=== PATIENT | female | born 1950 | race Caucasian/White ===

== ENCOUNTER → 2016-08-16 | Outpatient (CLI) | payer BC ==
[~2016-08-16] MED LIST: ACET-1222 PO; ASMIN/60 INH; ASPI-461 PO; ATOR-22 PO; ATV1 PO; AZAT50TA5 PO; BUSP-8 PO; CALC-20; CHOL20009; CYAN100T6 PO; DESV50TA PO; DOCU100C PO; DOXE50CA3 PO; GEMF600T PO; GLC/500 PO; GLIP-197 PO; HYDR-4332 PO; LEVO75TA PO; LISI5TAB PO; LUBI8CAP4 PO; METF500T PO; MULTTAB58 PO; OMEP20TA PO; QUET300T2 PO; RANI300T2 PO; RMCI IV; TOPI200T6 PO
[2016-08-16 12:05] LABS: BASO % 1.1 %; BASO ABS # 0.06 K/uL (0-0.2); COMPLETE YES; EOS % 3.9 %; HEMATOCRIT 35.8 % (37-47); IG% 0.6 %; LYMPH % 24.4 %; MEAN CELL VOLUME 83.4 fL (80-100); MEAN CORPUSCULAR HEMOGLOBIN 26.1 pg (25-34); MEAN CORPUSCULAR HGB CONC 31.3 g/dl (32-36); MEAN PLATELET VOLUME 11.4 fL (7.4-10.4); MONO % 15.2 %; NEUT % 54.8 %; PLATELET COUNT 300 K/uL (130-400); RED BLOOD COUNT 4.29 M/uL (4.2-5.4); WHITE BLOOD COUNT 5.32 K/uL (4.8-10.8)
[2016-08-16 12:23] LABS: ALB/GLOB RATIO 0.8 (0.9-2); ALKALINE PHOSPHATASE 148 U/L (45-117); ALT/SGPT 14 U/L (12-78); AST/SGOT 8 U/L (15-37); BLOOD UREA NITROGEN 22 mg/dl (7-18); BUN/CREATININE RATIO 15.4 (10-20); CALCIUM 10.3 mg/dl (8.5-10.1); CARBON DIOXIDE 17 mmol/L (21-32); CHLORIDE 113 mmol/L (98-107); CHOLESTEROL 177 mg/dl (0-200); FERRITIN 5.9 ng/ml (8.0-388.0); GLUCOSE 156 mg/dl (70-99); POTASSIUM 4.1 mmol/L (3.5-5.1); SODIUM 140 mmol/L (136-145); TRIGLYCERIDES 260 mg/dl (0-150); VERY LOW DENSITY LIPOPROT CALC 52 mg/dl
[2016-08-16 12:28] LABS: CHOLESTEROL/HDL RATIO 4.5; HDL CHOLESTEROL 39 mg/dl; LDL CHOLESTEROL CALCULATED 86 mg/dl
[2016-08-16 12:49] LABS: ESTIMATED AVERAGE GLUCOSE 148 mg/dl; HA1C FLAG Normal (Normal)
== END | disposition home or self-care (01) ==
LOC: C.LAB1850 09:59
PROVIDERS: ATTEND Internal Medicine
DX: E03.9 Hypothyroidism, unspecified (principal); E11.9 Type 2 diabetes mellitus without complications; D64.9 Anemia, unspecified

== ENCOUNTER → 2016-10-29 | Outpatient (CLI) | payer BC ==
[2016-10-29 13:17] LABS: HEMATOCRIT 36.6 % (37-47); MEAN CELL VOLUME 86.9 fL (80-100); MEAN CORPUSCULAR HEMOGLOBIN 27.6 pg (25-34); MEAN CORPUSCULAR HGB CONC 31.7 g/dl (32-36); MEAN PLATELET VOLUME 11.7 fL (7.4-10.4); PLATELET COUNT 329 K/uL (130-400); RED BLOOD COUNT 4.21 M/uL (4.2-5.4)
[2016-10-29 14:18] LABS: BLOOD UREA NITROGEN 17 mg/dl (7-18); BUN/CREATININE RATIO 14.5 (10-20); CALCIUM 10.1 mg/dl (8.5-10.1); CARBON DIOXIDE 19 mmol/L (21-32); CHLORIDE 112 mmol/L (98-107); GLUCOSE 145 mg/dl (70-99); POTASSIUM 4.2 mmol/L (3.5-5.1); SODIUM 140 mmol/L (136-145)
[2016-10-29 14:25] LABS: FERRITIN 6.5 ng/ml (8.0-388.0); TOTAL IRON BINDING CAPACITY 473 mcg/dl (250-450)
== END | disposition home or self-care (01) ==
LOC: C.LAB1850 11:43
PROVIDERS: ATTEND Internal Medicine
DX: K50.90 Crohn's disease, unspecified, without complications (principal); E11.9 Type 2 diabetes mellitus without complications

== ENCOUNTER → 2016-10-29 | Outpatient (CLI) | payer BC | END | disposition home or self-care (01) | LOC: C.MAMM 11:14 | PROVIDERS: ATTEND Registered Nurse | DX: M85.852 Other specified disorders of bone density and structure, left thigh (principal); M85.851 Other specified disorders of bone density and structure, right thigh; M85.832 Other specified disorders of bone density and structure, left forearm; K50.90 Crohn's disease, unspecified, without complications; E11.9 Type 2 diabetes mellitus without complications ==

== ENCOUNTER → 2017-01-31 | Outpatient (CLI) | payer BC ==
--- NOTE | 2017-01-31 12:57 | MAMMOGRAPHY REPORT ---
BILATERAL DIGITAL SCREENING MAMMOGRAM WITH CAD: 01/31/2017 TECHNIQUE: Current study was also evaluated with a Computer Aided Detection (CAD) system. Bilateral CC and MLO views were obtained. COMPARISON: Comparison is made to exams dated: 12/14/2015 mammogram, 10/10/2014 mammogram, 10/07/2013 mammogram, 10/02/2012 mammogram, 03/21/2011 mammogram, and 03/17/2009 mammogram - [facility] enter. BREAST COMPOSITION: There are scattered areas of fibroglandular density in both breasts. FINDINGS: No suspicious masses, calcifications, or areas of architectural distortion are noted in ei ther breast. There has been no significant interval change compared to prior exams. IMPRESSION: ACR BI-RADS CATEGORY 1: NEGATIVE There is no mammographic evidence of malignancy. A 1 year screening mammogram is recommended. The pa tient will receive written notification of the results. Approximately 10% of breast cancers are not detected with mammography. A negative mammographic report should not delay biopsy if a clinically suggestive mass is present. Mercedes Mesa M.D. ah/:01/31/2017 12:21:30 [place] Setter: Vidya PATRICK(Quiana)(M), [facility] letter sent: Normal 1/2 BI-RADS Code: ACR BI-RADS Category 1: Negative
== END | disposition home or self-care (01) ==
LOC: C.MAMM 11:21
PROVIDERS: ATTEND Internal Medicine
DX: Z12.31 Encounter for screening mammogram for malignant neoplasm of breast (principal)

== ENCOUNTER → 2017-04-24 | Outpatient (CLI) | payer BC ==
[~2017-04-24] MED LIST changes: +AZAT50TA33 PO; -AZAT50TA5 PO
[2017-04-24 12:39] LABS: BASO % 0.6 %; BASO ABS # 0.03 K/uL (0-0.2); EOS % 5.9 %; HEMOGLOBIN 11.7 g/dL (12.0-16.0); IG# 0.04 K/uL (0.00-0.02); LYMPH % 27.6 %; LYMPH ABS # 1.41 K/uL (1.2-3.4); MEAN CELL VOLUME 89.8 fL (80-100); MEAN CORPUSCULAR HEMOGLOBIN 28.4 pg (25-34); MEAN CORPUSCULAR HGB CONC 31.6 g/dl (32-36); MEAN PLATELET VOLUME 11.1 fL (7.4-10.4); MONO % 12.5 %; MONO ABS # 0.64 K/uL (0.11-0.59); NEUT % 52.6 %; NEUT ABS # 2.69 K/uL (1.4-6.5); PLATELET COUNT 276 K/uL (130-400); RED CELL DISTRIBUTION WIDTH CV 16.4 % (11.5-14.5); RED CELL DISTRIBUTION WIDTH SD 53.8 fL (36.4-46.3); WHITE BLOOD COUNT 5.11 K/uL (4.8-10.8)
[2017-04-24 14:32] LABS: ALT/SGPT 16 U/L (12-78); AST/SGOT 12 U/L (15-37); BLOOD UREA NITROGEN 24 mg/dl (7-18); CALCIUM 9.5 mg/dl (8.5-10.1); CARBON DIOXIDE 20 mmol/L (21-32); CHOLESTEROL 174 mg/dl (0-200); CREATININE 1.34 mg/dl (0.60-1.20); GLUCOSE 152 mg/dl (70-99); POTASSIUM 4.1 mmol/L (3.5-5.1); SODIUM 139 mmol/L (136-145)
[2017-04-24 14:50] LABS: LDL CHOLESTEROL CALCULATED 92 mg/dl
[2017-04-28 10:50] LABS: QUANTIF MITOGEN-NIL 7.49 IU/ML; QUANTIFERON NEGATIVE (NEGATIVE); QUANTIFERON NIL 0.03 IU/ML
== END | disposition home or self-care (01) ==
LOC: C.LABPBG 10:45
PROVIDERS: ATTEND Internal Medicine
DX: E11.9 Type 2 diabetes mellitus without complications (principal); K50.90 Crohn's disease, unspecified, without complications; D64.9 Anemia, unspecified; E78.5 Hyperlipidemia, unspecified; E53.8 Deficiency of other specified B group vitamins; E55.9 Vitamin D deficiency, unspecified; E03.9 Hypothyroidism, unspecified; R42 Dizziness and giddiness; Z11.59 Encounter for screening for other viral diseases

== ENCOUNTER → 2017-06-30 | Outpatient (CLI) | payer BC ==
[~2017-06-30] MED LIST changes: -ASMIN/60 INH; -DOCU100C PO; +FERR1TAB13 PO; +FIBER PO; -HYDR-4332 PO; +MECL1TAB42 PO; +MELO-84 PO; +METH-1305 PO; -RMCI IV; +SUMA100T16 PO; +VEDO1INJ IV
[2017-06-30 14:44] LABS: BASO % 0.8 %; BASO ABS # 0.05 K/uL (0-0.2); EOS % 2.7 %; EOS ABS # 0.16 K/uL (0-0.5); HEMATOCRIT 39.3 % (37-47); HEMOGLOBIN 13.1 g/dL (12.0-16.0); IG# 0.06 K/uL (0.00-0.02); LYMPH % 23.4 %; LYMPH ABS # 1.39 K/uL (1.2-3.4); MEAN CELL VOLUME 91.8 fL (80-100); MEAN CORPUSCULAR HEMOGLOBIN 30.6 pg (25-34); MEAN CORPUSCULAR HGB CONC 33.3 g/dl (32-36); MEAN PLATELET VOLUME 10.9 fL (7.4-10.4); MONO ABS # 0.89 K/uL (0.11-0.59); NEUT % 57.1 %; NEUT ABS # 3.39 K/uL (1.4-6.5); PLATELET COUNT 310 K/uL (130-400); RED CELL DISTRIBUTION WIDTH CV 15.1 % (11.5-14.5); RED CELL DISTRIBUTION WIDTH SD 50.7 fL (36.4-46.3); WHITE BLOOD COUNT 5.94 K/uL (4.8-10.8)
[2017-06-30 14:52] LABS: BLOOD UREA NITROGEN 19 mg/dl (7-18); CALCIUM 9.8 mg/dl (8.5-10.1); CARBON DIOXIDE 20 mmol/L (21-32); CREATININE 1.28 mg/dl (0.60-1.20); GLUCOSE 136 mg/dl (70-99); LIPASE 218 U/L (73-393); POTASSIUM 4.4 mmol/L (3.5-5.1); SODIUM 139 mmol/L (136-145)
[2017-07-02 14:35] LABS: QUANTIF MITOGEN-NIL 8.33 IU/ML; QUANTIFERON NEGATIVE (NEGATIVE); QUANTIFERON NIL 0.03 IU/ML
== END | disposition home or self-care (01) ==
LOC: C.LAB1850 12:37
PROVIDERS: ATTEND Physician Assistant
DX: K50.90 Crohn's disease, unspecified, without complications (principal); E03.9 Hypothyroidism, unspecified; D64.9 Anemia, unspecified

== ENCOUNTER → 2017-07-07 | Day surgery (SDC) | payer BC, OTHER ==
[2017-06-25 16:00] VITALS: BMI 33.0
[~2017-07-07] VITALS: Ht 162.6 cm; Wt 88.2 kg
[~2017-07-07] MED LIST changes: +LIDOCAINE HCL 2% 2 ML VIAL (20MG/ML) ONE; +PROPOFOL IV EMULSION 10 MG/ML 20 ML VIAL ONE; +SODIUM CHLORIDE 0.9% 500ML 500 ML IV ONE
--- NOTE | 2017-07-07 12:55 | Endo History and Physical ---
History & Physical Date of Service: July 07, 2017. Chief Complaint: Dysphagia Referring Physician: Dr. Martinez History of Present Illness 67 yo CF who presents for EGD secondary to dysphagia. Past Medical History Diabetes, Asthma, Gastrointestinal Disorder, Anxiety, Reflux, High Cholesterol, Sleep Apnea, Hypertension, Thyroid Disease, Depression Past Surgical History Hx Cardiac Surgery: No Hx Internal Defibrillator: No Hx Pacemaker: No Hx Abdominal Surgery: Yes (HYSTER) Hx of Implantable Prosthesis: No Hx Post-Op Nausea and Vomiting: No Hx Cancer Surgery: No Hx Thoracic Surgery: No Hx Orthopedic: Yes (BLT KNEE ARTHROSCOPY, RT SHOULDER REPAIR, LT CTR, MID BACK SCREWS AND RODS ) Hx Urinary Tract Surgery: Yes (FISTULA SURGERY) Social History Smoking Status: Never Smoker Hx Substance Use: No Hx Alcohol Use: No Allergies Coded Allergies: Cephalosporins (Verified Allergy, Intermediate, HIVES, 06/25/17) Penicillins (Verified Allergy, Intermediate, HIVES, 06/25/17) Cephalexin (Verified Allergy, Unknown, HIVES, 06/25/17) Doxycycline (Verified Allergy, Unknown, GI UPSET, 06/25/17) Ciprofloxacin (Verified Adverse Reaction, Intermediate, NAUSEA AND VOMITING, 06/25/17) Infliximab (Verified Adverse Reaction, Intermediate, ITCHING, RASH, 06/25/17 ) PT BEGAN C/O ITCHING AROUND IV SITE AND RASH FORMING ON UPPER ABDOMEN,NO SOB DR'S OFFICE NOTIFIED, INSTRUCTED TO HOLD IV INFUSION, REASSESS IN 15 MINS AND IN 30 MINS, THEN CALL BACK, ORDERS OBTAIN IF REACTION INCREASED Supported Current Medications Reported Home Medications Medications Dose Route/Sig Max Daily Dose Days Date Category Dose Instructions Fiber Laxative (Fiber) Ea 2 Tabs PO DAILY 06/25/17 Reported Imitrex (Sumatriptan Succinate) 100 Mg Tab 100 Mg PO PRN PRN 06/25/17 Reported Mobic (Meloxicam) 15 Mg Tab 1 Tab PO DAILY 30 06/25/17 Reported Meclizine Hcl 25 Mg Tab 1 Tab PO TID PRN 10 06/25/17 Reported Kp Ferrous Sulfate (Ferrous Sulfate) 325 Mg Tab 1 Tab PO DAILY 30 06/25/17 Reported Methenamine Hippurate 1 Gm Tab 1 Tab PO QPM 06/25/17 Reported Entyvio (Vedolizumab) 300 Mg Inj 300 Mg IV Q8WK 06/25/17 Reported Lorazepam 1 Mg Tab 1 Mg PO Q6H PRN 10/15/15 Rx Pristiq (Desvenlafaxine Succinate) 50 Mg Tab 100 Mg PO QAM 09/20/15 Reported Amitiza (Lubiprostone) 8 Mcg Cap 16 Mcg PO BID 09/20/15 Reported Vitamin B12 100 Mcg (Cyanocobalamin) 100 Mcg Tab 100 Mcg PO QAM 09/20/15 Reported Seroquel Xr (Quetiapine Fumarate) 300 Mg Tabcr 400 Mg PO HS 03/07/15 Reported Sinequan (Doxepin HCl) 50 Mg Cap 100 Mg PO HS 03/07/15 Reported Synthroid (Levothyroxine Sodium) 75 Mcg Tab 75 Mcg PO QAM 11/15/14 Reported Aspirin 81 Mg Tab 1 Tab PO QAM 11/15/14 Reported Buspirone Hcl 10 Mg Tab 2 Tab PO TID 11/15/14 Reported Glipizide Er (Glipizide) 5 Mg Tab 2 Tab PO QPM 30 10/10/14 Reported Acetaminophen Extra Stren (Acetaminophen) 500 Mg Tab 500 Mg PO Q4 PRN 12/02/12 Reported Zantac (Ranitidine HCl) 300 Mg Tab 300 Mg PO HS 12/02/12 Reported Glucophage (Metformin Hcl) 500 Mg Tab 500 Mg PO QPM 12/02/12 Reported Vitamin D (Cholecalciferol) 2,000 Unit Tab QAM 10/07/12 Reported Multivitamin (Multiple Vitamin) 1 Tab Tab 1 Tab PO QAM 10/07/12 Reported Calcium 600 + D (Calcium Carbonate-Vitamin D) 1 Tab Tab 2 Tablets QPM 10/07/12 Reported Imuran (Azathioprine) 50 Mg Tab 75 Mg PO QAM 10/07/12 Reported Prinivil (Lisinopril) 5 Mg Tab 5 Mg PO QAM 10/07/12 Reported Omeprazole 20 Mg Tab 40 Mg PO QAM 10/07/12 Reported Topamax (Topiramate) 200 Mg Tab 200 Mg PO BID 10/07/12 Reported Lipitor (Atorvastatin Calcium) 20 Mg Tab 20 Mg PO HS 10/07/12 Reported Lopid (Gemfibrozil) 600 Mg Tab 600 Mg PO BID 10/07/12 Reported Glipizide Er (Glipizide) 5 Mg Tab 5 Mg PO QAM 10/07/12 Reported Glucophage (Metformin Hcl) 500 Mg Tab 1,000 Mg PO QAM 10/07/12 Reported takes 2 tablets am Vital Signs Weight (Kilograms): 88.18 Height (Feet): 5 Height (Inches): 4 Physical Exam General Appearance: WD/WN, no apparent distress Respiratory/Chest: Auscultation: breath sounds normal Cardiovascular: Heart Auscultation: RRR Abdomen: Bowel Sounds: normal Inspection & Palpation: soft, non-distended, no tenderness, guarding & rebound Assessment and Plan Assessment: 67 yo CF who presents for EGD secondary to dysphagia. Plan: Proceed with EGD.
[2017-07-07 13:03] VITALS: Ht 162.6 cm; Wt 88.2 kg
--- NOTE | 2017-07-07 13:59 | Discharge Instructions ---
Endoscopy Patient Instructions Date / Procedure(s) Performed July 07, 2017. EGD Allergy Information Coded Allergies: Cephalosporins (Verified Allergy, Intermediate, HIVES, 07/07/17) Penicillins (Verified Allergy, Intermediate, HIVES, 07/07/17) Cephalexin (Verified Allergy, Unknown, HIVES, 07/07/17) Doxycycline (Verified Allergy, Unknown, GI UPSET, 07/07/17) Ciprofloxacin (Verified Adverse Reaction, Intermediate, NAUSEA AND VOMITING, 07/07/17) Infliximab (Verified Adverse Reaction, Intermediate, ITCHING, RASH, ) PT BEGAN C/O ITCHING AROUND IV SITE AND RASH FORMING ON UPPER ABDOMEN,NO SOB DR'S OFFICE NOTIFIED, INSTRUCTED TO HOLD IV INFUSION, REASSESS IN 15 MINS AND IN 30 MINS, THEN CALL BACK, ORDERS OBTAIN IF REACTION INCREASED Supported Discharge Date / Findings July 07, 2017. Schatzki's ring s/p dilation Hiatal hernia Gay esophagitis Medication Instructions 1) Start Diflucan 400mg by mouth today, then 200mg by mouth daily for 20 days. 2) OK to resume all medications today as prescribed Reported Home Medications Medications Dose Route/Sig Max Daily Dose Days Date Category Dose Instructions Fiber Laxative (Fiber) Ea 2 Tabs PO DAILY 06/25/17 Reported Imitrex (Sumatriptan Succinate) 100 Mg Tab 100 Mg PO PRN PRN 06/25/17 Reported Mobic (Meloxicam) 15 Mg Tab 1 Tab PO DAILY 30 06/25/17 Reported Meclizine Hcl 25 Mg Tab 1 Tab PO TID PRN 10 06/25/17 Reported Kp Ferrous Sulfate (Ferrous Sulfate) 325 Mg Tab 1 Tab PO DAILY 30 06/25/17 Reported Methenamine Hippurate 1 Gm Tab 1 Tab PO QPM 06/25/17 Reported Entyvio (Vedolizumab) 300 Mg Inj 300 Mg IV Q8WK 06/25/17 Reported Lorazepam 1 Mg Tab 1 Mg PO Q6H PRN 10/15/15 Rx Pristiq (Desvenlafaxine Succinate) 50 Mg Tab 100 Mg PO QAM 09/20/15 Reported Amitiza (Lubiprostone) 8 Mcg Cap 16 Mcg PO BID 09/20/15 Reported Vitamin B12 100 Mcg (Cyanocobalamin) 100 Mcg Tab 100 Mcg PO QAM 09/20/15 Reported Seroquel Xr (Quetiapine Fumarate) 300 Mg Tabcr 400 Mg PO HS 03/07/15 Reported Sinequan (Doxepin HCl) 50 Mg Cap 100 Mg PO HS 03/07/15 Reported Synthroid (Levothyroxine Sodium) 75 Mcg Tab 75 Mcg PO QAM 11/15/14 Reported Aspirin 81 Mg Tab 1 Tab PO QAM 11/15/14 Reported Buspirone Hcl 10 Mg Tab 2 Tab PO TID 11/15/14 Reported Glipizide Er (Glipizide) 5 Mg Tab 2 Tab PO QPM 30 10/10/14 Reported Acetaminophen Extra Stren (Acetaminophen) 500 Mg Tab 500 Mg PO Q4 PRN 12/02/12 Reported Zantac (Ranitidine HCl) 300 Mg Tab 300 Mg PO HS 12/02/12 Reported Glucophage (Metformin Hcl) 500 Mg Tab 500 Mg PO QPM 12/02/12 Reported Vitamin D (Cholecalciferol) 2,000 Unit Tab QAM 10/07/12 Reported Multivitamin (Multiple Vitamin) 1 Tab Tab 1 Tab PO QAM 10/07/12 Reported Calcium 600 + D (Calcium Carbonate-Vitamin D) 1 Tab Tab 2 Tablets QPM 10/07/12 Reported Imuran (Azathioprine) 50 Mg Tab 75 Mg PO QAM 10/07/12 Reported Prinivil (Lisinopril) 5 Mg Tab 5 Mg PO QAM 10/07/12 Reported Omeprazole 20 Mg Tab 40 Mg PO QAM 10/07/12 Reported Topamax (Topiramate) 200 Mg Tab 200 Mg PO BID 10/07/12 Reported Lipitor (Atorvastatin Calcium) 20 Mg Tab 20 Mg PO HS 10/07/12 Reported Lopid (Gemfibrozil) 600 Mg Tab 600 Mg PO BID 10/07/12 Reported Glipizide Er (Glipizide) 5 Mg Tab 5 Mg PO QAM 10/07/12 Reported Glucophage (Metformin Hcl) 500 Mg Tab 1,000 Mg PO QAM 10/07/12 Reported takes 2 tablets am Provider Instructions Activity Restrictions - No exercising or heavy lifting for 24 hours. - Do not drink alcohol the day of the procedure. - Do not drive a car or operate machinery until the day after the procedure. - Do not make any important decisions or sign important papers in 24 hours after the procedure. Following Day: - Return to full activity which may include returning to work/school. Diet Start your diet with liquids and light foods (jello, soup, juice, toast). Then eat your usual diet if not nauseated. Treatment For Common After Affects For mild abdominal pain, bloating, or excessive gas: - Rest - Eat lightly - Lie on right side Follow-Up Information Follow-up with Dr. Martinez as scheduled Anesthesia Information What You Should Know You have had a procedure that required some medicine to reduce anxiety and discomfort. This treatment is called moderate sedation. After receiving the treatment, you may be sleepy, but you will be able to breathe on your own. The effects of the treatment may last for several hours. Follow these instructions along with Activity/Diet recommendations noted above: * Do NOT do anything where dizziness or clumsiness would be dangerous. * Rest quietly at home today, then you can be up and about tomorrow. * Have a responsible person stay with you the rest of today. * You may have had an I.V. today. If so, you may take the dressing off later today. Recommendations Call your doctor if: * Trouble breathing * Continuous vomiting for more than 24 hours * Temperature above 101 degrees * Severe abdominal pain or bloating * Pain not relieved by pain medicine ordered * There is increased drainage or redness from any incision * A large amount of rectal bleeding greater than 2-3 tablespoons. (If you had a polyp/s removed or have hemorrhoids, a small amount of blood - from the rectum is to be expected.) * You have any unanswered questions or concerns. IN THE EVENT OF A SERIOUS EMERGENCY, GO TO THE NEAREST EMERGENCY ROOM Your discharge instructions were prepared by provider Nathen Og. Patient Instructions Signature Page Shana Cabrera Patient (or Guardian) Signature/Date: I have read and understand the instructions given to me by my caregivers. Caregiver/RN/Doctor Signature/Date: The above-named patient and/or guardian has received patient instructions on this date. + Original Patient Signature Page (only) stays with chart. Please make copy for patient.
--- NOTE | 2017-07-07 14:12 | GI REPORT ---
Patient Name: Shana Cabrera Procedure Date: 07/07/2017 1:35 PM Date of : 1950 Admit Type: Outpatient Age: 67 Gender: Female Attending MD: Nathen Og DO Procedure: Upper GI endoscopy Providers: Nathen Og DO Referring MD: Ashley Mensah Indications: Dysphagia Medicines: Monitored Anesthesia Care Complications: No immediate complications. Estimated Blood Loss: Estimated blood loss: none. Procedure: Pre-Anesthesia Assessment: - Prior to the procedure, a History and Physical was performed, and patient medications and allergies were reviewed. The patient's tolerance of previous anesthesia was also reviewed. The risks and benefits of the procedure and the sedation options and risks were discussed with the patient. All questions were answered, and informed consent was obtained. Prior Anticoagulants: The patient has taken aspirin, last dose was 2 days prior to procedure. ASA Grade Assessment: III - A patient with severe systemic disease. After reviewing the risks and benefits, the patient was deemed in satisfactory condition to undergo the procedure. After obtaining informed consent, the endoscope was passed under direct vision. Throughout the procedure, the patient's blood pressure, pulse, and oxygen saturations were monitored continuously. The scope was introduced through the mouth, and advanced to the second part of duodenum. The upper GI endoscopy was accomplished without difficulty. The patient tolerated the procedure well. Findings: A moderate Schatzki ring (acquired) was found at the gastroesophageal junction. A TTS dilator was passed through the scope. Dilation with an 18-19-20 mm balloon dilator was performed to 20 mm. Patchy candidiasis was found in the entire esophagus. Cells for cytology were obtained by brushing. A medium-sized hiatal hernia was present. Impression: - Moderate Schatzki ring. Dilated. - Monilial esophagitis. Cells for cytology obtained. - Medium-sized hiatal hernia. Recommendation: - Resume previous diet. - Continue present medications. - Start Diflucan 400 mg by mouth today, then 200 mg by mouth daily for 20 days. - Await pathology results from esophageal brushings. - Return to primary care physician as previously scheduled. Nathen Og DO 07/07/2017 2:12:03 PM This report has been signed electronically. Note Initiated On: 07/07/2017 1:35 PM Number of Addenda: 0 I attest to the content of the Intraoperative Record and orders documented therein, exceptions below {[id number]}
--- NOTE | 2017-07-07 14:26 | Anesthesiology Progress Note ---
Anesthesia Post Op Note Date & Time July 07, 2017 at 14:26 Vital Signs Pain Intensity: 0 Vital Signs Past 12 Hours Date Time Temp Pulse Resp B/P (MAP) Pulse Ox O2 Delivery O2 Flow Rate FiO2 07/07/17 14:15 76 18 139/70 (93) 94 Room Air 07/07/17 13:50 74 20 117/66 (83) 92 Room Air 07/07/17 13:10 36.4 82 20 140/65 (90) 93 Room Air Notes Mental Status: alert / awake / arousable, participated in evaluation Pt Amnestic to Procedure: Yes Nausea / Vomiting: adequately controlled Pain: adequately controlled Airway Patency, RR, SpO2: stable & adequate BP & HR: stable & adequate Hydration State: stable & adequate Anesthetic Complications: no major complications apparent
[2017-07-07 14:32] VITALS: BP 130/76; PULSE 75; O2SAT 93
== END | disposition home or self-care (01) ==
LOC: C.GI 12:27
PROVIDERS: ATTEND Internal Medicine
DX: R13.10 Dysphagia, unspecified (principal); K22.2 Esophageal obstruction; K44.9 Diaphragmatic hernia without obstruction or gangrene; B37.81 Candidal esophagitis; E11.9 Type 2 diabetes mellitus without complications; J45.909 Unspecified asthma, uncomplicated; F41.9 Anxiety disorder, unspecified; E78.5 Hyperlipidemia, unspecified; K21.9 Gastro-esophageal reflux disease without esophagitis; E78.00 Pure hypercholesterolemia, unspecified; G47.33 Obstructive sleep apnea (adult) (pediatric); I10 Essential (primary) hypertension; F32.9 Major depressive disorder, single episode, unspecified; E07.9 Disorder of thyroid, unspecified; Z88.0 Allergy status to penicillin; Z88.2 Allergy status to sulfonamides; Z88.1 Allergy status to other antibiotic agents; Z79.84 Long term (current) use of oral hypoglycemic drugs; Z79.899 Other long term (current) drug therapy

== ENCOUNTER → 2017-09-11 | Outpatient (CLI) | payer BC ==
[~2017-09-11] MED LIST changes: +ATV/1 PO; -ATV1 PO; -LIDOCAINE HCL 2% 2 ML VIAL (20MG/ML) ONE; -PROPOFOL IV EMULSION 10 MG/ML 20 ML VIAL ONE; -SODIUM CHLORIDE 0.9% 500ML 500 ML IV ONE
[2017-09-11 12:29] LABS: HEMATOCRIT 39.5 % (37-47); MEAN CELL VOLUME 92.7 fL (80-100); MEAN CORPUSCULAR HEMOGLOBIN 30.5 pg (25-34); MEAN CORPUSCULAR HGB CONC 32.9 g/dl (32-36); MEAN PLATELET VOLUME 11.2 fL (7.4-10.4); PLATELET COUNT 305 K/uL (130-400); RED CELL DISTRIBUTION WIDTH CV 14.5 % (11.5-14.5); RED CELL DISTRIBUTION WIDTH SD 49.1 fL (36.4-46.3); WHITE BLOOD COUNT 5.29 K/uL (4.8-10.8)
[2017-09-11 12:37] LABS: PTT PATIENT 23.6 SECONDS (21.0-31.0)
[2017-09-11 12:39] LABS: BLOOD UREA NITROGEN 19 mg/dl (7-18); CALCIUM 9.9 mg/dl (8.5-10.1); CARBON DIOXIDE 20 mmol/L (21-32); GLUCOSE 144 mg/dl (70-99); POTASSIUM 4.5 mmol/L (3.5-5.1); SODIUM 140 mmol/L (136-145)
[2017-09-11 13:00] LABS: BASO % 0.6 %; BASO ABS # 0.03 K/uL (0-0.2); EOS % 2.5 %; EOS ABS # 0.13 K/uL (0-0.5); IG# 0.03 K/uL (0.00-0.02); LYMPH % 22.9 %; LYMPH ABS # 1.21 K/uL (1.2-3.4); MONO % 14.2 %; MONO ABS # 0.75 K/uL (0.11-0.59); NEUT % 59.2 %; NEUT ABS # 3.14 K/uL (1.4-6.5)
== END | disposition home or self-care (01) ==
LOC: C.CPL 10:34
PROVIDERS: ATTEND Orthopaedic Surgery Orthopaedic Surgery of the Spine
DX: Z01.812 Encounter for preprocedural laboratory examination (principal)

== ENCOUNTER 2017-09-24 05:50 | Inpatient (IN) | payer BC, OTHER ==
[2017-09-08 08:20] VITALS: BMI 34.0
[2017-09-11 10:52] VITALS: BMI 33.0
--- NOTE | 2017-09-11 11:19 | PAT Medication Instructions ---
Service Date Sep 11, 2017. Current Home Medication List Acetaminophen (Acetaminophen Extra Stren), 500 MG PO Q4 PRN Aspirin (Aspirin), 1 TAB PO QAM Atorvastatin (Lipitor), 20 MG PO HS Azathioprine (Imuran), 75 MG PO QAM Buspirone Hcl (Buspirone Hcl), 2 TAB PO TID Calcium Carbonate-Vitamin D (Calcium 600 + D), 2 TABLETS QPM Cholecalciferol (Vitamin D), QAM Cyanocobalamin (Vitamin B12 100 Mcg), 100 MCG PO QAM Desvenlafaxine Succinate Er (Pristiq), 100 MG PO QAM Doxepin (Sinequan), 100 MG PO HS Ferrous Sulfate (Kp Ferrous Sulfate), 1 TAB PO DAILY Fiber Laxative (Fiber Laxative), 2 TABS PO DAILY Gemfibrozil (Lopid), 600 MG PO BID Glipizide (Glipizide Er), 5 MG PO QAM Glipizide (Glipizide Er), 2 TAB PO QPM Levothyroxine Sodium (Synthroid), 75 MCG PO QAM Lisinopril (Prinivil), 5 MG PO QAM Lorazepam (Ativan), 1 MG PO Q6H PRN for Anxiety Lubiprostone (Amitiza), 16 MCG PO BID Meclizine Hcl (Meclizine Hcl), 1 TAB PO TID PRN for Dizziness or Vertigo Meloxicam (Mobic), 1 TAB PO DAILY Metformin Hcl (Glucophage), 1,000 MG PO QAM Metformin Hcl (Glucophage), 500 MG PO QPM Methenamine Hippurate (Methenamine Hippurate), 1 TAB PO QPM Multiple Vitamin (Multivitamin), 1 TAB PO QAM Omeprazole (Omeprazole), 40 MG PO QAM Quetiapine Fumarate (Seroquel Xr), 400 MG PO HS Ranitidine (Zantac), 300 MG PO HS Sumatriptan Succinate (Imitrex), 100 MG PO PRN PRN for Migraine Topiramate (Topamax), 200 MG PO BID Vedolizumab (Entyvio), 300 MG IV Q8WK Medication Instructions For Your Scheduled Surgery -Check with your surgeon for instructions--if told to stop taking, check with prescriber: Azathioprine (Imuran), 75 MG PO QAM Vedolizumab (Entyvio), 300 MG IV Q8WK -Check with your surgeon Meloxicam (Mobic), 1 TAB PO DAILY - Hold the following medications 48 hours prior to surgery: Gemfibrozil (Lopid), 600 MG PO BID - Hold the following medications the morning of surgery: Cholecalciferol (Vitamin D), QAM Cyanocobalamin (Vitamin B12 100 Mcg), 100 MCG PO QAM Fiber Laxative (Fiber Laxative), 2 TABS PO DAILY Glipizide (Glipizide Er), 5 MG PO QAM Lisinopril (Prinivil), 5 MG PO QAM Lubiprostone (Amitiza), 16 MCG PO BID Metformin Hcl (Glucophage), 1,000 MG PO QAM Multiple Vitamin (Multivitamin), 1 TAB PO QAM - Take the following medications the morning of surgery with a sip of water: Acetaminophen (Acetaminophen Extra Stren), 500 MG PO Q4 PRN (if needed, may be taken up to four hours before surgery) Aspirin (Aspirin), 1 TAB PO QAM Buspirone Hcl (Buspirone Hcl), 2 TAB PO TID Desvenlafaxine Succinate Er (Pristiq), 100 MG PO QAM Levothyroxine Sodium (Synthroid), 75 MCG PO QAM Lorazepam (Ativan), 1 MG PO Q6H PRN for Anxiety (if needed) Meclizine Hcl (Meclizine Hcl), 1 TAB PO TID PRN for Dizziness or Vertigo (if needed) Omeprazole (Omeprazole), 40 MG PO QAM Sumatriptan Succinate (Imitrex), 100 MG PO PRN PRN for Migraine (if needed) Topiramate (Topamax), 200 MG PO BID - Take the following medications as scheduled the night before surgery: Acetaminophen (Acetaminophen Extra Stren), 500 MG PO Q4 PRN (if needed) Atorvastatin (Lipitor), 20 MG PO HS Buspirone Hcl (Buspirone Hcl), 2 TAB PO TID Calcium Carbonate-Vitamin D (Calcium 600 + D), 2 TABLETS QPM Doxepin (Sinequan), 100 MG PO HS Ferrous Sulfate (Kp Ferrous Sulfate), 1 TAB PO DAILY Glipizide (Glipizide Er), 2 TAB PO QPM Lorazepam (Ativan), 1 MG PO Q6H PRN for Anxiety (if needed) Lubiprostone (Amitiza), 16 MCG PO BID Meclizine Hcl (Meclizine Hcl), 1 TAB PO TID PRN for Dizziness or Vertigo (if needed) Metformin Hcl (Glucophage), 500 MG PO QPM Methenamine Hippurate (Methenamine Hippurate), 1 TAB PO QPM Quetiapine Fumarate (Seroquel Xr), 400 MG PO HS Ranitidine (Zantac), 300 MG PO HS Sumatriptan Succinate (Imitrex), 100 MG PO PRN PRN for Migraine (if needed) Topiramate (Topamax), 200 MG PO BID If you have any questions please call us at [phone] or [phone] or [phone]
[2017-09-24] VITALS (10 sets, daily range): BP systolic 109–153; BP diastolic 66–94; PULSE 67–91; TEMP 36.1–36.9; O2SAT 92–99; Ht 162.6 cm; Wt 86.8 kg
[~2017-09-24] VITALS: Ht 162.6 cm; Wt 86.8 kg
[2017-09-24] MEDS ORDERED: ACETAMINOPHEN 500 MG TAB PO SCH (06:00)
[2017-09-24] MEDS ORDERED: CLINDAMYCIN 600 MG/54 ML D5W 54 ML IV SCH (06:00)
[2017-09-24] MEDS ORDERED: CeleBREX 200 MG CAP PO SCH (06:00)
[2017-09-24] MEDS ORDERED: LACTATED RINGER'S 1000ML 1,000 ML IV SCH (06:00)
[2017-09-24] MEDS ORDERED: GABAPENTIN 300 MG CAP PO SCH (06:00)
[2017-09-24] MEDS ORDERED: ATROPINE SULFATE 0.1 MG/ML 5ML SYR IV PRN (06:45)
[2017-09-24] MEDS ORDERED: EpHEDrine SULFATE INJ 50 MG/ML AMP IV PRN (06:45)
[2017-09-24] MEDS ORDERED: ONDANSETRON INJ 2 MG/ML 2 ML VIAL IV PRN (06:45)
[2017-09-24] MEDS ORDERED: FENTANYL CITRATE INJ 50 MCG/1 ML 2 ML VIAL ONE ×3 (06:55→09:22)
[2017-09-24] MEDS ORDERED: MIDAZOLAM HCL 1 MG/ML 2ML VIAL ONE (06:55)
[2017-09-24] MEDS ORDERED: BACITRACIN 50000 UNIT VIAL ONE ×2 (07:01→09:47)
[2017-09-24] MEDS ORDERED: BUPIVACAINE/EPINEPHRINE 0.5% MPF 1:200,000 30 ML VIAL ONE (07:01)
--- NOTE | 2017-09-24 07:31 | History & Physical Bridge Note ---
H&P Re-Evaluation Bridge Note: I have examined the patient, reviewed the History & Physical and in the interval since the performance of the History & Physical I have noted the following changes of clinical significance: No changes noted
--- NOTE | 2017-09-24 07:32 | History and Physical ---
History & Physical Date Sep 24, 2017. Chief Complaint Back and leg pain History of Present Illness The patient is a 67 year old female with complaints of back and leg pain Past Medical/Surgical History Medical Problems: (1) Lumbar stenosis with neurogenic claudication Additional History Hepatic Disease: No Endocrine Disorder: No Kidney Disease: No Hypertension: Yes Heart Disease: No Bleeding Tendencies: No Infectious Diseases: No Other: Diabetes Allergies Coded Allergies: Cephalosporins (Verified Allergy, Intermediate, HIVES, 09/24/17) Penicillins (Verified Allergy, Intermediate, HIVES, 09/24/17) Cephalexin (Verified Allergy, Unknown, HIVES, 09/24/17) Doxycycline (Verified Allergy, Unknown, GI UPSET, 09/24/17) Ciprofloxacin (Verified Adverse Reaction, Intermediate, NAUSEA AND VOMITING, 09/24/17) Infliximab (Verified Adverse Reaction, Intermediate, ITCHING, RASH, 09/24/17 ) PT BEGAN C/O ITCHING AROUND IV SITE AND RASH FORMING ON UPPER ABDOMEN,NO SOB DR'S OFFICE NOTIFIED, INSTRUCTED TO HOLD IV INFUSION, REASSESS IN 15 MINS AND IN 30 MINS, THEN CALL BACK, ORDERS OBTAIN IF REACTION INCREASED Supported Home Medications Scheduled Aspirin (Aspirin), 1 TAB PO QAM Atorvastatin (Lipitor), 20 MG PO HS Azathioprine (Imuran), 75 MG PO QAM Buspirone Hcl (Buspirone Hcl), 2 TAB PO TID Calcium Carbonate-Vitamin D (Calcium 600 + D), 2 TABLETS QPM Cholecalciferol (Vitamin D), QAM Cyanocobalamin (Vitamin B12 100 Mcg), 100 MCG PO QAM Desvenlafaxine Succinate Er (Pristiq), 100 MG PO QAM Doxepin (Sinequan), 100 MG PO HS Ferrous Sulfate (Kp Ferrous Sulfate), 1 TAB PO DAILY Fiber Laxative (Fiber Laxative), 2 TABS PO DAILY Gemfibrozil (Lopid), 600 MG PO BID Glipizide (Glipizide Er), 5 MG PO QAM Glipizide (Glipizide Er), 2 TAB PO QPM Levothyroxine Sodium (Synthroid), 75 MCG PO QAM Lisinopril (Prinivil), 5 MG PO QAM Lubiprostone (Amitiza), 16 MCG PO BID Meloxicam (Mobic), 1 TAB PO DAILY Metformin Hcl (Glucophage), 1,000 MG PO QAM Metformin Hcl (Glucophage), 500 MG PO QPM Methenamine Hippurate (Methenamine Hippurate), 1 TAB PO QPM Multiple Vitamin (Multivitamin), 1 TAB PO QAM Omeprazole (Omeprazole), 40 MG PO QAM Quetiapine Fumarate (Seroquel Xr), 400 MG PO HS Ranitidine (Zantac), 300 MG PO HS Topiramate (Topamax), 200 MG PO BID Vedolizumab (Entyvio), 300 MG IV Q8WK Scheduled PRN Acetaminophen (Acetaminophen Extra Stren), 500 MG PO Q4 PRN Lorazepam (Ativan), 1 MG PO Q6H PRN for Anxiety Meclizine Hcl (Meclizine Hcl), 1 TAB PO TID PRN for Dizziness or Vertigo Sumatriptan Succinate (Imitrex), 100 MG PO PRN PRN for Migraine Physical Examination Skin: warm/dry, no rash Eyes: normal inspection, EOMI, sclerae normal ENT: normal ENT inspection, pharynx normal Head: normocephalic, atraumatic Neck: supple, no adenopathy, trachea midline Respiratory/Chest: lungs clear, normal breath sounds, no respiratory distress Cardiovascular: regular rate, rhythm, no edema, no murmur Abdomen / GI: normal bowel sounds, non tender Back: normal inspection Extremities: normal inspection, normal range of motion Neurologic/Psych: no motor/sensory deficits, alert, normal reflexes, oriented x 3 Diagnosis Lumbar spinal stenosis Plan of Treatment Removal of hardware L2 screws decompression L1-2 fusion T11-L3
[2017-09-24] MEDS ORDERED: HYDROmorphone INJ 2 MG/ML SYR/VIAL ONE ×2 (08:10→09:22)
[2017-09-24] MEDS ORDERED: BUPIVACAINE 0.5 % 5 MG/1 ML PF 10ML VIAL ONE (08:14)
[2017-09-24] MEDS ORDERED: SODIUM CHLORIDE 0.9% PF 50 ML VIAL ONE (08:14)
[2017-09-24] MEDS ORDERED: BUPIVACAINE LIPOSOME 1/3% 266 MG/20 ML VIAL ONE (08:14)
[2017-09-24] MEDS ORDERED: DEXAMETHASONE SOD INJ 4 MG/ML VIAL ONE (09:37)
[2017-09-24] MEDS ORDERED: LIDOCAINE HCL 2% 2 ML VIAL (20MG/ML) ONE (09:37)
[2017-09-24] MEDS ORDERED: ONDANSETRON INJ 2 MG/ML 2 ML VIAL ONE (09:37)
[2017-09-24] MEDS ORDERED: EpHEDrine SULFATE 50MG/5ML SYR ONE (09:37)
[2017-09-24] MEDS ORDERED: PROPOFOL IV EMULSION 10 MG/ML 20 ML VIAL ONE (09:37)
[2017-09-24] MEDS ORDERED: ROCURONIUM BROMIDE 10 MG/ML 5 ML VIAL ONE (09:37)
--- NOTE | 2017-09-24 09:56 | [facility] Operative Report ---
Operative Report Operative Date Sep 24, 2017. Pre-Operative Diagnosis Lumbar spinal stenosis Post-Operative Diagnosis Lumbar spinal stenosis Procedure(s) Performed 1. Removal of posterior instrumentation connector and screw L2. #2 exploration of fusion L2-3. #3 lumbar decompression medial facetectomies foraminotomies T12-L1 L1 to. #4 posterior spinal fusion T11-L3. #5 placement posterior segmental instrumentation T11-L2. #6 interbody fusion L1 to. #7 placement peek cage 9 x 22 mm L1 to. #8 placement of local autograft in the posterior lateral gutters. #9 placement of infuse collagen sponge combined master graft the posterior gutters and ostial amp in the interbody space. Surgeon Dr. Arnold Racking Machine Operator Surgeon(s) Mitzi Pulido PA-C Estimated Blood Loss 300 ml Findings Severe spinal stenosis Specimens a. explanted hardware- spine Anesthesia Type General Description of Procedure Patient was met with preoperatively case discussed all questions addressed. After informed consent obtained patient was taken to the operative suite underwent intubation placed in the prone position the Gideon table on top of the Mikie frame. All bony prominences well-padded eyes inspected to ensure no external pressure placed upon. This point the thoracolumbar spine was prepped and draped in normal sterile fashion. Dissection with the assistance of Bovie cautery was performed down to and exposing the lamina and transverse processes of T11-T12 L1 and instrumentation at L2-3. Then proceeded remove the connector and pedicle screw from L2 bilaterally. Explored the fusion mass between 2 and 3 noting it to be intact. Then performed complete laminectomy of L1 partial laminectomy with T12 addressing left severe lateral recess stenosis and facet hypertrophy. Pedicle screws in place and T11-T12 and L1 bilaterally with the assistance of fluoroscopy and through a transforaminal approach and left complete discectomy of L1-2 was performed endplates created to subcortical bleeding bone in the 9 x 22 mm peek cage filled with ostium bone graft tapped in position. Probe size rods were then contoured and locked in position bilaterally. This included barrel connectors to the previous rods at L2-3. Lamina and transverse processes of T11 T12-L1 and 2 were then burred to subcortical bleeding bone. Infuse collagen sponge master graft local autograft placed in the posterior gutters. Approximately 150 cc of Exparel injected into the musculature 15 round RUSLAN drain inserted. Incision was then closed with 1 Vicryl fascia 2-0 Vicryl subcutaneously and 4 Monocryl for fashion closure Steri -Strips sterile dressings placed. Patient weakened taken PACU in a stable condition. Please note Mitzi Hoyos was present at the entire procedure involved in patient positioning complex portions of the surgery and final skin closure. I attest to the content of the Intraoperative Record and any orders documented therein. Any exceptions are noted below.
[2017-09-24] MEDS ORDERED: SOD PHOSPHATE/SOD BIPHOSPHATE ENEMA 132 ML BTL PR PRN (10:00)
[2017-09-24] MEDS ORDERED: hydrOXYzine HCL 25 MG TAB PO PRN (10:00)
[2017-09-24] MEDS ORDERED: LORAZEPAM INJ 0.5 MG in SYRINGE 0 ML IV PRN (10:00)
[2017-09-24] MEDS ORDERED: VEDOLIZUMAB 300 MG/VIAL INJ IV SCH (10:00)
[2017-09-24] MEDS ORDERED: BISACODYL 10 MG SUPP PR PRN (10:00)
[2017-09-24] MEDS ORDERED: LORAZEPAM 0.5 MG TAB PO PRN (10:00)
[2017-09-24] MEDS ORDERED: FLOSEAL HEMOSTATIC MATRIX 10ML TOP ONE (10:00)
[2017-09-24] MEDS ORDERED: MAGNESIUM HYDROXIDE SUSP 30 ML UDC PO PRN (10:00)
[2017-09-24] MEDS ORDERED: SUMATRIPTAN SUCC TAB 100 MG TAB PO PRN (10:00)
[2017-09-24] MEDS ORDERED: MECLIZINE HCL 12.5 MG TAB PO PRN (10:00)
[2017-09-24] MEDS ORDERED: PROMETHAZINE HCL INJ 12.5 MG in SODIUM CHLORIDE 0.9% 50ML 50 ML IV PRN (10:00)
[2017-09-24] MEDS ORDERED: FAMOTIDINE 20 MG TAB PO PRN (10:00)
[2017-09-24] MEDS ORDERED: NALOXONE HCL 0.4 MG/1 ML VIAL/CARP IV PRN (10:00)
[2017-09-24] MEDS ORDERED: ACETAMINOPHEN IV 100 ML IV PRN (10:00)
[2017-09-24] MEDS ORDERED: DO NOT ADMINISTER PNEUMOCOCCAL VACCINE PRN (10:00)
[2017-09-24] MEDS ORDERED: DO NOT ADMINISTER FLU VACCINE PRN (10:00)
[2017-09-24] MEDS ORDERED: ALUMINUM/MAGNESIUM SUSP 30 ML UDC PO PRN (10:00)
[2017-09-24] MEDS ORDERED: LORAZEPAM 1 MG TAB PO PRN (10:00)
[2017-09-24] MEDS ORDERED: METOCLOPRAMIDE HCL INJ 5 MG/ML 2 ML VIAL IV PRN (10:00)
[2017-09-24] MEDS ORDERED: ESMOLOL HCL 10 MG/ML 10 ML VIAL ONE (10:21)
[2017-09-24] MEDS: FENTANYL CITRATE INJ 50 MCG/1 ML 2 ML VIAL IV PRN ×2 (10:45→10:52)
--- NOTE | 2017-09-24 11:00 | DIAGNOSTIC IMAGING REPORT ---
LUMBAR SPINE 2 OR 3 VIEW CLINICAL HISTORY: 67 years-old Female presenting with L2 REMOVE HARDWARE/T11-L2 DECOMPRESSION/FUSION. TECHNIQUE: 3 fluoroscopic image(s) recorded as part of an intraoperative procedure. COMPARISON: 10/13/2015. FINDINGS/IMPRESSION: Posterior transpedicular screw and fixation extending from T11 to at least L3. A barrel connector is evident at the level of T12. Wedging deformity of T12 noted. Interbody spacers at T11-12 and L1-2. Please see surgical report for further details. Fluoroscopy dosage (mGy): 27.32. Fluoroscopy time: 30.7 seconds. Number or time of fluoroscopic spot images: 0. Electronically signed by: Heber Maravilla M.D. 09/24/2017 10:59 AM Dictated Date/Time: 09/24/2017 10:56 AM
--- NOTE | 2017-09-24 11:42 | Anesthesiology Progress Note ---
Anesthesia Post Op Note Date & Time Sep 24, 2017 at 11:42 Vital Signs Pain Intensity: 2 Vital Signs Past 12 Hours Date Time Temp Pulse Resp B/P (MAP) Pulse Ox O2 Delivery O2 Flow Rate FiO2 09/24/17 11:25 36.6 69 16 143/74 (97) 96 Nasal Cannula 4.0 09/24/17 11:11 159/50 09/24/17 11:09 57 10 09/24/17 11:09 57 10 96 09/24/17 11:06 174/57 09/24/17 11:04 66 25 96 09/24/17 11:04 68 25 09/24/17 11:01 158/57 09/24/17 10:59 84 27 09/24/17 10:59 80 27 96 09/24/17 10:58 154/67 09/24/17 10:57 89 21 94 09/24/17 10:57 90 21 09/24/17 10:56 187/69 09/24/17 10:56 36.6 83 6 154/67 (84) 95 Nasal Cannula 4 09/24/17 10:52 66 14 09/24/17 10:52 67 14 95 09/24/17 10:51 172/82 09/24/17 10:50 60 15 09/24/17 10:50 61 15 92 09/24/17 10:49 180/70 09/24/17 10:46 182/69 09/24/17 10:45 60 12 09/24/17 10:45 59 12 97 09/24/17 10:41 185/66 09/24/17 10:40 63 16 09/24/17 10:40 63 16 98 09/24/17 10:36 166/72 09/24/17 10:35 68 21 97 09/24/17 10:35 69 21 09/24/17 10:34 185/164 09/24/17 10:32 163/67 09/24/17 10:31 74 18 98 09/24/17 10:31 75 18 09/24/17 10:26 73 14 09/24/17 10:26 73 14 107/94 97 09/24/17 10:21 75 19 145/67 99 09/24/17 10:21 75 19 09/24/17 10:17 191/80 09/24/17 10:16 74 17 09/24/17 10:16 36.2 73 14 191/80 (94) 98 Oxymask 10 09/24/17 10:16 74 17 98 09/24/17 06:24 36.1 79 18 153/94 95 Room Air Notes Mental Status: alert / awake / arousable, participated in evaluation Pt Amnestic to Procedure: Yes Nausea / Vomiting: adequately controlled Pain: adequately controlled Airway Patency, RR, SpO2: stable & adequate BP & HR: stable & adequate Hydration State: stable & adequate Anesthetic Complications: no major complications apparent
[2017-09-24] MEDS ORDERED: DC ALL PREVIOUSLY ORDERED DIABETES MEDS ONE (12:15)
[2017-09-24] MEDS ORDERED: GLUCOSE 10 TABS/TUBE PO PRN (12:15)
[2017-09-24] MEDS ORDERED: GLUCOSE 40% GEL 15 GM TUBE PO PRN (12:15)
[2017-09-24] MEDS ORDERED: DEXTROSE 50% 50 ML SYR IV PRN (12:15)
[2017-09-24] MEDS ORDERED: CARBOHYDRATES FOR HYPOGLYCEMIA PO PRN (12:15)
[2017-09-24] MEDS ORDERED: GLUCAGON FOR INJ 1 MG VIAL SQ PRN (12:15)
[2017-09-24] MEDS: OXYCODONE HCL IR 5 MG TAB (IMMEDIATE RELEASE) PO PRN ×2 (12:20→18:24)
--- NOTE | 2017-09-24 12:26 | Medical Consult ---
Consultation Date of Consultation: Sep 24, 2017. Attending Physician: Agustín Arnold D.O. Reason for Consultation: medical management History of Present Illness We have been asked by Dr. Arnold to see Shana Cabrera for assistance with medical management. Patient is a 67yo C female with history of DM, HTN, HLP, Hypothyroidism, Anxiety/Depression and GERD, chronic low back pain, lumbar spinal stenosis with radicular symptoms who underwent an L1-L2 decompression with fusion T11-L3 performed today. Procedure was well tolerated, no complications identified. Patient is now back in her room, feeling ok. Complains that her pain is 7/10 at present, no numbness/tingling or weakness. No nausea. She has not eaten yet. No BM or flatus. No additional complaints at this time. Past Medical/Surgical History Diabetes Type I - on oral agents at home, AIC = 7 (04/24/17) Asthma Anxiety Depression GERD Hyperlipidemia ALOK Hypothyroidism Depression Crohns Past Surgical History: Lumbar decompression and fusion Pituitary surgery Hysterectomy Knee Shoulder CTS Vaginal fistula repair Family History FHx: heart disease Social History Smoking Status: Never Smoker Smokeless Tobacco Use: No Alcohol Use: none Drug Use: none Marital Status: single Housing Status: lives alone Allergies Coded Allergies: Cephalosporins (Verified Allergy, Intermediate, HIVES, 09/24/17) Penicillins (Verified Allergy, Intermediate, HIVES, 09/24/17) Cephalexin (Verified Allergy, Unknown, HIVES, 09/24/17) Doxycycline (Verified Allergy, Unknown, GI UPSET, 09/24/17) Ciprofloxacin (Verified Adverse Reaction, Intermediate, NAUSEA AND VOMITING, 09/24/17) Infliximab (Verified Adverse Reaction, Intermediate, ITCHING, RASH, 09/24/17 ) PT BEGAN C/O ITCHING AROUND IV SITE AND RASH FORMING ON UPPER ABDOMEN,NO SOB DR'S OFFICE NOTIFIED, INSTRUCTED TO HOLD IV INFUSION, REASSESS IN 15 MINS AND IN 30 MINS, THEN CALL BACK, ORDERS OBTAIN IF REACTION INCREASED Supported Home Medications Tylenol PRN Imuran 75mg AM Vitamin B12 Mobic PRN Metformin 1000mg po qAM, 500mg po qPM Calcium carbonate Vitamin D Pristiq Ferrous sulfate Glipizide Amitiza Current Inpatient Medications Current Inpatient Medications Medications (Trade) Dose Ordered Sig/Dagoberto Route Start Time Stop Time Status Last Admin Dose Admin Clindamycin Phosphate 600 mg/ Dextrose 54 ml @ 100 mls/hr Q8H IV 09/24/17 16:00 09/25/17 00:33 Promethazine HCl 12.5 mg/Sodium Chloride 50.5 ml @ 202 mls/hr Q6H PRN IV 09/24/17 10:00 10/24/17 09:59 Ondansetron HCl (Zofran Inj) 4 mg Q6H PRN IV 09/24/17 10:00 10/24/17 09:59 Metoclopramide HCl (Reglan Inj) 10 mg Q6H PRN IV 09/24/17 10:00 10/24/17 09:59 Lorazepam 0.5 mg/ Syringe 0.25 ml @ 1 mls/min Q8H PRN IV 09/24/17 10:00 10/24/17 09:59 Pneumococcal Polysaccharide Vaccine 1 ea PRN PRN N/A 09/24/17 10:00 10/24/17 09:59 Influenza Virus Vacc Triv Types A&B 1 ea PRN PRN N/A 09/24/17 10:00 10/24/17 09:59 Polyethylene (Miralax Powder Packet) 17 gm Q6 PO 09/26/17 06:00 10/26/17 05:59 Bisacodyl (Dulcolax Supp) 10 mg DAILY PRN ME 09/24/17 10:00 10/24/17 09:59 Magnesium Hydroxide (Milk Of Magnesia Susp) 30 ml DAILY PRN PO 09/24/17 10:00 10/24/17 09:59 Hydromorphone HCl (Dilaudid Inj) 0.5-1mg prn moder... Q3H PRN IV 09/24/17 10:30 10/08/17 10:29 Oxycodone HCl (Roxicodone Immediate Rel Tab) 5-10mg prn moderate to sev... Q4H PRN PO 09/24/17 10:30 10/08/17 10:29 Sodium Chloride 1,000 ml @ 150 mls/hr Q6H40M IV 09/24/17 09:56 10/24/17 09:55 Acetaminophen (Tylenol Tab) 1,000 mg Q8H PRN PO 09/24/17 10:00 10/24/17 09:59 Acetaminophen 100 ml @ 400 mls/hr Q8H PRN IV 09/24/17 10:00 10/24/17 09:59 Naloxone HCl (Narcan Inj) 0.1 mg Q5M PRN IV 09/24/17 10:00 10/24/17 09:59 Senna/Docusate Sodium (Senokot S Tab) 2 tab HS PO 09/24/17 21:00 10/24/17 20:59 Sodium Biphosphate/ Sodium Phosphate (Fleet Enema) 132 ml ONE PRN ME 09/24/17 10:00 10/24/17 09:59 Hydroxyzine HCl (Vistaril Tab) 25 mg Q8H PRN PO 09/24/17 10:00 10/24/17 09:59 Al Hydroxide/Mg Hydroxide (Maalox Susp) 30 ml Q6H PRN PO 09/24/17 10:00 10/24/17 09:59 Famotidine (Pepcid Tab) 20 mg Q12 PRN PO 09/24/17 10:00 10/24/17 09:59 Diphenhydramine HCl (Benadryl Cap) 25 mg Q6H PRN PO 09/24/17 10:00 10/24/17 09:59 Aspirin (Ecotrin Tab) 81 mg QAM PO 09/25/17 09:00 10/25/17 08:59 Atorvastatin Calcium (Lipitor Tab) 20 mg HS PO 09/24/17 21:00 10/24/17 20:59 Doxepin HCl (Sinequan Cap) 100 mg HS PO 09/24/17 21:00 10/24/17 20:59 Gemfibrozil (Lopid Tab) 600 mg BID PO 09/24/17 21:00 10/24/17 20:59 Levothyroxine Sodium (Synthroid Tab) 75 mcg DAILYBB PO 09/25/17 06:00 10/25/17 05:59 Lisinopril (Zestril Tab) 5 mg QAM PO 09/25/17 09:00 10/25/17 08:59 Lorazepam (Ativan Tab) 1 mg Q6H PRN PO 09/24/17 10:00 10/24/17 09:59 Meclizine HCl (Antivert Tab) 25 mg TID PRN PO 09/24/17 10:00 10/24/17 09:59 Methenamine Hippurate (Urex Tab) 1 gm QPM PO 09/24/17 21:00 09/25/17 20:59 Multivitamins (Multivitamin Tab) 1 tab QAM PO 09/25/17 09:00 10/25/17 08:59 Quetiapine Fumarate (seroQUEL TAB) 400 mg HS PO 09/24/17 21:00 10/24/17 20:59 Sumatriptan Succinate (Imitrex Tab) 100 mg PRN PRN PO 09/24/17 10:00 10/24/17 09:59 Topiramate (Topamax Tab) 200 mg BID PO 09/24/17 21:00 10/24/17 20:59 Buspirone HCl (Buspar Tab) 20 mg TID PO 09/24/17 14:00 10/24/17 13:59 Pantoprazole Sodium (Protonix Tab) 40 mg QAM PO 09/25/17 09:00 10/25/17 08:59 Ranitidine HCl (zANTac TAB) 300 mg HS PO 09/24/17 21:00 10/24/17 20:59 Review of Systems Constitutional: No fever, No chills, No sweats Eyes: No worsening of vision Respiratory: No cough, No shortness of breath, No dyspnea on exertion Cardiovascular: No chest pain, No palpitations Abdomen: + constipation, No pain, No nausea, No vomiting, No diarrhea Musculoskeletal: No joint pain Genitourinary - Female: No dysuria, No urinary frequency Neurologic: No weakness Endocrine: No fatigue Hematologic / Lymphatic: No abnormal bleeding/bruising Integumentary: No rash Physical Exam Date Time Temp Pulse Resp B/P (MAP) Pulse Ox O2 Delivery O2 Flow Rate FiO2 09/24/17 11:25 Nasal Cannula 4.0 09/24/17 11:25 Nasal Cannula 4.0 09/24/17 11:25 36.6 69 16 143/74 (97) 96 Nasal Cannula 4.0 09/24/17 11:11 159/50 09/24/17 11:09 57 10 09/24/17 11:09 57 10 96 09/24/17 11:06 174/57 09/24/17 11:04 66 25 96 09/24/17 11:04 68 25 09/24/17 11:01 158/57 09/24/17 10:59 84 27 09/24/17 10:59 80 27 96 09/24/17 10:58 154/67 09/24/17 10:57 89 21 94 09/24/17 10:57 90 21 09/24/17 10:56 187/69 09/24/17 10:56 36.6 83 6 154/67 (84) 95 Nasal Cannula 4 09/24/17 10:52 66 14 09/24/17 10:52 67 14 95 09/24/17 10:51 172/82 09/24/17 10:50 60 15 09/24/17 10:50 61 15 92 09/24/17 10:49 180/70 09/24/17 10:46 182/69 09/24/17 10:45 60 12 09/24/17 10:45 59 12 97 09/24/17 10:41 185/66 09/24/17 10:40 63 16 09/24/17 10:40 63 16 98 09/24/17 10:36 166/72 09/24/17 10:35 68 21 97 09/24/17 10:35 69 21 09/24/17 10:34 185/164 09/24/17 10:32 163/67 09/24/17 10:31 74 18 98 09/24/17 10:31 75 18 09/24/17 10:26 73 14 09/24/17 10:26 73 14 107/94 97 09/24/17 10:21 75 19 145/67 99 09/24/17 10:21 75 19 09/24/17 10:17 191/80 09/24/17 10:16 74 17 09/24/17 10:16 36.2 73 14 191/80 (94) 98 Oxymask 10 09/24/17 10:16 74 17 98 09/24/17 06:24 36.1 79 18 153/94 95 Room Air General Appearance: WD/WN, no apparent distress Head: normocephalic, atraumatic Eyes: normal inspection, PERRL, EOMI, sclerae normal ENT: normal ENT inspection, hearing grossly normal, pharynx normal Neck: supple, no adenopathy, thyroid normal, no JVD, trachea midline Respiratory/Chest: chest non-tender, lungs clear, normal breath sounds, no respiratory distress, no accessory muscle use Cardiovascular: regular rate, rhythm, no edema, no gallop, no JVD, normal peripheral pulses, + pertinent finding (+2/6 MEGAN at left sternal border) Abdomen/GI: normal bowel sounds, non tender, soft, no organomegaly Back: + pertinent finding (RUSLAN drain with small amount of bloody output) Extremities/Musculoskelatal: normal inspection, no calf tenderness, no pedal edema, non-tender Neurologic/Psych: no motor/sensory deficits, normal mood/affect, oriented x 3 Skin: normal color, warm/dry, no rash Laboratory Results Last 24 Hours Test 09/24/17 06:12 09/24/17 10:20 Bedside Glucose 218 mg/dl 213 mg/dl Assessment & Plan 67yo female s/p L1-L2 decompression with T11-L3 fusion. Procedure well tolerated, no complications. 1. S/p decompression and fusion -Pain, nausea and bowel management per primary team -Activity instruction per primary team 2. Diabetes - blood sugar presently elevated at 296. Patient is on oral agents at home, Metformin and Glipizide withe adequate control. HgAIC=7 on -Hold oral agent -Lantus 12 units BID -Novolog sliding scale with correction factor of 25, carb ratio of 9 based on weight and stress level of 2 -Continue to monitor blood sugars qAM, qAC, goal range of 80-140, will adjust insulin as needed -Continue ASA 81mg daily 3. Hypertension - patient mildly hypertensive at 143/74 -Pain control as above -Continue Lisinopril 5mg po daily -Continue to monitor 4. Hyperlipidemia - chronic -Continue Lipitor 20mg po daily and Gemfibrozil 60mg po BID 5. GERD - stable, chronic -Continue Protonix and Ranitidine daily 6. Hypothyroidism - stable, chronic -Continue Synthroid 75mcg po daily 7. Anxiety/depression - chronic -Continue Buspirone and Seroquel -Continue Topamax for headache prophylaxis 8. UTI suppressive therapy with Methenamine 9. Crohns - continue Imuran Thank you for this consult. We will continue to follow.
[2017-09-24] MEDS: INSULIN ASPART 100 UNITS/ML 3 ML PEN SC SCH ×3 (13:19→21:09)
[2017-09-24] MEDS: SODIUM CHLORIDE 0.9% 1000ML 1,000 ML IV SCH ×2 (13:25→20:15)
[2017-09-24] MEDS: HYDROmorphone INJ 0.5 MG/0.5 ML SYR IV PRN ×2 (15:51→20:16)
[2017-09-24] MEDS: CLINDAMYCIN IV 600 MG in DEXTROSE 5% 50ML 50 ML IV SCH (15:51)
[2017-09-24] MEDS ORDERED: NURSING DECISION MEDICATION ORDER SCH (18:15)
[2017-09-24] MEDS ORDERED: COUGH DROP (SUGAR FREE) LOZ 24 LOZ/1 BOX LOZ PRN (18:15)
[2017-09-24] MEDS ORDERED: METHENAMINE HIPPURATE 1 GM TAB PO SCH (21:00)
[2017-09-24] MEDS: INSULIN GLARGINE SOLOSTAR 100 UNITS/ML 3 ML PEN SC SCH (21:08)
[2017-09-24] MEDS: ATORVASTATIN 20 MG TAB PO SCH (21:11)
[2017-09-24] MEDS: GEMFIBROZIL 600 MG TAB PO SCH (21:11)
[2017-09-24] MEDS: DOCUSATE SODIUM/SENNA 50/8.6MG TAB PO SCH (21:12)
[2017-09-24] MEDS: RANITIDINE HCL 150 MG TAB PO SCH (21:12)
[2017-09-24] MEDS: QUETIAPINE FUMARATE 200 MG TAB PO SCH (21:13)
[2017-09-24] MEDS: TOPIRAMATE 100 MG TAB PO SCH (21:13)
[2017-09-24] MEDS: DOXEPIN HCL 50 MG CAP PO SCH (21:13)
[2017-09-24] MEDS ORDERED: NURSING VERBAL MED ORDER ONE (21:30)
[2017-09-25] MEDS: CLINDAMYCIN IV 600 MG in DEXTROSE 5% 50ML 50 ML IV SCH (00:17)
[2017-09-25] MEDS: HYDROmorphone INJ 0.5 MG/0.5 ML SYR IV PRN ×2 (00:17→03:46)
[2017-09-25] MEDS: SODIUM CHLORIDE 0.9% 1000ML 1,000 ML IV SCH (03:19)
[2017-09-25 03:40] VITALS: BP 116/50; PULSE 86; TEMP 36.7; O2SAT 95
[2017-09-25] MEDS: LEVOTHYROXINE 75 MCG TAB PO SCH (06:11)
[2017-09-25 06:12] LABS: BASO % 0.3 %; BASO ABS # 0.02 K/uL (0-0.2); EOS % 0.7 %; EOS ABS # 0.05 K/uL (0-0.5); HEMATOCRIT 30.8 % (37-47); HEMOGLOBIN 9.9 g/dL (12.0-16.0); IG# 0.02 K/uL (0.00-0.02); LYMPH % 18.3 %; LYMPH ABS # 1.25 K/uL (1.2-3.4); MEAN CELL VOLUME 93.1 fL (80-100); MEAN CORPUSCULAR HEMOGLOBIN 29.9 pg (25-34); MEAN CORPUSCULAR HGB CONC 32.1 g/dl (32-36); MEAN PLATELET VOLUME 10.7 fL (7.4-10.4); MONO % 16.3 %; MONO ABS # 1.11 K/uL (0.11-0.59); NEUT % 64.1 %; NEUT ABS # 4.37 K/uL (1.4-6.5); PLATELET COUNT 201 K/uL (130-400); RED CELL DISTRIBUTION WIDTH CV 14.5 % (11.5-14.5); RED CELL DISTRIBUTION WIDTH SD 49.1 fL (36.4-46.3); WHITE BLOOD COUNT 6.82 K/uL (4.8-10.8)
[2017-09-25 06:37] LABS: CALCIUM 8.1 mg/dl (8.5-10.1); CREATININE 1.2 mg/dl (0.60-1.20); POTASSIUM 4.2 mmol/L (3.5-5.1)
[2017-09-25] MEDS: INSULIN ASPART 100 UNITS/ML 3 ML PEN SC SCH ×5 (06:49→20:58)
[2017-09-25 07:21] VITALS: BP 110/67; PULSE 88; TEMP 36.8; O2SAT 93
[2017-09-25] MEDS: OXYCODONE HCL IR 5 MG TAB (IMMEDIATE RELEASE) PO PRN ×4 (07:40→22:30)
--- NOTE | 2017-09-25 08:11 | Clinical Documentation Query ---
[facility] : CLINICAL DOCUMENTATION QUERY Patient is a 67 year old female who on 09/24 underwent lumbar decompression, thoracolumbar fusion. Preoperative H&H was 13.0 g/dl and 39.5%. POD #1, repeat values are 9.9 g/dl and 30.8%. EBL for the procedure was 300 ml's with an additional loss of 465 ml's via RUSLAN drain thus far postoperatively. Additionally, net I/O is positive for 2,345 ml's at this time. As appropriate, consider documentation as suggested below as this impacts accurate DRG assignment. Thank you. In your clinical opinion is this patient being managed for: ( x ) Acute blood loss and hemodilutional anemia ( ) Not Agree ( ) Other explanation of clinical findings (No explanation is considered a No Response) ( ) Unable to determine ( ) Need to Discuss (Phone CDS or qliq) (No discussion is considered a No Response) The medical record reflects the following clinical findings, treatment, and risk factors. Clinical Indicators: As above Treatment: Serial chemistries, hematology, I/O Risk Factors: Acute perioperative blood loss, IVF administration Please clarify and document your clinical opinion in the progress notes and discharge summary. Terms such as "probable", "suspected", "likely", "questionable", "possible", or "still to be ruled out" are acceptable. IF IN AGREEMENT, YOU MUST DOCUMENT ABOVE DIAGNOSTIC STATEMENT IN DAILY PROGRESS NOTES AND DISCHARGE SUMMARY. This document is not part of the patient's record. Thank You, Paolo Fishman RN [phone]
[2017-09-25] MEDS: FERROUS SULFATE 325 MG TAB PO SCH (08:42)
[2017-09-25] MEDS: AZATHIOPRINE 50 MG TAB PO SCH (08:42)
[2017-09-25] MEDS: MULTIVITAMIN TAB PO SCH (08:42)
[2017-09-25] MEDS: PANTOprazole SOD 40 MG TAB PO SCH (08:42)
[2017-09-25] MEDS: GEMFIBROZIL 600 MG TAB PO SCH ×2 (08:42→20:48)
[2017-09-25] MEDS: LISINOPRIL 5 MG TAB PO SCH (08:42)
[2017-09-25] MEDS: TOPIRAMATE 100 MG TAB PO SCH ×2 (08:42→20:48)
[2017-09-25] MEDS: ASPIRIN 81 MG ECTAB PO SCH (08:43)
[2017-09-25] MEDS: INSULIN GLARGINE SOLOSTAR 100 UNITS/ML 3 ML PEN SC SCH ×2 (08:51→20:58)
--- NOTE | 2017-09-25 09:34 | Progress Note ---
Progress Note Date of Service Sep 25, 2017. Progress Note Patient complaining mostly back pain. Her leg symptoms are improved. Vital signs are stable. On exam she is in the chair at the bedside is good strength testing. She does have some tenderness to the right rib cage most likely related to positioning. Assessment status post thoracal lumbar fusion per plan at this time will continue physical therapy anticipate needing a rehab upon discharge.
[2017-09-25] MEDS ORDERED: RXC5 PO (09:41)
--- NOTE | 2017-09-25 09:42 | Discharge Instructions ---
Discharge Instructions Date of Service Sep 25, 2017. Admission Reason for Admission: Lumbar Spinal Stenosis Discharge Discharge Diagnosis / Problem: lumbar stenosis Discharge Goals Goal(s): Improve function Activity Recommendations Activity Limitations: per Instructions/Follow-up section . Instructions / Follow-Up Instructions / Follow-Up ACTIVITY RECOMMENDATIONS: SELF CARE INSTRUCTIONS AFTER THORACIC/LUMBAR FUSIONS 1. You may walk to your tolerance. It is good exercise for your legs and back. Expect some back and intermittent leg aches and pains. 2. You may perform "counter-top" level activities (make a sandwich, vivienne with a project, etc.). 3. No bending or lifting of more than 10 pounds or back twisting of any nature (roll like a log when turning in bed). 4. You may ride in a car for 20-30 minutes at a time. No driving until after your first visit with your doctor. 5. Frequent changes of position and restricting sitting to 30 minutes at a time will help limit the amount of back spasms and stiffness you may experience. 6. You may discontinue the use of ambulatory aids (cane, crutches, etc.) once your strength and confidence allow. 7. You may steel fabricating supervisor the shower and let water strike your incision when you arrive home at least once daily. Do not take a tub bath, sit in a hot tub or go into a swimming pool until after your first recheck in the office. SPECIAL CARE INSTRUCTIONS: VERY IMPORTANT TO READ AND REVIEW A. Your surgical incision has been closed with a cosmetic suture under the skin that will dissolve in about 6 weeks. In 14 days, you can use a pair of clean scissors and cut the suture that is left outside of the skin at the ends of your incision. 1. The small skin tapes can be removed 7 days after surgery if they have not fallen off by that point. 2. You may keep the wound open to air as much as possible to promote healing after post-op day number 5 unless told otherwise by your doctor. 3. If you think the wound looks like it is becoming infected (redness or worsening drainage) and/or you are experiencing fever, chill or worsening back pain and muscle spasms, contact the office so that we may evaluate you as soon as possible. B. Complications are uncommon, but please contact us if you have any signs or symptoms of: 1. wound infection (fever higher than 102.5 degrees F, redness, separation of wound, drainage, or increasing pain from the incision) 2. blood clots in legs (pain, swelling, redness and warmth in legs) 3. urinary tract infection (fever higher than 102.5 degrees F, burning upon urination or increased frequency of urination) 4. nerve problems (inability to walk on your toes or heels, numbness, loss of bowel or bladder control) 5. any other symptoms that concern you C. Please call the office at if you have any concerns or questions about your operation or recovery. D. No smoking! Smoking drastically decreases the chance of a solid fusion. E. Do not take any anti-inflammatory medications (Indocin, Advil, Motrin, Aspirin, Naprosyn, etc.) as these may inhibit the chance of a solid fusion. Tylenol is okay to take for pain. MANAGING PAIN AFTER SPINAL SURGERY 1. Narcotic medication is intended for short-term use and will be provided for surgical pain. Surgical pain usually lasts for a period of 4-6 weeks. Narcotic medication includes Percocet, Vicodin, Darvocet, Tylenol #3 or Lortab. 2. Longer-term pain is more appropriately treated with non-narcotic medication such as Tylenol ES. 3. Muscle spasm is not appropriately treated with narcotics. Muscle relaxers such as Soma, Flexeril or Skelaxin can be used along with Tylenol ES. 4. Remember that we all live with some "aches and pains". This is not unusual or uncommon after an injury or as we get older. a. Back pain is expected and may include muscle spasms for 4 to 6 weeks after surgery. The pain should gradually improve. If the pain worsens for no apparent reason, please contact the office. b. Intermittent leg pain may also be experienced and should not be concerned about unless it worsens for no apparent reason. If so, please contact the office. 5. We will provide appropriate medication within the normal guidelines of their prescribed use. We will also be very cautious and aware of potential abuse and extended duration of patients' medication needs. a. Pain medications are for your comfort and to assist with sleep and rest so that the tissue can heal. They are not provided in order to return to normal activity and should not be used through the day. To do so or worsening pain at night can result from ongoing tissue damage and development of tolerance to the prescribed medicine. 6. Please allow 2-3 days to process refills. Prescriptions will not be mailed but must be picked up at the office. FOLLOW UP VISIT: Keep your scheduled follow-up appointment. Any questions, please call the office at . Current Hospital Diet Patient's current hospital diet: Diabetes Type 2 Diet Discharge Diet Recommended Diet: Regular Diet Procedures Procedures Performed: 1. Removal of posterior instrumentation connector and screw L2. #2 exploration of fusion L2-3. #3 lumbar decompression medial facetectomies foraminotomies T12-L1 L1 to. #4 posterior spinal fusion T11-L3. #5 placement posterior segmental instrumentation T11-L2. #6 interbody fusion L1 to. #7 placement peek cage 9 x 22 mm L1 to. #8 placement of local autograft in the posterior lateral gutters. #9 placement of infuse collagen sponge combined master graft the posterior gutters and ostial amp in the interbody space. Pending Studies Studies pending at discharge: no Medical Emergencies . Who to Call and When: Medical Emergencies: If at any time you feel your situation is an emergency, please call 911 immediately. . Non-Emergent Contact Non-Emergency issues call your: Primary Care Provider . "Provider Documentation" section prepared by Agustín Arnold. .
[2017-09-25] MEDS ORDERED: NURSING VERBAL MED ORDER ONE (09:45)
[2017-09-25] MEDS ORDERED: KETOROLAC TROMETHAMINE 15 MG/ML VIAL IV. STA (09:49)
[2017-09-25 11:09] VITALS: BP 105/66; PULSE 82; TEMP 37.3; O2SAT 90
[2017-09-25 15:01] VITALS: BP 114/65; PULSE 82; TEMP 37.8; O2SAT 93
--- NOTE | 2017-09-25 16:20 | Hospitalist Progress Note ---
Hospitalist Progress Note Date of Service Sep 25, 2017. Subjective Pt evaluation today including: conversation w/ patient, physical exam, chart review, lab review, review of studies, review of inpatient medication list Patient seen and evaluated. No acute events overnight. Reports a lot of pain today. Near the surgical site and in the R side. Pain is completely reproducible in the R side/chest and not associated with SOB or worsened by breathing. BSGs have been running a little high and is being covered by insulin. Constitutional: No fever, No chills Respiratory: No cough, No shortness of breath Cardiovascular: + chest pain (alone R side/axillary line) Abdomen: No pain, No nausea, No vomiting, No diarrhea, No constipation Musculoskeletal: + problem reported (pain at low back/surgical site), No swelling, No calf pain Female : No dysuria Heme: No abnormal bleeding/bruising Skin: No rash Medications Current Inpatient Medications Medications (Trade) Dose Ordered Sig/Dagoberto Route Start Time Stop Time Status Last Admin Dose Admin Promethazine HCl 12.5 mg/Sodium Chloride 50.5 ml @ 202 mls/hr Q6H PRN IV 09/24/17 10:00 10/24/17 09:59 Ondansetron HCl (Zofran Inj) 4 mg Q6H PRN IV 09/24/17 10:00 10/24/17 09:59 Metoclopramide HCl (Reglan Inj) 10 mg Q6H PRN IV 09/24/17 10:00 10/24/17 09:59 Lorazepam 0.5 mg/ Syringe 0.25 ml @ 1 mls/min Q8H PRN IV 09/24/17 10:00 10/24/17 09:59 09/24/17 21:22 1 MLS/MIN Pneumococcal Polysaccharide Vaccine 1 ea PRN PRN N/A 09/24/17 10:00 10/24/17 09:59 Influenza Virus Vacc Triv Types A&B 1 ea PRN PRN N/A 09/24/17 10:00 10/24/17 09:59 Polyethylene (Miralax Powder Packet) 17 gm Q6 PO 09/26/17 06:00 10/26/17 05:59 Bisacodyl (Dulcolax Supp) 10 mg DAILY PRN [place] 09/24/17 10:00 10/24/17 09:59 Magnesium Hydroxide (Milk Of Magnesia Susp) 30 ml DAILY PRN PO 09/24/17 10:00 10/24/17 09:59 Hydromorphone HCl (Dilaudid Inj) 0.5-1mg prn moder... Q3H PRN IV 09/24/17 10:30 10/08/17 10:29 09/25/17 03:46 1 MG Oxycodone HCl (Roxicodone Immediate Rel Tab) 5-10mg prn moderate to sev... Q4H PRN PO 09/24/17 10:30 10/08/17 10:29 09/25/17 13:23 10 MG Acetaminophen (Tylenol Tab) 1,000 mg Q8H PRN PO 09/24/17 10:00 10/24/17 09:59 Acetaminophen 100 ml @ 400 mls/hr Q8H PRN IV 09/24/17 10:00 10/24/17 09:59 Naloxone HCl (Narcan Inj) 0.1 mg Q5M PRN IV 09/24/17 10:00 10/24/17 09:59 Senna/Docusate Sodium (Senokot S Tab) 2 tab HS PO 09/24/17 21:00 10/24/17 20:59 09/24/17 21:12 2 TAB Sodium Biphosphate/ Sodium Phosphate (Fleet Enema) 132 ml ONE PRN [place] 09/24/17 10:00 10/24/17 09:59 Hydroxyzine HCl (Vistaril Tab) 25 mg Q8H PRN PO 09/24/17 10:00 10/24/17 09:59 Al Hydroxide/Mg Hydroxide (Maalox Susp) 30 ml Q6H PRN PO 09/24/17 10:00 10/24/17 09:59 Famotidine (Pepcid Tab) 20 mg Q12 PRN PO 09/24/17 10:00 10/24/17 09:59 Diphenhydramine HCl (Benadryl Cap) 25 mg Q6H PRN PO 09/24/17 10:00 10/24/17 09:59 Aspirin (Ecotrin Tab) 81 mg QAM PO 09/25/17 09:00 10/25/17 08:59 09/25/17 08:43 81 MG Atorvastatin Calcium (Lipitor Tab) 20 mg HS PO 09/24/17 21:00 10/24/17 20:59 09/24/17 21:11 20 MG Doxepin HCl (Sinequan Cap) 100 mg HS PO 09/24/17 21:00 10/24/17 20:59 09/24/17 21:13 100 MG Gemfibrozil (Lopid Tab) 600 mg BID PO 09/24/17 21:00 10/24/17 20:59 09/25/17 08:42 600 MG Levothyroxine Sodium (Synthroid Tab) 75 mcg DAILYBB PO 09/25/17 06:00 10/25/17 05:59 09/25/17 06:11 75 MCG Lisinopril (Zestril Tab) 5 mg QAM PO 09/25/17 09:00 10/25/17 08:59 09/25/17 08:42 5 MG Lorazepam (Ativan Tab) 1 mg Q6H PRN PO 09/24/17 10:00 10/24/17 09:59 Meclizine HCl (Antivert Tab) 25 mg TID PRN PO 09/24/17 10:00 10/24/17 09:59 Methenamine Hippurate (Urex Tab) 1 gm QPM PO 09/24/17 21:00 09/25/17 20:59 09/24/17 21:13 1 GM Multivitamins (Multivitamin Tab) 1 tab QAM PO 09/25/17 09:00 10/25/17 08:59 09/25/17 08:42 1 TAB Quetiapine Fumarate (seroQUEL TAB) 400 mg HS PO 09/24/17 21:00 10/24/17 20:59 09/24/17 21:13 400 MG Sumatriptan Succinate (Imitrex Tab) 100 mg PRN PRN PO 09/24/17 10:00 10/24/17 09:59 Topiramate (Topamax Tab) 200 mg BID PO 09/24/17 21:00 10/24/17 20:59 09/25/17 08:42 200 MG Buspirone HCl (Buspar Tab) 20 mg TID PO 09/24/17 14:00 10/24/17 13:59 09/25/17 13:22 20 MG Pantoprazole Sodium (Protonix Tab) 40 mg QAM PO 09/25/17 09:00 10/25/17 08:59 09/25/17 08:42 40 MG Ranitidine HCl (zANTac TAB) 300 mg HS PO 09/24/17 21:00 10/24/17 20:59 09/24/17 21:12 300 MG Insulin Glargine (Lantus Solostar Pen) 12 units Q12 SC 09/24/17 21:00 10/24/17 20:59 09/25/17 08:51 12 UNITS Insulin Aspart (novoLOG ASPART) SLIDING SCALE If C... ACHS SC 09/24/17 17:15 10/24/17 17:14 09/25/17 13:28 11 UNITS Glucose (Glucose 40% Gel) 15-30 GRAMS 15 GRAMS... UD PRN PO 09/24/17 12:15 10/24/17 12:14 Glucose (Glucose Chew Tab) 4-8 Tablets 4 Tabl... UD PRN PO 09/24/17 12:15 10/24/17 12:14 Dextrose (Dextrose 50% 50ML Syringe) 25-50ML 25ML FOR ... UD PRN IV 09/24/17 12:15 10/24/17 12:14 Glucagon (Glucagon Inj) 1 mg UD PRN SQ 09/24/17 12:15 10/24/17 12:14 Carbohydrates (Carbohydrates For Hypoglycemia) 15-30 GRAMS 15 grams if BSG 54-69... UD PRN PO 09/24/17 12:15 10/24/17 12:14 Azathioprine (Imuran Tab) 75 mg QAM PO 09/25/17 09:00 10/25/17 08:59 09/25/17 08:42 75 MG Miscellaneous Information (Order Awaiting Action) 1 ea QS N/A 09/25/17 00:00 10/25/17 00:00 Ferrous Sulfate (Feosol Tab) 325 mg DAILY PO 09/25/17 09:00 10/25/17 08:59 09/25/17 08:42 325 MG Miscellaneous Information (Order Awaiting Action) 1 ea QS N/A 09/25/17 00:00 10/25/17 00:00 Menthol (Nice Abbie) 1 abbie PRN PRN ABBIE 09/24/17 18:15 10/24/17 18:14 Ketorolac Tromethamine (Toradol Inj) 15 mg Q6H PRN IV. 09/25/17 09:45 09/30/17 09:44 Objective Vital Signs Date Time Temp Pulse Resp B/P (MAP) Pulse Ox O2 Delivery O2 Flow Rate FiO2 09/25/17 15:01 37.8 82 18 114/65 (81) 93 Room Air 09/25/17 11:09 37.3 82 18 105/66 (79) 90 Room Air 09/25/17 07:40 Room Air 09/25/17 07:21 36.8 88 18 110/67 (81) 93 Room Air 09/25/17 03:40 36.7 86 18 116/50 (72) 95 Room Air 09/24/17 23:50 92 Room Air 4.0 09/24/17 22:50 36.8 86 16 109/66 (80) 92 Room Air 09/24/17 19:17 36.8 91 18 109/67 (81) 94 Room Air Physical Exam General Appearance: WD/WN, no apparent distress Eyes: sclerae normal ENT: hearing grossly normal Neck: supple, no JVD, trachea midline Respiratory/Chest: lungs clear, normal breath sounds, no respiratory distress, no accessory muscle use Cardiovascular: regular rate, rhythm Abdomen: normal bowel sounds, non tender, soft Extremities: no pedal edema, no calf tenderness Neurologic/Psychiatric: alert, oriented x 3 Skin: normal color, warm/dry Laboratory Results Last 24 Hours Test 09/24/17 16:58 09/24/17 20:36 09/25/17 05:59 09/25/17 07:58 Bedside Glucose 248 mg/dl 159 mg/dl 211 mg/dl White Blood Count 6.82 K/uL Red Blood Count 3.31 M/uL Hemoglobin 9.9 g/dL Hematocrit 30.8 % Mean Corpuscular Volume 93.1 fL Mean Corpuscular Hemoglobin 29.9 pg Mean Corpuscular Hemoglobin Concent 32.1 g/dl Platelet Count 201 K/uL Mean Platelet Volume 10.7 fL Neutrophils (%) (Auto) 64.1 % Lymphocytes (%) (Auto) 18.3 % Monocytes (%) (Auto) 16.3 % Eosinophils (%) (Auto) 0.7 % Basophils (%) (Auto) 0.3 % Neutrophils # (Auto) 4.37 K/uL Lymphocytes # (Auto) 1.25 K/uL Monocytes # (Auto) 1.11 K/uL Eosinophils # (Auto) 0.05 K/uL Basophils # (Auto) 0.02 K/uL RDW Standard Deviation 49.1 fL RDW Coefficient of Variation 14.5 % Immature Granulocyte % (Auto) 0.3 % Immature Granulocyte # (Auto) 0.02 K/uL Sodium Level 139 mmol/L Potassium Level 4.2 mmol/L Chloride Level 109 mmol/L Carbon Dioxide Level 22 mmol/L Anion Gap 7.0 mmol/L Blood Urea Nitrogen 19 mg/dl Creatinine 1.20 mg/dl Est Creatinine Clear Calc Drug Dose 47.9 ml/min Estimated GFR () 53.8 Estimated GFR (Non- 46.4 BUN/Creatinine Ratio 16.0 Random Glucose 195 mg/dl Calcium Level 8.1 mg/dl Test 09/25/17 12:04 Bedside Glucose 285 mg/dl Assessment and Plan 67yo female s/p L1-L2 decompression with T11-L3 fusion. Procedure well tolerated, no complications. S/P Lumbar Decompression/Fusion on 09/24: - Pain management, IVF, DVT Prophylaxis, PT/OT, Surgical Management per Primary Acute Blood Loss and Hemodilutional Anemia: - Hgb at 9.9 and will monitor - no indication for transfusion at this time T2DM: A1c 7.0 - Hold oral medications and cover wtih SSI - can resume home regimen on D/C HTN/HLD: - Lisinopril 5 mg daily - Atorvastatin 20 mg daily and Lopid 600 mg BID Hypothyroidism: - Levothyroxine 75 mcg daily Anxiety/Depression: - Buspar 20 mg TID; Doxepin 100 mg HS; Seroquel Chrohns: - Imuran 75 mg daily Thank you for the consult. We will continue to follow.
[2017-09-25] MEDS: KETOROLAC TROMETHAMINE 15 MG/ML VIAL IV. PRN (16:36)
[2017-09-25] MEDS: ONDANSETRON INJ 2 MG/ML 2 ML VIAL IV PRN (19:20)
[2017-09-25] MEDS: RANITIDINE HCL 150 MG TAB PO SCH (20:47)
[2017-09-25] MEDS: DOCUSATE SODIUM/SENNA 50/8.6MG TAB PO SCH (20:47)
[2017-09-25] MEDS: DOXEPIN HCL 50 MG CAP PO SCH (20:48)
[2017-09-25] MEDS: QUETIAPINE FUMARATE 200 MG TAB PO SCH (20:48)
[2017-09-25] MEDS: ATORVASTATIN 20 MG TAB PO SCH (20:48)
[2017-09-25 23:25] VITALS: BP 93/66; PULSE 99; TEMP 36.7; O2SAT 92
[2017-09-26 00:05] VITALS: BP 103/57; O2SAT 92; O2SAT 94
[2017-09-26 00:11] VITALS: PULSE 80
[2017-09-26] MEDS: HYDROmorphone INJ 0.5 MG/0.5 ML SYR IV PRN (01:26)
[2017-09-26] MEDS: LEVOTHYROXINE 75 MCG TAB PO SCH (05:40)
[2017-09-26] MEDS: POLYETHYLENE (MIRALAX) 17 GM PACK PO SCH ×3 (05:40→17:44)
[2017-09-26] MEDS: OXYCODONE HCL IR 5 MG TAB (IMMEDIATE RELEASE) PO PRN ×4 (05:40→19:03)
[2017-09-26 06:48] LABS: HEMATOCRIT 28.7 % (37-47); HEMOGLOBIN 9.4 g/dL (12.0-16.0); MEAN CELL VOLUME 92.3 fL (80-100); MEAN CORPUSCULAR HEMOGLOBIN 30.2 pg (25-34); MEAN CORPUSCULAR HGB CONC 32.8 g/dl (32-36); PLATELET COUNT 186 K/uL (130-400); RED CELL DISTRIBUTION WIDTH CV 14.6 % (11.5-14.5); RED CELL DISTRIBUTION WIDTH SD 49.5 fL (36.4-46.3); WHITE BLOOD COUNT 6.11 K/uL (4.8-10.8)
[2017-09-26 07:00] VITALS: BP 93/60; PULSE 72; TEMP 36.9; O2SAT 94
[2017-09-26] MEDS: KETOROLAC TROMETHAMINE 15 MG/ML VIAL IV. PRN ×2 (07:14→17:49)
[2017-09-26 07:45] LABS: CALCIUM 8.9 mg/dl (8.5-10.1); CREATININE 1.25 mg/dl (0.60-1.20)
[2017-09-26] MEDS: TOPIRAMATE 100 MG TAB PO SCH ×2 (08:31→21:03)
[2017-09-26] MEDS: FERROUS SULFATE 325 MG TAB PO SCH (08:31)
[2017-09-26] MEDS: ASPIRIN 81 MG ECTAB PO SCH (08:31)
[2017-09-26] MEDS: LISINOPRIL 5 MG TAB PO SCH (08:31)
[2017-09-26] MEDS: PANTOprazole SOD 40 MG TAB PO SCH (08:31)
[2017-09-26] MEDS: AZATHIOPRINE 50 MG TAB PO SCH (08:31)
[2017-09-26] MEDS: GEMFIBROZIL 600 MG TAB PO SCH ×2 (08:32→21:03)
[2017-09-26] MEDS: MULTIVITAMIN TAB PO SCH (08:32)
[2017-09-26] MEDS: INSULIN ASPART 100 UNITS/ML 3 ML PEN SC SCH ×4 (08:41→21:02)
[2017-09-26] MEDS: INSULIN GLARGINE SOLOSTAR 100 UNITS/ML 3 ML PEN SC SCH ×2 (08:42→21:03)
[2017-09-26] MEDS: ACETAMINOPHEN 500 MG TAB PO PRN (08:46)
[2017-09-26 10:51] LABS: HEMATOCRIT 28.8 % (37-47); HEMOGLOBIN 9.5 g/dL (12.0-16.0)
--- NOTE | 2017-09-26 13:27 | Progress Note ---
Progress Note Date of Service Sep 26, 2017. Progress Note Patient's back pain is controlled. Leg pain improved. Vital signs stable. RUSLAN drain decreasing probably. On exam she is in the chair at the bedside has good strength testing appears comfortable. Assessment status post thoracal lumbar fusion per plan at this time will continue physical therapy.. Continue to monitor RUSLAN output. She would like to return home. Hopefully will be allowed to return home Friday with home health.
[2017-09-26 14:59] VITALS: BP 116/75; PULSE 62; TEMP 36.7; O2SAT 95
--- NOTE | 2017-09-26 16:42 | Hospitalist Progress Note ---
Hospitalist Progress Note Date of Service Sep 26, 2017. Subjective Pt evaluation today including: conversation w/ patient, physical exam, chart review, lab review, review of inpatient medication list Patient seen and evaluated. No acute events overnight. Pain is better controlled today. No further R sided discomfort. Tolerating diet. Sugars are better controlled. Is hoping to return home with therapy. BP was lower this AM but patient states when they switched out the cuff it improved which is did looking at the charting. Constitutional: No fever, No chills Respiratory: No cough, No shortness of breath Cardiovascular: No chest pain, No palpitations Abdomen: No pain, No nausea, No vomiting, No diarrhea, No constipation Musculoskeletal: No swelling, No calf pain Female : No dysuria Neurologic: No numbness/tingling Heme: No abnormal bleeding/bruising Medications Current Inpatient Medications Medications (Trade) Dose Ordered Sig/Dagoberto Route Start Time Stop Time Status Last Admin Dose Admin Promethazine HCl 12.5 mg/Sodium Chloride 50.5 ml @ 202 mls/hr Q6H PRN IV 09/24/17 10:00 10/24/17 09:59 Ondansetron HCl (Zofran Inj) 4 mg Q6H PRN IV 09/24/17 10:00 10/24/17 09:59 09/25/17 19:20 4 MG Metoclopramide HCl (Reglan Inj) 10 mg Q6H PRN IV 09/24/17 10:00 10/24/17 09:59 Lorazepam 0.5 mg/ Syringe 0.25 ml @ 1 mls/min Q8H PRN IV 09/24/17 10:00 10/24/17 09:59 09/24/17 21:22 1 MLS/MIN Pneumococcal Polysaccharide Vaccine 1 ea PRN PRN N/A 09/24/17 10:00 10/24/17 09:59 Influenza Virus Vacc Triv Types A&B 1 ea PRN PRN N/A 09/24/17 10:00 10/24/17 09:59 Polyethylene (Miralax Powder Packet) 17 gm Q6 PO 09/26/17 06:00 10/26/17 05:59 09/26/17 12:26 17 GM Bisacodyl (Dulcolax Supp) 10 mg DAILY PRN [place] 09/24/17 10:00 10/24/17 09:59 Magnesium Hydroxide (Milk Of Magnesia Susp) 30 ml DAILY PRN PO 09/24/17 10:00 10/24/17 09:59 Hydromorphone HCl (Dilaudid Inj) 0.5-1mg prn moder... Q3H PRN IV 09/24/17 10:30 10/08/17 10:29 09/26/17 01:26 1 MG Oxycodone HCl (Roxicodone Immediate Rel Tab) 5-10mg prn moderate to sev... Q4H PRN PO 09/24/17 10:30 10/08/17 10:29 09/26/17 15:04 10 MG Acetaminophen (Tylenol Tab) 1,000 mg Q8H PRN PO 09/24/17 10:00 10/24/17 09:59 09/26/17 08:46 1,000 MG Acetaminophen 100 ml @ 400 mls/hr Q8H PRN IV 09/24/17 10:00 10/24/17 09:59 Naloxone HCl (Narcan Inj) 0.1 mg Q5M PRN IV 09/24/17 10:00 10/24/17 09:59 Senna/Docusate Sodium (Senokot S Tab) 2 tab HS PO 09/24/17 21:00 10/24/17 20:59 09/25/17 20:47 2 TAB Sodium Biphosphate/ Sodium Phosphate (Fleet Enema) 132 ml ONE PRN [place] 09/24/17 10:00 10/24/17 09:59 Hydroxyzine HCl (Vistaril Tab) 25 mg Q8H PRN PO 09/24/17 10:00 10/24/17 09:59 Al Hydroxide/Mg Hydroxide (Maalox Susp) 30 ml Q6H PRN PO 09/24/17 10:00 10/24/17 09:59 Famotidine (Pepcid Tab) 20 mg Q12 PRN PO 09/24/17 10:00 10/24/17 09:59 Diphenhydramine HCl (Benadryl Cap) 25 mg Q6H PRN PO 09/24/17 10:00 10/24/17 09:59 Aspirin (Ecotrin Tab) 81 mg QAM PO 09/25/17 09:00 10/25/17 08:59 09/26/17 08:31 81 MG Atorvastatin Calcium (Lipitor Tab) 20 mg HS PO 09/24/17 21:00 10/24/17 20:59 09/25/17 20:48 20 MG Doxepin HCl (Sinequan Cap) 100 mg HS PO 09/24/17 21:00 10/24/17 20:59 09/25/17 20:48 100 MG Gemfibrozil (Lopid Tab) 600 mg BID PO 09/24/17 21:00 10/24/17 20:59 09/26/17 08:32 600 MG Levothyroxine Sodium (Synthroid Tab) 75 mcg DAILYBB PO 09/25/17 06:00 10/25/17 05:59 09/26/17 05:40 75 MCG Lisinopril (Zestril Tab) 5 mg QAM PO 09/25/17 09:00 10/25/17 08:59 09/25/17 08:42 5 MG Lorazepam (Ativan Tab) 1 mg Q6H PRN PO 09/24/17 10:00 10/24/17 09:59 Meclizine HCl (Antivert Tab) 25 mg TID PRN PO 09/24/17 10:00 10/24/17 09:59 Multivitamins (Multivitamin Tab) 1 tab QAM PO 09/25/17 09:00 10/25/17 08:59 09/26/17 08:32 1 TAB Quetiapine Fumarate (seroQUEL TAB) 400 mg HS PO 09/24/17 21:00 10/24/17 20:59 09/25/17 20:48 400 MG Sumatriptan Succinate (Imitrex Tab) 100 mg PRN PRN PO 09/24/17 10:00 10/24/17 09:59 Topiramate (Topamax Tab) 200 mg BID PO 09/24/17 21:00 10/24/17 20:59 09/26/17 08:31 200 MG Buspirone HCl (Buspar Tab) 20 mg TID PO 09/24/17 14:00 10/24/17 13:59 09/26/17 13:49 20 MG Pantoprazole Sodium (Protonix Tab) 40 mg QAM PO 09/25/17 09:00 10/25/17 08:59 09/26/17 08:31 40 MG Ranitidine HCl (zANTac TAB) 300 mg HS PO 09/24/17 21:00 10/24/17 20:59 09/25/17 20:47 300 MG Insulin Glargine (Lantus Solostar Pen) 12 units Q12 SC 09/24/17 21:00 10/24/17 20:59 09/26/17 08:42 12 UNITS Insulin Aspart (novoLOG ASPART) SLIDING SCALE If C... ACHS SC 09/24/17 17:15 10/24/17 17:14 09/26/17 12:30 5 UNITS Glucose (Glucose 40% Gel) 15-30 GRAMS 15 GRAMS... UD PRN PO 09/24/17 12:15 10/24/17 12:14 Glucose (Glucose Chew Tab) 4-8 Tablets 4 Tabl... UD PRN PO 09/24/17 12:15 10/24/17 12:14 Dextrose (Dextrose 50% 50ML Syringe) 25-50ML 25ML FOR ... UD PRN IV 09/24/17 12:15 10/24/17 12:14 Glucagon (Glucagon Inj) 1 mg UD PRN SQ 09/24/17 12:15 10/24/17 12:14 Carbohydrates (Carbohydrates For Hypoglycemia) 15-30 GRAMS 15 grams if BSG 54-69... UD PRN PO 09/24/17 12:15 10/24/17 12:14 Azathioprine (Imuran Tab) 75 mg QAM PO 09/25/17 09:00 10/25/17 08:59 09/26/17 08:31 75 MG Miscellaneous Information (Order Awaiting Action) 1 ea QS N/A 09/25/17 00:00 10/25/17 00:00 Ferrous Sulfate (Feosol Tab) 325 mg DAILY PO 09/25/17 09:00 10/25/17 08:59 09/26/17 08:31 325 MG Miscellaneous Information (Order Awaiting Action) 1 ea QS N/A 09/25/17 00:00 10/25/17 00:00 Menthol (Nice Abbie) 1 abbie PRN PRN ABBIE 09/24/17 18:15 10/24/17 18:14 Ketorolac Tromethamine (Toradol Inj) 15 mg Q6H PRN IV. 09/25/17 09:45 09/30/17 09:44 09/26/17 07:14 15 MG Objective Vital Signs Date Time Temp Pulse Resp B/P (MAP) Pulse Ox O2 Delivery O2 Flow Rate FiO2 09/26/17 14:59 36.7 62 18 116/75 (89) 95 Room Air 09/26/17 07:27 Room Air 09/26/17 07:00 36.9 72 17 93/60 (71) 94 Room Air 09/26/17 00:11 80 09/26/17 00:05 94 Room Air 09/26/17 00:05 14 103/57 (72) 94 Room Air 09/25/17 23:25 36.7 99 18 93/66 (75) 92 Room Air Physical Exam General Appearance: WD/WN, no apparent distress Eyes: sclerae normal ENT: hearing grossly normal Neck: supple, no JVD, trachea midline Respiratory/Chest: lungs clear, normal breath sounds, no respiratory distress, no accessory muscle use Cardiovascular: regular rate, rhythm Abdomen: normal bowel sounds, non tender, soft Extremities: no pedal edema Neurologic/Psychiatric: alert, oriented x 3 Skin: normal color, warm/dry Laboratory Results Last 24 Hours Test 09/25/17 16:59 09/25/17 20:44 09/26/17 06:34 09/26/17 07:56 Bedside Glucose 216 mg/dl 202 mg/dl 253 mg/dl White Blood Count 6.11 K/uL Red Blood Count 3.11 M/uL Hemoglobin 9.4 g/dL Hematocrit 28.7 % Mean Corpuscular Volume 92.3 fL Mean Corpuscular Hemoglobin 30.2 pg Mean Corpuscular Hemoglobin Concent 32.8 g/dl RDW Standard Deviation 49.5 fL RDW Coefficient of Variation 14.6 % Platelet Count 186 K/uL Mean Platelet Volume 11.0 fL Sodium Level 137 mmol/L Potassium Level mmol/L Chloride Level 108 mmol/L Carbon Dioxide Level 21 mmol/L Anion Gap 8.0 mmol/L Blood Urea Nitrogen 20 mg/dl Creatinine 1.25 mg/dl Est Creatinine Clear Calc Drug Dose 45.9 ml/min Estimated GFR () 51.2 Estimated GFR (Non- 44.2 BUN/Creatinine Ratio 16.3 Random Glucose 238 mg/dl Calcium Level 8.9 mg/dl Test 09/26/17 10:40 09/26/17 12:23 Hemoglobin 9.5 g/dL Hematocrit 28.8 % Bedside Glucose 165 mg/dl Assessment and Plan 67yo female s/p L1-L2 decompression with T11-L3 fusion. Procedure well tolerated, no complications. S/P Lumbar Decompression/Fusion on 09/24: - Pain management, IVF, DVT Prophylaxis, PT/OT, Surgical Management per Primary Acute Blood Loss and Hemodilutional Anemia: STABLE - Hgb at 9.4 and will monitor - no indication for transfusion at this time - Had lower BP but patient reports they switched out the cuff and it improved - her BP meds were held this AM but not signs to suggest volume depletion is present T2DM: A1c 7.0 - Hold oral medications and cover wtih SSI - can resume home regimen on D/C HTN/HLD: - Lisinopril 5 mg daily - was held today which is fine and will trend BMP given mild elevation of Cr but she has had good urine output - Atorvastatin 20 mg daily and Lopid 600 mg BID Hypothyroidism: - Levothyroxine 75 mcg daily Anxiety/Depression: - Buspar 20 mg TID; Doxepin 100 mg HS; Seroquel Chrohns: - Imuran 75 mg daily Thank you for the consult. We will continue to follow. Continued [facility] stay due to: ambulation difficulties Discharge planning: home with home health
[2017-09-26] MEDS: ONDANSETRON INJ 2 MG/ML 2 ML VIAL IV PRN (19:08)
[2017-09-26] MEDS: DOCUSATE SODIUM/SENNA 50/8.6MG TAB PO SCH (21:03)
[2017-09-26] MEDS: ATORVASTATIN 20 MG TAB PO SCH (21:03)
[2017-09-26] MEDS: RANITIDINE HCL 150 MG TAB PO SCH (21:03)
[2017-09-26] MEDS: DOXEPIN HCL 50 MG CAP PO SCH (21:03)
[2017-09-26] MEDS: QUETIAPINE FUMARATE 200 MG TAB PO SCH (21:04)
[2017-09-26 23:05] VITALS: BP 105/69; PULSE 74; TEMP 36.6; O2SAT 97
[2017-09-27] MEDS: OXYCODONE HCL IR 5 MG TAB (IMMEDIATE RELEASE) PO PRN ×5 (00:27→19:57)
[2017-09-27] MEDS: LEVOTHYROXINE 75 MCG TAB PO SCH (05:53)
[2017-09-27] MEDS: POLYETHYLENE (MIRALAX) 17 GM PACK PO SCH ×5 (05:53→22:39)
[2017-09-27 06:38] LABS: CALCIUM 9.2 mg/dl (8.5-10.1); CREATININE 1.23 mg/dl (0.60-1.20)
[2017-09-27 06:48] VITALS: BP 95/60; PULSE 75; TEMP 36.9; O2SAT 96
[2017-09-27 06:51] LABS: HEMOGLOBIN 10.4 g/dL (12.0-16.0); MEAN CELL VOLUME 92.2 fL (80-100); MEAN CORPUSCULAR HGB CONC 32.5 g/dl (32-36); MEAN PLATELET VOLUME 11.5 fL (7.4-10.4); PLATELET COUNT 254 K/uL (130-400); RED CELL DISTRIBUTION WIDTH CV 14.4 % (11.5-14.5); WHITE BLOOD COUNT 6.83 K/uL (4.8-10.8)
[2017-09-27] MEDS: ASPIRIN 81 MG ECTAB PO SCH (07:20)
[2017-09-27] MEDS: TOPIRAMATE 100 MG TAB PO SCH ×2 (07:20→21:07)
[2017-09-27] MEDS: MULTIVITAMIN TAB PO SCH (07:20)
[2017-09-27] MEDS: PANTOprazole SOD 40 MG TAB PO SCH (07:20)
[2017-09-27] MEDS: GEMFIBROZIL 600 MG TAB PO SCH ×2 (07:20→21:09)
[2017-09-27] MEDS: FERROUS SULFATE 325 MG TAB PO SCH (07:20)
[2017-09-27] MEDS: LISINOPRIL 5 MG TAB PO SCH (07:21)
[2017-09-27] MEDS: AZATHIOPRINE 50 MG TAB PO SCH (07:21)
[2017-09-27] MEDS: INSULIN ASPART 100 UNITS/ML 3 ML PEN SC SCH ×4 (07:26→21:15)
[2017-09-27] MEDS: INSULIN GLARGINE SOLOSTAR 100 UNITS/ML 3 ML PEN SC SCH ×2 (07:27→21:15)
--- NOTE | 2017-09-27 07:33 | Progress Note ---
Progress Note Date of Service Sep 27, 2017. Progress Note Patient's back pain is controlled leg symptoms steadily improving. RUSLAN drain decreasing appropriately. Vital signs stable. On exam she is in the chair at the bedside is good strength testing. Assessment status post lumbar decompression fusion. Plan at this time will continue therapy today anticipate discharge home tomorrow.
[2017-09-27 07:55] VITALS: BP 134/77; PULSE 86; TEMP 36.7; O2SAT 96
[2017-09-27] MEDS: KETOROLAC TROMETHAMINE 15 MG/ML VIAL IV. PRN ×2 (10:30→22:41)
[2017-09-27 11:37] VITALS: BP 109/71; PULSE 70; TEMP 36.5; O2SAT 96
[2017-09-27 15:00] VITALS: BP 123/74; PULSE 69; TEMP 36.8; O2SAT 97
[2017-09-27] MEDS: ACETAMINOPHEN 500 MG TAB PO PRN (15:27)
[2017-09-27] MEDS: ONDANSETRON INJ 2 MG/ML 2 ML VIAL IV PRN (15:27)
--- NOTE | 2017-09-27 17:30 | Hospitalist Progress Note ---
Hospitalist Progress Note Date of Service Sep 27, 2017. Subjective Pt evaluation today including: conversation w/ patient, physical exam, chart review, lab review, review of inpatient medication list Patient seen and evaluated. No acute events overnight. Reporting improving pain control. Hgb is improving. BSGs are stable. She is hoping to return home tomorrow. She verbalizes no other issues. Constitutional: No fever, No chills Respiratory: No cough, No shortness of breath Abdomen: No pain, No nausea, No vomiting, No diarrhea, No constipation Musculoskeletal: No swelling, No calf pain Neurologic: No numbness/tingling Heme: No abnormal bleeding/bruising Medications Current Inpatient Medications Medications (Trade) Dose Ordered Sig/Dagoberto Route Start Time Stop Time Status Last Admin Dose Admin Promethazine HCl 12.5 mg/Sodium Chloride 50.5 ml @ 202 mls/hr Q6H PRN IV 09/24/17 10:00 10/24/17 09:59 Ondansetron HCl (Zofran Inj) 4 mg Q6H PRN IV 09/24/17 10:00 10/24/17 09:59 09/27/17 15:27 4 MG Metoclopramide HCl (Reglan Inj) 10 mg Q6H PRN IV 09/24/17 10:00 10/24/17 09:59 Lorazepam 0.5 mg/ Syringe 0.25 ml @ 1 mls/min Q8H PRN IV 09/24/17 10:00 10/24/17 09:59 09/24/17 21:22 1 MLS/MIN Pneumococcal Polysaccharide Vaccine 1 ea PRN PRN N/A 09/24/17 10:00 10/24/17 09:59 Influenza Virus Vacc Triv Types A&B 1 ea PRN PRN N/A 09/24/17 10:00 10/24/17 09:59 Polyethylene (Miralax Powder Packet) 17 gm Q6 PO 09/26/17 06:00 10/26/17 05:59 09/26/17 12:26 17 GM Bisacodyl (Dulcolax Supp) 10 mg DAILY PRN NH 09/24/17 10:00 10/24/17 09:59 Magnesium Hydroxide (Milk Of Magnesia Susp) 30 ml DAILY PRN PO 09/24/17 10:00 9/7/18 09:59 Hydromorphone HCl (Dilaudid Inj) 0.5-1mg prn moder... Q3H PRN IV 09/24/17 10:30 10/08/17 10:29 09/26/17 01:26 1 MG Oxycodone HCl (Roxicodone Immediate Rel Tab) 5-10mg prn moderate to sev... Q4H PRN PO 09/24/17 10:30 10/08/17 10:29 09/27/17 14:30 10 MG Acetaminophen (Tylenol Tab) 1,000 mg Q8H PRN PO 09/24/17 10:00 10/24/17 09:59 09/27/17 15:27 1,000 MG Acetaminophen 100 ml @ 400 mls/hr Q8H PRN IV 09/24/17 10:00 10/24/17 09:59 Naloxone HCl (Narcan Inj) 0.1 mg Q5M PRN IV 09/24/17 10:00 10/24/17 09:59 Senna/Docusate Sodium (Senokot S Tab) 2 tab HS PO 09/24/17 21:00 10/24/17 20:59 09/26/17 21:03 2 TAB Sodium Biphosphate/ Sodium Phosphate (Fleet Enema) 132 ml ONE PRN NH 09/24/17 10:00 10/24/17 09:59 Hydroxyzine HCl (Vistaril Tab) 25 mg Q8H PRN PO 09/24/17 10:00 10/24/17 09:59 Al Hydroxide/Mg Hydroxide (Maalox Susp) 30 ml Q6H PRN PO 09/24/17 10:00 10/24/17 09:59 Famotidine (Pepcid Tab) 20 mg Q12 PRN PO 09/24/17 10:00 10/24/17 09:59 Diphenhydramine HCl (Benadryl Cap) 25 mg Q6H PRN PO 09/24/17 10:00 10/24/17 09:59 Aspirin (Ecotrin Tab) 81 mg QAM PO 09/25/17 09:00 10/25/17 08:59 09/27/17 07:20 81 MG Atorvastatin Calcium (Lipitor Tab) 20 mg HS PO 09/24/17 21:00 10/24/17 20:59 09/26/17 21:03 20 MG Doxepin HCl (Sinequan Cap) 100 mg HS PO 09/24/17 21:00 10/24/17 20:59 09/26/17 21:03 100 MG Gemfibrozil (Lopid Tab) 600 mg BID PO 09/24/17 21:00 10/24/17 20:59 09/27/17 07:20 600 MG Levothyroxine Sodium (Synthroid Tab) 75 mcg DAILYBB PO 09/25/17 06:00 10/25/17 05:59 09/27/17 05:53 75 MCG Lisinopril (Zestril Tab) 5 mg QAM PO 09/25/17 09:00 10/25/17 08:59 09/25/17 08:42 5 MG Lorazepam (Ativan Tab) 1 mg Q6H PRN PO 09/24/17 10:00 10/24/17 09:59 Meclizine HCl (Antivert Tab) 25 mg TID PRN PO 09/24/17 10:00 10/24/17 09:59 Multivitamins (Multivitamin Tab) 1 tab QAM PO 09/25/17 09:00 10/25/17 08:59 09/27/17 07:20 1 TAB Quetiapine Fumarate (seroQUEL TAB) 400 mg HS PO 09/24/17 21:00 10/24/17 20:59 09/26/17 21:04 400 MG Sumatriptan Succinate (Imitrex Tab) 100 mg PRN PRN PO 09/24/17 10:00 10/24/17 09:59 Topiramate (Topamax Tab) 200 mg BID PO 09/24/17 21:00 10/24/17 20:59 09/27/17 07:20 200 MG Buspirone HCl (Buspar Tab) 20 mg TID PO 09/24/17 14:00 10/24/17 13:59 09/27/17 13:57 20 MG Pantoprazole Sodium (Protonix Tab) 40 mg QAM PO 09/25/17 09:00 10/25/17 08:59 09/27/17 07:20 40 MG Ranitidine HCl (zANTac TAB) 300 mg HS PO 09/24/17 21:00 10/24/17 20:59 09/26/17 21:03 300 MG Insulin Glargine (Lantus Solostar Pen) 12 units Q12 SC 09/24/17 21:00 10/24/17 20:59 09/27/17 07:27 12 UNITS Insulin Aspart (novoLOG ASPART) SLIDING SCALE If C... ACHS SC 09/24/17 17:15 10/24/17 17:14 09/27/17 12:48 6 UNITS Glucose (Glucose 40% Gel) 15-30 GRAMS 15 GRAMS... UD PRN PO 09/24/17 12:15 10/24/17 12:14 Glucose (Glucose Chew Tab) 4-8 Tablets 4 Tabl... UD PRN PO 09/24/17 12:15 10/24/17 12:14 Dextrose (Dextrose 50% 50ML Syringe) 25-50ML 25ML FOR ... UD PRN IV 09/24/17 12:15 10/24/17 12:14 Glucagon (Glucagon Inj) 1 mg UD PRN SQ 09/24/17 12:15 10/24/17 12:14 Carbohydrates (Carbohydrates For Hypoglycemia) 15-30 GRAMS 15 grams if BSG 54-69... UD PRN PO 09/24/17 12:15 10/24/17 12:14 Azathioprine (Imuran Tab) 75 mg QAM PO 09/25/17 09:00 10/25/17 08:59 09/27/17 07:21 75 MG Miscellaneous Information (Order Awaiting Action) 1 ea QS N/A 09/25/17 00:00 10/25/17 00:00 Ferrous Sulfate (Feosol Tab) 325 mg DAILY PO 09/25/17 09:00 10/25/17 08:59 09/27/17 07:20 325 MG Miscellaneous Information (Order Awaiting Action) 1 ea QS N/A 09/25/17 00:00 10/25/17 00:00 Menthol (Nice Abbie) 1 abbie PRN PRN ABBIE 09/24/17 18:15 10/24/17 18:14 Ketorolac Tromethamine (Toradol Inj) 15 mg Q6H PRN IV. 09/25/17 09:45 09/30/17 09:44 09/27/17 10:30 15 MG Objective Vital Signs Date Time Temp Pulse Resp B/P (MAP) Pulse Ox O2 Delivery O2 Flow Rate FiO2 09/27/17 15:00 36.8 69 14 123/74 (90) 97 Room Air 09/27/17 11:37 36.5 70 16 109/71 (84) 96 Room Air 09/27/17 08:36 Room Air 09/27/17 07:55 36.7 86 20 134/77 (96) 96 Room Air 09/27/17 06:48 36.9 75 16 95/60 (72) 96 Room Air 09/27/17 00:25 Room Air 09/26/17 23:05 36.6 74 18 105/69 (81) 97 Room Air 09/26/17 19:00 Room Air Physical Exam General Appearance: WD/WN, no apparent distress Eyes: sclerae normal ENT: hearing grossly normal Neck: supple Respiratory/Chest: lungs clear, no respiratory distress, no accessory muscle use Cardiovascular: regular rate, rhythm Abdomen: normal bowel sounds, non tender, soft Extremities: no pedal edema Neurologic/Psychiatric: alert Skin: normal color, warm/dry Laboratory Results Last 24 Hours Test 09/26/17 20:06 09/27/17 05:53 09/27/17 06:38 09/27/17 07:04 Bedside Glucose 254 mg/dl 165 mg/dl White Blood Count 6.83 K/uL Red Blood Count 3.47 M/uL Hemoglobin 10.4 g/dL Hematocrit 32.0 % Mean Corpuscular Volume 92.2 fL Mean Corpuscular Hemoglobin 30.0 pg Mean Corpuscular Hemoglobin Concent 32.5 g/dl RDW Standard Deviation 48.0 fL RDW Coefficient of Variation 14.4 % Platelet Count 254 K/uL Mean Platelet Volume 11.5 fL Sodium Level 137 mmol/L Potassium Level mmol/L 3.8 mmol/L Chloride Level 107 mmol/L Carbon Dioxide Level 22 mmol/L Anion Gap 8.0 mmol/L Blood Urea Nitrogen 22 mg/dl Creatinine 1.23 mg/dl Est Creatinine Clear Calc Drug Dose 46.7 ml/min Estimated GFR () 52.2 Estimated GFR (Non- 45.0 BUN/Creatinine Ratio 17.7 Random Glucose 164 mg/dl Calcium Level 9.2 mg/dl Test 09/27/17 12:03 Bedside Glucose 164 mg/dl Assessment and Plan 67yo female s/p L1-L2 decompression with T11-L3 fusion. Procedure well tolerated, no complications. S/P Lumbar Decompression/Fusion on 09/24: - Pain management, IVF, DVT Prophylaxis, PT/OT, Surgical Management per Primary Acute Blood Loss and Hemodilutional Anemia: IMPROVING - Hgb improving on labs - no indication for transfusion T2DM: A1c 7.0 - Hold oral medications and cover wtih SSI - can resume home regimen on D/C HTN/HLD: - Lisinopril 5 mg daily - Atorvastatin 20 mg daily and Lopid 600 mg BID Hypothyroidism: - Levothyroxine 75 mcg daily Anxiety/Depression: - Buspar 20 mg TID; Doxepin 100 mg HS; Seroquel Crohns: - Imuran 75 mg daily Patient is stable in regards to her chronic medical conditions. She is likely to go home tomorrow. Hospitalist service will sign off at this time. If there is any change with clinical status do not hesitate to contact us. Discharge planning: home with home health
[2017-09-27] MEDS: ATORVASTATIN 20 MG TAB PO SCH (21:07)
[2017-09-27] MEDS: RANITIDINE HCL 150 MG TAB PO SCH (21:08)
[2017-09-27] MEDS: DOXEPIN HCL 50 MG CAP PO SCH (21:09)
[2017-09-27] MEDS: QUETIAPINE FUMARATE 200 MG TAB PO SCH (21:09)
[2017-09-27] MEDS: DOCUSATE SODIUM/SENNA 50/8.6MG TAB PO SCH (21:10)
[2017-09-27 23:52] VITALS: BP 128/71; PULSE 79; TEMP 36.7; O2SAT 97
[2017-09-28] MEDS: LEVOTHYROXINE 75 MCG TAB PO SCH (05:32)
[2017-09-28] MEDS: POLYETHYLENE (MIRALAX) 17 GM PACK PO SCH (05:34)
[2017-09-28] MEDS: OXYCODONE HCL IR 5 MG TAB (IMMEDIATE RELEASE) PO PRN ×2 (05:34→09:38)
[2017-09-28 06:06] LABS: HEMATOCRIT 30.7 % (37-47); HEMOGLOBIN 9.9 g/dL (12.0-16.0); MEAN CELL VOLUME 92.7 fL (80-100); MEAN CORPUSCULAR HEMOGLOBIN 29.9 pg (25-34); MEAN CORPUSCULAR HGB CONC 32.2 g/dl (32-36); MEAN PLATELET VOLUME 11.4 fL (7.4-10.4); PLATELET COUNT 285 K/uL (130-400); RED CELL DISTRIBUTION WIDTH CV 14.4 % (11.5-14.5); RED CELL DISTRIBUTION WIDTH SD 48.9 fL (36.4-46.3); WHITE BLOOD COUNT 5.39 K/uL (4.8-10.8)
[2017-09-28 06:30] VITALS: BP 111/69; PULSE 72; TEMP 36.5; O2SAT 96
[2017-09-28 06:41] LABS: CALCIUM 9.2 mg/dl (8.5-10.1); CREATININE 1.43 mg/dl (0.60-1.20)
[2017-09-28] MEDS: FERROUS SULFATE 325 MG TAB PO SCH (08:23)
[2017-09-28] MEDS: TOPIRAMATE 100 MG TAB PO SCH (08:23)
[2017-09-28] MEDS: LISINOPRIL 5 MG TAB PO SCH (08:23)
[2017-09-28] MEDS: AZATHIOPRINE 50 MG TAB PO SCH (08:23)
[2017-09-28] MEDS: ASPIRIN 81 MG ECTAB PO SCH (08:23)
[2017-09-28] MEDS: MULTIVITAMIN TAB PO SCH (08:23)
[2017-09-28] MEDS: PANTOprazole SOD 40 MG TAB PO SCH (08:23)
[2017-09-28] MEDS: GEMFIBROZIL 600 MG TAB PO SCH (08:23)
[2017-09-28] MEDS: INSULIN ASPART 100 UNITS/ML 3 ML PEN SC SCH (08:28)
[2017-09-28] MEDS: INSULIN GLARGINE SOLOSTAR 100 UNITS/ML 3 ML PEN SC SCH (08:28)
--- NOTE | 2017-09-28 09:56 | Discharge Summary ---
Orthopedic Discharge Summary Admission Date/Reason Sep 24, 2017 at 07:30 Lumbar Spinal Stenosis. Discharge Date/Disposition Sep 28, 2017 Home with services Diagnosis Principal Diagnosis: Lumbar spinal stenosis with neurogenic claudication Admission Physical Exam As per Admitting History & Physical. Hospital Course Patient underwent lumbar decompression fusion tolerated as well as taken to the orthopedic floor possibly. Postop day #1 she was up and amatory progressed throughout the week. RUSLAN drain decreased appropriately. Pain markedly improved. Subsequently she was discharged home. Discharge orders and instructions found on the chart for further review. Discharge Instructions Please refer to the electronic Patient Visit Report (Discharge Instructions) for additional information.
[2017-09-28 10:45] VITALS: BP 111/69; PULSE 72; TEMP 36.5; O2SAT 96
== END 2017-09-28 11:43 | disposition home health service (06) | DRG 454 ==
LOC: C.ACU 05:50 → C.3E 07:30 → ENRESERV 10:29
PROVIDERS: ADMIT Orthopaedic Surgery Orthopaedic Surgery of the Spine; ATTEND Orthopaedic Surgery Orthopaedic Surgery of the Spine
PROC: 0RG6071 Fusion of Thoracic Vertebral Joint with Autologous Tissue Substitute, Posterior Approach, Posterior Column, Open Approach (ICD-10-PCS; principal; 2017-09-24 07:45)
PROC: 0SG1071 Fusion of 2 or more Lumbar Vertebral Joints with Autologous Tissue Substitute, Posterior Approach, Posterior Column, Open Approach (ICD-10-PCS; principal; 2017-09-24 07:45)
PROC: 0ST20ZZ Resection of Lumbar Vertebral Disc, Open Approach (ICD-10-PCS; principal; 2017-09-24 07:45)
PROC: 0SG00AJ Fusion of Lumbar Vertebral Joint with Interbody Fusion Device, Posterior Approach, Anterior Column, Open Approach (ICD-10-PCS; principal; 2017-09-24 07:45)
PROC: 0RGA071 Fusion of Thoracolumbar Vertebral Joint with Autologous Tissue Substitute, Posterior Approach, Posterior Column, Open Approach (ICD-10-PCS; principal; 2017-09-24 07:45)
DX: M48.062 Spinal stenosis, lumbar region with neurogenic claudication (principal); K50.90 Crohn's disease, unspecified, without complications; N39.0 Urinary tract infection, site not specified; D62 Acute posthemorrhagic anemia; E03.9 Hypothyroidism, unspecified; E78.5 Hyperlipidemia, unspecified; E11.9 Type 2 diabetes mellitus without complications; F41.9 Anxiety disorder, unspecified; F32.9 Major depressive disorder, single episode, unspecified; Z79.82 Long term (current) use of aspirin; Z79.84 Long term (current) use of oral hypoglycemic drugs; Z79.899 Other long term (current) drug therapy

== ENCOUNTER 2018-06-10 11:06 | Observation (INO) ==
[2018-06-10] MEDS ORDERED: ASPIRIN CHEW 324 MG PO STA (11:46)
[2018-06-10] MEDS ORDERED: ASPIRIN 81 MG CHEW ONE (11:56)
[2018-06-10 11:58] LABS: Basophils # (auto) 0.04 K/uL (0-0.2); Basophils % (auto) 0.6 %; Eosinophils # (auto) 0.19 K/uL (0-0.5); Hematocrit (blood only) 35.6 % (37-47); Hemoglobin 11.9 g/dL (12.0-16.0); Immature Granulocytes # (auto) 0.21 K/uL (0.00-0.02); Immature Granulocytes % (auto) 3.3 %; Lymphocytes % (auto) 20.3 %; Mean Corpuscular Hgb Conc 33.4 g/dL (32-36); Mean Corpuscular Volume 87.7 fL (80-100); Mean Platelet Volume 10.6 fL (7.4-10.4); Monocytes # (auto) 0.85 K/uL (0.11-0.59); Monocytes % (auto) 13.3 %; Neutrophils # (auto) 3.82 K/uL (1.4-6.5); Neutrophils % (auto) 59.5 %; Platelet Count 256 K/uL (130-400); RDW Coefficient of Variation 14.2 % (11.5-14.5); RDW Standard Deviation 45.1 fL (36.4-46.3); Red Blood Count 4.06 M/uL (4.2-5.4); White Blood Count 6.41 K/uL (4.8-10.8)
--- NOTE | 2018-06-10 12:08 | XRay Report ---
XR chest 1V portable CLINICAL HISTORY: Chest Pain pain COMPARISON STUDY: 12/16/2017 FINDINGS: Mild cardia megaly. Diaphragms are smooth. No focal infiltrate. IMPRESSION: Mild cardiomegaly. Otherwise negative study. The above report was generated using voice recognition software. It may contain grammatical, syntax or spelling errors. Electronically signed by: Nathaniel Martinez M.D. 06/10/2018 12:07 PM
[2018-06-10 12:21] LABS: Alanine Aminotransferase 19 U/L (12-78); Albumin Globulin Ratio 0.8 (0.9-2); Albumin Level 3.2 gm/dl (3.4-5.0); Alkaline Phosphatase 167 U/L (45-117); Aspartate Aminotransferase 15 U/L (15-37); BUN Creatinine Ratio 14.8 (10-20); Bilirubin,Total 0.2 mg/dl (0.2-1); Blood Urea Nitrogen 18 mg/dl (7-18); Calcium 9.8 mg/dl (8.5-10.1); Carbon Dioxide 21 mmol/L (21-32); Chloride 104 mmol/L (98-107); Est GFR (African American) 51.3; Est GFR (Non-African American) 44.3; Glucose 312 mg/dl (70-99); Potassium 4.8 mmol/L (3.5-5.1); Sodium 135 mmol/L (136-145); Total Protein 7.4 gm/dl (6.4-8.2); Troponin I < 0.015 ng/ml (0-0.045)
[2018-06-10 13:06] LABS: Globulin 4.2 gm/dl (2.5-4.0)
[2018-06-10 13:24] LABS: Partial Thromboplastin Ratio 0.8; Partial Thromboplastin Time 22.7 Seconds (21.0-31.0); Prothrombin Time 9.8 Seconds (9.0-12.0)
--- NOTE | 2018-06-10 14:59 | History & Physical Report ---
Date of Service June 10, 2018 Assessment & Plan (1) Chest pain: Patient with complaint of chest heaviness and SOB, occasional palpitations. Symptoms at rest and with exertion. Ongoing over the past two weeks with acute worsening over the past 2-3 days. Multiple cardiac risk factors to include HTN, HLP and DM. CP is atypical in nature. ?anxiety component contributing -Observation to telemetry -Trend cardiac markers -Continue ASA, Atorvastatin -Nitroglycerine PRN -Zofran PRN -Dobutamine stress echo in AM if overnight workup is negative. Patient NPO after midnight for stress test in AM (2) DM type 2 (diabetes mellitus, type 2): Blood sugar elevated at 312. PuR9H=9.5 on 04/23/18 -Lantus 7u BID -ISS -Continue to monitor -CC diet as tolerated -Continue Neurontin 200mg po TID Present on Admission?: Yes (3) Hyperlipidemia: Chronic. Stable. -Continue Atorvastatin 20mg Present on Admission?: Yes (4) Hypothyroid: Chronic. Stable. TSH=3.19 -Continue Synthroid 112 mcg daily Present on Admission?: Yes (5) GERD (gastroesophageal reflux disease): Chronic. Stable. -Continue Protonix 40mg po daily -Continue Ranitidine 300mg po qHS (6) Depression with anxiety: Chronic. Stable. Patient is tearful and anxious during encounter -Continue Buspirone 20mg po TID -Continue Seroquel 400mg po qHS -Continue Restoril 15mg po daily Present on Admission?: Yes (7) Crohns disease: Stable. Chronic -Continue Azathioprine 75mg po daily Present on Admission?: Yes (8) CKD (chronic kidney disease): BUN=18, Cr=1.24 which is near baseline. Patient with adequate UOP. No c omplaints. -Continue to monitor BUN, Cr, electrolytes and UOP -Renal dosing where appropriate -Avoid nephrotoxic agents Present on Admission?: Yes (9) History of back surgery: Noted. Patient still with pain and limited mobility -To followup with Dr. Arnold outpatient (10) Hypertension: Blood pressure presently controlled -Continue Lisinopril 5mg po daily -Continue to monitor Present on Admission?: Yes (11) Anemia: Normochromic/normocytic anemia, Hg=11.9, Hct=35.6. Near baseline. No active bleeding -Continue to monitor CBC -Continue PO iron F/E/N- Heplock. Monitor electroltyes and replete as needed. Heart healthy/CC diet as tolerated Ppx - low risk Code - Full Dispo -2N History of Present Illness Chief Complaint: Chest heaviness Primary Care Provider: Paramjit Martinez MD Shana Cabrera is a 68yo female with history of HTN, HLP, DM, CKD presenting with chest heaviness. Patient reports experiencing intermittent substernal chest heaviness, tightness and "fullness" over the last two weeks. Also with SOB and palpitations. Discomfort is 10/10, resolves after a few minutes. Symptoms may occur with exertion but mostly occur at rest. Increase in severity and frequency over the last 2-3 days. Patient denies edema, orthopnea or weight gain. She is not particularly active secondary to chronic orthopedic pain - back and knees. No known CAD. Had a Persantine stress test in 2000 which was unremarkable. ER Course: ASA 324mg Allergies Allergy/AdvReac Type Severity Reaction Status Date / Time Cephalosporins Allergy Intermediate HIVES Verified 06/10/18 12:39 Penicillins Allergy Intermediate HIVES Verified 06/10/18 12:39 cephalexin Allergy Unknown HIVES Verified 06/10/18 12:39 doxycycline Allergy Unknown GI UPSET Verified 06/10/18 12:39 Cipro AdvReac Intermediate NAUSEA AND Verified 09/24/17 06:23 VOMITING ciprofloxacin AdvReac Intermediate NAUSEA AND Verified 06/10/18 12:39 VOMITING infliximab AdvReac Intermediate ITCHING, Verified 06/10/18 12:39 RASH Home Medications Home Medications Medication Instructions Recorded Confirmed Type aspirin 81 mg PO QAM 06/10/18 06/10/18 History atorvastatin 20 mg PO UD 06/10/18 06/10/18 History azathioprine 75 mg PO DAILY 06/10/18 06/10/18 History buspirone 20 mg PO TID 06/10/18 06/10/18 History calcium carbonate-vitamin D3 1 tab PO BID 06/10/18 06/10/18 History [Calcium 500 + D (D3)] cholecalciferol (vitamin D3) 2,000 unit PO DAILY 06/10/18 06/10/18 History [Vitamin D3] cyanocobalamin (vitamin B-12) 1,000 mcg PO DAILY 06/10/18 06/10/18 History [Vitamin B-12] desvenlafaxine succinate 100 mg PO DAILY 06/10/18 06/10/18 History ferrous sulfate 324 mg PO DAILY 06/10/18 06/10/18 History gabapentin 200 mg PO TID 06/10/18 06/10/18 History gemfibrozil 600 mg PO BID 06/10/18 06/10/18 History glipizide 10 mg PO BID 06/10/18 06/10/18 History levothyroxine 112 mcg PO QAM 06/10/18 06/10/18 History lisinopril 5 mg PO DAILY 06/10/18 06/10/18 History meloxicam 15 mg PO DAILY 06/10/18 06/10/18 History meloxicam 15 mg PO DAILY PRN 06/10/18 06/10/18 History metformin 1,000 mg PO QAM 06/10/18 06/10/18 History metformin 500 mg PO QPM 06/10/18 06/10/18 History methenamine hippurate 1 g PO QPM 06/10/18 06/10/18 History multivitamin,tx-minerals 1 cap PO DAILY 06/10/18 06/10/18 History [Multi-Vitamin HP/Minerals] omeprazole 20 mg PO QAM 06/10/18 06/10/18 History quetiapine 400 mg PO HS 06/10/18 06/10/18 History ranitidine HCl 300 mg PO HS 06/10/18 06/10/18 History temazepam 15 mg PO DAILY 06/10/18 06/10/18 History topiramate 200 mg PO BID 06/10/18 06/10/18 History vedolizumab [Entyvio] 300 mg IV Q8WK 06/10/18 06/10/18 History Past Med/Surg History Medical History Anxiety Asthma Chronic kidney disease Crohns disease Depression Diabetes mellitus, type 2 Fusion of spine GERD (gastroesophageal reflux disease) History of hysterectomy Hyperlipidemia Hypertension Hypothyroidism Migraine Sleep apnea Surgical History History of back surgery History of arthroscopy S/P arthroscopic knee surgery S/P carpal tunnel release S/P left oophorectomy Family History Other Coronary heart disease Social History Preferred Language: Italian Communication Ability: Effective Visual Impairment: Limited Leather Parts Matcher Required: No Beliefs That Will Affect Care: Yazidism Yazidism Beliefs: Adventist Current Living Situation: Alone Feels Safe at Home: Yes Safety Concerns: Feels Safe At This Time Smoking Status: Never smoker Do You Dip or Chew Tobacco: No Hx Alcohol Use: No Hx Substance Use: No Review of Systems Review of Systems: All systems reviewed & are unremarkable except as noted in HPI & below +Knee pain +Back pain +hot flashes +Abdominal pain Physical Exam Physical Exam: General: patient resting comfortably, NAD, non-toxic in appearance, AA&O x 4 Skin: warm, dry, intact, no rashes or lesions HEENT: NC/AT, PERRL, EOMI, anicteric sclera, conjunctiva without injection, external ear normal to inspection and nontender, nares patent, moist mucus membranes, dentition intact, no oropharyngeal lesions, neck supple, trachea midline, no LAD, no thyromegaly, no JVD Heart: +S1/S2, regular, no m/r/g Lungs: equal air entry bilaterally, no rales/rhonchi/wheezes Abd: +BS, soft, NT/ND, no masses/organomegaly/ascites Ext: warm, 2+ pulses in UE/LE bilaterally, no clubbing/cyanosis or edema Neuro: nonfocal, patient AA&O x 4, speech intact, no facial droop, moving all extremities on command with equal strength 5/5 Results & Data Vital Signs (Past 12 Hours) Vital Signs Temp Pulse Resp BP Pulse Ox 06/10/18 12:33 89 20 167/124 H 96 06/10/18 12:01 82 22 165/84 H 98 06/10/18 11:31 91 H 13 160/88 H 95 06/10/18 11:22 92 H 17 181/82 H 97 06/10/18 11:09 36.4 C L 101 H 18 160/86 H 98 Laboratory Results Lab Results 06/10/18 06/10/18 06/10/18 Range/Units 11:41 11:41 11:41 WBC 6.41 (4.8-10.8) K/uL RBC 4.06 L (4.2-5.4) M/uL Hgb 11.9 L (12.0-16.0) g/dL Hct 35.6 L (37-47) % MCV 87.7 (80-100) fL MCH 29.3 (25-34) pg MCHC 33.4 (32-36) g/dL RDW Std Deviation 45.1 (36.4-46.3) fL RDW Coeff of Brianna 14.2 (11.5-14.5) % Plt Count 256 (130-400) K/uL MPV 10.6 H (7.4-10.4) fL Immature Gran % (Auto) 3.3 % Neut % (Auto) 59.5 % Lymph % (Auto) 20.3 % [place] % (Auto) 13.3 % Eos % (Auto) 3.0 % Baso % (Auto) 0.6 % Immature Gran # (Auto) 0.21 H (0.00-0.02) K/uL Neut # (Auto) 3.82 (1.4-6.5) K/uL Lymph # (Auto) 1.30 (1.2-3.4) K/uL [place] # (Auto) 0.85 H (0.11-0.59) K/uL Eos # (Auto) 0.19 (0-0.5) K/uL Baso # (Auto) 0.04 (0-0.2) K/uL PT Cancelled INR Cancelled APTT Cancelled PTT Ratio Cancelled Sodium 135 L (136-145) mmol/L Potassium 4.8 (3.5-5.1) mmol/L Chloride 104 (98-107) mmol/L Carbon Dioxide 21 (21-32) mmol/L Anion Gap 10.0 (3-11) BUN 18 (7-18) mg/dl Creatinine 1.24 H (0.6-1.2) mg/dl Est Cr Clr Drug Dosing Not Reportable Est GFR ( Amer) 51.3 Est GFR (Non-Af Amer) 44.3 BUN/Creatinine Ratio 14.8 (10-20) Glucose 312 H* (70-99) mg/dl POC Glucose (70-99) Calcium 9.8 (8.5-10.1) mg/dl Total Bilirubin 0.2 (0.2-1) mg/dl AST 15 (15-37) U/L ALT 19 (12-78) U/L Alkaline Phosphatase 167 H (45-117) U/L Troponin I < 0.015 (0-0.045) ng/ml Total Protein 7.4 (6.4-8.2) gm/dl Albumin 3.2 L (3.4-5.0) gm/dl Globulin 4.2 H (2.5-4.0) gm/dl Albumin/Globulin Ratio 0.8 L (0.9-2) Lipase 338 (73-393) U/L Beta-Hydroxybutyric Acd (0.2-2.81) mg/dl TSH (0.300-4.500) uIu/ml 06/10/18 06/10/18 06/10/18 Range/Units 11:41 13:01 16:24 WBC (4.8-10.8) K/uL RBC (4.2-5.4) M/uL Hgb (12.0-16.0) g/dL Hct (37-47) % MCV (80-100) fL MCH (25-34) pg MCHC (32-36) g/dL RDW Std Deviation (36.4-46.3) fL RDW Coeff of Brianna (11.5-14.5) % Plt Count (130-400) K/uL MPV (7.4-10.4) fL Immature Gran % (Auto) % Neut % (Auto) % Lymph % (Auto) % [place] % (Auto) % Eos % (Auto) % Baso % (Auto) % Immature Gran # (Auto) (0.00-0.02) K/uL Neut # (Auto) (1.4-6.5) K/uL Lymph # (Auto) (1.2-3.4) K/uL [place] # (Auto) (0.11-0.59) K/uL Eos # (Auto) (0-0.5) K/uL Baso # (Auto) (0-0.2) K/uL PT 9.8 INR 1.0 APTT 22.7 PTT Ratio 0.8 Sodium (136-145) mmol/L Potassium (3.5-5.1) mmol/L Chloride (98-107) mmol/L Carbon Dioxide (21-32) mmol/L Anion Gap (3-11) BUN (7-18) mg/dl Creatinine (0.6-1.2) mg/dl Est Cr Clr Drug Dosing Est GFR ( Amer) Est GFR (Non-Af Amer) BUN/Creatinine Ratio (10-20) Glucose (70-99) mg/dl POC Glucose 196 H (70-99) Calcium (8.5-10.1) mg/dl Total Bilirubin (0.2-1) mg/dl AST (15-37) U/L ALT (12-78) U/L Alkaline Phosphatase (45-117) U/L Troponin I (0-0.045) ng/ml Total Protein (6.4-8.2) gm/dl Albumin (3.4-5.0) gm/dl Globulin (2.5-4.0) gm/dl Albumin/Globulin Ratio (0.9-2) Lipase (73-393) U/L Beta-Hydroxybutyric Acd (0.2-2.81) mg/dl TSH 3.190 (0.300-4.500) uIu/ml 06/10/18 06/10/18 Range/Units 16:54 19:08 WBC (4.8-10.8) K/uL RBC (4.2-5.4) M/uL Hgb (12.0-16.0) g/dL Hct (37-47) % MCV (80-100) fL MCH (25-34) pg MCHC (32-36) g/dL RDW Std Deviation (36.4-46.3) fL RDW Coeff of Brianna (11.5-14.5) % Plt Count (130-400) K/uL MPV (7.4-10.4) fL Immature Gran % (Auto) % Neut % (Auto) % Lymph % (Auto) % [place] % (Auto) % Eos % (Auto) % Baso % (Auto) % Immature Gran # (Auto) (0.00-0.02) K/uL Neut # (Auto) (1.4-6.5) K/uL Lymph # (Auto) (1.2-3.4) K/uL [place] # (Auto) (0.11-0.59) K/uL Eos # (Auto) (0-0.5) K/uL Baso # (Auto) (0-0.2) K/uL PT INR APTT PTT Ratio Sodium (136-145) mmol/L Potassium (3.5-5.1) mmol/L Chloride (98-107) mmol/L Carbon Dioxide (21-32) mmol/L Anion Gap (3-11) BUN (7-18) mg/dl Creatinine (0.6-1.2) mg/dl Est Cr Clr Drug Dosing Est GFR ( Amer) Est GFR (Non-Af Amer) BUN/Creatinine Ratio (10-20) Glucose (70-99) mg/dl POC Glucose 196 H (70-99) Calcium (8.5-10.1) mg/dl Total Bilirubin (0.2-1) mg/dl AST (15-37) U/L ALT (12-78) U/L Alkaline Phosphatase (45-117) U/L Troponin I < 0.015 (0-0.045) ng/ml Total Protein (6.4-8.2) gm/dl Albumin (3.4-5.0) gm/dl Globulin (2.5-4.0) gm/dl Albumin/Globulin Ratio (0.9-2) Lipase (73-393) U/L Beta-Hydroxybutyric Acd (0.2-2.81) mg/dl TSH (0.300-4.500) uIu/ml Diagnostic Findings XR chest 1V portable CLINICAL HISTORY: Chest Pain pain COMPARISON STUDY: 12/16/2017 FINDINGS: Mild cardia megaly. Diaphragms are smooth. No focal infiltrate. IMPRESSION: Mild cardiomegaly. Otherwise negative study. The above report was generated using voice recognition software. It may contain grammatical, syntax or spelling errors. Electronically signed by: Nathaniel Martinez M.D. 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 mellitus extermination inspector insulin use: without longterm use Qualified Code(s): E11.9 - Type 2 diabetes mellitus without complications (2) Crohns disease Gastrointestinal tract location: unspecified location Digestive disease complication type: without complication Qualified Code(s): K50.90 - Crohn's disease, unspecified, without complications (3) Hyperlipidemia Hyperlipidemia type: unspecified Qualified Code(s): E78.5 - Hyperlipidemia, unspecified (4) Hypothyroid Hypothyroidism type: acquired Qualified Code(s): E03.9 - Hypothyroidism, unspecified (5) GERD (gastroesophageal reflux disease) Esophagitis presence: esophagitis presence not specified Qualified Code(s): K21.9 - Gastro-esophageal reflux disease without esophagitis (6) Chest pain Chest pain type: unspecified Qualified Code(s): R07.9 - Chest pain, unspecified
[2018-06-10] MEDS ORDERED: POLYETHYLENE (MIRALAX) 17 GM PACK PO PRN (16:56)
[2018-06-10] MEDS ORDERED: GLUCOSE 10 TABS/TUBE PO PRN (16:56)
[2018-06-10] MEDS ORDERED: GLUCAGON FOR INJ 1 MG VIAL SQ PRN (16:56)
[2018-06-10] MEDS ORDERED: ONDANSETRON INJ 2 MG/ML 2 ML VIAL IV PRN (16:56)
[2018-06-10] MEDS ORDERED: CARBOHYDRATES FOR HYPOGLYCEMIA PO PRN (16:56)
[2018-06-10] MEDS ORDERED: DEXTROSE 50% 50 ML SYRINGE IV PRN (16:56)
[2018-06-10] MEDS ORDERED: NITROGLYCERIN SL 0.4 MG/TAB TAB SL PRN (16:56)
[2018-06-10] MEDS ORDERED: GLUCOSE 40% GEL 15 GM TUBE PO PRN (16:56)
[2018-06-10] MEDS: ACETAMINOPHEN 325 MG TAB PO PRN (17:12)
--- NOTE | 2018-06-10 18:11 | Emergency Department Note ---
Entered by Abigail Tai acting as a scribe for Paramjit Gandhi DO History of Present Illness General Chief complaint: Shortness of Breath/Dyspnea Stated complaint: SOB/ REFERRED BY [facility] Time Seen by Provider: 06/10/18 11:35 Source: patient History of Present Illness Provider complaint: shortness of breath Onset (ago): week(s) (over the last 2 weeks ) Location: chest Pain Consistency: + other (waxes and wanes) Maximum Pain Intensity: 7 Quality: + other (shortness of breath ) Exacerbated By: + movement (exertion) Associated symptoms: + other (chest heaviness) The patient is a 68 year old female who presents to the Emergency Department with complaints of waning and waning shortness of breath over the last 2 weeks. The patient states that her shortness of breath is not exacerbated when she lays down but states that exertion exacerbates it. The patient states that she has been weak. She also reports having chest heaviness but denies having chest pain. She states that she called her doctor's office and spoke to the nurse who referred her here. She states that she has hypertension, diabetes, and Crohn's Disease. She denies a history of a heart attack and states that she may have had a stress test done years ago. The patient reports that her mother had a heart attack and at the age of 71. Home Medications Home Medications Medication Instructions Recorded Confirmed Type aspirin 81 mg PO QAM 06/10/18 06/10/18 History atorvastatin 20 mg PO UD 06/10/18 06/10/18 History azathioprine 75 mg PO DAILY 06/10/18 06/10/18 History buspirone 20 mg PO TID 06/10/18 06/10/18 History calcium carbonate-vitamin D3 1 tab PO BID 06/10/18 06/10/18 History [Calcium 500 + D (D3)] cholecalciferol (vitamin D3) 2,000 unit PO DAILY 06/10/18 06/10/18 History [Vitamin D3] cyanocobalamin (vitamin B-12) 1,000 mcg PO DAILY 06/10/18 06/10/18 History [Vitamin B-12] desvenlafaxine succinate 100 mg PO DAILY 06/10/18 06/10/18 History ferrous sulfate 324 mg PO DAILY 06/10/18 06/10/18 History gabapentin 200 mg PO TID 06/10/18 06/10/18 History gemfibrozil 600 mg PO BID 06/10/18 06/10/18 History glipizide 10 mg PO BID 06/10/18 06/10/18 History levothyroxine 112 mcg PO QAM 06/10/18 06/10/18 History lisinopril 5 mg PO DAILY 06/10/18 06/10/18 History meloxicam 15 mg PO DAILY 06/10/18 06/10/18 History meloxicam 15 mg PO DAILY PRN 06/10/18 06/10/18 History metformin 1,000 mg PO QAM 06/10/18 06/10/18 History metformin 500 mg PO QPM 06/10/18 06/10/18 History methenamine hippurate 1 g PO QPM 06/10/18 06/10/18 History multivitamin,tx-minerals 1 cap PO DAILY 06/10/18 06/10/18 History [Multi-Vitamin HP/Minerals] omeprazole 20 mg PO QAM 06/10/18 06/10/18 History quetiapine 400 mg PO HS 06/10/18 06/10/18 History ranitidine HCl 300 mg PO HS 06/10/18 06/10/18 History temazepam 15 mg PO DAILY 06/10/18 06/10/18 History topiramate 200 mg PO BID 06/10/18 06/10/18 History vedolizumab [Entyvio] 300 mg IV Q8WK 06/10/18 06/10/18 History Allergies Allergy/AdvReac Type Severity Reaction Status Date / Time Cephalosporins Allergy Intermediate HIVES Verified 06/10/18 12:39 Penicillins Allergy Intermediate HIVES Verified 06/10/18 12:39 cephalexin Allergy Unknown HIVES Verified 06/10/18 12:39 doxycycline Allergy Unknown GI UPSET Verified 06/10/18 12:39 Cipro AdvReac Intermediate NAUSEA AND Verified 09/24/17 06:23 VOMITING ciprofloxacin AdvReac Intermediate NAUSEA AND Verified 06/10/18 12:39 VOMITING infliximab AdvReac Intermediate ITCHING, Verified 06/10/18 12:39 RASH Past Med/Surg History Medical History Anxiety Asthma Chronic kidney disease Crohns disease Depression Diabetes mellitus, type 2 Fusion of spine GERD (gastroesophageal reflux disease) History of hysterectomy Hyperlipidemia Hypertension Hypothyroidism Migraine Sleep apnea Surgical History History of back surgery History of arthroscopy S/P arthroscopic knee surgery S/P carpal tunnel release S/P left oophorectomy Family History Other Coronary heart disease Social History Preferred Language: Kiswahili Communication Ability: Effective Visual Impairment: Limited Door Operator Required: No Beliefs That Will Affect Care: Holiness Holiness Beliefs: Judaism Current Living Situation: Alone Feels Safe at Home: Yes Safety Concerns: Feels Safe At This Time Smoking Status: Never smoker Do You Dip or Chew Tobacco: No Hx Alcohol Use: No Hx Substance Use: No Review of Systems See HPI for pertinent positives & negatives. and A total of 10 systems reviewed and were otherwise negative Physical Exam Vital Signs Vital Signs - 24 hr 06/10/18 11:09 06/10/18 11:22 06/10/18 11:31 Temperature 36.4 C L Temperature Source Oral Sepsis Recent Fever Within 48 Hours No Sepsis New/Unexplained Change in Mental Status No Sepsis Action Taken by Nursing No Action Required Pulse Rate 101 H 92 H 91 H Pulse Rate [Left Finger] Pulse Rate from SpO2 Sensor 93 H Respiratory Rate 18 17 13 Respiratory Effort / Characteristics Non-Labored Respiratory Depth Normal Respiratory Pattern Regular Blood Pressure 160/86 H 181/82 H 160/88 H Blood Pressure [Left Arm] Blood Pressure [Right Arm] Blood Pressure Mean 110 115 112 Blood Pressure Mean [Left Arm] Blood Pressure Mean [Right Arm] Blood Pressure Position Sitting Blood Pressure Position [Left Arm] Blood Pressure Position [Right Arm] Pulse Oximetry 98 97 95 Oxygen Delivery Method Room Air Room Air Room Air 06/10/18 11:46 06/10/18 12:01 06/10/18 12:33 Temperature Temperature Source Sepsis Recent Fever Within 48 Hours Sepsis New/Unexplained Change in Mental Status Sepsis Action Taken by Nursing Pulse Rate 82 89 Pulse Rate [Left Finger] Pulse Rate from SpO2 Sensor 81 Respiratory Rate 22 20 Respiratory Effort / Characteristics Respiratory Depth Respiratory Pattern Blood Pressure 165/84 H 167/124 H Blood Pressure [Left Arm] Blood Pressure [Right Arm] Blood Pressure Mean 111 138 Blood Pressure Mean [Left Arm] Blood Pressure Mean [Right Arm] Blood Pressure Position Blood Pressure Position [Left Arm] Blood Pressure Position [Right Arm] Pulse Oximetry 98 96 Oxygen Delivery Method Room Air Room Air Room Air 06/10/18 13:31 06/10/18 14:30 06/10/18 14:58 Temperature Temperature Source Sepsis Recent Fever Within 48 Hours Sepsis New/Unexplained Change in Mental Status Sepsis Action Taken by Nursing Pulse Rate 91 H 88 Pulse Rate [Left Finger] Pulse Rate from SpO2 Sensor 91 H 89 Respiratory Rate 28 H 17 Respiratory Effort / Characteristics Respiratory Depth Respiratory Pattern Blood Pressure 178/103 H Blood Pressure [Left Arm] Blood Pressure [Right Arm] Blood Pressure Mean 128 Blood Pressure Mean [Left Arm] Blood Pressure Mean [Right Arm] Blood Pressure Position Blood Pressure Position [Left Arm] Blood Pressure Position [Right Arm] Pulse Oximetry 97 97 Oxygen Delivery Method Room Air 06/10/18 15:00 06/10/18 16:25 06/10/18 17:45 Temperature Temperature Source Sepsis Recent Fever Within 48 Hours Sepsis New/Unexplained Change in Mental Status Sepsis Action Taken by Nursing Pulse Rate 91 H 86 96 H Pulse Rate [Left Finger] Pulse Rate from SpO2 Sensor 91 H Respiratory Rate 23 18 Respiratory Effort / Characteristics Respiratory Depth Respiratory Pattern Blood Pressure 154/102 H Blood Pressure [Left Arm] Blood Pressure [Right Arm] Blood Pressure Mean 119 Blood Pressure Mean [Left Arm] Blood Pressure Mean [Right Arm] Blood Pressure Position Blood Pressure Position [Left Arm] Blood Pressure Position [Right Arm] Pulse Oximetry 96 96 Oxygen Delivery Method Room Air 06/10/18 20:00 06/10/18 23:14 06/11/18 03:29 Temperature 36.8 C 36.6 C 36.6 C Temperature Source Oral Oral Oral Sepsis Recent Fever Within 48 Hours Sepsis New/Unexplained Change in Mental Status Sepsis Action Taken by Nursing Pulse Rate Pulse Rate [Left Finger] 81 109 H 90 Pulse Rate from SpO2 Sensor Respiratory Rate 18 19 18 Respiratory Effort / Characteristics Respiratory Depth Respiratory Pattern Blood Pressure Blood Pressure [Left Arm] 137/72 153/77 H 133/77 Blood Pressure [Right Arm] Blood Pressure Mean Blood Pressure Mean [Left Arm] 93 102 95 Blood Pressure Mean [Right Arm] Blood Pressure Position Blood Pressure Position [Left Arm] Lying Lying Lying Blood Pressure Position [Right Arm] Pulse Oximetry 93 94 94 Oxygen Delivery Method Room Air Room Air Room Air 06/11/18 07:19 06/11/18 07:27 Temperature 36.6 C Temperature Source Oral Sepsis Recent Fever Within 48 Hours Sepsis New/Unexplained Change in Mental Status Sepsis Action Taken by Nursing Pulse Rate 89 Pulse Rate [Left Finger] 80 Pulse Rate from SpO2 Sensor Respiratory Rate 17 Respiratory Effort / Characteristics Respiratory Depth Respiratory Pattern Blood Pressure Blood Pressure [Left Arm] Blood Pressure [Right Arm] 117/75 Blood Pressure Mean Blood Pressure Mean [Left Arm] Blood Pressure Mean [Right Arm] 89 Blood Pressure Position Blood Pressure Position [Left Arm] Blood Pressure Position [Right Arm] Lying Pulse Oximetry 95 Oxygen Delivery Method Room Air GENERAL: Patient is awake, alert, and in no acute distress.Patient is resting comfortably and showing no signs of anxiety EYES: The conjunctivae are clear. The pupils are round and reactive. EARS, NOSE, MOUTH AND THROAT: The nose is without any evidence of any deformity. Mucous membranes are moist.Tongue is midline NECK: The neck is nontender and supple. RESPIRATORY: Normal respiratory effort is noted. There is no evidence of wheezing rhonchi or rales to auscultation. CARDIOVASCULAR: Regular rate and rhythm noted. There no murmurs rubs or gallops normal S1 normal S2 GASTROINTESTINAL: The abdomen is soft. Bowel sounds are present in all quadrants. Abdomen is nontender. MUSCULOSKELETAL/EXTREMITIES: There is no evidence of gross deformity. Full range of motion is noted in the hips and shoulders. SKIN: There is no obvious evidence of any rash. There are no petechiae, pallor or cyanosis noted. NEUROLOGIC: Patient is awake alert and oriented x3. Course 1144: The patient was evaluated in room A12B. A history and physical were performed. 1400: I updated the patient who verbalized agreement and understanding of the treatment plan. 1408: I discussed the patient's case with Dr. Mirna Mukherjee who will evaluate the patient for further management. Consultations Consultation #1: Dr. Mirna Mukherjee Time: 14:08 Administered Medications Acetaminophen (Tylenol) 650 mg PO Q4H PRN PRN Reason: pain/fever Stop: 07/10/18 16:55 Last Admin: 06/11/18 03:55 Dose: 650 mg Documented by: [id number] Admin: 06/10/18 17:12 Dose: 650 mg Documented by: [id number] Hydrox/Mg Hydrox/Simethicone (Maalox) 15 ml PO Q6H PRN PRN Reason: Heartburn Stop: 07/10/18 20:37 Last Admin: 06/10/18 20:51 Dose: 15 ml Documented by: [id number] Buspirone HCl (Buspar) 20 mg PO TID [facility] Stop: 07/10/18 20:59 Last Admin: 06/10/18 20:54 Dose: 20 mg Documented by: [id number] Gabapentin (Neurontin) 200 mg PO TID [facility] Stop: 07/10/18 20:59 Last Admin: 06/10/18 20:53 Dose: 200 mg Documented by: [id number] Insulin Aspart (Novolog Flexpen) 0 units SC ACHS [facility] Stop: 07/10/18 16:55 Last Admin: 06/10/18 20:57 Dose: 1 units Documented by: [id number] Cosigned by: [id number] Admin: 06/10/18 18:23 Dose: 4 units Documented by: [id number] Cosigned by: [id number] Insulin Glargine (Lantus Solostar Pen) 7 units SC BID [facility] Stop: 07/10/18 20:59 Last Admin: 06/10/18 20:55 Dose: 7 units Documented by: [id number] Cosigned by: [id number] Levothyroxine Sodium (Synthroid) 112 mcg PO DAILYBB [facility] Stop: 07/11/18 06:29 Last Admin: 06/11/18 05:13 Dose: 112 mcg Documented by: [id number] Methenamine Hippurate (Urex) 1 gm PO QPM [facility] Stop: 07/10/18 20:59 Last Admin: 06/10/18 20:54 Dose: 1 gm Documented by: [id number] Miscellaneous (Order Awaiting Action) 1 ea N/A QS [facility] Stop: 07/11/18 00:00 Last Admin: 06/11/18 00:00 Dose: Not Given Documented by: [id number] Miscellaneous (Order Awaiting Action) 1 ea N/A QS [facility] Stop: 07/11/18 00:00 Last Admin: 06/11/18 00:00 Dose: Not Given Documented by: [id number] Quetiapine Fumarate (Seroquel) 400 mg PO HS [facility] Stop: 07/10/18 20:59 Last Admin: 06/10/18 20:52 Dose: 400 mg Documented by: [id number] Ranitidine HCl (Zantac) 300 mg PO HS [facility] Stop: 07/10/18 20:59 Last Admin: 06/10/18 20:53 Dose: 300 mg Documented by: [id number] Topiramate (Topamax) 200 mg PO BID [facility] Stop: 07/10/18 20:59 Last Admin: 06/10/18 20:52 Dose: 200 mg Documented by: [id number] Tramadol HCl (Ultram) 50 mg PO Q4H PRN PRN Reason: Pain Stop: 07/10/18 20:37 Last Admin: 06/11/18 05:13 Dose: 50 mg Documented by: [id number] Admin: 06/10/18 20:50 Dose: 50 mg Documented by: [id number] Discontinued Medications Aspirin (Aspirin) 324 mg PO NOW STA Stop: 06/10/18 11:47 Last Admin: 06/10/18 11:58 Dose: Not Given Documented by: [id number] Aspirin (Aspirin Chew) Confirm Administered Dose 243 mg .ROUTE .STK-MED ONE Stop: 06/10/18 11:57 Last Admin: 06/10/18 11:58 Dose: 243 mg Documented by: [id number] Diphenhydramine HCl (Benadryl) 25 mg IV NOW STA Stop: 06/11/18 02:46 Last Admin: 06/11/18 04:03 Dose: 25 mg Documented by: [id number] Oxycodone/Acetaminophen (Percocet 5mg/325mg) 1 tab PO NOW STA Stop: 06/10/18 22:08 Last Admin: 06/10/18 22:15 Dose: 1 tab Documented by: [id number] Medical Decision Making Differential Diagnosis Differential diagnosis: Etiologies such as infections, reactive airway disease, COPD, pneumonia, pleural effusion, pulmonary edema, ARDS, pneumothorax, CHF, cardiac ischemia, cardiac tamponade, dysrhythmia, anemia, pulmonary embolism, musculoskeletal, gastrointestinal process, as well as others were entertained. Medical Records Attestation: I reviewed the patient's medical records. Home Medications Current Medication List: was personally reviewed by me Laboratory Data Attestation: I reviewed the patient's lab results. Result diagrams: 06/11/18 07:34 06/11/18 07:34 Lab Results 06/10/18 06/10/18 06/10/18 Range/Units 11:41 11:41 11:41 WBC 6.41 (4.8-10.8) K/uL RBC 4.06 L (4.2-5.4) M/uL Hgb 11.9 L (12.0-16.0) g/dL Hct 35.6 L (37-47) % MCV 87.7 (80-100) fL MCH 29.3 (25-34) pg MCHC 33.4 (32-36) g/dL RDW Std Deviation 45.1 (36.4-46.3) fL RDW Coeff of Brianna 14.2 (11.5-14.5) % Plt Count 256 (130-400) K/uL MPV 10.6 H (7.4-10.4) fL Immature Gran % (Auto) 3.3 % Neut % (Auto) 59.5 % Lymph % (Auto) 20.3 % [place] % (Auto) 13.3 % Eos % (Auto) 3.0 % Baso % (Auto) 0.6 % Immature Gran # (Auto) 0.21 H (0.00-0.02) K/uL Neut # (Auto) 3.82 (1.4-6.5) K/uL Lymph # (Auto) 1.30 (1.2-3.4) K/uL [place] # (Auto) 0.85 H (0.11-0.59) K/uL Eos # (Auto) 0.19 (0-0.5) K/uL Baso # (Auto) 0.04 (0-0.2) K/uL Neutrophils % (Manual) % Lymphocytes % (Manual) % Monocytes % (Manual) % Eosinophils % (Manual) % Basophils % (Manual) % Neutrophils # (Manual) (1.4-6.5) K/uL Total Absolute Neuts (1.4-6.5) K/uL Lymphocytes # (Manual) (1.2-3.4) K/uL Total Abs Lymphocytes (1.2-3.4) K/uL Monocytes # (Manual) (0.11-0.59) K/uL Eosinophils # (Manual) (0-0.5) K/uL Basophils # (Manual) (0-0.2) K/uL RBC Morphology PT Cancelled INR Cancelled APTT Cancelled PTT Ratio Cancelled Sodium 135 L (136-145) mmol/L Potassium 4.8 (3.5-5.1) mmol/L Chloride 104 (98-107) mmol/L Carbon Dioxide 21 (21-32) mmol/L Anion Gap 10.0 (3-11) BUN 18 (7-18) mg/dl Creatinine 1.24 H (0.6-1.2) mg/dl Est Cr Clr Drug Dosing Not Reportable Est GFR ( Amer) 51.3 Est GFR (Non-Af Amer) 44.3 BUN/Creatinine Ratio 14.8 (10-20) Glucose 312 H* (70-99) mg/dl POC Glucose (70-99) Calcium 9.8 (8.5-10.1) mg/dl Total Bilirubin 0.2 (0.2-1) mg/dl AST 15 (15-37) U/L ALT 19 (12-78) U/L Alkaline Phosphatase 167 H (45-117) U/L Troponin I < 0.015 (0-0.045) ng/ml Total Protein 7.4 (6.4-8.2) gm/dl Albumin 3.2 L (3.4-5.0) gm/dl Globulin 4.2 H (2.5-4.0) gm/dl Albumin/Globulin Ratio 0.8 L (0.9-2) Lipase 338 (73-393) U/L Beta-Hydroxybutyric Acd (0.2-2.81) mg/dl TSH (0.300-4.500) uIu/ml 06/10/18 06/10/18 06/10/18 Range/Units 11:41 13:01 16:24 WBC (4.8-10.8) K/uL RBC (4.2-5.4) M/uL Hgb (12.0-16.0) g/dL Hct (37-47) % MCV (80-100) fL MCH (25-34) pg MCHC (32-36) g/dL RDW Std Deviation (36.4-46.3) fL RDW Coeff of Brianna (11.5-14.5) % Plt Count (130-400) K/uL MPV (7.4-10.4) fL Immature Gran % (Auto) % Neut % (Auto) % Lymph % (Auto) % [place] % (Auto) % Eos % (Auto) % Baso % (Auto) % Immature Gran # (Auto) (0.00-0.02) K/uL Neut # (Auto) (1.4-6.5) K/uL Lymph # (Auto) (1.2-3.4) K/uL [place] # (Auto) (0.11-0.59) K/uL Eos # (Auto) (0-0.5) K/uL Baso # (Auto) (0-0.2) K/uL Neutrophils % (Manual) % Lymphocytes % (Manual) % Monocytes % (Manual) % Eosinophils % (Manual) % Basophils % (Manual) % Neutrophils # (Manual) (1.4-6.5) K/uL Total Absolute Neuts (1.4-6.5) K/uL Lymphocytes # (Manual) (1.2-3.4) K/uL Total Abs Lymphocytes (1.2-3.4) K/uL Monocytes # (Manual) (0.11-0.59) K/uL Eosinophils # (Manual) (0-0.5) K/uL Basophils # (Manual) (0-0.2) K/uL RBC Morphology PT 9.8 INR 1.0 APTT 22.7 PTT Ratio 0.8 Sodium (136-145) mmol/L Potassium (3.5-5.1) mmol/L Chloride (98-107) mmol/L Carbon Dioxide (21-32) mmol/L Anion Gap (3-11) BUN (7-18) mg/dl Creatinine (0.6-1.2) mg/dl Est Cr Clr Drug Dosing Est GFR ( Amer) Est GFR (Non-Af Amer) BUN/Creatinine Ratio (10-20) Glucose (70-99) mg/dl POC Glucose 196 H (70-99) Calcium (8.5-10.1) mg/dl Total Bilirubin (0.2-1) mg/dl AST (15-37) U/L ALT (12-78) U/L Alkaline Phosphatase (45-117) U/L Troponin I (0-0.045) ng/ml Total Protein (6.4-8.2) gm/dl Albumin (3.4-5.0) gm/dl Globulin (2.5-4.0) gm/dl Albumin/Globulin Ratio (0.9-2) Lipase (73-393) U/L Beta-Hydroxybutyric Acd (0.2-2.81) mg/dl TSH 3.190 (0.300-4.500) uIu/ml 06/10/18 06/10/18 06/10/18 Range/Units 16:54 19:08 20:48 WBC (4.8-10.8) K/uL RBC (4.2-5.4) M/uL Hgb (12.0-16.0) g/dL Hct (37-47) % MCV (80-100) fL MCH (25-34) pg MCHC (32-36) g/dL RDW Std Deviation (36.4-46.3) fL RDW Coeff of Brianna (11.5-14.5) % Plt Count (130-400) K/uL MPV (7.4-10.4) fL Immature Gran % (Auto) % Neut % (Auto) % Lymph % (Auto) % [place] % (Auto) % Eos % (Auto) % Baso % (Auto) % Immature Gran # (Auto) (0.00-0.02) K/uL Neut # (Auto) (1.4-6.5) K/uL Lymph # (Auto) (1.2-3.4) K/uL [place] # (Auto) (0.11-0.59) K/uL Eos # (Auto) (0-0.5) K/uL Baso # (Auto) (0-0.2) K/uL Neutrophils % (Manual) % Lymphocytes % (Manual) % Monocytes % (Manual) % Eosinophils % (Manual) % Basophils % (Manual) % Neutrophils # (Manual) (1.4-6.5) K/uL Total Absolute Neuts (1.4-6.5) K/uL Lymphocytes # (Manual) (1.2-3.4) K/uL Total Abs Lymphocytes (1.2-3.4) K/uL Monocytes # (Manual) (0.11-0.59) K/uL Eosinophils # (Manual) (0-0.5) K/uL Basophils # (Manual) (0-0.2) K/uL RBC Morphology PT INR APTT PTT Ratio Sodium (136-145) mmol/L Potassium (3.5-5.1) mmol/L Chloride (98-107) mmol/L Carbon Dioxide (21-32) mmol/L Anion Gap (3-11) BUN (7-18) mg/dl Creatinine (0.6-1.2) mg/dl Est Cr Clr Drug Dosing Est GFR ( Amer) Est GFR (Non-Af Amer) BUN/Creatinine Ratio (10-20) Glucose (70-99) mg/dl POC Glucose 196 H 181 H (70-99) Calcium (8.5-10.1) mg/dl Total Bilirubin (0.2-1) mg/dl AST (15-37) U/L ALT (12-78) U/L Alkaline Phosphatase (45-117) U/L Troponin I < 0.015 (0-0.045) ng/ml Total Protein (6.4-8.2) gm/dl Albumin (3.4-5.0) gm/dl Globulin (2.5-4.0) gm/dl Albumin/Globulin Ratio (0.9-2) Lipase (73-393) U/L Beta-Hydroxybutyric Acd (0.2-2.81) mg/dl TSH (0.300-4.500) uIu/ml 06/11/18 06/11/18 06/11/18 Range/Units 07:33 07:34 07:34 WBC 6.65 (4.8-10.8) K/uL RBC 4.13 L (4.2-5.4) M/uL Hgb 12.3 (12.0-16.0) g/dL Hct 36.7 L (37-47) % MCV 88.9 (80-100) fL MCH 29.8 (25-34) pg MCHC 33.5 (32-36) g/dL RDW Std Deviation 46.6 H (36.4-46.3) fL RDW Coeff of Brianna 14.5 (11.5-14.5) % Plt Count 289 (130-400) K/uL MPV 10.6 H (7.4-10.4) fL Immature Gran % (Auto) % Neut % (Auto) % Lymph % (Auto) % [place] % (Auto) % Eos % (Auto) % Baso % (Auto) % Immature Gran # (Auto) (0.00-0.02) K/uL Neut # (Auto) (1.4-6.5) K/uL Lymph # (Auto) (1.2-3.4) K/uL [place] # (Auto) (0.11-0.59) K/uL Eos # (Auto) (0-0.5) K/uL Baso # (Auto) (0-0.2) K/uL Neutrophils % (Manual) 55.6 % Lymphocytes % (Manual) 32.2 % Monocytes % (Manual) 8.7 % Eosinophils % (Manual) 2.6 % Basophils % (Manual) 0.9 % Neutrophils # (Manual) 3.70 (1.4-6.5) K/uL Total Absolute Neuts 3.70 (1.4-6.5) K/uL Lymphocytes # (Manual) 2.14 (1.2-3.4) K/uL Total Abs Lymphocytes 2.14 (1.2-3.4) K/uL Monocytes # (Manual) 0.58 (0.11-0.59) K/uL Eosinophils # (Manual) 0.17 (0-0.5) K/uL Basophils # (Manual) 0.06 (0-0.2) K/uL RBC Morphology Unremarkable PT INR APTT PTT Ratio Sodium Cancelled (136-145) mmol/L Potassium Cancelled (3.5-5.1) mmol/L Chloride Cancelled (98-107) mmol/L Carbon Dioxide Cancelled (21-32) mmol/L Anion Gap Cancelled (3-11) BUN Cancelled (7-18) mg/dl Creatinine Cancelled (0.6-1.2) mg/dl Est Cr Clr Drug Dosing Cancelled Est GFR ( Amer) Cancelled Est GFR (Non-Af Amer) Cancelled BUN/Creatinine Ratio Cancelled (10-20) Glucose Cancelled (70-99) mg/dl POC Glucose 204 H (70-99) Calcium Cancelled (8.5-10.1) mg/dl Total Bilirubin (0.2-1) mg/dl AST (15-37) U/L ALT (12-78) U/L Alkaline Phosphatase (45-117) U/L Troponin I (0-0.045) ng/ml Total Protein (6.4-8.2) gm/dl Albumin (3.4-5.0) gm/dl Globulin (2.5-4.0) gm/dl Albumin/Globulin Ratio (0.9-2) Lipase (73-393) U/L Beta-Hydroxybutyric Acd (0.2-2.81) mg/dl TSH (0.300-4.500) uIu/ml 06/11/18 Range/Units 07:34 WBC (4.8-10.8) K/uL RBC (4.2-5.4) M/uL Hgb (12.0-16.0) g/dL Hct (37-47) % MCV (80-100) fL MCH (25-34) pg MCHC (32-36) g/dL RDW Std Deviation (36.4-46.3) fL RDW Coeff of Brianna (11.5-14.5) % Plt Count (130-400) K/uL MPV (7.4-10.4) fL Immature Gran % (Auto) % Neut % (Auto) % Lymph % (Auto) % [place] % (Auto) % Eos % (Auto) % Baso % (Auto) % Immature Gran # (Auto) (0.00-0.02) K/uL Neut # (Auto) (1.4-6.5) K/uL Lymph # (Auto) (1.2-3.4) K/uL [place] # (Auto) (0.11-0.59) K/uL Eos # (Auto) (0-0.5) K/uL Baso # (Auto) (0-0.2) K/uL Neutrophils % (Manual) % Lymphocytes % (Manual) % Monocytes % (Manual) % Eosinophils % (Manual) % Basophils % (Manual) % Neutrophils # (Manual) (1.4-6.5) K/uL Total Absolute Neuts (1.4-6.5) K/uL Lymphocytes # (Manual) (1.2-3.4) K/uL Total Abs Lymphocytes (1.2-3.4) K/uL Monocytes # (Manual) (0.11-0.59) K/uL Eosinophils # (Manual) (0-0.5) K/uL Basophils # (Manual) (0-0.2) K/uL RBC Morphology PT INR APTT PTT Ratio Sodium 135 L (136-145) mmol/L Potassium 4.9 (3.5-5.1) mmol/L Chloride 104 (98-107) mmol/L Carbon Dioxide 24 (21-32) mmol/L Anion Gap 8.0 (3-11) BUN 24 H (7-18) mg/dl Creatinine 1.22 H (0.6-1.2) mg/dl Est Cr Clr Drug Dosing 48.4 Est GFR ( Amer) 52.3 Est GFR (Non-Af Amer) 45.2 BUN/Creatinine Ratio 19.3 (10-20) Glucose 210 H (70-99) mg/dl POC Glucose (70-99) Calcium 10.2 H (8.5-10.1) mg/dl Total Bilirubin (0.2-1) mg/dl AST (15-37) U/L ALT (12-78) U/L Alkaline Phosphatase (45-117) U/L Troponin I < 0.015 (0-0.045) ng/ml Total Protein (6.4-8.2) gm/dl Albumin (3.4-5.0) gm/dl Globulin (2.5-4.0) gm/dl Albumin/Globulin Ratio (0.9-2) Lipase (73-393) U/L Beta-Hydroxybutyric Acd (0.2-2.81) mg/dl TSH (0.300-4.500) uIu/ml Imaging Data Radiologist's Impression: Radiology results as stated below per my review and the radiologist's interpretation: XR chest 1V portable CLINICAL HISTORY: Chest Pain pain COMPARISON STUDY: 12/16/2017 FINDINGS: Mild cardia megaly. Diaphragms are smooth. No focal infiltrate. IMPRESSION: Mild cardiomegaly. Otherwise negative study. The above report was generated using voice recognition software. It may contain grammatical, syntax or spelling errors. Electronically signed by: Nathaniel Martinez M.D. 06/10/2018 12:07 PM ECG Data Attestation: I personally reviewed and interpreted this ECG as follows: Indication: SOB/dyspnea Rate (beats per minute): 82 Rhythm: atrial fibrillation Findings: + nonspecific-ST abn (diffuse); no PAC, no PVC and no ectopy Comparison ECG Date: from (4/8/19) Change: no significant change Blood Pressure Blood Pressure Findings: Elevated blood pressure Blood Pressure Disposition: further management by hospitalist MDM Narrative The patient is a 68-year-old female who presented to the emergency department for an evaluation of chest discomfort as well as dyspnea on exertion. I feel the patient's condition may be related to angina. I discussed the patient's laboratory and radiographic studies with her. I also discussed my concerns about this being an anginal equivalent. Ultimately I discussed her case with the on-call [facility] hospitalist group. They have agreed to evaluate the patient in the emergency department for further management and disposition. Impression & Plan Chest pain, SOB (shortness of breath) Discharge Plan Visit Data *Final* Discharge Date/Time: 06/10/18 16:28 Chief Complaint: Shortness of Breath/Dyspnea Stated Complaint: SOB/ REFERRED BY DRS OFFICE ED Provider: Paramjit Gandhi Discharge Problem: Chest pain, SOB (shortness of breath) Patient Disposition: Admitted As Inpatient Discharge Instructions Interventions: ED Discharge Assessment Last Done: 06/10/18 16:28 Discharge Problem: Chest pain Qualifiers: Chest pain type: unspecified Qualified Code(s): R07.9 - Chest pain, unspecified The scribe's documentation has been prepared under my direction and personally reviewed by me in its entirety. I confirm that the note above accurately reflect s all work, treatment, procedures, and medical decision making performed by me.
[2018-06-10] MEDS: INSULIN ASPART 100 UNITS/ML 3 ML PEN SC SCH ×2 (18:23→20:57)
[2018-06-10] MEDS ORDERED: ALUMINUM/MAGNESIUM SUSP 30 ML UDC PO PRN (20:38)
[2018-06-10] MEDS: TRAMADOL HCL 50 MG TABLET PO PRN (20:50)
[2018-06-10] MEDS: TOPIRAMATE 100 MG TAB PO SCH (20:52)
[2018-06-10] MEDS: GABAPENTIN 100 MG CAP PO SCH (20:53)
[2018-06-10] MEDS: INSULIN GLARGINE SOLOSTAR 100 UNITS/ML 3 ML PEN SC SCH (20:55)
[2018-06-10] MEDS ORDERED: METHENAMINE HIPPURATE 1 GM TAB PO SCH (21:00)
[2018-06-10] MEDS ORDERED: QUETIAPINE FUMARATE 200 MG TAB PO SCH (21:00)
[2018-06-10] MEDS ORDERED: BUSPIRONE HCL 10 MG TAB PO SCH (21:00)
[2018-06-10] MEDS ORDERED: OXYCODONE/ACETAMINOPHEN 5mg/325mg TAB PO STA (22:07)
[2018-06-11] MEDS ORDERED: DiphenhydrAMINE HCL 50 MG/ML VIAL IV STA (02:45)
[2018-06-11] MEDS: ACETAMINOPHEN 325 MG TAB PO PRN ×2 (03:55→15:42)
[2018-06-11] MEDS: TRAMADOL HCL 50 MG TABLET PO PRN (05:13)
[2018-06-11] MEDS ORDERED: LEVOTHYROXINE SODIUM 112 MCG TABLET PO SCH (06:30)
[2018-06-11 08:02] LABS: Hematocrit (blood only) 36.7 % (37-47); Hemoglobin 12.3 g/dL (12.0-16.0); Mean Corpuscular Hgb Conc 33.5 g/dL (32-36); Mean Corpuscular Volume 88.9 fL (80-100); Mean Platelet Volume 10.6 fL (7.4-10.4); Platelet Count 289 K/uL (130-400); RDW Coefficient of Variation 14.5 % (11.5-14.5); RDW Standard Deviation 46.6 fL (36.4-46.3); Red Blood Count 4.13 M/uL (4.2-5.4); White Blood Count 6.65 K/uL (4.8-10.8)
[2018-06-11 08:26] LABS: ALC (manual) 2.14 K/uL (1.2-3.4); Basophils # (manual) 0.06 K/uL (0-0.2); Basophils % (manual) 0.9 %; Eosinophils # (manual) 0.17 K/uL (0-0.5); Eosinophils % (manual) 2.6 %; Lymphocytes # (manual) 2.14 K/uL (1.2-3.4); Lymphocytes % (manual) 32.2 %; Monocytes # (manual) 0.58 K/uL (0.11-0.59); Monocytes % (manual) 8.7 %; Neutrophils % (manual) 55.6 %; RBC Morphology Unremarkable
[2018-06-11 08:33] LABS: BUN Creatinine Ratio 19.3 (10-20); Blood Urea Nitrogen 24 mg/dl (7-18); Calcium 10.2 mg/dl (8.5-10.1); Carbon Dioxide 24 mmol/L (21-32); Chloride 104 mmol/L (98-107); Creatinine Clr Calc Pharmacy 48.4 ml/min; Est GFR (African American) 52.3; Est GFR (Non-African American) 45.2; Glucose 210 mg/dl (70-99); Potassium 4.9 mmol/L (3.5-5.1); Sodium 135 mmol/L (136-145)
[2018-06-11 08:38] LABS: Troponin I < 0.015 ng/ml (0-0.045)
[2018-06-11] MEDS: TOPIRAMATE 100 MG TAB PO SCH (08:45)
[2018-06-11] MEDS: GABAPENTIN 100 MG CAP PO SCH ×2 (08:47→13:53)
[2018-06-11] MEDS: INSULIN ASPART 100 UNITS/ML 3 ML PEN SC SCH ×2 (08:48→13:07)
[2018-06-11] MEDS: INSULIN GLARGINE SOLOSTAR 100 UNITS/ML 3 ML PEN SC SCH (08:48)
[2018-06-11] MEDS ORDERED: LISINOPRIL 5 MG TAB PO SCH (09:00)
[2018-06-11] MEDS ORDERED: azaTHIOprine 50 MG TAB PO SCH (09:00)
[2018-06-11] MEDS ORDERED: ASPIRIN 81 MG ECTAB PO SCH (09:00)
[2018-06-11] MEDS ORDERED: PANTOprazole 40 MG TAB PO SCH (09:00)
[2018-06-11] MEDS ORDERED: FERROUS SULFATE 325 MG TAB PO SCH (09:00)
[2018-06-11] MEDS ORDERED: ATORVASTATIN 20 MG TAB PO SCH (09:00)
[2018-06-11] MEDS ORDERED: TEMAZEPAM 15 MG CAPSULE PO SCH (09:00)
[2018-06-11] MEDS ORDERED: DOBUTamine HCL 12.5 MG/ML 20 ML VIAL IV ONE (10:14)
[2018-06-11] MEDS ORDERED: METOPROLOL TARTRATE 1 MG/ML VIAL IV ONE ×2 (10:14)
[2018-06-11] MEDS ORDERED: ATROPINE SULFATE 0.1 MG/ML 10ML SYR IV ONE (10:14)
[2018-06-11] MEDS ORDERED: PERFLUTREN LIPID MICROSPHERE (DEFINITY) IV ONE (10:40)
[2018-06-11 12:15] VITALS: BP 124/77; PULSE 68; TEMP 98.6; O2SAT 92
--- OUTSIDE RECORDS SUMMARY | 2018-06-15 20:26 | External Medical Summary | Continuity of Care Document ---
:1950 Author Name Maren Williamson, Provider Address Unavailable Unavailable , Care Team Providers Name Role Phone Renetta José Unavailable [email or web address] Paramjit Martinez M.D. Unavailable [email or web address] Tarun Landaverde Unavailable [email or web address] Toni Arguello III, M.D. Unavailable [email or web address] [email or web address] LOWERY Unavailable [email or web address] Rodrick LOWERY Unavailable [email or web address] Maria Alejandra GRAJEDA Unavailable [email or web address] Fatoumata MARTINEZ M.D. Unavailable Unavailable Unavailable Unavailable Unavailable Problems Emotional stress (308.9) (R45.7) Bacterial UTI (599.0) (N39.0) Esophageal dysmotility (530.5) (K22.4) Back pain, chronic (724.5) (M54.9) BMI 33.0-33.9,adult (V85.33) (Z68.33) Pre-op exam (V72.84) (Z01.818) Post-op pain (338.18) (G89.18) Hip pain (719.45) (M25.559) Asthma (493.90) (J45.909) Common migraine without aura (346.10) (G43.009) Crohn's disease (555.9) (K50.90) Depression with anxiety (300.4) (F41.8) Diabetes mellitus (250.00) (E11.9) Lumbar canal stenosis (724.02) (M48.061) Laryngopharyngeal reflux (LPR) (478.79) (K21.9) Dysphagia (787.20) (R13.10) Recurrent UTI (urinary tract infection) (599.0) (N39.0) Vertigo (780.4) (R42) UTI (urinary tract infection) (599.0) (N39.0) Osteopenia (733.90) (M85.80) Constipation (564.00) (K59.00) Urinary urgency (788.63) (R39.15) Dysesthesia (782.0) (R20.8) Abdominal pain (789.00) (R10.9) History of Diverticulosis (562.10) (K57.90) Status: Resolved History of Post-nasal drainage (473.9) (R09.82) Status: Resolved Headache (784.0) (R51) Abnormal finding on imaging (793.99) (R93.89) Internal hemorrhoids (455.0) (K64.8) History of Hemoptysis (786.30) (R04.2) S tatus: Resolved Hiatal hernia (553.3) (K44.9) Right shoulder pain (719.41) (M25.511) 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) Tinnitus (388.30) (H93.19) Benign paroxysmal positional vertigo (386.11) (H81.10) Pain, lower leg (729.5) (M79.669) Diarrhea (787.91) (R19.7) Hyperlipidemia (272.4) (E78.5) Hypertension (401.9) (I10) Hypothyroidism (244.9) (E03.9) Gastro-esophageal reflux (530.81) (K21.9) Anemia (285.9) (D64.9) Diabetic peripheral neuropathy associate d with type 2 diabetes mellitus (250.60) (E11.42) Vitamin B12 deficiency (266.2) (E53.8) Vitamin D deficiency (268.9) (E55.9) Schatzki's ring (750.3) (K22.2) Esophageal candidiasis (112.84) (B37.81) Hip pain, chronic, left (719.45) (M25.552) Hearing loss (389.9) (H91.90) Encounter for routine gynecological examination (V72.31) (Z0 1.419) Functional Status Hearing loss Allergies and Adverse Reactions Ciprofloxacin HCl TABS (Allergy) Reactio n: Other Doxycycline Monohydrate CAPS (Allergy) R eaction: Other Keflex TABS (Allergy) Reaction: Hives Penicillins (Allergy) Reaction: Hives Medications metFORMIN HCl ER 500 MG Oral Tablet Exte nded Release 24 Hour; TAKE TWO TABLETS BY MOUTH IN THE MORNING AND ONE IN THE EVENING Clay Martinez Start: 19-Jul-2013 Quantity: 270 Refills: 3 Vitamin B-12 1000 MCG CHEW; CHEW AND SWALLOW 1 TABLET DAILY. Refills: 0 Multi Vitamin/Minerals Oral Tablet; TAKE 1 TABLET DAILY. Refills: 0 Gabapentin 100 MG Oral Capsule; TAKE 2 CAPSULE 3 times daily Start: 24-Dec-2017 Refills: 0 Meloxicam 15 MG Oral Tablet; TAKE 1 TABLET DAILY WITH FOOD. Start: 24-Dec-2017 Quantity: 90 Refills: 1 Entyvio 300 MG Intravenous Solution Reconstituted; Every 8 w eeks. Start: 26-Sep-2016 Refills: 0 Vitamin D3 2000 UNIT Oral Capsule; 2000 units daily Refills: 0 Lisinopril 5 MG Oral Tablet; take 1 tablet by mouth on ce daily Clay Martinez Start: 02-Feb-2018 Quantity: 90 Refills: 1 Omeprazole 20 MG Oral Capsule Delayed Re lease; TAKE 1 CAPSULE DAILY EVERY MORNING BEFORE BREAKFAST. BEVERLEY Nieto Start: 06-Feb-2016 Quantity: 90 Refills: 3 SEROquel 400 MG Oral Tablet; TAKE 1 TABLET AT BEDTIME. Refills: 0 Desvenlafaxine ER 100 MG Oral Tablet Ext ended Release 24 Hour; Take 1 tablet daily Start: 14-Nov-2017 Refills: 0 Levothyroxine Sodium 112 MCG Oral Tablet ; TAKE 1 TABLET BY MOUTH EVERY MORNING ON EMPTY STOMACH WITH WATER, AND WAIT TO EAT FOR 30 MINUTES Clay Martinez Start: 05-Jan-2016 Quantity: 90 Refills: 3 Atorvastatin Calcium 20 MG Oral Tablet; TAKE 1 TABLET DAILY DIRECTED. Clay Martinez Start: 02-Oct-2010 Quantity: 90 Refills: 1 Topiramate 200 MG Oral Tablet; TAKE 1 TABLET BY MOUTH TWICE DAILY Clay Martinez Start: 02-Feb-2018 Quantity: 180 Refills: 0 Gemfibrozil 600 MG Oral Tablet; TAKE 1 TABLET BY MOUTH TWICE DAILY Clay Martinez Start: 02-Feb-2018 Quantity: 60 Refills: 5 OneTouch Ultra Blue In Vitro Strip; TEST 1-2 TIMES TALIB LY TARAS Leblanc Start: 24-Apr-2011 Quantity: 1 100 EA Box Refills: 5 Aspirin 81 MG TABS; take 1 tablet daily with food Arthur Arguello III Start: 07-Jul-2014 Refills: 0 raNITIdine HCl - 300 MG Oral Tablet; TAKE 1 TABLET TALIB LY AT BEDTIME. BEVERLEY Nieto Start: 25-May-2012 Quantity: 90 Refills: 3 diphenhydrAMINE HCl - 50 MG/ML Injection Solution; Pretreat before Remicade infusion with Benadryl 50mg IV x one dose. TARAS Tolbert Start: 21-May-2012 Quantity: 1 Refills: 0 Calcium 500 + D 500-125 MG-UNIT Oral Tablet; Take 1 tablet t wice daily Refills: 0 azaTHIOprine 50 MG Oral Tablet; TAKE 1 & 1/2 (ONE & ONE-HALF) TABLETS BY MOUTH ONCE DAILY BEVERLEY Mensah Start: 04-May-2018 Quantity: 45 Refills: 5 busPIRone HCl - 10 MG Oral Tablet; TAKE 2 TABLET 3 times talib ly Start: 01-Jun-2014 Refills: 0 glipiZIDE 5 MG Oral Tablet; TAKE 2 TABLE T BY MOUTH WITH BREAKFAST AND TWO TABLETS WITH DINNER Clay Martinez Start: 04-Nov-2012 Quantity: 360 Refills: 3 Methenamine Hippurate 1 GM Oral Tablet; TAKE 1 TABLET DAILY IN THE EVENING. TARAS Bess Nisha Campbell Start: 19-Jun-2017 Quantity: 30 Refills: 2 Ferrous Sulfate 324 (65 Fe) MG Oral Tablet Delayed Rel ease; Take one daily BEVERLEY Mensah Start: 28-May-2017 Refills: 0 Procedures Hemoglobin A1C Date: 27-Apr-2018 Basic Metabolic Panel Date: 27-Apr-2018 History of Shoulder Surgery Status: Comp leted History of Total Abdominal Status: Compl eted Hysterectomy With Removal Of Ovary(S) History of Tonsillectomy Status: Complet ed History of Neuroplasty Decompression Sta tus: Completed Median Nerve At Carpal Tunnel History of Oral Surgery Tooth Status: Co mpleted Extraction History of Back Surgery Status: Complete d History of Colonoscopy (Fiberoptic) Stat us: Completed 06-May-2009 0:00 Screening Immunizations Pneumococcal polysaccharide vaccine, 23 valent On: 0 0:00 Influenza On: 13-Nov-2009 Influenza On: 08-Nov-2010 12:46 Lot #: [id number], SANOFI PASTEUR Influenza On: 22-Jan-2012 12:12 Lot #: [id number], SANOFI PASTEUR Influenza On: 14-Dec-2012 9:40 Lot #: [id number], SANOFI PASTEUR Influenza On: 30-Dec-2013 10:25 Lot #: [id number], SANOFI PASTEUR Prevnar 13 Intramuscular Suspension On: 01-Jun-2014 13:36 Lot #: [id number], WYETH Influenza On: 07-Dec-2015 11:53 Lot #: [id number], SANOFI PASTEUR Fluzone High-Dose Intramuscular Suspension On: 26-Nov-2016 1 3:08 Lot #: [id number], SANOFI PASTEUR Hepatitis A and Hepatitis B vaccine 1 On: 11-Jul-2017 10:57 Lot #: [id number], GLAXO SERNA SPARKS Hepatitis A and Hepatitis B vaccine 1 On: 11-Aug-2017 11:09 Lot #: [id number], GLAXO SERNA SPARKS Fluzone High-Dose Intramuscular Suspension On: 19-Jan-2018 17 :05 Lot #: [id number], SANOFI PASTEUR Family History Mother Family history of Breast Cancer (V16.3) Status: Active Family history of diabetes mellitus (V18.0) (Z83.3) Status: Active Family history of cardiac disorder (V17.49) (Z82.49) Status: Active Family history of hypertension (V17.49) (Z82.49) Status: Act aviva Social History - Smoking Status Never smoker Plan of Treatment Planned Encounters Appointment; Paramjit Martinez M.D. 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 Diaphragms are smooth. No focal infiltrate. IMPRESSION: Mild cardiomegaly. Otherwise negative study. The above report was generated using voice recognition software. It may contain grammatical, syntax or spelling errors. Electronically signed by: Nathaniel Martinez M.D. 06/10/2018 12:07 PM Dictated: 06/10/18 1206 Transcribed: 06/10/18 1206 Ultra TSH (Pending) Laboratory: [facility] Laboratory Comments: C omment With next [address] [facility] blood draw [facility] [address] tel: 10-Jun-2018 11:41 TSH 3.190 {uIu/ml} Range: 0.300-4.500 uIu/ml Comments: The refere nce range for TSH is 0.3-4.5 uIU/ml.Some have suggested that TSH levels >2.5 uIU/ml should beconsidered abnormal, particularly in potentially symptomaticyounger individuals.TSH levels in he althy elderly (>75 y ears of age) are oftenat or even above the reference range.Normal first trimester TSH <2.0 uIU/ml.Normal second and third trimester TSH <3.0 uIU/ml.TSH 0.5-2.0 uIU/ml is oft en considered the op timaltherapeutic target for replacement treatment ofhypothyroidism. Troponin I (Pending) Laboratory: [facility] Laboratory [address] [facility] [address] tel: 10-Jun-2018 19:08 TROPONIN (cTnI) < 0.015 ng/ml Range: 0- 0.045 ng/ml CBC With DIFF (Pending) Laboratory: [facility] Laboratory [address] [facility] [place] [facility] [place] [address] tel: 11-Jun-2018 7:34 WBC 6.65 K/uL Range: 4.8-10.8 K/u L RBC 4.13 {M/uL} (below low Range: 4.2-5 .4 M/uL threshold) HEMOGLOBIN 12.3 g/dL Range: 12.0-16.0 g /dL HEMATOCRIT 36.7 % (below low Range: 37- 47 % threshold) MCV 88.9 fL Range: 80-100 fL MCH 29.8 pg Range: 25-34 pg MEAN CORPUSCULAR HGB CONC Range: 32-36 g/dL 33.5 g/dL RED CELL DISTRIBUTION WIDTH Range: 36.4 -46.3 fL SD 46.6 fL (above high threshold) RED CELL DISTRIBUTION WIDTH Range: 11.5 -14.5 % CV 14.5 % PLATELET COUNT 289 K/uL Range: 130-400 K/uL MEAN PLATELET VOLUME 10.6 fL Range: 7.4 -10.4 fL (above high threshold) ABSOLUTE NEUTROPH COUNT Range: 1.4-6.5 K/uL MANUAL 3.70 K/uL ABSOLUTE LYMPHOCYTE COUNT Range: 1.2-3. 4 K/uL 2.14 K/uL NEUTROPHILS % 55.6 % Range: % LYMPHOCYTE % 32.2 % Range: % MONOCYTE % 8.7 % Range: % EOSINOPHIL % 2.6 % Range: % BASOPHIL % 0.9 % Range: % NEUT ABS # MAN 3.70 K/uL Range: 1.4-6.5 K/uL LYMPH ABS # 2.14 K/uL Range: 1.2-3.4 K/ uL MONO ABS # MAN 0.58 K/uL Range: 0.11-0. 59 K/uL EOS ABS # MAN 0.17 K/uL Range: 0-0.5 K/ uL BASO ABS # MAN 0.06 K/uL Range: 0-0.2 K /uL RBC MORPHOLOGY Unremarkable Basic Metabolic Panel Laboratory: [facility] Laboratory (Pending) [address] [facility] [place] [address] tel: 11-Jun-2018 7:34 SODIUM 135 mmol/L (below low Range: 136 -145 mmol/L threshold) POTASSIUM 4.9 mmol/L Range: 3.5-5.1 mmo l/L CHLORIDE 104 mmol/L Range: 98-107 mmol/ L CARBON DIOXIDE 24 mmol/L Range: 21-32 m mol/L ANION GAP 8.0 Range: 3-11 BLOOD UREA NITROGEN 24 mg/dl Range: 7-1 8 mg/dl (above high threshold) CREATININE 1.22 mg/dl (above Range: 0.6 -1.2 mg/dl high threshold) Estimated Creatinine Range: ml/min Clearance 48.4 ml/min Comments: Est. Cre atinine Clearance (Mod Cockcroft-Gault) for pharmacydosing purposes. Estimated GFR ( Comments: Units: ml/min per 1.73 Malagasy) 52.3 meters squaredThe es timated GFR (CKD-EPI equation) h as not been validatedfor inpatie nt settings and may not be an ac curate reflectionof renal f unction in critically ill patie nts or those withrapidly changing renal function (e.g. SYLVESTER). Estimated GFR (Non- Comments: Uni ts: ml/min per 1.73 Malagasy) 45.2 meters squaredThe es timated GFR (CKD-EPI equation) h as not been validatedfor inpatie nt settings and may not be an ac curate reflectionof renal f unction in critically ill patie nts or those withrapidly changing renal function (e.g. SYLVESTER). BUN/CREATININE RATIO 19.3 Range: 10-20 GLUCOSE 210 mg/dl (above high Range: 70 -99 mg/dl threshold) CALCIUM 10.2 mg/dl (above Range: 8.5-10 .1 mg/dl high threshold) Troponin I (Pending) Laboratory: [facility] Laboratory [address] [facility] [address] tel: 11-Jun-2018 7:34 TROPONIN (cTnI) < 0.015 ng/ml Range: 0- 0.045 ng/ml Encounters Appointment; Paramjit Martinez M.D. 27-Apr-2018 11:00 Encounter Diagnosis: Problem not documented Appointment; Paramjit Martinez M.D. 19-Jan-2018 16:00 Encounter Diagnosis: Problem not documented Appointment; Della Larsen PA-C 12-Sep-2017 10:15 Encounter Diagnosis: Problem not documented Appointment; Tyron Whittaker 11-Aug-2017 11:00 Encounter Diagnosis: Problem not documented Appointment; Nia Nieto PA-C 21-Jul-2017 10:20 Encounter Diagnosis: Problem not documented Appointment; Ashley Mensah PA-C 11-Jul-2017 10:30 Encounter Diagnosis: Problem not documented Appointment; Paramjit Martinez M.D. 30-Jun-2017 11:40 Encounter Diagnosis: Problem not documented Appointment; Fabiano Melgoza M.D. 19-Jun-2017 10:40 Encounter Diagnosis: Problem not documented Appointment; Ashley Mensah PA-C 28-May-2017 10:50 Encounter Diagnosis: Problem not documented Appointment; Paramjit Martinez M.D. 31-Mar-2017 11:00 Encounter Diagnosis: Problem not documented Appointment; Paramjit Martinez M.D. 26-Nov-2016 10:20 Encounter Diagnosis: Problem not documented Appointment; Ashley Mensah PA-C 18-Nov-2016 10:00 Encounter Diagnosis: Problem not documented Appointment; Michelle Holden CRNP 26-Sep-2016 13:15 Encounter Diagnosis: Problem not documented Appointment; Paramjit Martinez M.D. 21-Aug-2016 10:40 Encounter Diagnosis: Problem not documented Appointment; Paramjit Martinez M.D. 25-Aug-2018 8:00 Encounter Diagnosis: Problem not documented
--- NOTE | 2018-06-25 16:11 | Discharge Summary ---
Date of Service June 25, 2018 Admission HPI Per Admitting Provider Shana Cabrera is a 68yo female with history of HTN, HLP, DM, CKD presenting with chest heaviness. Patient reports experiencing intermittent substernal chest heaviness, tightness and "fullness" over the last two weeks. Also with SOB and palpitations. Discomfort is 10/10, resolves after a few minutes. Symptoms may occur with exertion but mostly occur at rest. Increase in severity and frequency over the last 2-3 days. Patient denies edema, orthopnea or weight gain. She is not particularly active secondary to chronic orthopedic pain - back and knees. No known CAD. Had a Persantine stress test in 2000 which was unremarkable. ER Course: ASA 324mg Principal Diagnosis no Discharge Exam General Appearance: WD/WN, no apparent distress, Eyes: normal inspection, PERRL, EOMI, sclerae normal ENT: normal ENT inspection, hearing grossly normal, pharynx normal Neck: supple, no adenopathy, thyroid normal, no JVD, no carotid bruits, trachea midline Respiratory/Chest: chest non-tender, normal breath sounds, no respiratory distress, no accessory muscle use, breath sounds, rales, wheezing Cardiovascular: regular rate, rhythm, no JVD, no murmur Abdomen: normal bowel sounds, non tender, soft, no organomegaly, Extremities: normal range of motion, non-tender, normal inspection, no pedal edema, no calf tenderness, normal capillary refill, pelvis stable, joint has no limited range of motion, capillary refill is normal, no cyanosis clubbing Neurologic/Psychiatric: 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 as tested, no motor/sensory deficits, alert, normal mood/affect, oriented x 3 Skin: normal color, warm/dry, no rash Lymphatic: no adenopathy Discharge Data Allergies Allergy/AdvReac Type Severity Reaction Status Date / Time Cephalosporins Allergy Intermediate HIVES Verified 06/10/18 12:39 Penicillins Allergy Intermediate HIVES Verified 06/10/18 12:39 cephalexin Allergy Unknown HIVES Verified 06/10/18 12:39 doxycycline Allergy Unknown GI UPSET Verified 06/10/18 12:39 Cipro AdvReac Intermediate NAUSEA AND Verified 09/24/17 06:23 VOMITING ciprofloxacin AdvReac Intermediate NAUSEA AND Verified 06/10/18 12:39 VOMITING infliximab AdvReac Intermediate ITCHING, Verified 06/10/18 12:39 RASH Consultations 06/10/18 14:10 ED Decision to Admit Stat Hospital Course (1) Chest pain: Patient with complaint of chest heaviness and SOB, occasional palpitations. Symptoms at rest and with exertion. Ongoing over the past two weeks with acute worsening over the past 2-3 days. Multiple cardiac risk factors to include HTN, HLP and DM. CP is atypical in nature. ?anxiety component contributing has been admited to Observation to telemetry -Trended cardiac markers -Continue ASA, Atorvastatin -Nitroglycerine PRN -Zofran PRN -Dobutamine stress echo in AM was done , which was negative, pt has atypical chest pain, has adviced to follow-up with his PCP for these conditions and other medical conditions such as HTN, HLP, DM, CKD, call PCP if any questions, no new medicine if overnight workup is negative. Patient NPO after midnight for stress test in AM (2) DM type 2 (diabetes mellitus, type 2): Blood sugar elevated at 312. GfD1X=5.5 on 04/23/18 -Lantus 7u BID -ISS -Continue to monitor -CC diet as tolerated -Continue Neurontin 200mg po TID (3) Hyperlipidemia: Chronic. Stable. -Continue Atorvastatin 20mg (4) Hypothyroid: Chronic. Stable. TSH=3.19 -Continue Synthroid 112 mcg daily (5) GERD (gastroesophageal reflux disease): Chronic. Stable. -Continue Protonix 40mg po daily -Continue Ranitidine 300mg po qHS (6) Depression with anxiety: Chronic. Stable. Patient is tearful and anxious during encounter -Continue Buspirone 20mg po TID -Continue Seroquel 400mg po qHS -Continue Restoril 15mg po daily (7) Crohns disease: Stable. Chronic -Continue Azathioprine 75mg po daily (8) CKD (chronic kidney disease): BUN=18, Cr=1.24 which is near baseline. Patient with adequate UOP. No complaints. -Continue to monitor BUN, Cr, electrolytes and UOP -Renal dosing where appropriate -Avoid nephrotoxic agents (9) History of back surgery: Noted. Patient still with pain and limited mobility -To followup with Dr. Arnold outpatient (10) Hypertension: Blood pressure presently controlled -Continue Lisinopril 5mg po daily -Continue to monitor (11) Anemia: Normochromic/normocytic anemia, Hg=11.9, Hct=35.6. Near baseline. No active bleeding -Continue to monitor CBC -Continue PO iron F/E/N- Heplock. Monitor electroltyes and replete as needed. Heart healthy/CC diet as tolerated Ppx - low risk Code - Full Dispo -2N Total Time Total Time Spent Total Time Spent (In Minutes): 25 min Discharge Plan Discharge Items Patient Disposition: Home - Self-Care Reason For Visit: CHEST PAIN Discharge Diagnosis: Atypical chest pain, stress negative , has rule out ACS, Condition: Fair Discharge Goals: Decrease discomfort, Diagnostic testing, Improve disease control, Improve function and Increase independence Activity: Resume your previous activity Non-emergency contact: Primary Care Provider Call non-emergency contact if: you have any medication questions Follow-up/Referrals: Paramjit Martinez MD [Primary Care Provider] - Diet: Carb Consistent or DM2 Addtl Provider Instructions: You have atypical chest pain, dobutamine stress test were negative, You need to follow-up with his PCP for these conditions and under medical conditions such as HTN, HLP, DM, CKD, call PCP if any questions, Call PCP if any fever chills and chest pain, no new medicine Prescriptions: Continued atorvastatin 20 mg tablet 20 mg PO UD RF: 0 ranitidine HCl 300 mg tablet 300 mg PO HS RF: 0 meloxicam 15 mg tablet 15 mg PO DAILY RF: 0 meloxicam 15 mg tablet 15 mg PO DAILY PRN (Reason: as needed) RF: 0 cyanocobalamin (vitamin B-12) [Vitamin B-12] 1,000 mcg Tablet 1,000 mcg PO DAILY RF: 0 azathioprine 50 mg tablet 75 mg PO DAILY RF: 0 aspirin 81 mg Tablet,Delayed Release (Dr/Ec) 81 mg PO QAM RF: 0 methenamine hippurate 1 gram tablet 1 g PO QPM RF: 0 temazepam 15 mg capsule 15 mg PO DAILY RF: 0 gemfibrozil 600 mg tablet 600 mg PO BID RF: 0 buspirone 10 mg tablet 20 mg PO TID RF: 0 omeprazole 20 mg capsule,delayed release(DR/EC) 20 mg PO QAM RF: 0 topiramate 200 mg tablet 200 mg PO BID RF: 0 lisinopril 5 mg tablet 5 mg PO DAILY RF: 0 gabapentin 100 mg capsule 200 mg PO TID RF: 0 metformin 500 mg tablet extended release 24 hr 1,000 mg PO QAM RF: 0 metformin 500 mg tablet extended release 24 hr 500 mg PO QPM RF: 0 glipizide 5 mg tablet 10 mg PO BID RF: 0 levothyroxine 112 mcg tablet 112 mcg PO QAM RF: 0 Multi-Vitamin HP/Minerals Capsule 1 cap PO DAILY RF: 0 quetiapine 400 mg tablet 400 mg PO HS RF: 0 calcium carbonate-vitamin D3 [Calcium 500 + D (D3)] 500 mg(1,250mg) -125 unit Tablet 1 tab PO BID RF: 0 ferrous sulfate 324 mg (65 mg iron) Tablet,Delayed Release (Dr/Ec) 324 mg PO DAILY RF: 0 desvenlafaxine succinate 100 mg tablet extended release 24 hr 100 mg PO DAILY RF: 0 cholecalciferol (vitamin D3) [Vitamin D3] 2,000 unit Capsule 2,000 unit PO DAILY RF: 0 Entyvio 300 mg Recon Soln 300 mg IV Q8WK RF: 0 Stand-Alone Forms: [facility] Discharge Orders: Discharge Order (Routine); Ordered 06/11/18 Ordered By: Valentin Rodriguez Admission Data Admit Date/Time: 06/10/18 15:21 Attending Provider: Valentin Rodriguez Admit Provider: Kenisha Resendez Primary Care Provider: Paramjit Martinez Other Providers: Kenisha Resendez Service: Telemetry Medical Other Interventions: Discharge Summary Assessment (RN) Last Done: 06/11/18 15:11 Pending Studies at Discharge: No DC Date/Time DO NOT enter until pt leaves facility: 06/11/18 16:00
== END 2018-06-11 16:00 | disposition home or self-care (01) ==
LOC: 2N 11:06 → ED 11:06 → SUATTDRO 15:21 → 2N 16:28
DX: K50.90 Crohn's disease, unspecified, without complications; G47.30 Sleep apnea, unspecified; F32.9 Major depressive disorder, single episode, unspecified; E03.9 Hypothyroidism, unspecified; Z79.4 Long term (current) use of insulin; K21.9 Gastro-esophageal reflux disease without esophagitis; F41.8 Other specified anxiety disorders; R06.02 Shortness of breath; E11.22 Type 2 diabetes mellitus with diabetic chronic kidney disease; E78.5 Hyperlipidemia, unspecified; R07.9 Chest pain, unspecified; Z79.899 Other long term (current) drug therapy; I12.9 Hypertensive chronic kidney disease with stage 1 through stage 4 chronic kidney disease, or unspecified chronic kidney disease; N18.9 Chronic kidney disease, unspecified

== ENCOUNTER 2019-03-19 11:10 | Inpatient (IN) ==
--- NOTE | 2019-03-04 13:00 | PAT Medication Instructions ---
Medication Instructions Date of Service March 04, 2019 Home Medications Medication Instructions Recorded atorvastatin 20 mg tablet 20 mg PO QPM #90 tab 10/01/18 pen needle, diabetic 32 gauge x #100 ea 10/06/1802/20" omeprazole 20 mg capsule,delayed 20 mg PO QAM #30 cap 11/03/18 release ranitidine HCl 300 mg tablet 300 mg PO HS #30 tab 11/03/18 levothyroxine 112 mcg tablet 112 mcg PO QAM #30 tab 11/12/18 meloxicam 7.5 mg tablet 7.5 mg PO BID 30 Days #60 tab 01/20/19 topiramate 25 mg tablet 25 mg PO BID 30 Days #60 tab 01/20/19 azathioprine 50 mg tablet 75 mg PO QAM #45 tab 01/29/19 Entyvio 300 mg IV Q8WK aspirin 81 mg PO QAM cholecalciferol (vitamin D3) [Vitamin D3] 2,000 unit PO QAM cyanocobalamin (vitamin B-12) [Vitamin B-12] 1,000 mcg PO QAM quetiapine 400 mg PO HS diphenhydramine HCl 50 mg/mL injection syringe 50 mg IV UD atorvastatin 20 mg tablet 20 mg PO QPM omeprazole 20 mg capsule,delayed release 20 mg PO QAM ranitidine HCl 300 mg tablet 300 mg PO HS ferrous sulfate 324 mg (65 mg iron) tablet,delayed release 324 mg PO QAM gabapentin 400 mg capsule 400 mg PO TID glipizide 5 mg tablet 10 mg PO BIDM multivitamin 1 tab PO HS temazepam 15 mg capsule 15 mg PO HS PRN levothyroxine 112 mcg tablet 112 mcg PO QAM vortioxetine [Trintellix] 10 mg PO QAM metformin 500 mg tablet,extended release 24 hr 500 mg PO UD calcium carbonate-vitamin D3 600 mg (1,500 mg)-800 unit tablet 2 tab PO QAM meloxicam 7.5 mg tablet 7.5 mg PO BID topiramate 25 mg tablet 25 mg PO BID azathioprine 50 mg tablet 75 mg PO QAM lisinopril 20 mg PO QAM rizatriptan 10 mg PO UD Continue as directed diphenhydramine HCl 50 mg/mL injection syringe 50 mg IV UD (pre-treatment for remicade) ASK your surgeon for instructions aspirin 81 mg PO QAM meloxicam ASK your prescriber and surgeon Entyvio 300 mg IV Q8WK azathioprine 50 mg tablet 75 mg PO QAM DO NOT take the morning of surgery cholecalciferol (vitamin D3) [Vitamin D3] 2,000 unit PO QAM cyanocobalamin (vitamin B-12) [Vitamin B-12] 1,000 mcg PO QAM ferrous sulfate 324 mg (65 mg iron) tablet,delayed release 324 mg PO QAM glipizide 5 mg tablet 10 mg PO BIDM metformin 500 mg tablet,extended release 24 hr 500 mg PO UD calcium carbonate-vitamin D3 600 mg (1,500 mg)-800 unit tablet 2 tab PO QAM lisinopril 20 mg PO QAM Take morning of surgery With a small sip of water, OTHERWISE NOTHING TO EAT OR DRINK AFTER MIDNIGHT: omeprazole 20 mg capsule,delayed release 20 mg PO QAM gabapentin 400 mg capsule 400 mg PO TID levothyroxine 112 mcg tablet 112 mcg PO QAM vortioxetine [Trintellix] 10 mg PO QAM topiramate 25 mg tablet 25 mg PO BID rizatriptan 10 mg PO UD (if needed) Take evening before surgery quetiapine 400 mg PO HS atorvastatin 20 mg tablet 20 mg PO QPM ranitidine HCl 300 mg tablet 300 mg PO HS gabapentin 400 mg capsule 400 mg PO TID glipizide 5 mg tablet 10 mg PO BIDM multivitamin 1 tab PO HS temazepam 15 mg capsule 15 mg PO HS PRN (if needed) metformin 500 mg tablet,extended release 24 hr 500 mg PO UD topiramate 25 mg tablet 25 mg PO BID rizatriptan 10 mg PO UD (if needed) Other Notes If you have any questions please call us at [phone] or [phone] or [phone] or [phone]
--- NOTE | 2019-03-05 09:19 | Anesthesiology Consultation ---
Date of Service March 05, 2019 Assessment & Plan (1) Encounter for pre-operative examination: - Check BSG AM DOS Chart Review Chart Review: Acceptable Risk for Surgery and Patient seen in Pre Admission Testing Teaching & Discussion Pre-Anesthesia Teaching/Discussion Notes: Instructed NPO after midnight before surgery,except medications with 15 cc of water. Medication instructions provided according to the PAT guidelines. History Surgery Operation Date: 03/19/19 10:55 Proposed Procedures p T11-L1 Hardware Removal, Spinal Cord Monitoring - Agustín Arnold DO Height/Weight Height: 5 ft 2 in Weight: 92 kg Allergies Allergy/AdvReac Type Severity Reaction Status Date / Time cephalexin Allergy Intermediate HIVES Verified 03/01/19 09:51 Cephalosporins Allergy Intermediate HIVES Verified 03/01/19 09:51 Penicillins Allergy Intermediate HIVES Verified 03/01/19 09:51 Cipro AdvReac Intermediate NAUSEA AND Verified 09/24/17 06:23 VOMITING ciprofloxacin AdvReac Intermediate NAUSEA AND Verified 03/01/19 09:51 VOMITING doxycycline AdvReac Intermediate GI UPSET Verified 03/05/19 11:09 infliximab AdvReac Intermediate ITCHING, Verified 03/01/19 09:51 RASH Medications Home Medications Medication Instructions Recorded Confirmed Last Taken Entyvio 300 mg IV Q8WK 06/10/18 03/01/19 Unknown aspirin 81 mg PO QAM 06/10/18 03/01/19 12/12/18 cholecalciferol (vitamin D3) 2,000 unit PO QAM 06/10/18 03/01/19 12/12/18 [Vitamin D3] cyanocobalamin (vitamin B-12) 1,000 mcg PO QAM 06/10/18 03/01/19 12/12/18 [Vitamin B-12] quetiapine 400 mg PO HS 06/10/18 03/01/19 12/12/18 diphenhydramine HCl 50 mg/mL 50 mg IV UD ml 09/18/18 03/01/19 Unknown injection syringe atorvastatin 20 mg tablet 20 mg PO QPM #90 tab 10/01/18 03/01/19 12/11/18 pen needle, diabetic 32 gauge x #100 ea 10/06/18 03/01/19 Unknown 1/4" blood sugar diagnostic #10 ea 10/22/18 12/16/18 Unknown omeprazole 20 mg capsule,delayed 20 mg PO QAM #30 cap 11/03/18 03/01/19 12/12/18 release ranitidine HCl 300 mg tablet 300 mg PO HS #30 tab 11/03/18 03/01/19 12/12/18 ferrous sulfate 324 mg (65 mg 324 mg PO QAM tab 11/11/18 03/01/19 12/12/18 iron) tablet,delayed release gabapentin 400 mg capsule 400 mg PO TID 11/11/18 03/01/19 12/12/18 glipizide 5 mg tablet 10 mg PO BIDM tab 11/11/18 03/01/19 12/12/18 multivitamin 1 tab PO HS tab 11/11/18 03/01/19 12/12/18 temazepam 15 mg capsule 15 mg PO HS PRN 11/11/18 03/01/19 Unknown levothyroxine 112 mcg tablet 112 mcg PO QAM #30 tab 11/12/18 03/01/19 12/12/18 vortioxetine [Trintellix] 10 mg PO QAM 12/12/18 03/01/19 12/12/18 metformin 500 mg tablet,extended 500 mg PO UD tab 12/17/18 03/01/19 Unknown release 24 hr calcium carbonate-vitamin D3 600 2 tab PO QAM tab 12/25/18 03/01/19 Unknown mg (1,500 mg)-800 unit tablet meloxicam 7.5 mg tablet 7.5 mg PO BID 30 Days #60 tab 01/20/19 03/01/19 Unknown topiramate 25 mg tablet 25 mg PO BID 30 Days #60 tab 01/20/19 03/01/19 Unknown azathioprine 50 mg tablet 75 mg PO QAM #45 tab 01/29/19 03/01/19 Unknown lisinopril 20 mg PO QAM 03/01/19 03/01/19 Unknown rizatriptan 10 mg PO UD 03/01/19 03/01/19 Unknown Past Medical History Medical History Anemia possible remote hx post-op per patient Asthma Back pain, chronic Benign paroxysmal positional vertigo hx/no recent issues Chronic kidney disease baseline creatinine 1.2-1.3 range per chart review Common migraine without aura Crohns disease stable Depression with anxiety Diabetes mellitus, type 2 NIDDM Diabetic peripheral neuropathy associated with type 2 diabetes mellitus Esophageal dysmotility dysphagia s/p dilation GERD (gastroesophageal reflux disease) controlled Hiatal hernia Hyperlipidemia Hypertension Hypothyroidism Lumbar stenosis with neurogenic claudication Osteoarthritis Osteopenia Schatzki's ring Sleep apnea no device Exercise / Class Metabolic Activity III < 4 Walking/Shop/Light housework (cane PRN/decreasing activity in setting of worsening back pain) Past Family History Family History Mother Family history of diabetes mellitus Breast cancer Myocardial infarction Other Coronary heart disease Past Surgical History Surgical History Fusion of spine MULTIPLE (FUSION AND REVISION)/Removal spinal hardware T11-L1: 08/16/17: Grade 1 view, MAC #3, ETT [address] [facility] History of arthroscopy RT SHOULDER History of colonoscopy History of esophagogastroduodenoscopy (EGD) WITH DILATION History of hysterectomy History of tooth extraction Hx of eye surgery LEFT EYE CATARACT SURGERY S/P arthroscopic knee surgery LEFT KNEE S/P carpal tunnel release LEFT S/P left oophorectomy ALSO REMOVED RIGHT OVARY Past Anesthesia History No Hx of Anesthesia Complications and No Family Hx of Anesthesia Complications History of PONV No Hx of PONV and Hx of Motion Sickness (occasional) Social History Smoking Status: Never smoker Do You Dip or Chew Tobacco: No Hx Alcohol Use: Yes Alcohol type: hard liquor alcohol intake frequency: holidays/special occasions only Hx Substance Use: No Review of Systems Patient denies chest pain, shortness of breath, cough, wheezing, palpitations. Physical Exam Vital Signs VITALS BP 141/83 P 92 TEMP 98.4 SP02 93%RA RESP 16 PHYSICAL Full neck and c-spine range of motion. Full TMJ range of motion. TMD 2.5 finger breaths Mallampati Score 3 Dentition: left upper side broken/chipped tooth, possible crowns Lungs: clear throughout to auscultation Cardiac: regular rate and rhythm, no murmurs noted Spine: normal Carotid arteries: negative bruit Extremities: no edema Thick neck Testing Laboratory Results 03/05/19 09:40 03/05/19 09:40 PT 10.1 Seconds (9.0-12.0) 03/05/19 09:40 INR 1.0 (0.9-1.1) 03/05/19 09:40 APTT 21.2 Seconds (21.0-31.0) 03/05/19 09:40 Hemoglobin A1c 8.5 % (4.5-5.6) H 03/05/19 09:40 Urine Color Dark Yellow 03/05/19 09:40 Urine Appearance Cloudy (Clear) A 03/05/19 09:40 Urine pH 5.0 (4.5-7.5) 03/05/19 09:40 Ur Specific [place] 1.023 (1.000-1.030) 03/05/19 09:40 Urine Protein 1+ (Negative) H 03/05/19 09:40 Urine Glucose (UA) Negative (Negative) 03/05/19 09:40 Urine Ketones Negative (Negative) 03/05/19 09:40 Urine Nitrite Negative (Negative) 03/05/19 09:40 Ur Leukocyte Esterase 2+ (Negative) H 03/05/19 09:40 Urine WBC (Auto) >30 /hpf (0-5) H 03/05/19 09:40 Urine RBC (Auto) 0-4 /hpf (0-4) 03/05/19 09:40 U Hyaline Cast (Auto) 1-5 /lpf (0-5) 03/05/19 09:40 U Epithel Cells (Auto) >30 /lpf (0-5) H 03/05/19 09:40 Urine Bacteria (Auto) Negative (Negative) 03/05/19 09:40 Blood Type B Negative 03/05/19 09:40 Antibody Screen NEGATIVE 03/05/19 09:40 *Surgeon office made aware of elevated hgba1c* Electrocardiogram Date: 12/12/18 SR with occasional PVC's at 79bpm. Prolonged QT. Chest X-Ray Date: 12/12/18 A small hiatal hernia is noted. Patient is mildly rotated. IMPRESSION: No acute cardiopulmonary findings. Linear left lung opacity suggestive of atelectasis. Stress Test Date: 06/11/18 Type: DSE Normal DSE without evidence of inducible ischemia. Grade I DD. Mild cLVH. No significant valvular disease. 88% MPHR. EF 65-70%. No significant valvular disease.
[2019-03-05 10:07] LABS: Basophils # (auto) 0.04 K/uL (0-0.2); Basophils % (auto) 0.7 %; Eosinophils # (auto) 0.11 K/uL (0-0.5); Eosinophils % (auto) 1.8 %; Hematocrit (blood only) 42.9 % (37-47); Hemoglobin 13.9 g/dL (12.0-16.0); Immature Granulocytes # (auto) 0.02 K/uL (0.00-0.02); Immature Granulocytes % (auto) 0.3 %; Lymphocytes # (auto) 1.75 K/uL (1.2-3.4); Lymphocytes % (auto) 28.9 %; Mean Corpuscular Hemoglobin 28.4 pg (25-34); Mean Corpuscular Hgb Conc 32.4 g/dL (32-36); Mean Corpuscular Volume 87.6 fL (80-100); Mean Platelet Volume 10.7 fL (7.4-10.4); Monocytes # (auto) 0.57 K/uL (0.11-0.59); Monocytes % (auto) 9.4 %; Neutrophils # (auto) 3.56 K/uL (1.4-6.5); Neutrophils % (auto) 58.9 %; Platelet Count 228 K/uL (130-400); RDW Standard Deviation 50.9 fL (36.4-46.3); White Blood Count 6.05 K/uL (4.8-10.8)
[2019-03-05 10:13] LABS: BUN Creatinine Ratio 10.1 (10-20); Calcium 10.3 mg/dl (8.5-10.1); Creatinine Clr Calc Pharmacy 42.1 ml/min; Est GFR (African American) 47.2; Est GFR (Non-African American) 40.7; Potassium 5.1 mmol/L (3.5-5.1)
[2019-03-05 10:18] LABS: Appearance Urine Cloudy (Clear); Bacteria Urine Automated Negative (Negative); Bilirubin Urine Negative (Negative); Blood Urine Negative (Negative); Color Urine Dark Yellow; Epithelial Cell Urine Auto >30 /lpf (0-5); Glucose Urine UA Negative (Negative); Ketones Urine Negative (Negative); Leukocyte Esterase Urine 2+ (Negative); Nitrite Urine Negative (Negative); Protein Urine 1+ (Negative); RBC Urine Automated 0-4 /hpf (0-4); Specific Gravity Urine 1.023 (1.000-1.030); Urobilinogen Urine Negative (Negative); WBC Urine Automated >30 /hpf (0-5)
[2019-03-05 10:22] LABS: Partial Thromboplastin Ratio 0.8; Partial Thromboplastin Time 21.2 Seconds (21.0-31.0); Prothrombin Time 10.1 Seconds (9.0-12.0)
[2019-03-05 10:34] LABS: Estimated Average Glucose 197 mg/dl; Hemoglobin A1C 8.5 % (4.5-5.6)
[~2019-03-19 11:10] MED LIST changes: -ACET-1222 PO; +ACETAMINOPHEN 500 MG TAB PO SCH; -ASPI-461 PO; -ATOR-22 PO; -ATV/1 PO; -AZAT50TA33 PO; -BUSP-8 PO; -CALC-20; -CHOL20009; +CLINDAMYCIN 600 MG/54 ML BAG IV SCH; -CYAN100T6 PO; +CeleBREX 200 MG CAP PO SCH; -DESV50TA PO; +DEXAMETHASONE SOD INJ 4 MG/ML VIAL ONE; -DOXE50CA3 PO; -FERR1TAB13 PO; -FIBER PO; +GABAPENTIN 300 MG CAP PO SCH; -GEMF600T PO; -GLC/500 PO; -GLIP-197 PO; +HYDROmorphone INJ 2 MG/ML SYR/VIAL ONE; -LEVO75TA PO; +LIDOCAINE HCL 2% 2 ML VIAL/AMP(20MG/ML) INFIL ONE; -LISI5TAB PO; +LR 15ML/HR IV SCH; -LUBI8CAP4 PO; -MECL1TAB42 PO; -MELO-84 PO; -METF500T PO; -METH-1305 PO; -MULTTAB58 PO; -OMEP20TA PO; +ONDANSETRON INJ 2 MG/ML 2 ML VIAL ONE; +PROPOFOL IV EMULSION 10 MG/ML 20 ML VIAL IV ONE; -QUET300T2 PO; -RANI300T2 PO; +ROCURONIUM BROMIDE 10 MG/ML 5 ML VIAL ONE; -SUMA100T16 PO; -TOPI200T6 PO; -VEDO1INJ IV; +fentaNYL citrate 100 MCG/2 ML VIAL ONE
[2019-03-19] MEDS ORDERED: ATROPINE SULFATE 0.1 MG/ML 10ML SYR IV PRN (12:19)
[2019-03-19] MEDS ORDERED: ONDANSETRON INJ 2 MG/ML 2 ML VIAL IV PRN ×2 (12:19→17:19)
[2019-03-19] MEDS ORDERED: ePHEDrine sulfate 50 MG/ML AMP IV PRN (12:19)
--- NOTE | 2019-03-19 12:54 | History & Physical Bridge Note ---
Date of Service March 19, 2019 History & Physical Bridge Note I have examined the patient, reviewed the History & Physical and in the interval since the performance of the History & Physical I have noted the following changes of clinical significance: no changes noted
--- NOTE | 2019-03-19 12:55 | History & Physical Report ---
Date of Service March 19, 2019 Assessment & Plan (1) Chronic back pain greater than 3 months duration: T11-L1 hardware removal Present on Admission?: Yes History of Present Illness Chief Complaint: Back pain Primary Care Provider: Paramjit Martinez MD This is a 69-year-old female well-known to me that presents with worsening back pain and failed hardware. Subsequently she is here for surgical invention. Allergies Allergy/AdvReac Type Severity Reaction Status Date / Time cephalexin Allergy Intermediate HIVES Verified 03/19/19 11:46 Cephalosporins Allergy Intermediate HIVES Verified 03/19/19 11:46 Penicillins Allergy Intermediate HIVES Verified 03/19/19 11:46 Cipro AdvReac Intermediate NAUSEA AND Verified 09/24/17 06:23 VOMITING ciprofloxacin AdvReac Intermediate NAUSEA AND Verified 03/19/19 11:46 VOMITING doxycycline AdvReac Intermediate GI UPSET Verified 03/19/19 11:46 infliximab AdvReac Intermediate ITCHING, Verified 03/19/19 11:46 RASH Home Medications Home Medications Medication Instructions Recorded Confirmed Type Entyvio 300 mg IV Q8WK 06/10/18 03/19/19 History aspirin 81 mg PO QAM 06/10/18 03/19/19 History cholecalciferol (vitamin D3) 2,000 unit PO QAM 06/10/18 03/19/19 History [Vitamin D3] cyanocobalamin (vitamin B-12) 1,000 mcg PO QAM 06/10/18 03/19/19 History [Vitamin B-12] quetiapine 400 mg PO HS 06/10/18 03/19/19 History diphenhydramine HCl 50 mg/mL 50 mg IV UD ml 09/18/18 03/19/19 History injection syringe atorvastatin 20 mg tablet 20 mg PO QPM #90 tab 10/01/18 03/19/19 Rx pen needle, diabetic 32 gauge x #100 ea 10/06/18 03/08/19 Rx 1/4" blood sugar diagnostic #10 ea 10/22/18 03/08/19 History omeprazole 20 mg capsule,delayed 20 mg PO QAM #30 cap 11/03/18 03/08/19 Rx release ferrous sulfate 324 mg (65 mg 324 mg PO QAM tab 11/11/18 03/19/19 History iron) tablet,delayed release gabapentin 400 mg capsule 400 mg PO TID 11/11/18 03/08/19 History multivitamin 1 tab PO DAILY tab 11/11/18 03/19/19 History temazepam 15 mg capsule 15 mg PO HS PRN 11/11/18 03/19/19 History vortioxetine [Trintellix] 10 mg PO QAM 12/12/18 03/08/19 History metformin 500 mg tablet,extended 500 mg PO UD tab 12/17/18 03/19/19 History release 24 hr calcium carbonate-vitamin D3 600 2 tab PO QAM tab 12/25/18 03/19/19 History mg (1,500 mg)-800 unit tablet meloxicam 7.5 mg tablet 7.5 mg PO BID 30 Days #60 tab 01/20/19 03/19/19 Rx topiramate 25 mg tablet 25 mg PO BID 30 Days #60 tab 01/20/19 03/08/19 Rx azathioprine 50 mg tablet 75 mg PO QAM #45 tab 01/29/19 03/19/19 Rx lisinopril 20 mg PO QAM 03/01/19 03/19/19 History rizatriptan 10 mg PO UD 03/01/19 03/08/19 History glipizide 5 mg tablet 10 mg PO BIDM #360 tab 03/08/19 03/19/19 Rx levothyroxine 112 mcg tablet 112 mcg PO QAM #30 tab 03/08/19 03/19/19 Rx Past Med/Surg History Medical History Anemia possible remote hx post-op per patient Asthma Back pain, chronic Benign paroxysmal positional vertigo hx/no recent issues Chronic kidney disease baseline creatinine 1.2-1.3 range per chart review Common migraine without aura Crohns disease stable Depression with anxiety Diabetes mellitus, type 2 NIDDM Diabetic peripheral neuropathy associated with type 2 diabetes mellitus Esophageal dysmotility dysphagia s/p dilation GERD (gastroesophageal reflux disease) controlled Hiatal hernia Hyperlipidemia Hypertension Hypothyroidism Lumbar stenosis with neurogenic claudication Osteoarthritis Osteopenia Schatzki's ring Sleep apnea no device Surgical History Fusion of spine MULTIPLE (FUSION AND REVISION)/Removal spinal hardware T11-L1: 08/16/17: Grade 1 view, MAC #3, ETT 7.0 at [facility] History of arthroscopy RT SHOULDER History of colonoscopy History of esophagogastroduodenoscopy (EGD) WITH DILATION History of hysterectomy History of tooth extraction Hx of eye surgery LEFT EYE CATARACT SURGERY S/P arthroscopic knee surgery LEFT KNEE S/P carpal tunnel release LEFT S/P left oophorectomy ALSO REMOVED RIGHT OVARY Family History Mother Family history of diabetes mellitus Breast cancer Myocardial infarction Other Coronary heart disease Social History Preferred Language: Serbian Communication Ability: Effective Visual Impairment: Limited Hearing Ability: Normal 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 Beliefs That Will Affect Care: Jew Jew Beliefs: Orthodox Current Living Situation: Alone current occupational status: retired Other Information That Helps Us Care for You: No Feels Safe at Home: Yes Safety Concerns: Feels Safe At This Time Smoking Status: Never smoker Do You Dip or Chew Tobacco: No ; Second Hand Exposure: Yes (IN THE PAST) ; Tobacco Cessation Education Requested by Patient: No Hx Alcohol Use: No Hx Substance Use: No Childhood Exposure to Second-Hand Smoke: Yes Diet Comment: regular caffeine: Yes (pepsi) during the past year weight has: remained stable Dental Care, Regularly: No Physical Activity Frequency: Does not Exercise Physical Activity Frequency Comment: due to physical condition Seatbelt Use: always Sunscreen Use: Yes Physical Exam Physical Exam: Patient is alert and oriented neurologically intact. Results & Data Vital Signs (Past 12 Hours) Vital Signs Temp Pulse Resp BP Pulse Ox 03/19/19 12:04 37 C 101 H 18 169/90 H 93
[2019-03-19] MEDS ORDERED: BACITRACIN INJ 50,000 UNIT VIAL ONE (13:27)
[2019-03-19] MEDS ORDERED: BUPIVACAINE/EPINEPHRINE 0.5% MPF 1:200,000 10 ML VIAL ONE (13:28)
[2019-03-19] MEDS ORDERED: VANCOMYCIN HCL 1000MG/20ML VIAL ONE (13:55)
[2019-03-19] MEDS ORDERED: GENTAMICIN SULFATE 40 MG/ML 2 ML VIAL ONE ×2 (13:55)
[2019-03-19] MEDS ORDERED: METOCLOPRAMIDE HCL INJ 5 MG/ML 2 ML VIAL ONE (14:06)
[2019-03-19] MEDS ORDERED: raNITIdine HCl 25 MG/ML VIAL IV ONE (14:06)
[2019-03-19] MEDS ORDERED: DEXAMETHASONE SOD INJ 4 MG/ML VIAL ONE (14:20)
--- NOTE | 2019-03-19 14:39 | Operative Report ---
Post Operative Report Pre & Post Diagnosis Operation Date: 03/19/19 13:25 Chronic back pain with evidence of hardware failure I identified the patient and participated in the time-out.: Yes Procedure Operation Date: 03/19/19 13:25 #1 removal of posterior instrumentation T11-L1. #2 posterior spinal fusion T11- L2. #3 placement infuse collagen sponge combined master graft in the lamina and transverse processes from T11-L2. Surgeon Agustín Arnold, Patient Scheduler Marco Troy Estimated Blood Loss 20 Findings Consistent with Post-Op Diagnosis Specimens None Indications This is a 69-year-old female known to the presents with loosening of her instrumentation and subsequent back pain. Subsequently we elected to undergo the above-mentioned procedure. Description of Procedure Patient was met with identified informed consent obtained. Patient was then taken to the operative suite underwent intubation placed in a prone position on the Gideon table on top of the Mikie frame. All bony prominences well-padded eyes inspected to ensure no external pressure placed upon the. This point the thoracolumbar spine was prepped and draped in normal sterile fashion. Sharp dissection with the assistance of Bovie cautery was performed down to and exposing the instrumentation from T11-L2. Is obvious loosening of the implants. They were removed without difficulty. I then exposed the lamina and transverse processes from T11-L2 bilaterally and then burred to subcortical bleeding bone. Infuse collagen sponge, master graft was then placed from T11-L2 bilaterally. I did place approximately 4 cc of stimulant beads impregnated with vancomycin gentamicin in the incision sites. a 15 round RUSLAN drain was inserted and incision closed with 1 Vicryl fascia 2-0 Vicryl subcutaneously and 4 Monocryl for final skin closure. Steri-Strip sterile dressings placed. Patient will continue to PACU stable condition. Please note Marco Troy was present at the entire procedure involved the patient positioning complex portions of the surgery and final skin closure. I attest to the content of the Intraoperative Record and any orders documented therein. Any exceptions are noted below.
[2019-03-19] MEDS ORDERED: ESMOLOL HCL INJ 10 MG/ML 10ML VIAL IV ONE (14:40)
[2019-03-19] MEDS: fentaNYL citrate 100 MCG/2 ML VIAL IV PRN ×6 (15:30→15:55)
--- NOTE | 2019-03-19 15:30 | Fluoroscopy Report ---
INTRAOPERATIVE RADIOGRAPH CLINICAL HISTORY: T11-L1 hardware removal. Fluoroscopy time: 9 seconds. FINDINGS: A single spot fluoroscopic image of the lower thoracic spine is presented. A retained screw fragment is present within a vertebral body. The level cannot be defined on this single fluoroscopic view. IMPRESSION: A screw fragment is retained within a vertebral body. Electronically signed by: Elpidio Suh M.D. 03/19/2019 3:28 PM
[2019-03-19] MEDS ORDERED: LABETALOL HCL IV 5 MG/ML 20ML IV ONE (15:54)
--- NOTE | 2019-03-19 16:17 | Anesthesiology Progress Note ---
Date of Service March 19, 2019 Anesthesia Post Procedure Vital Signs Vital Signs: Temp Pulse Pulse Resp BP BP Pulse Ox 03/19/19 16:10 36.8 C 84 15 169/82 H 96 03/19/19 16:00 36.8 C 72 17 175/76 H 94 03/19/19 15:50 36.8 C 107 H 12 183/69 H 94 03/19/19 15:40 107 H 13 178/76 H 95 03/19/19 15:30 106 H 14 180/82 H 96 03/19/19 15:20 103 H 13 180/74 H 97 03/19/19 15:10 105 H 12 178/81 H 98 03/19/19 15:01 36.7 C 110 H 14 179/95 H 201 H 03/19/19 12:04 37 C 101 H 18 169/90 H 93 Pain Intensity Back: Pain Intensity: 3 Transfer of Care Handoff Completed per policy Notes Mental Status: alert / awake / arousable and participated in evaluation Patient Amnestic to Procedure: Yes Nausea / Vomiting: adequately controlled Pain: adequately controlled Airway Patency, RR, SpO2: stable & adequate BP & HR: stable & adequate Hydration State: stable & adequate Anesthetic Complications: no major complications apparent and Pt Satisfied with anesthetic care
[2019-03-19] MEDS ORDERED: DO NOT ADMINISTER PNEUMOCOCCAL VACCINE PRN (17:19)
[2019-03-19] MEDS ORDERED: ACETAMINOPHEN 1,000 MG/100 ML VIAL IV PRN (17:19)
[2019-03-19] MEDS ORDERED: MAGNESIUM HYDROXIDE SUSP 30 ML UDC PO PRN (17:19)
[2019-03-19] MEDS ORDERED: TEMAZEPAM 15 MG CAPSULE PO PRN (17:19)
[2019-03-19] MEDS ORDERED: NALOXONE HCL 0.4 MG/1 ML VIAL/CARP IV PRN (17:19)
[2019-03-19] MEDS ORDERED: DO NOT ADMINISTER FLU VACCINE PRN (17:19)
[2019-03-19] MEDS ORDERED: METOCLOPRAMIDE HCL INJ 5 MG/ML 2 ML VIAL IV PRN (17:19)
[2019-03-19] MEDS ORDERED: LORazepam 0.5 MG/1 ML VIAL IV PRN (17:19)
[2019-03-19] MEDS ORDERED: HYDROmorphone INJ 0.5 MG/0.5 ML SYR IV PRN (17:19)
[2019-03-19] MEDS ORDERED: ALUMINUM/MAGNESIUM SUSP 30 ML UDC PO PRN (17:19)
[2019-03-19] MEDS ORDERED: FAMOTIDINE 20 MG TAB PO PRN (17:19)
[2019-03-19] MEDS ORDERED: bisacodyL 10 MG SUPP PR PRN (17:19)
[2019-03-19] MEDS ORDERED: SOD PHOSPHATE/SOD BIPHOSPHATE ENEMA 132 ML BTL PR PRN (17:19)
[2019-03-19] MEDS ORDERED: PROMETHAZINE HCL 12.5 MG in SODIUM CHLORIDE 0.9% 50 ML IV PRN (17:19)
[2019-03-19] MEDS ORDERED: DIPHENHYDRAMINE HCL 50 MG IV SCH (17:19)
[2019-03-19] MEDS ORDERED: LORazepam 0.5 MG TAB PO PRN (17:19)
[2019-03-19] MEDS ORDERED: HYDROmorphone INJ 1 MG/ML SYRINGE IV PRN (17:19)
[2019-03-19] MEDS ORDERED: TRAMADOL HCL 50 MG TABLET PO PRN (17:19)
[2019-03-19] MEDS ORDERED: RIZATRIPTAN BENZOATE MLT 10 MG TAB PO PRN (17:56)
[2019-03-19] MEDS: glipiZIDE 5 MG TAB PO SCH (18:15)
[2019-03-19] MEDS: OXYCODONE HCL IR 5 MG TAB (IMMEDIATE RELEASE) PO PRN (19:01)
[2019-03-19] MEDS: SODIUM CHLORIDE 0.9% 1000ML 1,000 ML IV SCH (20:16)
[2019-03-19] MEDS: TOPIRAMATE 25 MG TAB PO SCH (20:43)
[2019-03-19] MEDS: QUETIAPINE FUMARATE 200 MG TAB PO SCH (20:43)
[2019-03-19] MEDS: ATORVASTATIN 20 MG TAB PO SCH (20:43)
[2019-03-19] MEDS: DOCUSATE SODIUM/SENNA 50/8.6MG TAB PO SCH (20:43)
[2019-03-19] MEDS: GABAPENTIN 400 MG CAP PO SCH (20:43)
[2019-03-19] MEDS: CLINDAMYCIN 600 MG in DEXTROSE 5% 50 ML IV SCH (20:43)
[2019-03-19] MEDS ORDERED: GLUCOSE 10 TABS/TUBE PO PRN (21:18)
[2019-03-19] MEDS ORDERED: CARBOHYDRATES FOR HYPOGLYCEMIA PO PRN (21:18)
[2019-03-19] MEDS ORDERED: GLUCAGON FOR INJ 1 MG VIAL SQ PRN (21:18)
[2019-03-19] MEDS ORDERED: GLUCOSE 40% GEL 15 GM TUBE PO PRN (21:18)
[2019-03-19] MEDS ORDERED: DEXTROSE 50% 50 ML SYRINGE IV PRN (21:18)
[2019-03-19] MEDS: INSULIN ASPART 100 UNITS/ML 3 ML PEN SC SCH (21:47)
[2019-03-19] MEDS: ACETAMINOPHEN 500 MG TAB PO PRN (22:26)
[2019-03-20] MEDS: ACETAMINOPHEN 500 MG TAB PO PRN (04:02)
[2019-03-20] MEDS: CLINDAMYCIN 600 MG in DEXTROSE 5% 50 ML IV SCH (04:03)
[2019-03-20] MEDS: POLYETHYLENE (MIRALAX) 17 GM PACK PO SCH ×3 (05:56→17:36)
[2019-03-20] MEDS: SODIUM CHLORIDE 0.9% 1000ML 1,000 ML IV SCH (05:58)
[2019-03-20] MEDS: OXYCODONE HCL IR 5 MG TAB (IMMEDIATE RELEASE) PO PRN ×4 (06:00→20:40)
[2019-03-20] MEDS: LEVOTHYROXINE SODIUM 112 MCG TABLET PO SCH (06:00)
[2019-03-20] MEDS: ONDANSETRON 4 MG OD TAB PO PRN (06:03)
[2019-03-20 06:36] LABS: Basophils # (auto) 0.01 K/uL (0-0.2); Basophils % (auto) 0.2 %; Eosinophils # (auto) 0.01 K/uL (0-0.5); Eosinophils % (auto) 0.2 %; Hematocrit (blood only) 34.7 % (37-47); Hemoglobin 11.3 g/dL (12.0-16.0); Immature Granulocytes # (auto) 0.02 K/uL (0.00-0.02); Immature Granulocytes % (auto) 0.3 %; Lymphocytes # (auto) 0.99 K/uL (1.2-3.4); Lymphocytes % (auto) 17.1 %; Mean Corpuscular Hemoglobin 28.1 pg (25-34); Mean Corpuscular Hgb Conc 32.6 g/dL (32-36); Mean Corpuscular Volume 86.3 fL (80-100); Mean Platelet Volume 10.6 fL (7.4-10.4); Monocytes # (auto) 0.74 K/uL (0.11-0.59); Monocytes % (auto) 12.8 %; Neutrophils # (auto) 4.03 K/uL (1.4-6.5); Neutrophils % (auto) 69.4 %; Platelet Count 215 K/uL (130-400); RDW Coefficient of Variation 15.1 % (11.5-14.5); RDW Standard Deviation 47.9 fL (36.4-46.3); Red Blood Count 4.02 M/uL (4.2-5.4)
[2019-03-20 07:09] LABS: BUN Creatinine Ratio 13.3 (10-20); Calcium 9.3 mg/dl (8.5-10.1); Creatinine Clr Calc Pharmacy 43.9 ml/min; Est GFR (Non-African American) 43.1; Potassium 4.5 mmol/L (3.5-5.1)
[2019-03-20] MEDS: FERROUS SULFATE 325 MG TAB PO SCH (08:48)
[2019-03-20] MEDS: PANTOprazole 40 MG TAB PO SCH (08:48)
[2019-03-20] MEDS: GABAPENTIN 400 MG CAP PO SCH ×3 (08:48→20:42)
[2019-03-20] MEDS: TOPIRAMATE 25 MG TAB PO SCH (08:48)
[2019-03-20] MEDS: MULTIVITAMIN TAB PO SCH (08:48)
[2019-03-20] MEDS: glipiZIDE 5 MG TAB PO SCH (08:49)
[2019-03-20] MEDS: azaTHIOprine 50 MG TAB PO SCH (08:49)
[2019-03-20] MEDS: CHOLECALCIFEROL 1,000 UNITS 25 MCG TAB PO SCH (08:49)
[2019-03-20] MEDS: CYANOCOBALAMIN 500 MCG TABLET (VITAMIN B-12) PO SCH (08:50)
[2019-03-20] MEDS: ASPIRIN 81 MG ECTAB PO SCH (08:50)
[2019-03-20] MEDS: CALCIUM 600MG + VIT D 400 IU TAB PO SCH (08:50)
[2019-03-20] MEDS: INSULIN ASPART 100 UNITS/ML 3 ML PEN SC SCH ×4 (08:51→21:19)
[2019-03-20] MEDS ORDERED: lisinopriL 20 MG TAB PO SCH (09:00)
--- NOTE | 2019-03-20 09:35 | Orthopedic Progress Note ---
Date of Service March 20, 2019 Assessment & Plan (1) Chronic back pain greater than 3 months duration: This time initiate physical therapy monitor her RUSLAN output anticipate discharge home Friday. Present on Admission?: Yes Subjective Back pain controlled no complaints of leg pain or numbness. Physical Exam Physical Exam: Patient is in the chair at the bedside is good strength testing. Appears comfortable. Results & Data ([facility]) Vital Signs (Past 12 Hours) Vital Signs Temp Pulse Resp BP Pulse Ox 03/20/19 07:02 36.6 C 66 16 105/62 93 03/20/19 03:10 36.4 C L 75 14 117/70 92 03/19/19 23:16 36.3 C L 93 H 16 97/63 L 97
--- NOTE | 2019-03-20 10:52 | Hospitalist Consultation ---
Date of Consultation March 20, 2019 Assessment & Plan (1) Lumbar stenosis with neurogenic claudication: * POD #1 s/p T11-L1 hardware removal by Dr. Arnold. Pre-op h/h 13.9/42.9. EBL 20ml * PT/OT/pain management/DVT prophylaxis per primary team * H/h 11.3/34.7 -- acute blood loss secondary to surgery * RUSLAN output ~100mL * Monitor CBC (2) Hypertension: * Chronic. * Home lisinopril 20mg on hold, although did get this morning with pressure of 105/62 -- currently 96/58 -- continue to hold * Continue to monitor (3) Diabetes mellitus, type 2: * Chronic. Hold metformin 1000mg, glipizide 10mg BID while inpatient * BSG ACHS. SSI -- adjustments made to CF, CR * See HPI -- was previoulsy to be started on insulin by [facility] -- patient never started * A1c improved to 8.5 from 9.6 in October 2016 * May benefit from GLP1 for DM which could result in weight loss as well, as BMI 37.1 * Consult elementary educator * Monitor (4) CKD (chronic kidney disease) stage 3, GFR 30-59 ml/min: * Creatinine 1.2-1.3 baseline over the past year -- patient unaware of this diagnosis. GFR 43 * Cr stable at 1.26 * Continue to monitor (5) GERD (gastroesophageal reflux disease): * Chronic. Stable. Continue home omeprazole -- currently substituted for protonix 40mg QAM * Also with history of laryngopharyngeal reflux and schatzki's ring -- follows locally with Dr. Og -- had dilation x 2 in the past * Will need set up as outpatient on discharge given increased dysphagia over the past month (6) Hypothyroidism: * Chronic. Stable. Last TSH 1.October * Continue levothyroxine 112mcg daily (7) Hyperlipidemia: * Chronic. Stable * Continue home atorvastatin 20mg (8) Crohns disease: * Chronic. Stable. Follows with Dr. Og. Had previously been on remicade prior to switching to entyvio d/t reaction * Continue azathioprine 75mg. Patient to resume entyvio at discretion of PCP -- not to be resumed until instructed (9) Esophageal dysmotility: * As above (10) Laryngopharyngeal reflux (LPR): * As above * continue PPI (11) Schatzki's ring: * As above. Dilatation x 2 (12) Diabetic peripheral neuropathy associated with type 2 diabetes mellitus: * As above, with neuropathy * Continue gabapentin 400mg TID (13) Depression with anxiety: * Had previously been on buspar 20mg TID, but has not taken in quite some time. Reports anxiety/depression as stating in HPI -- prn ativan ordered * Will need follow up with Dr. Lim in [place] to resume treatment. No current SI/HI * Continue quetiapine 400mg HS (14) Common migraine without aura: * Stable. No current comlaints. * Recently restarted on topamax 25 mg BID * Continue to monitor (15) Benign paroxysmal positional vertigo: * H/o. No current concerns (16) Anemia: * Chronic. H/h 11.3/34.7 * Continue home ferrous sulfate 325mg PO QAM (17) Sleep apnea: * h/o. denies being able to tolerate CPAP. CPAP ordered for tonight, but cancelled at patient request (18) Vitamin B12 deficiency: * Chronic. Stable. * Continue supplementation (19) Vitamin D deficiency: * Chronic. Stable. * Continue supplementation (20) DVT prophylaxis: * SCDs * ASA 81mg Supervising Physician Co-Signing Physician Notes PA Supervision Note: I personally saw and examined the patient. I verified all salazar points and agree with AUSTEN Berger with the following exceptions and/or additions: Patient feeling tired but reports chronic insomnia. Some pain in the back. Ambulated the hallways. Denies chest pain or shortness of breath. History and ROS reviewed as above Vitals reviewed Morbidly obese, NAD, AAO x3 RRR, no MGR Breathing unlabored, no wheezes crackles or rhonchi Abdomen positive bowel sound soft nontender nondistended Extremities no edema Back with dressing in place, RUSLAN drain with serosanguineous fluid 69-year-old female with multiple medical problems as above here for hardware removal from lumbar spine Doing fairly well postoperatively -Continue management as above Okay to restart Topamax for migraine prevention History of Present Illness Reason for Consultation: Medical Management Requesting Physician: Dr Arnold Attending Physician: Agustín Arnold, History of Present Illness 69 year old female with PMH significant for HTN, HLD, Crohns, Schatzki's rings (diltion x [address] Og), DM with neuropathy (not on insulin), CKD III, hypothyroidism, migraines, anxiety, depression, anemia presented for T11-L1 hardware removal with Dr. Arnold on 03/19 secondary to decreased mobility and increased pain. Patient states she has been up walking, even without walker, which she had not been able to do much prior to surgery. States she is passing gas. No BM since 03/18. Pain controlled with pain medications. She states she had been up in the chair this morning. Had tolerated breakfast with the exception of some toast that felt like it got stuck in her throat for a while. History of Schatzki rings that she had to have her esophagus dilated x2 by Dr. Og in the past. She states she was planning on calling him for a follow up appointment but wanted to wait until after her back surgery. Of note, she states she does not routinely check her blood sugars at home. She states she was in [facility] in the last year and was supposed to start on insulin, however she was never prescribed any needles or supplies to check her sugars and had never started insulin therapy. Discussed newer injectable agents, GLP-1 agents such as Ozempic, to be discussed with her PCP as an outpatient to help better gain control of her sugars. Patient agreeable to this plan and for consult to elementary educator. She also states she had seen a diagnosis of CKD on office paperwork but had never been told anything about it and had them remove this from her medical history. Discussed lab values of creatinine and GFR and that we will add this diagnosis back on her record so that medications can be renally dosed when appropriate. She also states she has not taken her BuSpar in several months secondary to not getting refills. She states she does have some increased depression and anxiety, but attributes some of this to her increased pain and inability to walk, stand up straight, or leave the house much. Agreeable to discuss resuming once back pain under better control and she is healing. Previously diagnosed with sleep apnea but states she has not used a CPAP in quite a number of years secondary to not being able to fall asleep with it. Denies one while in the hospital. Plans for discharge home on Friday with home health and physical therapy. Allergies Allergy/AdvReac Type Severity Reaction Status Date / Time cephalexin Allergy Intermediate HIVES Verified 03/19/19 11:46 Cephalosporins Allergy Intermediate HIVES Verified 03/19/19 11:46 Penicillins Allergy Intermediate HIVES Verified 03/19/19 11:46 Cipro AdvReac Intermediate NAUSEA AND Verified 09/24/17 06:23 VOMITING ciprofloxacin AdvReac Intermediate NAUSEA AND Verified 03/19/19 11:46 VOMITING doxycycline AdvReac Intermediate GI UPSET Verified 03/19/19 11:46 infliximab AdvReac Intermediate ITCHING, Verified 03/19/19 11:46 RASH Home Medications Home Medications Medication Instructions Recorded Confirmed Type Entyvio 300 mg IV Q8WK 06/10/18 03/19/19 History aspirin 81 mg PO QAM 06/10/18 03/19/19 History cholecalciferol (vitamin D3) 2,000 unit PO QAM 06/10/18 03/19/19 History [Vitamin D3] cyanocobalamin (vitamin B-12) 1,000 mcg PO QAM 06/10/18 03/19/19 History [Vitamin B-12] quetiapine 400 mg PO HS 06/10/18 03/19/19 History diphenhydramine HCl 50 mg/mL 50 mg IV UD ml 09/18/18 03/19/19 History injection syringe atorvastatin 20 mg tablet 20 mg PO QPM #90 tab 10/01/18 03/19/19 Rx pen needle, diabetic 32 gauge x #100 ea 10/06/18 03/08/19 Rx 1/4" blood sugar diagnostic #10 ea 10/22/18 03/08/19 History omeprazole 20 mg capsule,delayed 20 mg PO QAM #30 cap 11/03/18 03/08/19 Rx release ferrous sulfate 324 mg (65 mg 324 mg PO QAM tab 11/11/18 03/19/19 History iron) tablet,delayed release gabapentin 400 mg capsule 400 mg PO TID 11/11/18 03/08/19 History multivitamin 1 tab PO DAILY tab 11/11/18 03/19/19 History temazepam 15 mg capsule 15 mg PO HS PRN 11/11/18 03/19/19 History vortioxetine [Trintellix] 10 mg PO QAM 12/12/18 03/08/19 History metformin 500 mg tablet,extended 500 mg PO UD tab 12/17/18 03/19/19 History release 24 hr calcium carbonate-vitamin D3 600 2 tab PO QAM tab 12/25/18 03/19/19 History mg (1,500 mg)-800 unit tablet meloxicam 7.5 mg tablet 7.5 mg PO BID 30 Days #60 tab 01/20/19 03/19/19 Rx topiramate 25 mg tablet 25 mg PO BID 30 Days #60 tab 01/20/19 03/08/19 Rx azathioprine 50 mg tablet 75 mg PO QAM #45 tab 01/29/19 03/19/19 Rx lisinopril 20 mg PO QAM 03/01/19 03/19/19 History rizatriptan 10 mg PO UD 03/01/19 03/08/19 History glipizide 5 mg tablet 10 mg PO BIDM #360 tab 03/08/19 03/19/19 Rx levothyroxine 112 mcg tablet 112 mcg PO QAM #30 tab 03/08/19 03/19/19 Rx oxycodone 5 mg PO Q6H PRN #30 tab 03/20/19 Rx Patient History Medical History Anemia possible remote hx post-op per patient Asthma Back pain, chronic Benign paroxysmal positional vertigo hx/no recent issues Chronic kidney disease baseline creatinine 1.2-1.3 range per chart review Common migraine without aura Crohns disease stable Depression with anxiety Diabetes mellitus, type 2 NIDDM Diabetic peripheral neuropathy associated with type 2 diabetes mellitus Esophageal dysmotility dysphagia s/p dilation GERD (gastroesophageal reflux disease) controlled Hiatal hernia Hyperlipidemia Hypertension Hypothyroidism Lumbar stenosis with neurogenic claudication Osteoarthritis Osteopenia Schatzki's ring Sleep apnea no device Surgical History Fusion of spine MULTIPLE (FUSION AND REVISION)/Removal spinal hardware T11-L1: 08/16/17: Grade 1 view, MAC #3, ETT 7.0 at [facility] History of arthroscopy RT SHOULDER History of colonoscopy History of esophagogastroduodenoscopy (EGD) WITH DILATION History of hysterectomy History of tooth extraction Hx of eye surgery LEFT EYE CATARACT SURGERY S/P arthroscopic knee surgery LEFT KNEE S/P carpal tunnel release LEFT S/P left oophorectomy ALSO REMOVED RIGHT OVARY Family History Mother Family history of diabetes mellitus Breast cancer Myocardial infarction Other Coronary heart disease Social History Preferred Language: Luxembourgish Communication Ability: Effective Visual Impairment: Limited Hearing Ability: Normal Patternmaker Wood Required: No Beliefs That Will Affect Care: Anglican Anglican Beliefs: Mormonism Current Living Situation: Alone current occupational status: retired Other Information That Helps Us Care for You: No Feels Safe at Home: Yes Safety Concerns: Feels Safe At This Time Smoking Status: Never smoker Do You Dip or Chew Tobacco: No ; Second Hand Exposure: Yes (IN THE PAST) ; Tobacco Cessation Education Requested by Patient: No Hx Alcohol Use: No Hx Substance Use: No Childhood Exposure to Second-Hand Smoke: Yes Diet Comment: regular caffeine: Yes (pepsi) during the past year weight has: remained stable Dental Care, Regularly: No Physical Activity Frequency: Does not Exercise Physical Activity Frequency Comment: due to physical condition Seatbelt Use: always Sunscreen Use: Yes Review of Systems Review of Systems: All systems reviewed & are unremarkable except as noted in HPI & below Constitutional: + fatigue; no fever and no chills Eyes: no diplopia and no worsening vision Ear, Nose, Mouth, Throat: + dysphagia; no sore throat Respiratory: no cough and no dyspnea Cardiovascular: no chest pain, no palpitations and no edema Gastrointestinal: no abdominal pain, no nausea and no vomiting Genitourinary: no dysuria and no urinary frequency Musculoskeletal: + back pain Integumentary: no rash and no lesions Neurologic: no numbness and no paresthesia Psychiatric: + depression and + anxiety Endocrine: no cold intolerance and no heat intolerance Hematologic / Lymphatic: no coagulopathy and no unexplained weight loss Allergy / Immunological: no cough and no rash Physical Exam Constitutional: WD/WN, vitals as above + obese and cooperative; no acute distress Eyes: + anicteric sclerae and PERRL ENMT: several dental filling, right molars Neck: trachea midline, no thyromegaly Respiratory: normal respiratory effort, lungs clear to auscultation Cardiovascular: RRR, no murmur, no edema 2+ dp, pt bilaterally Gastrointestinal (Abdomen): normal bowel sounds, soft, nontender, no hepatosplenomegaly Musculoskeletal: no cyanosis or clubbing, extremities motor strength 5/5 Skin: drain with bloody drainage dressing c/d/i Neurologic: patellar DTR's 2+ bilat, sensation intact Psychiatric: A+Ox3, euthymic affect Lymphatic: no cervical or axillary lymphadenopathy Results & Data ([facility]) Vital Signs (Past 12 Hours) Vital Signs Temp Pulse Resp BP Pulse Ox 03/20/19 07:02 36.6 C 66 16 105/62 93 03/20/19 03:10 36.4 C L 75 14 117/70 92 03/19/19 23:16 36.3 C L 93 H 16 97/63 L 97 Laboratory Results 03/20/19 03/20/19 03/20/19 Range/Units 08:17 06:13 06:13 WBC 5.80 (4.8-10.8) K/uL RBC 4.02 L (4.2-5.4) M/uL Hgb 11.3 L (12.0-16.0) g/dL Hct 34.7 L (37-47) % MCV 86.3 (80-100) fL MCH 28.1 (25-34) pg MCHC 32.6 (32-36) g/dL RDW Std Deviation 47.9 H (36.4-46.3) fL RDW Coeff of Brianna 15.1 H (11.5-14.5) % Plt Count 215 (130-400) K/uL MPV 10.6 H (7.4-10.4) fL Immature Gran % (Auto) 0.3 % Neut % (Auto) 69.4 % Lymph % (Auto) 17.1 % [place] % (Auto) 12.8 % Eos % (Auto) 0.2 % Baso % (Auto) 0.2 % Immature Gran # (Auto) 0.02 (0.00-0.02) K/uL Neut # (Auto) 4.03 (1.4-6.5) K/uL Lymph # (Auto) 0.99 L (1.2-3.4) K/uL [place] # (Auto) 0.74 H (0.11-0.59) K/uL Eos # (Auto) 0.01 (0-0.5) K/uL Baso # (Auto) 0.01 (0-0.2) K/uL Sodium 138 (136-145) mmol/L Potassium 4.5 (3.5-5.1) mmol/L Chloride 106 (98-107) mmol/L Carbon Dioxide 22 (21-32) mmol/L Anion Gap 10.0 (3-11) BUN 17 (7-18) mg/dl Creatinine 1.26 H (0.6-1.2) mg/dl Est Cr Clr Drug Dosing 43.9 ml/min Est GFR ( Amer) 50.0 Est GFR (Non-Af Amer) 43.1 BUN/Creatinine Ratio 13.3 (10-20) Glucose 152 H (70-99) mg/dl POC Glucose 129 H (70-99) mg/dl Calcium 9.3 (8.5-10.1) mg/dl Crossmatch 03/20/19 03/19/19 03/19/19 Range/Units 03:10 22:34 20:29 WBC (4.8-10.8) K/uL RBC (4.2-5.4) M/uL Hgb (12.0-16.0) g/dL Hct (37-47) % MCV (80-100) fL MCH (25-34) pg MCHC (32-36) g/dL RDW Std Deviation (36.4-46.3) fL RDW Coeff of Brianna (11.5-14.5) % Plt Count (130-400) K/uL MPV (7.4-10.4) fL Immature Gran % (Auto) % Neut % (Auto) % Lymph % (Auto) % [place] % (Auto) % Eos % (Auto) % Baso % (Auto) % Immature Gran # (Auto) (0.00-0.02) K/uL Neut # (Auto) (1.4-6.5) K/uL Lymph # (Auto) (1.2-3.4) K/uL [place] # (Auto) (0.11-0.59) K/uL Eos # (Auto) (0-0.5) K/uL Baso # (Auto) (0-0.2) K/uL Sodium (136-145) mmol/L Potassium (3.5-5.1) mmol/L Chloride (98-107) mmol/L Carbon Dioxide (21-32) mmol/L Anion Gap (3-11) BUN (7-18) mg/dl Creatinine (0.6-1.2) mg/dl Est Cr Clr Drug Dosing ml/min Est GFR ( Amer) Est GFR (Non-Af Amer) BUN/Creatinine Ratio (10-20) Glucose (70-99) mg/dl POC Glucose 209 H 284 H 340 H* (70-99) mg/dl Calcium (8.5-10.1) mg/dl Crossmatch 03/19/19 03/19/19 03/19/19 Range/Units 20:27 17:23 15:03 WBC (4.8-10.8) K/uL RBC (4.2-5.4) M/uL Hgb (12.0-16.0) g/dL Hct (37-47) % MCV (80-100) fL MCH (25-34) pg MCHC (32-36) g/dL RDW Std Deviation (36.4-46.3) fL RDW Coeff of Brianna (11.5-14.5) % Plt Count (130-400) K/uL MPV (7.4-10.4) fL Immature Gran % (Auto) % Neut % (Auto) % Lymph % (Auto) % [place] % (Auto) % Eos % (Auto) % Baso % (Auto) % Immature Gran # (Auto) (0.00-0.02) K/uL Neut # (Auto) (1.4-6.5) K/uL Lymph # (Auto) (1.2-3.4) K/uL [place] # (Auto) (0.11-0.59) K/uL Eos # (Auto) (0-0.5) K/uL Baso # (Auto) (0-0.2) K/uL Sodium (136-145) mmol/L Potassium (3.5-5.1) mmol/L Chloride (98-107) mmol/L Carbon Dioxide (21-32) mmol/L Anion Gap (3-11) BUN (7-18) mg/dl Creatinine (0.6-1.2) mg/dl Est Cr Clr Drug Dosing ml/min Est GFR ( Amer) Est GFR (Non-Af Amer) BUN/Creatinine Ratio (10-20) Glucose (70-99) mg/dl POC Glucose 347 H* 242 H 172 H (70-99) mg/dl Calcium (8.5-10.1) mg/dl Crossmatch 03/19/19 Range/Units 11:38 WBC (4.8-10.8) K/uL RBC (4.2-5.4) M/uL Hgb (12.0-16.0) g/dL Hct (37-47) % MCV (80-100) fL MCH (25-34) pg MCHC (32-36) g/dL RDW Std Deviation (36.4-46.3) fL RDW Coeff of Brianna (11.5-14.5) % Plt Count (130-400) K/uL MPV (7.4-10.4) fL Immature Gran % (Auto) % Neut % (Auto) % Lymph % (Auto) % [place] % (Auto) % Eos % (Auto) % Baso % (Auto) % Immature Gran # (Auto) (0.00-0.02) K/uL Neut # (Auto) (1.4-6.5) K/uL Lymph # (Auto) (1.2-3.4) K/uL [place] # (Auto) (0.11-0.59) K/uL Eos # (Auto) (0-0.5) K/uL Baso # (Auto) (0-0.2) K/uL Sodium (136-145) mmol/L Potassium (3.5-5.1) mmol/L Chloride (98-107) mmol/L Carbon Dioxide (21-32) mmol/L Anion Gap (3-11) BUN (7-18) mg/dl Creatinine (0.6-1.2) mg/dl Est Cr Clr Drug Dosing ml/min Est GFR ( Amer) Est GFR (Non-Af Amer) BUN/Creatinine Ratio (10-20) Glucose (70-99) mg/dl POC Glucose (70-99) mg/dl Calcium (8.5-10.1) mg/dl Crossmatch See Detail PG Care Time/CCT Total # of Minutes Spent Total Time Spent with Patient: Total time spent is greater than 50% in coordination of care (as documented) at patient's floor/unit and/or counseling patient: Coding Level of Care Code 25114 Inpt Consult Level 3 Diagnoses Lumbar stenosis with neurogenic claudication M48.062 Hypertension I10 Diabetes mellitus, type 2 E11.9 CKD (chronic kidney disease) stage 3, GFR 30-59 ml/min N18.3 GERD (gastroesophageal reflux disease) K21.9 Hypothyroidism E03.9 Hyperlipidemia E78.5 Crohns disease K50.90 Esophageal dysmotility K22.4 Laryngopharyngeal reflux (LPR) K21.9 Schatzki's ring K22.2 Diabetic peripheral neuropathy associated with type 2 diabetes mellitus E11.42 Depression with anxiety F41.8 Common migraine without aura G43.009 Benign paroxysmal positional vertigo H81.10 Anemia D64.9 Sleep apnea G47.30 Vitamin B12 deficiency E53.8 Vitamin D deficiency E55.9 DVT prophylaxis Z29.9
[2019-03-20] MEDS: ATORVASTATIN 20 MG TAB PO SCH (20:41)
[2019-03-20] MEDS: DOCUSATE SODIUM/SENNA 50/8.6MG TAB PO SCH (20:41)
[2019-03-20] MEDS: QUETIAPINE FUMARATE 200 MG TAB PO SCH (20:46)
[2019-03-21] MEDS ORDERED: COUGH DROP (SUGAR FREE) LOZ 24 LOZ/1 BOX BUCCAL ONE (00:05)
[2019-03-21] MEDS: ACETAMINOPHEN 500 MG TAB PO PRN ×2 (00:06→19:30)
[2019-03-21] MEDS: OXYCODONE HCL IR 5 MG TAB (IMMEDIATE RELEASE) PO PRN ×5 (02:15→20:10)
[2019-03-21 05:13] LABS: Hematocrit (blood only) 34.2 % (37-47); Hemoglobin 10.9 g/dL (12.0-16.0); Mean Corpuscular Hemoglobin 27.9 pg (25-34); Mean Corpuscular Hgb Conc 31.9 g/dL (32-36); Mean Corpuscular Volume 87.7 fL (80-100); Mean Platelet Volume 10.5 fL (7.4-10.4); Platelet Count 189 K/uL (130-400); RDW Coefficient of Variation 15.4 % (11.5-14.5); RDW Standard Deviation 49.9 fL (36.4-46.3)
[2019-03-21] MEDS: POLYETHYLENE (MIRALAX) 17 GM PACK PO SCH ×4 (05:32→17:17)
[2019-03-21] MEDS: LEVOTHYROXINE SODIUM 112 MCG TABLET PO SCH (05:35)
[2019-03-21 05:40] LABS: BUN Creatinine Ratio 16.5 (10-20); Calcium 9.1 mg/dl (8.5-10.1); Creatinine Clr Calc Pharmacy 39.7 ml/min; Est GFR (African American) 44.4; Est GFR (Non-African American) 38.3
[2019-03-21] MEDS: ONDANSETRON 4 MG OD TAB PO PRN (07:00)
[2019-03-21] MEDS: azaTHIOprine 50 MG TAB PO SCH (08:38)
[2019-03-21] MEDS: CALCIUM 600MG + VIT D 400 IU TAB PO SCH (08:39)
[2019-03-21] MEDS: PANTOprazole 40 MG TAB PO SCH (08:39)
[2019-03-21] MEDS: CHOLECALCIFEROL 1,000 UNITS 25 MCG TAB PO SCH (08:39)
[2019-03-21] MEDS: MULTIVITAMIN TAB PO SCH (08:40)
[2019-03-21] MEDS: FERROUS SULFATE 325 MG TAB PO SCH (08:40)
[2019-03-21] MEDS: ASPIRIN 81 MG ECTAB PO SCH (08:40)
[2019-03-21] MEDS: GABAPENTIN 400 MG CAP PO SCH ×3 (08:40→20:12)
[2019-03-21] MEDS: CYANOCOBALAMIN 500 MCG TABLET (VITAMIN B-12) PO SCH (08:40)
[2019-03-21] MEDS: INSULIN ASPART 100 UNITS/ML 3 ML PEN SC SCH ×5 (08:41→21:14)
--- NOTE | 2019-03-21 10:51 | Orthopedic Progress Note ---
Date of Service March 21, 2019 Assessment & Plan (1) Chronic back pain greater than 3 months duration: This time we will maintain the RUSLAN drain anticipate discharge home tomorrow. Present on Admission?: Yes Subjective Back pain is controlled no leg pain. Physical Exam Physical Exam: On exam she is ambulating without difficulty. Good strength testing. Results & Data ([facility]) Vital Signs (Past 12 Hours) Vital Signs Temp Pulse Resp BP Pulse Ox 03/21/19 07:18 36.4 C L 69 16 97/64 L 92 03/20/19 23:00 37.0 C 89 16 91/64 L 91
--- NOTE | 2019-03-21 15:44 | Hospitalist Progress Note ---
Date of Service March 21, 2019 Assessment & Plan (1) Lumbar stenosis with neurogenic claudication: * POD #2 s/p T11-L1 hardware removal by Dr. Arnold. Pre-op h/h 13.9/42.9. EBL 20ml * PT/OT/pain management/DVT prophylaxis per primary team * H/h 10.9/34.2 -- acute blood loss secondary to surgery * RUSLAN output ~180mL * Monitor CBC (2) Acute blood loss anemia: * See above -- also, patient with hx anemia -- continue iron (3) Hypertension: * Chronic. * Home lisinopril 20mg on hold -- BP currently 117/69 -- resume in AM if BP continue to be stable and Cr stable/improved (4) Diabetes mellitus, type 2: * Chronic. Hold metformin 1000mg, glipizide 10mg BID while inpatient. Was previously to be started on insulin by [facility] -- patient never started * A1c improved to 8.5 from 9.6 in October 2016 * May benefit from GLP1 for DM which could result in weight loss as well, as BMI 37.1 * Consult agricultural extension educator * Monitor -- BSGs running between 129-278 over the past 24 hours * BSG ACHS. SSI -- adjustments made to CF, CR (5) CKD (chronic kidney disease) stage 3, GFR 30-59 ml/min: * Creatinine 1.2-1.4 baseline -- patient unaware of this diagnosis. GFR 43 * Cr 1.39 -- YANI on hold as above -- can be resumed in AM * Continue to monitor (6) GERD (gastroesophageal reflux disease): * Chronic. Stable. Continue home omeprazole -- currently substituted for protonix 40mg QAM * Also with history of laryngopharyngeal reflux and schatzki's ring -- follows locally with Dr. Og -- had dilation x 2 in the past * Will need set up as outpatient on discharge given increased dysphagia over the past month --nurse navigator consult to set up at discharge (7) Hypothyroidism: * Chronic. Stable. Last TSH October * Continue levothyroxine 112mcg daily (8) Hyperlipidemia: * Chronic. Stable * Continue home atorvastatin 20mg (9) Crohns disease: * Chronic. Stable. Follows with Dr. Og. Had previously been on remicade prior to switching to entyvio d/t reaction * Continue azathioprine 75mg. Patient to resume entyvio at discretion of PCP -- not to be resumed until instructed (10) Esophageal dysmotility: * As above (11) Laryngopharyngeal reflux (LPR): * As above * continue PPI (12) Schatzki's ring: * As above. Dilatation x 2 (13) Diabetic peripheral neuropathy associated with type 2 diabetes mellitus: * As above, with neuropathy * Continue gabapentin 400mg TID (14) Depression with anxiety: * Had previously been on buspar 20mg TID, but has not taken in quite some time. Reports anxiety/depression as stating in HPI -- prn ativan ordered * Will need follow up with Dr. Lim in [place] to resume treatment. No current SI/HI * Continue quetiapine 400mg HS (15) Common migraine without aura: * Stable. No current comlaints. * Recently restarted on topamax 25 mg BID * Continue to monitor (16) Benign paroxysmal positional vertigo: * H/o. No current concerns (17) Anemia: * Chronic. H/h 10.9/34.2 * Continue home ferrous sulfate 325mg PO QAM (18) Sleep apnea: * h/o. denies being able to tolerate CPAP. (19) Vitamin B12 deficiency: * Chronic. Stable. * Continue supplementation (20) Vitamin D deficiency: * Chronic. Stable. * Continue supplementation (21) DVT prophylaxis: * SCDs * ASA 81mg Thank you for allowing hospitalist team to participate in the care of Ms. Cabrera. Hospitalist service to follow along. Supervising Physician Co-Signing Physician Notes PA Supervision Note: I did not personally see or examine the patient today, but I verified all salazar points of AUSTEN Berger's assessment and plan with the following exceptions/additions: None Subjective Patient evaluated at bedside this morning. Tolerable back pain with pain medications. Ambulating with walker. Passing gas but no bowel movement yet. Tolerating diet without much difficulty. States swallowing is much better today. Did have some nausea but resolved with prn zofran. Discussed following up with Dr. Og as an outpatient once discharged. Review of Systems Review of Systems: All systems reviewed & are unremarkable except as noted in HPI & below Constitutional: no fever and no chills Eyes: no diplopia and no eye pain Ear, Nose, Mouth, Throat: + dysphagia (improved); no sore throat Respiratory: no cough and no dyspnea Cardiovascular: no chest pain and no palpitations Gastrointestinal: + nausea (this morning); no abdominal pain and no vomiting Genitourinary: no dysuria and no hematuria Musculoskeletal: + back pain Integumentary: no rash and no lesions Neurologic: no paralysis, no loss of sensation and no headache(s) Physical Exam Constitutional: WD/WN, vitals as above + obese and cooperative; no acute distress Eyes: + anicteric sclerae and PERRL Neck: trachea midline, no thyromegaly Respiratory: normal respiratory effort, lungs clear to auscultation Cardiovascular: RRR, no murmur, no edema Gastrointestinal (Abdomen): normal bowel sounds, soft, nontender, no hepatosplenomegaly Musculoskeletal: no cyanosis or clubbing, extremities motor strength 5/5 Skin: RUSLAN drain with serosanguineous fluid Neurologic: patellar DTR's 2+ bilat, sensation intact Psychiatric: A+Ox3, euthymic affect Lymphatic: no cervical or axillary lymphadenopathy Results & Data ([facility]) Vital Signs (Past 12 Hours) Vital Signs Temp Pulse Resp BP BP Pulse Ox 03/21/19 15:20 36.8 C 88 18 117/69 92 03/21/19 07:18 36.4 C L 69 16 97/64 L 92 Laboratory Results 03/21/19 03/21/19 03/21/19 Range/Units 08:28 04:56 04:56 WBC 5.90 (4.8-10.8) K/uL RBC 3.90 L (4.2-5.4) M/uL Hgb 10.9 L (12.0-16.0) g/dL Hct 34.2 L (37-47) % MCV 87.7 (80-100) fL MCH 27.9 (25-34) pg MCHC 31.9 L (32-36) g/dL RDW Std Deviation 49.9 H (36.4-46.3) fL RDW Coeff of Brianna 15.4 H (11.5-14.5) % Plt Count 189 (130-400) K/uL MPV 10.5 H (7.4-10.4) fL Sodium 137 (136-145) mmol/L Potassium 4.0 (3.5-5.1) mmol/L Chloride 106 (98-107) mmol/L Carbon Dioxide 25 (21-32) mmol/L Anion Gap 6.0 (3-11) BUN 23 H (7-18) mg/dl Creatinine 1.39 H (0.6-1.2) mg/dl Est Cr Clr Drug Dosing 39.7 ml/min Est GFR ( Amer) 44.4 Est GFR (Non-Af Amer) 38.3 BUN/Creatinine Ratio 16.5 (10-20) Glucose 206 H (70-99) mg/dl POC Glucose 144 H (70-99) mg/dl Calcium 9.1 (8.5-10.1) mg/dl 03/20/19 03/20/19 Range/Units 20:37 17:23 WBC (4.8-10.8) K/uL RBC (4.2-5.4) M/uL Hgb (12.0-16.0) g/dL Hct (37-47) % MCV (80-100) fL MCH (25-34) pg MCHC (32-36) g/dL RDW Std Deviation (36.4-46.3) fL RDW Coeff of Brianna (11.5-14.5) % Plt Count (130-400) K/uL MPV (7.4-10.4) fL Sodium (136-145) mmol/L Potassium (3.5-5.1) mmol/L Chloride (98-107) mmol/L Carbon Dioxide (21-32) mmol/L Anion Gap (3-11) BUN (7-18) mg/dl Creatinine (0.6-1.2) mg/dl Est Cr Clr Drug Dosing ml/min Est GFR ( Amer) Est GFR (Non-Af Amer) BUN/Creatinine Ratio (10-20) Glucose (70-99) mg/dl POC Glucose 278 H 140 H (70-99) mg/dl Calcium (8.5-10.1) mg/dl PG Care Time/CCT Total # of Minutes Spent Total Time Spent with Patient: Total time spent is greater than 50% in coordination of care (as documented) at patient's floor/unit and/or counseling patient: Coding Level of Care Code 97102 Subseq Hosp Care Lvl 2 Diagnoses Lumbar stenosis with neurogenic claudication M48.062 Acute blood loss anemia D62 Hypertension I10 Diabetes mellitus, type 2 E11.9 CKD (chronic kidney disease) stage 3, GFR 30-59 ml/min N18.3 GERD (gastroesophageal reflux disease) K21.9 Hypothyroidism E03.9 Hyperlipidemia E78.5 Crohns disease K50.90 Esophageal dysmotility K22.4 Laryngopharyngeal reflux (LPR) K21.9 Schatzki's ring K22.2 Diabetic peripheral neuropathy associated with type 2 diabetes mellitus E11.42 Depression with anxiety F41.8 Common migraine without aura G43.009 Benign paroxysmal positional vertigo H81.10 Anemia D64.9 Sleep apnea G47.30 Vitamin B12 deficiency E53.8 Vitamin D deficiency E55.9 DVT prophylaxis Z29.9
[2019-03-21] MEDS: ATORVASTATIN 20 MG TAB PO SCH (20:11)
[2019-03-21] MEDS: TOPIRAMATE 25 MG TAB PO SCH (20:12)
[2019-03-21] MEDS: DOCUSATE SODIUM/SENNA 50/8.6MG TAB PO SCH (20:13)
[2019-03-21] MEDS: QUETIAPINE FUMARATE 200 MG TAB PO SCH (20:14)
[2019-03-22] MEDS: OXYCODONE HCL IR 5 MG TAB (IMMEDIATE RELEASE) PO PRN ×3 (00:05→12:29)
[2019-03-22] MEDS: POLYETHYLENE (MIRALAX) 17 GM PACK PO SCH ×4 (00:08→12:37)
[2019-03-22] MEDS: LEVOTHYROXINE SODIUM 112 MCG TABLET PO SCH (04:39)
[2019-03-22 05:39] LABS: BUN Creatinine Ratio 13.4 (10-20); Calcium 9.6 mg/dl (8.5-10.1); Creatinine Clr Calc Pharmacy 44.2 ml/min; Est GFR (African American) 50.5; Est GFR (Non-African American) 43.5; Potassium 4.1 mmol/L (3.5-5.1)
[2019-03-22] MEDS: ASPIRIN 81 MG ECTAB PO SCH (07:50)
[2019-03-22] MEDS: FERROUS SULFATE 325 MG TAB PO SCH (07:51)
[2019-03-22] MEDS: CALCIUM 600MG + VIT D 400 IU TAB PO SCH (07:51)
[2019-03-22] MEDS: azaTHIOprine 50 MG TAB PO SCH (07:52)
[2019-03-22] MEDS: TOPIRAMATE 25 MG TAB PO SCH (07:53)
[2019-03-22] MEDS: GABAPENTIN 400 MG CAP PO SCH (07:53)
[2019-03-22] MEDS: MULTIVITAMIN TAB PO SCH (07:53)
[2019-03-22] MEDS: PANTOprazole 40 MG TAB PO SCH (07:53)
[2019-03-22] MEDS: CHOLECALCIFEROL 1,000 UNITS 25 MCG TAB PO SCH (07:54)
[2019-03-22] MEDS: CYANOCOBALAMIN 500 MCG TABLET (VITAMIN B-12) PO SCH (07:54)
[2019-03-22] MEDS: INSULIN ASPART 100 UNITS/ML 3 ML PEN SC SCH ×2 (08:00→12:33)
--- NOTE | 2019-03-22 13:35 | Discharge Summary ---
Date of Service March 22, 2019 Admission HPI Per Admitting Provider This is a 69-year-old female well-known to me that presents with worsening back pain and failed hardware. Subsequently she is here for surgical invention. Principal Diagnosis Chronic back pain Discharge Data Allergies Allergy/AdvReac Type Severity Reaction Status Date / Time cephalexin Allergy Intermediate HIVES Verified 03/19/19 11:46 Cephalosporins Allergy Intermediate HIVES Verified 03/19/19 11:46 Penicillins Allergy Intermediate HIVES Verified 03/19/19 11:46 Cipro AdvReac Intermediate NAUSEA AND Verified 09/24/17 06:23 VOMITING ciprofloxacin AdvReac Intermediate NAUSEA AND Verified 03/19/19 11:46 VOMITING doxycycline AdvReac Intermediate GI UPSET Verified 03/19/19 11:46 infliximab AdvReac Intermediate ITCHING, Verified 03/19/19 11:46 RASH Consultations 03/19/19 17:19 Consult Case Management - Discharge Planning Routine Consult Hospitalist Routine 03/21/19 16:27 Consult [facility] ham facer Routine Procedures Performed Operation Date: 03/19/19 13:25 Actual Procedures p T11-L1 Hardware Removal, Application of Bone Infuse - Agustín Arnold DO Ordered Studies 03/19/19 13:25 FL fluoroscopy <1hr Routine FL lumbar spine 2-3V Routine Hospital Course (1) Chronic back pain greater than 3 months duration: Patient underwent removal of instrumentation of thoracic level with fusion. She tolerated this well staying orthopedic for postoperative. Postop day 1 she was up and ambulating no leg symptoms back pain controlled. She progressed to postop day #2. Postop day #3 drain had decreased appropriately. Pain was controlled. Subsequently discharged home. She had excellent strength testing that day. Was comfortable. Discharge orders instructions on the chart for further review. Total Time Total Time Spent Total Time Spent (In Minutes): 20 minutes Discharge Plan Discharge Items Patient Disposition: Home - Self-Care Reason For Visit: Low Back Pain Discharge Diagnosis: Thoracic back pain with failure of hardware Activity: As commented below Non-emergency contact: Primary Care Provider Call non-emergency contact if: you have any medication questions Follow-up/Referrals: Paramjit Martinez MD [Primary Care Provider] - Diet: Regular Addtl Attending Provider Instructions: ACTIVITY RECOMMENDATIONS: SELF CARE INSTRUCTIONS AFTER THORACIC/LUMBAR FUSIONS 1. You may walk to your tolerance. It is good exercise for your legs and back. Expect some back and intermittent leg aches and pains. 2. You may perform "counter-top" level activities (make a sandwich, vivienne with a project, etc.). 3. No bending or lifting of more than 10 pounds or back twisting of any nature (roll like a log when turning in bed). 4. You may ride in a car for 20-30 minutes at a time. No driving until after your first visit with your doctor. 5. Frequent changes of position and restricting sitting to 30 minutes at a time will help limit the amount of back spasms and stiffness you may experience. 6. You may discontinue the use of ambulatory aids (cane, crutches, etc.) once your strength and confidence allow. 7. You may professor of business administration the shower and let water strike your incision when you arrive home at least once daily. Do not take a tub bath, sit in a hot tub or go into a swimming pool until after your first recheck in the office. SPECIAL CARE INSTRUCTIONS: VERY IMPORTANT TO READ AND REVIEW A. Your surgical incision has been closed with a cosmetic suture under the skin that will dissolve in about 6 weeks. In 14 days, you can use a pair of clean scissors and cut the suture that is left outside of the skin at the ends of your incision. 1. The small skin tapes can be removed 7 days after surgery if they have not fallen off by that point. 2. You may keep the wound open to air as much as possible to promote healing after post-op day number 5 unless told otherwise by your doctor. 3. If you think the wound looks like it is becoming infected (redness or worsening drainage) and/or you are experiencing fever, chill or worsening back pain and muscle spasms, contact the office so that we may evaluate you as soon as possible. B. Complications are uncommon, but please contact us if you have any signs or symptoms of: 1. wound infection (fever higher than 102.5 degrees F, redness, separation of wound, drainage, or increasing pain from the incision) 2. blood clots in legs (pain, swelling, redness and warmth in legs) 3. urinary tract infection (fever higher than 102.5 degrees F, burning upon urination or increased frequency of urination) 4. nerve problems (inability to walk on your toes or heels, numbness, loss of bowel or bladder control) 5. any other symptoms that concern you C. Please call the office at if you have any concerns or questions about your operation or recovery. D. No smoking! Smoking drastically decreases the chance of a solid fusion. E. Do not take any anti-inflammatory medications (Indocin, Advil, Motrin, Aspirin, Naprosyn, etc.) as these may inhibit the chance of a solid fusion. Tylenol is okay to take for pain. MANAGING PAIN AFTER SPINAL SURGERY 1. Narcotic medication is intended for short-term use and will be provided for surgical pain. Surgical pain usually lasts for a period of 4-6 weeks. Narcotic medication includes Percocet, Vicodin, Darvocet, Tylenol #3 or Lortab. 2. Longer-term pain is more appropriately treated with non-narcotic medication such as Tylenol ES. 3. Muscle spasm is not appropriately treated with narcotics. Muscle relaxers such as Soma, Flexeril or Skelaxin can be used along with Tylenol ES. 4. Remember that we all live with some "aches and pains". This is not unusual or uncommon after an injury or as we get older. a. Back pain is expected and may include muscle spasms for 4 to 6 weeks after surgery. The pain should gradually improve. If the pain worsens for no apparent reason, please contact the office. b. Intermittent leg pain may also be experienced and should not be concerned about unless it worsens for no apparent reason. If so, please contact the office. 5. We will provide appropriate medication within the normal guidelines of their prescribed use. We will also be very cautious and aware of potential abuse and extended duration of patients' medication needs. a. Pain medications are for your comfort and to assist with sleep and rest so that the tissue can heal. They are not provided in order to return to normal activity and should not be used through the day. To do so or worsening pain at night can result from ongoing tissue damage and development of tolerance to the prescribed medicine. 6. Please allow 2-3 days to process refills. Prescriptions will not be mailed but must be picked up at the office. FOLLOW UP VISIT: Keep your scheduled follow-up appointment. Any questions, please call the office at . Pending Studies at Discharge: No Stand-Alone Forms: My [facility], Opioid Pain Management, Smoking Darell sation Medications and DC Order Prescriptions: New oxycodone 5 mg tablet 5 mg PO Q6H PRN (Reason: pain, severe) Qty: 30 RF: 0 Continued diphenhydramine HCl 50 mg/mL syringe 50 mg IV UD RF: 0 atorvastatin 20 mg tablet 20 mg PO QPM Qty: 90 RF: 3 azathioprine 50 mg tablet 75 mg PO QAM Qty: 45 RF: 5 glipizide 5 mg tablet 10 mg PO BIDM Qty: 360 RF: 3 levothyroxine 112 mcg tablet 112 mcg PO QAM Qty: 30 RF: 4 (DME) OneTouch Ultra Blue Test Strip strip See Dose Instructions .ROUTE .MEDSUPPLY Qty: 10 RF: 0 omeprazole 20 mg capsule,delayed release(DR/EC) 20 mg PO QAM Qty: 30 RF: 11 multivitamin tablet 1 tab PO DAILY RF: 0 gabapentin 400 mg capsule 400 mg PO TID RF: 0 topiramate [Topamax] 25 mg tablet 25 mg PO BID 30 Days Qty: 60 RF: 5 (DME) pen needle, diabetic [BD Ultra-Fine Micro Pen Needle] 32 gauge x 1/4" needle See Dose Instructions .ROUTE .MEDSUPPLY Qty: 100 RF: 1 calcium carbonate-vitamin D3 600 mg(1,500mg) -800 unit tablet 2 tab PO QAM RF: 0 cyanocobalamin (vitamin B-12) [Vitamin B-12] 1,000 mcg Tablet 1,000 mcg PO QAM RF: 0 aspirin 81 mg Tablet,Delayed Release (Dr/Ec) 81 mg PO QAM RF: 0 quetiapine 400 mg tablet 400 mg PO HS RF: 0 cholecalciferol (vitamin D3) [Vitamin D3] 2,000 unit Capsule 2,000 unit PO QAM RF: 0 Entyvio 300 mg Recon Soln 300 mg IV Q8WK RF: 0 ferrous sulfate 324 mg (65 mg iron) tablet,delayed release (DR/EC) 324 mg PO QAM RF: 0 temazepam 15 mg capsule 15 mg PO HS PRN (Reason: sleep) RF: 0 metformin 500 mg tablet extended release 24 hr 500 mg PO UD RF: 0 Trintellix 10 mg tablet 10 mg PO QAM RF: 0 lisinopril 20 mg tablet 20 mg PO QAM RF: 0 rizatriptan 10 mg tablet,disintegrating 10 mg PO UD RF: 0 Discontinued meloxicam 7.5 mg tablet 7.5 mg PO BID 30 Days Qty: 60 RF: 0 Discharge Orders: Discharge Order (Routine); Ordered 03/22/19 Ordered By: Agustín Lobo/Other Patient Handouts: Surgery Prevent DVT After, Hyperglycemia, Diabetes Type 2 Coping, Diabetes Manage A1C Test, ED Stockings Gonzalo Admission Data Admit Date/Time: 03/19/19 15:10 Attending Provider: Agustín Arnold Admit Provider: Agustín Arnold Primary Care Provider: Paramjit Martinez. Other Providers: Cody Simpson Other Interventions: Discharge Summary Assessment (RN) Last Done: 03/22/19 10:14
== END 2019-03-22 14:12 | disposition home or self-care (01) | DRG 460 ==
LOC: ASU 11:10 → 3E 15:10

== ENCOUNTER 2023-08-20 16:14 | Inpatient (IN) ==
[2023-08-20 18:13] LABS: Basophils # (auto) 0.06 K/uL (0.00-0.20); Basophils % (auto) 0.6 %; Eosinophils # (auto) 0.09 K/uL (0.00-0.50); Eosinophils % (auto) 0.8 %; Hematocrit (blood only) 34.3 % (37.0-47.0); Hemoglobin 10.6 g/dl (12.0-16.0); Immature Granulocytes # (auto) 0.09 K/uL (0.01-0.20); Immature Granulocytes % (auto) 0.8 %; Lymphocytes # (auto) 2.14 K/uL (1.20-3.40); Lymphocytes % (auto) 19.7 %; Mean Corpuscular Hemoglobin 23.3 pg (25.0-34.0); Mean Corpuscular Hgb Conc 30.9 g/dL (32.0-36.0); Mean Corpuscular Volume 75.4 fL (80.0-100.0); Mean Platelet Volume 9.6 fL (9.4-12.4); Monocytes # (auto) 1.19 K/uL (0.11-0.59); Neutrophils # (auto) 7.29 K/uL (1.40-6.50); Neutrophils % (auto) 67.1 %; Platelet Count 542 K/uL (130-400); RDW Coefficient of Variation 18.3 % (11.5-14.5); RDW Standard Deviation 48.7 fL (36.4-46.3); Red Blood Count 4.55 M/uL (4.20-5.40); White Blood Count 10.86 K/ul (4.8-10.8)
--- NOTE | 2023-08-20 18:20 | XRay Report ---
XR chest 1V portable CLINICAL HISTORY: Sepsis. COMPARISON STUDY: Chest radiograph December 12, 2018. FINDINGS: Kyphotic positioning is noted. There is no pneumothorax or pleural effusion. No consolidati on is present. Linear bilateral densities represent atelectasis. Moderate sized hiatal hernia is note d. IMPRESSION: No acute cardiopulmonary findings. ACT 112: Negative or not required by law. Electronically signed by: Huang Hargrove M.D. 08/20/2023 6:19 PM
--- NOTE | 2023-08-20 18:24 | XRay Report ---
LEFT FIRST TOE RADIOGRAPHS CLINICAL HISTORY: Injury. Left first toe infection. COMPARISON: Left foot radiographs April 22, 2022 and December 27, 2022. FINDINGS: Left first toe wound is noted. This extends to the underlying distal phalanx. There has be en significant erosion of the distal phalanx of the left first toe since prior radiographs of 2022. No acute fractures are identified. IMPRESSION: Left first toe wound with significant interval erosion of the distal phalanx of the left first toe since prior radiographs consistent with osteomyelitis. ACT 112: Negative or not required by law. Electronically signed by: Huang Hargrove M.D. 08/20/2023 6:22 PM
[2023-08-20 18:29] LABS: Alanine Aminotransferase 21 U/L (7-52); Albumin Globulin Ratio 0.8 (0.9-2); Albumin Level 3.1 gm/dl (3.4-5.0); Alkaline Phosphatase 117 U/L (34-104); Anion Gap 9 (3-11); Aspartate Aminotransferase 21 U/L (13-39); BUN Creatinine Ratio 12.1 (10-20); Bilirubin,Total 0.3 mg/dl (0.2-1.0); Blood Urea Nitrogen 13 mg/dl (6-23); Calcium 9.5 mg/dl (8.6-10.3); Carbon Dioxide 23 mmol/L (21-32); Chloride 103 mmol/L (98-107); Est GFR (African American) 59.2 ml/min; Est GFR (Non-African American) 51.1 ml/min; Glucose 175 mg/dl (70-99(Fasting)); Potassium 4.2 mmol/L (3.5-5.1); Sodium 135 mmol/L (136-145); Total Protein 7.1 gm/dl (6.0-8.3)
[2023-08-20 18:35] LABS: Troponin I High Sensitivity 7.9 pg/ml (0-14)
[2023-08-20 18:43] LABS: INR 1.1 (0.9-1.1); Partial Thromboplastin Ratio 0.9; Partial Thromboplastin Time 25 Seconds (21-31); Prothrombin Time 11.4 Seconds (9.0-12.0)
[2023-08-20] MEDS: MAGNESIUM SULFATE / D5W 1 GM/100 ML BAG IV SCH ×2 (18:52→23:41)
[2023-08-20] MEDS ORDERED: VANCOMYCIN CONSULT ACTIVE PRN (19:04)
--- NOTE | 2023-08-20 19:09 | History & Physical Report ---
Date of Service August 20, 2023 Assessment & Plan (1) Diabetic infection of left foot: Plan: Pt is a 73 yo female with PMH of crohn's, vertigo, DM, HTN, hypothyroidism, and HLD presenting due to concern of worsening left great toe infection. Osteomyelitis of left great toe - in the setting of uncontrolled DM; last A1c 8.6% (06/2023) - pt previously following with wound care; per pt, they had called her recently have her re-establish - lab work significant for leukocytosis to 10.86, Hgb 10.6, BMP WNL, Mg 1.0, procal 0.09, lactate 1.2 - xray of left great toe showing significant erosion consistent with osteomyelitis - blood cx pending; wound culture pending - s/p cipro and vanco in the ER; will continue upon admission - sepsis protocol fluids given upon admission as pt tachycardic with mild leukocytosis and obvious source of infection (although her current leukocytosis does not technically meet sepsis criteria) - ortho consulted for further evaluation and possible amputation Uncontrolled DM w/ neuropathy - last A1c 8.6% (06/2023) - hold home metformin - insulin glargine 15u BID; SSI- adjust PRN - continue gabapentin 600mg BID Hypomagnesemia - 1.0 upon admission; supplement mag 2g - will recheck with AM labs Anemia - Hgb 10.6 upon admission; pt with hx of Crohn's disease; last colonoscopy 04/2023 showing mild ileitis/colitis found - appears somewhat new as pt had normal Hgb last year - will Hemoccult stools as a precautionary measure but do not suspect active bleeding - will check iron panel, B12, and folate with AM labs; pt does supplement with B12 Chronic conditions: GERD: continue pantoprazole 40 mg IV BID Chronic lower back pain: continue tramadol 50 mg BID Anxiety/depression: continue home buspirone 20 mg BID In anticipation of possible surgical intervention, will give PM meds tonight but hold home medications for AM. Pt NPO at midnight. Diet: NPO at midnight Code: full DVT ppx: defer on admission d/t anticipating a procedure; would recommend addition afterwards Dispo: admit to med/surg (2) Osteomyelitis: (3) Hypomagnesemia: (4) Uncontrolled diabetes mellitus: (5) GERD (gastroesophageal reflux disease): (6) Hypothyroidism: (7) Hypertension: (8) Hyperlipidemia: History of Present Illness Chief Complaint: foot injury Primary Care Provider: Paramjit Martinez MD Pt is a 73 yo female with PMH of crohn's, vertigo, DM, HTN, hypothyroidism, and HLD presenting due to concern of worsening left great toe infection. Pt notes that she has been dealing with a left foot wound for many months but over the past week she noticed an increase in wound size. Her "bone is sticking out" which prompted her to come to the hospital. She does endorses some superior left foot pain extending up into her leg. She endorses some reflux symptoms and trouble eating but no vomiting, fevers, or chills. She denies current chest pain and SOB. In the ER, pt was given mag 2g, cipro x1, and vanco x1. Allergies Allergy/AdvReac Type Severity Reaction Status Date / Time cephalexin Allergy Intermediate Hives Verified 08/20/23 19:30 Cephalosporins Allergy Intermediate Hives Verified 08/20/23 19:30 infliximab Allergy Intermediate Itching, Verified 08/20/23 19:30 rash Penicillins Allergy Intermediate Hives Verified 08/20/23 19:30 ciprofloxacin AdvReac Intermediate N/V Verified 08/20/23 19:30 doxycycline AdvReac Intermediate GI upset Verified 08/20/23 19:30 Home Medications Medication Instructions Recorded Confirmed Type aspirin 81 mg tablet,delayed 81 mg PO QAM 06/10/18 08/20/23 History release vedolizumab 300 mg intravenous 300 mg IV Q8WK #1 ea 06/28/20 08/20/23 Rx solution (Entyvio) buspirone 10 mg tablet 20 mg PO BID 12/06/20 08/20/23 History hydroxyzine HCl 25 mg tablet 25 mg PO BID PRN anxiety #30 tabs 12/07/20 08/20/23 Rx duloxetine 30 mg capsule,delayed 30 mg PO QAM 03/02/21 08/20/23 History release (Cymbalta) duloxetine 60 mg capsule,delayed 60 mg PO QAM 10/03/21 08/20/23 History release pen needle, diabetic 32 gauge x #100 ea 10/18/21 07/16/23 Rx 32" (BD Ultra-Fine Jacqueline Pen Needle) blood sugar diagnostic (OneTouch #300 ea 09/23/22 07/16/23 Rx Verio test strips) calcium carbonate 600 mg-vitamin 1 tab PO BID 12/26/22 08/20/23 History D3 10 mcg (400 unit) tablet (Calcium with Vitamin D) multivitamin 1 tab PO DAILY 12/26/22 08/20/23 History insulin glargine 100 unit/mL (3 30 unit (0.3 mL) subcut QPM #45 mL 03/27/23 08/20/23 Rx mL) subcutaneous pen (Lantus Solostar U-100 Insulin) lancets 33 gauge #300 ea 06/05/23 07/16/23 Rx atorvastatin 20 mg tablet 20 mg PO QAM #90 tabs 07/22/23 08/20/23 Rx gabapentin 600 mg tablet 600 mg PO BID #180 tabs 07/22/23 08/20/23 Rx levalbuterol tartrate 45 1 puff inhalation Q6H PRN 07/22/23 08/20/23 Rx mcg/actuation aerosol inhaler shortness of breath or wheezing (Xopenex HFA) #45 grams levothyroxine 112 mcg tablet 112 mcg PO QAM #90 tabs 07/22/23 08/20/23 Rx lisinopril 30 mg tablet 30 mg PO QAM #90 tabs 07/22/23 08/20/23 Rx loperamide 2 mg capsule 2 mg PO Q6H PRN loose stool 90 07/22/23 08/20/23 Rx days #180 caps metformin 500 mg tablet,extended 500 mg PO .COMPLEX #270 tabs 07/22/23 08/20/23 Rx release 24 hr omeprazole 40 mg capsule,delayed 40 mg PO BID #180 caps 07/22/23 08/20/23 Rx release topiramate 25 mg tablet (Topamax) 25 mg PO BID #180 tabs 07/22/23 08/20/23 Rx tramadol 50 mg tablet 50 mg PO BID 30 days #60 tabs 07/24/23 08/20/23 Rx ondansetron HCl 4 mg tablet 8 mg (2 x 4 mg) PO Q8H PRN Nausea 08/05/23 08/20/23 Rx #180 tabs acetaminophen 500 mg tablet 500 mg PO Q6H PRN Pain 08/20/23 08/20/23 History cyanocobalamin (vitamin B-12) 1,000 mcg PO DAILY 08/20/23 08/20/23 History 1,000 mcg tablet (Vitamin B-12) diphenhydramine HCl 25 mg capsule 25 mg PO DIRECTED PRN NEEDED 08/20/23 08/20/23 History (Benadryl) docusate sodium 100 mg capsule 100 mg PO DAILY 08/20/23 08/20/23 History (Stool Softener) meclizine 12.5 mg tablet 12.5 - 25 mg PO BID PRN dizziness 08/20/23 08/20/23 History Past Med/Surg History Problem List (Updated 08/21/23 @ 00:13 by Charlie Mak MD) Hypomagnesemia (Acute) Osteomyelitis (Acute) Diabetic infection of left foot Wheezing Dyspnea Dysphagia Difficulty swallowing pills Muscular deconditioning Obesity (BMI 30.0-34.9) Uncontrolled diabetes mellitus (Chronic) Anemia (Chronic) Crohn's ileocolitis (Chronic) CKD (chronic kidney disease) stage 3, GFR 30-59 ml/min (Chronic) Hearing loss (Chronic) Vitamin D deficiency (Chronic) Vitamin B12 deficiency (Chronic) Osteopenia (Chronic) Laryngopharyngeal reflux (LPR) (Chronic) Diabetic peripheral neuropathy associated with type 2 diabetes mellitus (Chronic) Depression with anxiety (Chronic) Common migraine without aura (Chronic) Chromophobe adenoma (Chronic) GERD (gastroesophageal reflux disease) (Chronic) Hypothyroidism (Chronic) Hypertension (Chronic) Hyperlipidemia (Chronic) Asthma (Chronic) well controlled, has not used inhaler in years Personal history of diabetic foot ulcer left foot - "pretty healed at this time" does follow with wound clinic as needed. Sleep apnea (Chronic) no device Medical History Crohns disease Weakness of both legs Lumbar post-laminectomy syndrome Lumbar pain with radiation down both legs History of anemia remote hx blood transfusion post-op Chronic left hip pain Recurrent UTI (urinary tract infection) Hiatal hernia Vertigo "comes and goes" last episode 04/22/23, uses the meclizine as needed which helps. Tinnitus Schatzki's ring s/p dilation Esophageal dysmotility dysphagia s/p dilation Benign paroxysmal positional vertigo hx/no recent issues Back pain, chronic Lumbar stenosis with neurogenic claudication Surgical History History of cataract surgery LEFT History of cardiac cath 04/2019 r/t ALICEA, no stents History of surgical removal of pituitary gland tumor excision History of bilateral salpingo-oophorectomy (BSO) History of esophagogastroduodenoscopy (EGD) multiple with multiple dilations History of colonoscopy History of tooth extraction S/P carpal tunnel release left S/P arthroscopic knee surgery left Fusion of spine multiple (fusion + revision) Removal spinal hardware T11-L1: 08/16/17: Grade 1 view, MAC #3, ETT 7.0 at [facility] T11-L1 hardware removal: 03/19/19: MAC#3 at [facility] History of arthroscopy right shoulder History of hysterectomy Family History Mother Diabetes Family history of diabetes mellitus Myocardial infarction Breast cancer Hypertension Other Coronary heart disease No family history of adverse response to anesthesia Denies family history of Ovarian cancer Prostate cancer Lung cancer Colorectal cancer Stroke Social History Smoking Status: Never smoker Second Hand Exposure: Yes ( smoked); Do You Dip or Chew Tobacco: No; Hx Alcohol Use: No Hx Substance Use: No Preferred Language: Ecuadorean Communication Ability: Effective Visual Impairment: Limited Hearing Ability: Normal Mold Clamper Required: No Beliefs That Will Affect Care: None marital status: marital status details: Three children Current Living Situation: Alone Current Living Situation Comment: [facility]IV[facility] current occupational status: retired Feels Safe at Home: Yes Safety Concerns: Feels Safe At This Time Childhood Exposure to Second-Hand Smoke: Yes Diet Comment: regular caffeine: Yes (pepsi) during the past year weight has: remained stable Dental Care, Regularly: No Physical Activity Frequency: Does not Exercise Physical Activity Frequency Comment: due to physical condition Seatbelt Use: always Sunscreen Use: Yes Assistive Devices: Cane and Glasses Review of Systems 2 Review of Systems: As per HPI Physical Exam 2 Constitutional: NAD, hypertensive, tachycardic Eyes: Conjunctivae normal. Respiratory: CTA bilaterally. Non labored breathing. No rhonchi, wheezing, or crackles. Cardiovascular: RRR. No murmurs noted. No LE edema. 2+ pedal pulses. Gastrointestinal (Abdomen): Nontender, +BS. No masses noted. Skin: Left great toe erythematous and edematous with exposed bone noted. Minimal erythema/ulceration noted of 2nd and 5th toes. Neurologic: Sensation grossly intact. No FND appreciated. Psychiatric: Speech of normal pace and content. Mood and affect congruent. Results & Data Results & Data Vital Signs (Past 12 Hours) Vital Signs Pulse Resp BP Pulse Ox O2 Del Method 08/20/23 16:28 91 H 18 162/84 H 97 Room Air Laboratory Results Laboratory Results WBC 10.86 K/ul (4.8-10.8) H 08/20/23 17:50 RBC 4.55 M/uL (4.20-5.40) 08/20/23 17:50 Hgb 10.6 g/dl (12.0-16.0) L 08/20/23 17:50 Hct 34.3 % (37.0-47.0) L 08/20/23 17:50 MCV 75.4 fL (80.0-100.0) L 08/20/23 17:50 MCH 23.3 pg (25.0-34.0) L 08/20/23 17:50 MCHC 30.9 g/dL (32.0-36.0) L 08/20/23 17:50 RDW Std Deviation 48.7 fL (36.4-46.3) H 08/20/23 17:50 RDW Coeff of Brianna 18.3 % (11.5-14.5) H 08/20/23 17:50 Plt Count 542 K/uL (130-400) H 08/20/23 17:50 MPV 9.6 fL (9.4-12.4) 08/20/23 17:50 Immature Gran % (Auto) 0.8 % 08/20/23 17:50 Neut % (Auto) 67.1 % 08/20/23 17:50 Lymph % (Auto) 19.7 % 08/20/23 17:50 Dupage % (Auto) 11.0 % 08/20/23 17:50 Eos % (Auto) 0.8 % 08/20/23 17:50 Baso % (Auto) 0.6 % 08/20/23 17:50 Neut # (Auto) 7.29 K/uL (1.40-6.50) H 08/20/23 17:50 Lymph # (Auto) 2.14 K/uL (1.20-3.40) 08/20/23 17:50 Dupage # (Auto) 1.19 K/uL (0.11-0.59) H 08/20/23 17:50 Eos # (Auto) 0.09 K/uL (0.00-0.50) 08/20/23 17:50 Baso # (Auto) 0.06 K/uL (0.00-0.20) 08/20/23 17:50 Immature Gran # (Auto) 0.09 K/uL (0.01-0.20) 08/20/23 17:50 PT 11.4 Seconds (9.0-12.0) 08/20/23 17:50 INR 1.1 (0.9-1.1) 08/20/23 17:50 APTT 25 Seconds (21-31) 08/20/23 17:50 PTT Ratio 0.9 08/20/23 17:50 Sodium 135 mmol/L (136-145) L 08/20/23 17:50 Potassium 4.2 mmol/L (3.5-5.1) 08/20/23 17:50 Chloride 103 mmol/L (98-107) 08/20/23 17:50 Carbon Dioxide 23 mmol/L (21-32) 08/20/23 17:50 Anion Gap 9 (3-11) 08/20/23 17:50 BUN 13 mg/dl (6-23) 08/20/23 17:50 Creatinine 1.07 mg/dl (0.6-1.2) 08/20/23 17:50 Est Cr Clr Drug Dosing Not Reportable 08/20/23 17:50 Est GFR ( Amer) 59.2 ml/min 08/20/23 17:50 Est GFR (Non-Af Amer) 51.1 ml/min 08/20/23 17:50 BUN/Creatinine Ratio 12.1 (10-20) 08/20/23 17:50 Glucose 175 mg/dl (70-99(Fasting)) H 08/20/23 17:50 POC Glucose 166 mg/dl (70-99) H 08/20/23 20:28 Lactate 1.2 mmol/L (0.4-2.0) 08/20/23 17:50 Calcium 9.5 mg/dl (8.6-10.3) 08/20/23 17:50 Magnesium 1.0 mg/dl (1.7-2.4) L 08/20/23 17:50 Total Bilirubin 0.3 mg/dl (0.2-1.0) 08/20/23 17:50 AST 21 U/L (13-39) 08/20/23 17:50 ALT 21 U/L (7-52) 08/20/23 17:50 Alkaline Phosphatase 117 U/L (34-104) H 08/20/23 17:50 Troponin I High Sens 7.9 pg/ml (0-14) 08/20/23 17:50 Total Protein 7.1 gm/dl (6.0-8.3) 08/20/23 17:50 Albumin 3.1 gm/dl (3.4-5.0) L 08/20/23 17:50 Globulin 4.0 gm/dl (2.5-4.0) 08/20/23 17:50 Albumin/Globulin Ratio 0.8 (0.9-2) L 08/20/23 17:50 Procalcitonin 0.09 ng/ml (0-0.5) 08/20/23 17:50 Urine Color Yellow 08/20/23 21:14 Urine Appearance Clear (Clear) 08/20/23 21:14 Urine pH 5.5 (4.5-7.5) 08/20/23 21:14 Ur Specific Moran 1.014 (1.000-1.030) 08/20/23 21:14 Urine Protein Negative (Negative) 08/20/23 21:14 Urine Glucose (UA) Negative (Negative) 08/20/23 21:14 Urine Ketones Negative (Negative) 08/20/23 21:14 Urine Blood Negative (Negative) 08/20/23 21:14 Urine Nitrite Negative (Negative) 08/20/23 21:14 Urine Bilirubin Negative (Negative) 08/20/23 21:14 Urine Urobilinogen Negative (Negative) 08/20/23 21:14 Ur Leukocyte Esterase 2+ (Negative) H 08/20/23 21:14 Urine WBC (Auto) 11-20 /hpf (0-5) H 08/20/23 21:14 Urine RBC (Auto) 0-2 /hpf (0-2) 08/20/23 21:14 U Hyaline Cast (Auto) 0-2 /lpf (0-2) 08/20/23 21:14 U Epithel Cells (Auto) 3-5 /hpf (0-2) H 08/20/23 21:14 Urine Bacteria (Auto) None Seen (None Seen) 08/20/23 21:14 Impressions Toe X-Ray 08/20/23 17:34 LEFT FIRST TOE RADIOGRAPHS CLINICAL HISTORY: Injury. Left first toe infection. COMPARISON: Left foot radiographs April 22, 2022 and December 27, 2022. FINDINGS: Left first toe wound is noted. This extends to the underlying distal phalanx. There has been significant erosion of the distal phalanx of the left first toe since prior radiographs of December 27, 2022. No acute fractures are identified. IMPRESSION: Left first toe wound with significant interval erosion of the distal phalanx of the left first toe since prior radiographs consistent with osteomyelitis. ACT 112: Negative or not required by law. Electronically signed by: Huang Hargrove M.D. 08/20/2023 6:22 PM Chest X-Ray 08/20/23 17:41 XR chest 1V portable CLINICAL HISTORY: Sepsis. COMPARISON STUDY: Chest radiograph December 12, 2018. FINDINGS: Kyphotic positioning is noted. There is no pneumothorax or pleural effusion. No consolidation is present. Linear bilateral densities represent atelectasis. Moderate sized hiatal hernia is noted. IMPRESSION: No acute cardiopulmonary findings. ACT 112: Negative or not required by law. Electronically signed by: Huang Hargrove M.D. 08/20/2023 6:19 PM Diagnostic Findings Supervising Physician Co-Signing Physician Notes Patient seen and examined, chart reviewed, case discussed with Dr. Land and I agree with the assessment and plan as above. In brief, patient is a 73yo female with history of poorly controlled DM and worsening left great toe wound presenting with exposed bone/osteomyelitis of the left great toe. On exam she is afebrile, HD stable Resting comfortably, NAD, no pain Skin - ulceration of left great toe with area of purulent drainage, eschar as well as exposure of the distal phalanx, some ulceration of skin of other digits of left foot HEENT - MMM, Neck supple, PERRL Heart - +S1/S2, regular, no m/r/g Lungs - CTA anteriorly, no rales/rhonchi/wheezes Abd - soft, NT/ND Ext - warm, ulceration of left great toe and distal phalanges, exposed bone of great toe Labs and images reviewed Significant for microcytic anemia - Hgb=10.6, Hct=34.3, MCV=75.4, Elevated WBC and platelet count Assessment/Plan Osteomyelitis left great toe in setting of poorly controlled DM -Admit to medical -Follow wound culture sent from the ER -Continue IV antibiotics with Vancomycin and Ciprofloxacin -Pain control and anti-emetics PRN -Orthopedics consultation appreciated - will keep patient NPO for possible surgical intervention in AM -Anemia workup as above -Remainder as above Resident Activity Tracking Resident Involvement: Resident Care Provided Care Provided: Adult Hospital Medicine (4) Uncontrolled diabetes mellitus Diabetes mellitus type: type 2 Glycemic state: with hyperglycemia Qualified Code(s): E11.65 - Type 2 diabetes mellitus with hyperglycemia
[2023-08-20] MEDS: VANCOMYCIN HCL 1,250 MG in SODIUM CHLORIDE 0.9% 500 ML IV ONE (19:33)
[2023-08-20] MEDS: CIPROFLOXACIN / D5W 400 MG/200 ML BAG IV STA (20:02)
[2023-08-20] MEDS ORDERED: GLUCOSE 40% GEL 15 GM TUBE PO PRN (20:10)
[2023-08-20] MEDS ORDERED: CARBOHYDRATES FOR HYPOGLYCEMIA PO PRN (20:10)
[2023-08-20] MEDS ORDERED: GLUCOSE 10 TAB/TUBE PO PRN (20:10)
[2023-08-20] MEDS ORDERED: DEXTROSE 50% 50 ML SYRINGE IV PRN (20:10)
[2023-08-20] MEDS ORDERED: GLUCAGON FOR INJ 1 MG VIAL SQ PRN (20:10)
[2023-08-20] MEDS: INSULIN ASPART PER UNIT CHARGE SC SCH ×2 (20:41→23:56)
[2023-08-20] MEDS: SODIUM CHLORIDE 0.9% 1,000 ML IV SCH (20:41)
[2023-08-20 21:37] LABS: Appearance Urine Clear (Clear); Bacteria Urine Automated None Seen (None Seen); Bilirubin Urine Negative (Negative); Blood Urine Negative (Negative); Cast Urine Automated 0-2 /lpf (0-2); Color Urine Yellow; Glucose Urine UA Negative (Negative); Ketones Urine Negative (Negative); Leukocyte Esterase Urine 2+ (Negative); Nitrite Urine Negative (Negative); Protein Urine Negative (Negative); RBC Urine Automated 0-2 /hpf (0-2); Specific Gravity Urine 1.014 (1.000-1.030); Urobilinogen Urine Negative (Negative); pH Urine 5.5 (4.5-7.5)
[2023-08-20] MEDS: traMADol HCL 50 MG TABLET PO ONE (22:58)
[2023-08-20] MEDS: TOPIRAMATE 25 MG TAB PO ONE (22:59)
[2023-08-20] MEDS: busPIRone 5 MG TAB PO ONE (22:59)
[2023-08-20] MEDS: GABAPENTIN 600 MG TAB PO ONE (23:00)
[2023-08-20] MEDS: PANTOprazole 40 MG in SYRINGE 0 ML IV SCH (23:00)
[2023-08-20] MEDS: LANTUS PER UNIT CHARGE SQ SCH (23:38)
[2023-08-20] MEDS ORDERED: Nursing to Pharmacy Communication SCH (23:45)
--- NOTE | 2023-08-21 00:13 | Emergency Department Note ---
History of Present Illness General Chief complaint: Foot Injury/Pain Stated complaint: LT BIG TOE WOUND/OPENED, BONE EXPOSED Time Seen by Provider: 08/20/23 18:35 History of Present Illness Provider complaint: Left toe wound Onset (ago): week(s) 1 Location: lower extremity and left 73-year-old noncompliant diabetic presents emergency department for left toe wound. Patient states over the last week she notes the toe wound is gotten bigger and her bone is sticking out of her toe. She denies any fevers or pain. Home Medications Medication Instructions Recorded Confirmed Type aspirin 81 mg tablet,delayed 81 mg PO QAM 06/10/18 08/20/23 History release vedolizumab 300 mg intravenous 300 mg IV Q8WK #1 ea 06/28/20 08/20/23 Rx solution (Entyvio) buspirone 10 mg tablet 20 mg PO BID 12/06/20 08/20/23 History hydroxyzine HCl 25 mg tablet 25 mg PO BID PRN anxiety #30 tabs 12/07/20 08/20/23 Rx duloxetine 30 mg capsule,delayed 30 mg PO QAM 03/02/21 08/20/23 History release (Cymbalta) duloxetine 60 mg capsule,delayed 60 mg PO QAM 10/03/21 08/20/23 History release pen needle, diabetic 32 gauge x #100 ea 10/18/21 07/16/23 Rx 5/32" (BD Ultra-Fine Jacqueline Pen Needle) blood sugar diagnostic (OneTouch #300 ea 09/23/22 07/16/23 Rx Verio test strips) calcium carbonate 600 mg-vitamin 1 tab PO BID 12/26/22 08/20/23 History D3 10 mcg (400 unit) tablet (Calcium with Vitamin D) multivitamin 1 tab PO DAILY 12/26/22 08/20/23 History insulin glargine 100 unit/mL (3 30 unit (0.3 mL) subcut QPM #45 mL 03/27/23 08/20/23 Rx mL) subcutaneous pen (Lantus Solostar U-100 Insulin) lancets 33 gauge #300 ea 06/05/23 07/16/23 Rx atorvastatin 20 mg tablet 20 mg PO QAM #90 tabs 07/22/23 08/20/23 Rx gabapentin 600 mg tablet 600 mg PO BID #180 tabs 07/22/23 08/20/23 Rx levalbuterol tartrate 45 1 puff inhalation Q6H PRN 07/22/23 08/20/23 Rx mcg/actuation aerosol inhaler shortness of breath or wheezing (Xopenex HFA) #45 grams levothyroxine 112 mcg tablet 112 mcg PO QAM #90 tabs 07/22/23 08/20/23 Rx lisinopril 30 mg tablet 30 mg PO QAM #90 tabs 07/22/23 08/20/23 Rx loperamide 2 mg capsule 2 mg PO Q6H PRN loose stool 90 07/22/23 08/20/23 Rx days #180 caps metformin 500 mg tablet,extended 500 mg PO .COMPLEX #270 tabs 07/22/23 08/20/23 Rx release 24 hr omeprazole 40 mg capsule,delayed 40 mg PO BID #180 caps 07/22/23 08/20/23 Rx release topiramate 25 mg tablet (Topamax) 25 mg PO BID #180 tabs 07/22/23 08/20/23 Rx tramadol 50 mg tablet 50 mg PO BID 30 days #60 tabs 07/24/23 08/20/23 Rx ondansetron HCl 4 mg tablet 8 mg (2 x 4 mg) PO Q8H PRN Nausea 08/05/23 08/20/23 Rx #180 tabs acetaminophen 500 mg tablet 500 mg PO Q6H PRN Pain 08/20/23 08/20/23 History cyanocobalamin (vitamin B-12) 1,000 mcg PO DAILY 08/20/23 08/20/23 History 1,000 mcg tablet (Vitamin B-12) diphenhydramine HCl 25 mg capsule 25 mg PO DIRECTED PRN NEEDED 08/20/23 08/20/23 History (Benadryl) docusate sodium 100 mg capsule 100 mg PO DAILY 08/20/23 08/20/23 History (Stool Softener) meclizine 12.5 mg tablet 12.5 - 25 mg PO BID PRN dizziness 08/20/23 08/20/23 History Allergies Allergy/AdvReac Type Severity Reaction Status Date / Time cephalexin Allergy Intermediate Hives Verified 08/20/23 19:30 Cephalosporins Allergy Intermediate Hives Verified 08/20/23 19:30 infliximab Allergy Intermediate Itching, Verified 08/20/23 19:30 rash Penicillins Allergy Intermediate Hives Verified 08/20/23 19:30 ciprofloxacin AdvReac Intermediate N/V Verified 08/20/23 19:30 doxycycline AdvReac Intermediate GI upset Verified 08/20/23 19:30 Past Med/Surg History Problem List (Updated 08/21/23 @ 00:13 by Charlie Mak MD) Hypomagnesemia (Acute) Osteomyelitis (Acute) Diabetic infection of left foot Wheezing Dyspnea Dysphagia Difficulty swallowing pills Muscular deconditioning Obesity (BMI 30.0-34.9) Uncontrolled diabetes mellitus (Chronic) Anemia (Chronic) Crohn's ileocolitis (Chronic) CKD (chronic kidney disease) stage 3, GFR 30-59 ml/min (Chronic) Hearing loss (Chronic) Vitamin D deficiency (Chronic) Vitamin B12 deficiency (Chronic) Osteopenia (Chronic) Laryngopharyngeal reflux (LPR) (Chronic) Diabetic peripheral neuropathy associated with type 2 diabetes mellitus (Chronic) Depression with anxiety (Chronic) Common migraine without aura (Chronic) Chromophobe adenoma (Chronic) GERD (gastroesophageal reflux disease) (Chronic) Hypothyroidism (Chronic) Hypertension (Chronic) Hyperlipidemia (Chronic) Asthma (Chronic) well controlled, has not used inhaler in years Personal history of diabetic foot ulcer left foot - "pretty healed at this time" does follow with wound clinic as needed. Sleep apnea (Chronic) no device Medical History Crohns disease Weakness of both legs Lumbar post-laminectomy syndrome Lumbar pain with radiation down both legs History of anemia remote hx blood transfusion post-op Chronic left hip pain Recurrent UTI (urinary tract infection) Hiatal hernia Vertigo "comes and goes" last episode 04/22/23, uses the meclizine as needed which helps. Tinnitus Schatzki's ring s/p dilation Esophageal dysmotility dysphagia s/p dilation Benign paroxysmal positional vertigo hx/no recent issues Back pain, chronic Lumbar stenosis with neurogenic claudication Surgical History History of cataract surgery LEFT History of cardiac cath 04/2019 r/t ALICEA, no stents History of surgical removal of pituitary gland tumor excision History of bilateral salpingo-oophorectomy (BSO) History of esophagogastroduodenoscopy (EGD) multiple with multiple dilations History of colonoscopy History of tooth extraction S/P carpal tunnel release left S/P arthroscopic knee surgery left Fusion of spine multiple (fusion + revision) Removal spinal hardware T11-L1: 08/16/17: Grade 1 view, MAC #3, ETT 7.0 at [facility] T11-L1 hardware removal: 03/19/19: MAC#3 at [facility] History of arthroscopy right shoulder History of hysterectomy Family History Mother Diabetes Family history of diabetes mellitus Myocardial infarction Breast cancer Hypertension Other Coronary heart disease No family history of adverse response to anesthesia Denies family history of Ovarian cancer Prostate cancer Lung cancer Colorectal cancer Stroke Social History Smoking Status: Never smoker Second Hand Exposure: Yes ( smoked); Do You Dip or Chew Tobacco: No; Hx Alcohol Use: No Hx Substance Use: No Preferred Language: Telugu Communication Ability: Effective Visual Impairment: Limited Hearing Ability: Normal Back Shoe Worker Required: No Beliefs That Will Affect Care: None marital status: marital status details: Three children Current Living Situation: Alone Current Living Situation Comment: LIV[facility] current occupational status: retired Feels Safe at Home: Yes Safety Concerns: Feels Safe At This Time Childhood Exposure to Second-Hand Smoke: Yes Diet Comment: regular caffeine: Yes (pepsi) during the past year weight has: remained stable Dental Care, Regularly: No Physical Activity Frequency: Does not Exercise Physical Activity Frequency Comment: due to physical condition Seatbelt Use: always Sunscreen Use: Yes Assistive Devices: Cane and Glasses Physical Exam Vital Signs Vital Signs - 24 hr 08/20/23 16:28 Pulse Rate 91 H Respiratory Rate 18 Respiratory Effort / Characteristics Non-Labored Respiratory Depth Normal Blood Pressure 162/84 H Blood Pressure Mean 110 Pulse Oximetry 97 Oxygen Delivery Method Room Air Sepsis Recent Fever Within 48 Hours No Sepsis New/Unexplained Change in Mental Status No Sepsis Action Taken by Nursing No Action Required Left foot: Diabetic ulcer over the distal phalanx of the left great toe. There is exposed bone coming out of it with minimal discharge. No bleeding. Palpable DP and PT pulse. Course Course 1835: The patient was evaluated in room D4A. A complete history and physical exam was performed Administered Medications Pantoprazole Sodium 40 mg/ (Syringe) 10 mls @ 5 mls/min IV BID ANITA Stop: 09/19/23 21:48 Last Admin: 08/20/23 23:00 Dose: 5 mls/min Documented By: DWAIN Magnesium Sulfate/Dextrose (Magnesium Sulfate / D5w) 1 gm in 100 mls @ 50 mls/hr IV Q2H [facility] Stop: 08/21/23 03:14 Last Admin: 08/20/23 23:41 Dose: 50 mls/hr Documented By: DWAIN Insulin Aspart (Insulin Aspart Per Unit Charge) 0 units SC Q6 ANITA Stop: 09/20/23 00:00 Last Admin: 08/20/23 23:56 Dose: 1 units Documented By: DWAIN Co-signed By: SHERLY Insulin Glargine (Lantus Per Unit Charge) 15 units SQ BID [facility] Stop: 09/19/23 20:59 Last Admin: 08/20/23 23:38 Dose: 15 units Documented By: DWAIN Co-signed By: BLM Discontinued Medications Buspirone HCl (Buspirone 5 Mg Tab) 20 mg PO NOW ONE Stop: 08/20/23 22:01 Last Admin: 08/20/23 22:59 Dose: 20 mg Documented By: DWAIN Gabapentin (Gabapentin 600 Mg Tab) 600 mg PO NOW ONE Stop: 08/20/23 21:50 Last Admin: 08/20/23 23:00 Dose: 600 mg Documented By: DWAIN Magnesium Sulfate/Dextrose (Magnesium Sulfate / D5w) 1 gm in 100 mls @ 100 mls/hr IV Q1H ANITA Stop: 08/20/23 20:41 Last Infusion: 08/20/23 21:19 Dose: Infused Documented By: Admin: 08/20/23 20:02 Dose: 100 mls/hr Documented By: Infusion: 08/20/23 20:02 Dose: Infused Documented By: Admin: 08/20/23 18:52 Dose: 100 mls/hr Documented By: SINDHU Ciprofloxacin (Cipro / D5w) 400 mg in 200 mls @ 100 mls/hr IV NOW STA; Protocol Stop: 08/20/23 20:56 Last Infusion: 08/20/23 23:11 Dose: Infused Documented By: Admin: 08/20/23 20:02 Dose: 100 mls/hr Documented By: JACKIE Vancomycin HCl 1,250 mg/ (Sodium Chloride) 525 mls @ 200 mls/hr IV NOW ONE Stop: 08/20/23 21:41 Last Infusion: 08/20/23 23:57 Dose: Infused Documented By: Admin: 08/20/23 19:33 Dose: 200 mls/hr Documented By: JACKIE Sodium Chloride (Nss) 1,000 mls @ 999 mls/hr IV .Q1H1M [facility] Stop: 08/20/23 22:00 Last Admin: 08/20/23 22:05 Dose: 999 mls/hr Documented By: Infusion: 08/20/23 21:54 Dose: Infused Documented By: Admin: 08/20/23 20:41 Dose: 999 mls/hr Documented By: JACKIE Insulin Aspart (Insulin Aspart Per Unit Charge) 0 units SC ACHS [facility] Stop: 09/19/23 20:59 Last Admin: 08/20/23 20:41 Dose: 1 units Documented By: JACKIE Co-signed By: MELODY Topiramate (Topiramate 25 Mg Tab) 25 mg PO ONE ONE Stop: 08/20/23 22:01 Last Admin: 08/20/23 22:59 Dose: 25 mg Documented By: DWAIN Tramadol HCl (Tramadol Hcl 50 Mg Tablet) 50 mg PO NOW ONE Stop: 08/20/23 22:01 Last Admin: 08/20/23 22:58 Dose: 50 mg Documented By: DWAIN Medical Decision Making Laboratory Data Attestation: I reviewed the patient's lab results. 08/20/23 17:50 08/20/23 17:50 Lab Results 08/20/23 Range/Units 17:50 WBC 10.86 H (4.8-10.8) K/ul RBC 4.55 (4.20-5.40) M/uL Hgb 10.6 L (12.0-16.0) g/dl Hct 34.3 L (37.0-47.0) % MCV 75.4 L (80.0-100.0) fL MCH 23.3 L (25.0-34.0) pg MCHC 30.9 L (32.0-36.0) g/dL RDW Std Deviation 48.7 H (36.4-46.3) fL RDW Coeff of Brianna 18.3 H (11.5-14.5) % Plt Count 542 H (130-400) K/uL MPV 9.6 (9.4-12.4) fL Immature Gran % (Auto) 0.8 % Neut % (Auto) 67.1 % Lymph % (Auto) 19.7 % Don[place]han % (Auto) 11.0 % Eos % (Auto) 0.8 % Baso % (Auto) 0.6 % Neut # (Auto) 7.29 H (1.40-6.50) K/uL Lymph # (Auto) 2.14 (1.20-3.40) K/uL [place]han # (Auto) 1.19 H (0.11-0.59) K/uL Eos # (Auto) 0.09 (0.00-0.50) K/uL Baso # (Auto) 0.06 (0.00-0.20) K/uL Immature Gran # (Auto) 0.09 (0.01-0.20) K/uL PT 11.4 (9.0-12.0) Seconds INR 1.1 (0.9-1.1) APTT 25 (21-31) Seconds PTT Ratio 0.9 Sodium 135 L (136-145) mmol/L Potassium 4.2 (3.5-5.1) mmol/L Chloride 103 (98-107) mmol/L Carbon Dioxide 23 (21-32) mmol/L Anion Gap 9 (3-11) BUN 13 (6-23) mg/dl Creatinine 1.07 (0.6-1.2) mg/dl Est Cr Clr Drug Dosing Not Reportable Est GFR ( Amer) 59.2 ml/min Est GFR (Non-Af Amer) 51.1 ml/min BUN/Creatinine Ratio 12.1 (10-20) Glucose 175 H (70-99(Fasting)) mg/dl Lactate 1.2 (0.4-2.0) mmol/L Calcium 9.5 (8.6-10.3) mg/dl Magnesium 1.0 L (1.7-2.4) mg/dl Total Bilirubin 0.3 (0.2-1.0) mg/dl AST 21 (13-39) U/L ALT 21 (7-52) U/L Alkaline Phosphatase 117 H (34-104) U/L Troponin I High Sens 7.9 (0-14) pg/ml Total Protein 7.1 (6.0-8.3) gm/dl Albumin 3.1 L (3.4-5.0) gm/dl Globulin 4.0 (2.5-4.0) gm/dl Albumin/Globulin Ratio 0.8 L (0.9-2) Procalcitonin 0.09 (0-0.5) ng/ml Imaging Data Radiologist's Impression: Toe X-Ray 08/20/23 17:34 LEFT FIRST TOE RADIOGRAPHS CLINICAL HISTORY: Injury. Left first toe infection. COMPARISON: Left foot radiographs April 22, 2022 and December 27, 2022. FINDINGS: Left first toe wound is noted. This extends to the underlying distal phalanx. There has been significant erosion of the distal phalanx of the left first toe since prior radiographs of December 27, 2022. No acute fractures are identified. IMPRESSION: Left first toe wound with significant interval erosion of the distal phalanx of the left first toe since prior radiographs consistent with osteomyelitis. ACT 112: Negative or not required by law. Electronically signed by: Huang Hargrove M.D. 08/20/2023 6:22 PM Chest X-Ray 08/20/23 17:41 XR chest 1V portable CLINICAL HISTORY: Sepsis. COMPARISON STUDY: Chest radiograph December 12, 2018. FINDINGS: Kyphotic positioning is noted. There is no pneumothorax or pleural effusion. No consolidation is present. Linear bilateral densities represent atelectasis. Moderate sized hiatal hernia is noted. IMPRESSION: No acute cardiopulmonary findings. ACT 112: Negative or not required by law. Electronically signed by: Huang Hargrove M.D. 08/20/2023 6:19 PM MDM Narrative Patient was seen during a time of extreme volume and extreme acuity. Nursing triage protocols were initiated labs and imaging was conducted by protocol in the triage area. Vital signs stable. Labs within normal limits with exception of magnesium of 1. Magnesium repletion started in the emergency department. Exposed bone on exam and x-ray showed possible osteomyelitis. Discussed case with pharmacy and they recommend start the patient on Vanco and Cipro. Patient be admitted to the medicine team. Dr. Deluna notified of the patient. Impression & Plan Osteomyelitis, Hypomagnesemia Discharge Plan Visit Data Chief Complaint: Foot Injury/Pain Stated Complaint: LT BIG TOE WOUND/OPENED, BONE EXPOSED ED Provider: Charlie Mak Discharge Problem: Osteomyelitis, Hypomagnesemia Patient Disposition: Admitted As Inpatient Discharge Instructions Interventions: ED Discharge Assessment Last Done: 08/20/23 21:36
--- NOTE | 2023-08-21 01:17 | Billing Data ---
Date of Service August 20, 2023 Coding Level of Care Code 08876 INT INP/OBS CARE
[2023-08-21] MEDS: ACETAMINOPHEN 1,000 MG/100 ML VIAL IV PRN (02:29)
--- NOTE | 2023-08-21 05:08 | Pharmacy Report ---
Pharmacy PK ABX Note - Date of Service August 21, 2023 - Assessment and Plan Assessment * Ms Cabrera is a 73 year old F receiving vancomycin and ciprofloxacin for treatment of L great toe osteomyelitis/DM foot infection. * Pertinent microbiologic data includes: UCx, BCx, L toe Cx pending * PMH is significant for uncontrolled DM w/ neuropathy, Crohn's, recurrent UTI Plan Vancomycin * Loading dose: 1250 mg IV x 1 dose, given in ED * Maintenance dose: 1250 mg IV every 24 hours * Regimen is predicted to surpass target AUC/ONIEL of 400-600 mg/L.hr at steady state. Will follow levels and anticipate needing dose reduction closer to steady state. * Will check a vanc level in 1-2 days. Pharmacy will continue to follow and will adjust dose/frequency as necessary. Thank you. Pharmacy has transitioned to AUC monitoring for vancomycin. AUC/ONIEL is the preferred PK/PD target and is associated with decreased risk of nephrotoxicity compared to traditional trough targets.
[2023-08-21] MEDS: VANCOMYCIN HCL 1,250 MG in SODIUM CHLORIDE 0.9% 250 ML IV SCH (05:41)
--- NOTE | 2023-08-21 06:47 | Hospitalist Progress Note ---
Date of Service August 21, 2023 Assessment & Plan (1) Diabetic infection of left foot: (2) Osteomyelitis: (3) Hypomagnesemia: (4) Uncontrolled diabetes mellitus: (5) GERD (gastroesophageal reflux disease): (6) Hypothyroidism: (7) Hypertension: (8) Hyperlipidemia: Plan Pt is a 73 yo female with PMH of crohn's, vertigo, DM, HTN, hypothyroidism, and HLD presenting due to concern of worsening left great toe infection. Osteomyelitis of left great toe - in the setting of uncontrolled DM; last A1c 8.6% (06/2023) - pt previously following with wound care; per pt, they had called her recently have her re-establish - lab work significant for leukocytosis to 10.86, Hgb 10.6, BMP WNL, Mg 1.0, procal 0.09, lactate 1.2 on admission - xray of left great toe showing significant erosion consistent with osteomyelitis - blood cx pending; wound culture pending - s/p cipro and vanco in the ER; will continue upon admission - sepsis protocol fluids given upon admission as pt tachycardic with mild leukocytosis and obvious source of infection (although her current leukocytosis does not technically meet sepsis criteria) - podiatry consulted; pending eval Uncontrolled DM w/ neuropathy - last A1c 8.6% (06/2023) - hold home metformin - insulin glargine 15u BID; SSI- adjust PRN - continue gabapentin 600mg BID Hypomagnesemia - 1.0 upon admission; supplement mag 2g - will recheck with AM labs Anemia - Hgb 10.6 upon admission; pt with hx of Crohn's disease; last colonoscopy 04/2023 showing mild ileitis/colitis found - appears somewhat new as pt had normal Hgb last year - will Hemoccult stools as a precautionary measure but do not suspect active bleeding - will check iron panel, B12, and folate with AM labs; pt does supplement with B12 Chronic conditions: GERD: continue pantoprazole 40 mg IV BID Chronic lower back pain: continue tramadol 50 mg BID Anxiety/depression: continue home buspirone 20 mg BID Diet: NPO pending surgical eval DVT ppx: defer on admission d/t anticipating a procedure; would recommend addition afterwards Admission and Anticipated Discharge Date Admission Date: August 20, 2023 Supervising Physician Co-Signing Physician Notes I personally examined the patient and verified all salazar points of history and exam, discussed case, and agree with decision making with Dr Villafana Sleeping comfortably whenever I saw her. Does not stir to voice. Coordinated with orthopedics and podiatrypodiatry will be seeing her, and asked that she be n.p.o. after midnight. Vitals noted, in general she is resting comfortably does not stir to voice Osteomyelitiscontinue antibiotics. Surgical assessment and anticipate OR tomorrow. Otherwise as above. Will start pharmacologic DVT prophylaxis as soon as it is safe postoperatively Subjective Pt is a 73 yo female with PMH of crohn's, vertigo, DM, HTN, hypothyroidism, and HLD presenting due to concern of worsening left great toe infection. Today, pt states she feels well, she is just hungry. No questions or complaints at this time. She states her feet have been bad "for quite a long time" but about a week ago is when she noticed the bone start to stick out. She states she was suppose to see wound care a few weeks ago but her car broke down so she was unable to get to her appointment. She states her other toes look "a little wonky too" but the big toe is the one she most concerned about. No chest pain or SOB today. No further questions or complaints. Review of Systems Review of Systems: Per HPI. Physical Exam Physical Exam: General:Alert and oriented, no acute distress, HEENT: Normocephalic, moist oral mucosa, Cardio: Regular rate and rhythm, no murmur, Resp:Lungs clear to auscultation b/l, no wheezes or rhonchi, Skin: Warm, pink, dry, Results & Data Results & Data Vital Signs (Past 12 Hours) Vital Signs Temp Pulse Pulse Resp BP BP Pulse Ox 08/20/23 21:36 67 16 131/64 92 08/20/23 21:30 37.0 C 77 16 145/77 H 92 08/20/23 21:30 16 145/77 H 92 08/20/23 19:50 91 H 08/20/23 19:44 89 22 92 08/20/23 19:44 91 O2 Del Method 08/20/23 21:36 Room Air 08/20/23 21:30 Room Air 08/20/23 21:30 Room Air 08/20/23 19:50 08/20/23 19:44 Room Air 08/20/23 19:44 Room Air Resident Activity Tracking Resident Involvement: Resident Care Provided Care Provided: Adult Hospital Medicine (4) Uncontrolled diabetes mellitus Diabetes mellitus type: type 2 Glycemic state: with hyperglycemia Qualified Code(s): E11.65 - Type 2 diabetes mellitus with hyperglycemia
[2023-08-21 07:46] LABS: Hematocrit (blood only) 28.4 % (37.0-47.0); Hemoglobin 8.8 g/dl (12.0-16.0); Mean Corpuscular Hemoglobin 23.1 pg (25.0-34.0); Mean Corpuscular Volume 74.5 fL (80.0-100.0); Platelet Count 426 K/uL (130-400); RDW Coefficient of Variation 17.8 % (11.5-14.5); RDW Standard Deviation 47.8 fL (36.4-46.3); Red Blood Count 3.81 M/uL (4.20-5.40); White Blood Count 7.75 K/ul (4.8-10.8)
[2023-08-21 07:49] LABS: Calcium 8.7 mg/dl (8.6-10.3); Magnesium 1.9 mg/dl (1.7-2.4); Potassium 3.9 mmol/L (3.5-5.1)
[2023-08-21 07:55] LABS: BUN Creatinine Ratio 11.9 (10-20); C Reactive Protein 6.83 mg/dl (0-0.5); Creatinine Clr Calc Pharmacy 50.7 ml/min; Est GFR (African American) 79.4 ml/min; Est GFR (Non-African American) 68.5 ml/min
[2023-08-21] MEDS: CIPROFLOXACIN / D5W 400 MG/200 ML BAG IV SCH (08:12)
[2023-08-21 08:13] LABS: Ferritin 58.6 ng/ml (8-388)
[2023-08-21 08:17] LABS: Folate (Folic Acid),Ser orPlas > 22.30 ng/ml (>5.38); Vitamin B12 1411 pg/ml (180-914)
[2023-08-21] MEDS ORDERED: LEVALBUTEROL TARTRATE 15 GM HFA.AER.AD INH PRN (12:32)
[2023-08-21] MEDS: LEVOTHYROXINE SODIUM 112 MCG TABLET PO SCH (13:45)
[2023-08-21] MEDS ORDERED: Nursing to Pharmacy Communication SCH ×2 (15:30→22:00)
[2023-08-21] MEDS: DULoxetine HCL 60 MG CAP PO SCH (15:31)
[2023-08-21] MEDS: hydrOXYzine HCl 25 MG TAB PO PRN (15:31)
[2023-08-21] MEDS: DULoxetine HCL 30 MG CAP PO SCH (15:31)
[2023-08-21] MEDS: INSULIN ASPART PER UNIT CHARGE SC SCH ×2 (17:18→23:59)
--- NOTE | 2023-08-21 17:45 | Billing Data ---
Date of Service August 21, 2023 Coding Level of Care Code 96313 SUB INP/OBS CARE
[2023-08-21] MEDS: LANTUS PER UNIT CHARGE SQ SCH (20:38)
[2023-08-21] MEDS ORDERED: TOPIRAMATE 25 MG TAB PO ONE (21:00)
[2023-08-21] MEDS ORDERED: traMADol HCL 50 MG TABLET PO ONE (21:00)
[2023-08-21] MEDS: traMADol HCL 50 MG TABLET PO PRN (21:03)
[2023-08-21] MEDS: TOPIRAMATE 25 MG TAB PO SCH (21:03)
[2023-08-21] MEDS: PANTOprazole 40 MG TAB PO SCH (21:04)
[2023-08-21] MEDS: busPIRone 5 MG TAB PO SCH (21:05)
[2023-08-21] MEDS: GABAPENTIN 600 MG TAB PO SCH (21:05)
[2023-08-22] MEDS: VANCOMYCIN LEVEL ONE (05:22)
[2023-08-22 05:28] LABS: Hematocrit (blood only) 28.4 % (37.0-47.0); Hemoglobin 8.9 g/dl (12.0-16.0); Mean Corpuscular Hemoglobin 23.2 pg (25.0-34.0); Mean Corpuscular Hgb Conc 31.3 g/dL (32.0-36.0); Mean Platelet Volume 9.5 fL (9.4-12.4); Platelet Count 450 K/uL (130-400); RDW Coefficient of Variation 17.5 % (11.5-14.5); RDW Standard Deviation 46.4 fL (36.4-46.3); Red Blood Count 3.84 M/uL (4.20-5.40); White Blood Count 8.24 K/ul (4.8-10.8)
[2023-08-22 05:41] LABS: BUN Creatinine Ratio 7.8 (10-20); Calcium 9.2 mg/dl (8.6-10.3); Creatinine Clr Calc Pharmacy 37.1 ml/min; Est GFR (African American) 54.3 ml/min; Est GFR (Non-African American) 46.8 ml/min; Magnesium 1.4 mg/dl (1.7-2.4); Potassium 3.9 mmol/L (3.5-5.1)
--- NOTE | 2023-08-22 06:57 | Hospitalist Progress Note ---
Date of Service August 22, 2023 Assessment & Plan (1) Diabetic infection of left foot: (2) Osteomyelitis: (3) Hypomagnesemia: (4) Uncontrolled diabetes mellitus: (5) GERD (gastroesophageal reflux disease): (6) Hypothyroidism: (7) Hypertension: (8) Hyperlipidemia: Plan Pt is a 73 yo female with PMH of crohn's, vertigo, DM, HTN, hypothyroidism, and HLD presenting due to concern of worsening left great toe infection. Overall plan today is podiatry eval + intervention, then plan will be for PT/OT today or tomorrow. Osteomyelitis of left great toe - in the setting of uncontrolled DM; last A1c 8.6% (06/2023) - pt previously following with wound care; per pt, they had called her recently have her re-establish - xray of left great toe showing significant erosion consistent with osteomyelitis - blood cx pending; wound culture pending - s/p cipro and vanco in the ER; will continue upon admission - podiatry consulted; pending eval/intervention today Uncontrolled DM w/ neuropathy - last A1c 8.6% (06/2023) - hold home metformin - insulin glargine 15u BID; SSI- adjust PRN - continue gabapentin 600mg BID Anemia - Hgb 10.6 upon admission; pt with hx of Crohn's disease; last colonoscopy 04/2023 showing mild ileitis/colitis found - appears somewhat new as pt had normal Hgb last year - will Hemoccult stools as a precautionary measure but do not suspect active bleeding - vitamin B12 and folate levels acceptable, iron level low but will defer iron supplementation in the setting of acute infection Chronic conditions: GERD: continue pantoprazole 40 mg IV BID Chronic lower back pain: continue tramadol 50 mg BID Anxiety/depression: continue home buspirone 20 mg BID Diet: NPO pending surgical eval DVT ppx: defer on admission d/t anticipating a procedure; would recommend addition afterwards Admission and Anticipated Discharge Date Admission Date: August 20, 2023 Supervising Physician Co-Signing Physician Notes I personally examined the patient and verified all salazar points of history and exam, discussed case, and agree with decision making with Dr Villafana Seen shortly after podiatry. Awake appears comfortable. Seems understandably anxious but no acute complaints. Vitals noted, in general she is awake and alert pleasant no distress. HEENT normocephalic atraumatic mucous membranes moist. Breathing unlabored no accessory muscle use good effort. Skin without rashes pallor or icterus. Osteomyelitiscontinue antibiotics. 4 OR today. Postop care largely based on IntraOp findings, as well as postop PT/OT evals. Will start pharmacologic DVT prophylaxis as soon as it is safe postoperatively (Hopefully tomorrow) Subjective Pt is a 73 yo female with PMH of crohn's, vertigo, DM, HTN, hypothyroidism, and HLD presenting due to concern of worsening left great toe infection. Today, pt states she was having trouble sleeping last night but otherwise feels okay today. No questions or complaints at this point in time. Tolerated diet yesterday well. Awaiting podiatry to see her this morning and anxious to know what will happen with her toe. Review of Systems Review of Systems: Per HPI. Physical Exam Physical Exam: General:Alert and oriented, no acute distress, HEENT: Normocephalic, moist oral mucosa, Cardio: Regular rate and rhythm, no murmur, Resp:Lungs clear to auscultation b/l, no wheezes or rhonchi, Skin: Warm, pink, dry, Results & Data Results & Data Vital Signs (Past 12 Hours) Vital Signs Temp Pulse Resp BP Pulse Ox O2 Del Method 08/21/23 19:55 36.9 C 63 14 113/56 L 98 Room Air Resident Activity Tracking Resident Involvement: Resident Care Provided Care Provided: Adult Hospital Medicine (4) Uncontrolled diabetes mellitus Diabetes mellitus type: type 2 Glycemic state: with hyperglycemia Qualified Code(s): E11.65 - Type 2 diabetes mellitus with hyperglycemia
--- NOTE | 2023-08-22 07:27 | Pharmacy Report ---
Pharmacy PK ABX Note - Date of Service August 22, 2023 - Assessment and Plan Assessment * Ms Cabrera is a 73 year old F receiving vancomycin and ciprofloxacin for treatment of L great toe osteomyelitis/DM foot infection. * Pertinent microbiologic data includes: Urine culture shows pinpoint growth, blood cultures x 2 no growth to date, and L toe culture still pending (gram positive cocci, gram negative bacilli, and gram positive bacilli on gram stain) * PMH is significant for uncontrolled DM w/ neuropathy, Crohn's, recurrent UTI * Remains afebrile w/ no overt leukocytosis. Unclear baseline SCr, ranging ~1- 1.3 mg/dL. Current SCr of 1.15 mg/dL. Plan Vancomycin * Current regimen: 1250 mg IV every 24 hours * Random level obtained 08/22/23 resulted as 12.2 mcg/mL. This is predicted to result in supratherapeutic AUC/ONIEL > 600 mg/L.hr * 1250 mg dose already given this morning, so will change to 1000 mg IV every 24 hours starting 08/23/23 * Predicted AUC at steady state: 583 mg/L.hr * Repeat random level ordered for: 08/25/23 Pharmacy will continue to follow and will adjust dose/frequency as necessary. Thank you. Pharmacy has transitioned to AUC monitoring for vancomycin. AUC/ONIEL is the preferred PK/PD target and is associated with decreased risk of nephrotoxicity compared to traditional trough targets.
--- NOTE | 2023-08-22 08:52 | Anesthesiology Consultation ---
Date of Service August 22, 2023 Assessment & Plan (1) Encounter for pre-operative examination: Chart Review Chart Review: Acceptable Risk for Surgery History Surgery Operation Date: 08/22/23 07:00 Proposed Procedures p Left Great Toe Amputation - Brian Butler DPM Height/Weight Height: 5 ft 4 in Weight: 61.8 kg Allergies Allergy/AdvReac Type Severity Reaction Status Date / Time cephalexin Allergy Intermediate Hives Verified 08/20/23 19:30 Cephalosporins Allergy Intermediate Hives Verified 08/20/23 19:30 infliximab Allergy Intermediate Itching, Verified 08/20/23 19:30 rash Penicillins Allergy Intermediate Hives Verified 08/20/23 19:30 ciprofloxacin AdvReac Intermediate N/V Verified 08/20/23 19:30 doxycycline AdvReac Intermediate GI upset Verified 08/20/23 19:30 Medications Home Medications Medication Instructions Recorded Confirmed Last Taken aspirin 81 mg tablet,delayed 81 mg PO QAM 06/10/18 08/20/23 08/20/23 release vedolizumab 300 mg intravenous 300 mg IV Q8WK #1 06/28/20 08/20/23 10/22/22 solution (Entyvio) buspirone 10 mg tablet 20 mg PO BID 12/06/20 08/20/23 08/20/23 hydroxyzine HCl 25 mg tablet 25 mg PO BID PRN anxiety #30 tabs 12/07/20 08/20/23 05/05/23 duloxetine 30 mg capsule,delayed 30 mg PO QAM 03/02/21 08/20/23 08/20/23 release (Cymbalta) duloxetine 60 mg capsule,delayed 60 mg PO QAM 10/03/21 08/20/23 08/20/23 release pen needle, diabetic 32 gauge x #100 adam 10/18/21 07/16/23 Unknown " (BD Ultra-Fine Jacqueline Pen Needle) blood sugar diagnostic (OneTouch #300 adam 09/23/22 07/16/23 Unknown Verio test strips) calcium carbonate 600 mg-vitamin 1 tab PO BID 12/26/22 08/20/23 08/20/23 08:00 D3 10 mcg (400 unit) tablet (Calcium with Vitamin D) multivitamin 1 tab PO DAILY 12/26/22 08/20/23 08/20/23 insulin glargine 100 unit/mL (3 30 unit (0.3 mL) subcut QPM #45 mL 03/27/23 08/20/23 05/05/23 mL) subcutaneous pen (Lantus Solostar U-100 Insulin) lancets 33 gauge #300 ea 06/05/23 07/16/23 Unknown atorvastatin 20 mg tablet 20 mg PO QAM #90 tabs 07/22/23 08/20/23 08/20/23 gabapentin 600 mg tablet 600 mg PO BID #180 tabs 07/22/23 08/20/23 08/20/23 08:00 levalbuterol tartrate 45 1 puff inhalation Q6H PRN 07/22/23 08/20/23 Unknown mcg/actuation aerosol inhaler shortness of breath or wheezing (Xopenex HFA) #45 grams levothyroxine 112 mcg tablet 112 mcg PO QAM #90 tabs 07/22/23 08/20/23 08/20/23 lisinopril 30 mg tablet 30 mg PO QAM #90 tabs 07/22/23 08/20/23 08/20/23 loperamide 2 mg capsule 2 mg PO Q6H PRN loose stool 90 07/22/23 08/20/23 Unknown days #180 caps metformin 500 mg tablet,extended 500 mg PO .COMPLEX #270 tabs 07/22/23 08/20/23 08/20/23 08:00 release 24 hr omeprazole 40 mg capsule,delayed 40 mg PO BID #180 caps 07/22/23 08/20/23 08/20/23 08:00 release topiramate 25 mg tablet (Topamax) 25 mg PO BID #180 tabs 07/22/23 08/20/23 08/20/23 08:00 tramadol 50 mg tablet 50 mg PO BID 30 days #60 tabs 07/24/23 08/20/23 08/20/23 08:00 ondansetron HCl 4 mg tablet 8 mg (2 x 4 mg) PO Q8H PRN Nausea 08/05/23 08/20/23 Unknown #180 tabs acetaminophen 500 mg tablet 500 mg PO Q6H PRN Pain 08/20/23 08/20/23 Unknown cyanocobalamin (vitamin B-12) 1,000 mcg PO DAILY 07/05/1008/20/23 08/20/23 1,000 mcg tablet (Vitamin B-12) diphenhydramine HCl 25 mg capsule 25 mg PO DIRECTED PRN NEEDED 08/20/23 08/20/23 Unknown (Benadryl) docusate sodium 100 mg capsule 100 mg PO DAILY 08/20/23 08/20/23 08/20/23 (Stool Softener) meclizine 12.5 mg tablet 12.5 - 25 mg PO BID PRN dizziness 08/20/23 08/20/23 Unknown Active Medications Generic Name Dose Route Start Last Admin Trade Name Freq PRN Reason Stop Dose Admin Buspirone HCl 20 mg 08/21/23 21:00 08/22/23 08:38 Buspirone 5 Mg Tab PO 09/20/23 20:59 Not Given BID ANITA Duloxetine HCl 30 mg 08/21/23 15:15 08/22/23 08:38 Duloxetine Hcl 30 Mg Cap PO 09/20/23 15:14 Not Given QAM ANITA Duloxetine HCl 60 mg 08/21/23 15:15 08/22/23 08:38 Duloxetine Hcl 60 Mg Cap PO 09/20/23 15:14 Not Given QAM ANITA Gabapentin 600 mg 08/21/23 21:00 08/22/23 08:38 Gabapentin 600 Mg Tab PO 09/20/23 20:59 Not Given BID ANITA Hydroxyzine HCl 25 mg 08/21/23 15:20 08/21/23 15:31 Hydroxyzine Hcl 25 Mg Tab PO 09/20/23 15:19 25 mg BID PRN Administration anxiety Ciprofloxacin 400 mg in 200 mls @ 100 mls/hr 08/21/23 08:00 08/22/23 08:10 Cipro / D5w IV 10/02/23 07:59 100 mls/hr Q12H ANITA Administration Protocol Acetaminophen 1,000 mg in 100 mls @ 400 mls/hr 08/21/23 01:51 08/22/23 02:51 Ofirmev IV 08/24/23 01:50 Infused Q8H PRN Infusion Pain or Fever Insulin Aspart 0 units 08/22/23 00:00 08/22/23 05:20 Insulin Aspart Per Unit Charge SC 09/21/23 00:00 Not Given Q6 ANITA Insulin Glargine 15 units 08/21/23 21:00 08/21/23 20:38 Lantus Per Unit Charge SQ 09/20/23 20:59 15 units HS ANITA Administration Levothyroxine Sodium 112 mcg 08/21/23 12:45 08/22/23 08:38 Levothyroxine Sodium 112 Mcg Tablet PO 09/20/23 12:44 Not Given QAM ANITA Pantoprazole Sodium 40 mg 08/21/23 21:00 08/22/23 08:38 Pantoprazole 40 Mg Tab PO 09/20/23 20:59 Not Given BID ANITA Topiramate 25 mg 08/21/23 21:00 08/22/23 08:38 Topiramate 25 Mg Tab PO 09/20/23 20:59 Not Given BID ANITA Tramadol HCl 50 mg 08/21/23 15:09 08/21/23 21:03 Tramadol Hcl 50 Mg Tablet PO 09/20/23 20:59 50 mg BID PRN Administration pain Past Medical History Medical History (Updated 08/22/23 @ 08:51 by Timothy Lynn MD) Anemia CKD (chronic kidney disease) stage 3, GFR 30-59 ml/min Diabetic peripheral neuropathy associated with type 2 diabetes mellitus Sleep apnea no device Crohns disease Weakness of both legs Lumbar post-laminectomy syndrome History of anemia remote hx blood transfusion post-op Chronic left hip pain Recurrent UTI (urinary tract infection) Hiatal hernia Vertigo "comes and goes" last episode 04/22/23, uses the meclizine as needed which helps. Tinnitus Esophageal dysmotility dysphagia s/p dilation Back pain, chronic Past Family History Family History Mother Diabetes Family history of diabetes mellitus Myocardial infarction Breast cancer Hypertension Other Coronary heart disease No family history of adverse response to anesthesia Denies family history of Ovarian cancer Prostate cancer Lung cancer Colorectal cancer Stroke Past Surgical History Surgical History History of cataract surgery LEFT History of cardiac cath 04/2019 r/t ALICEA, no stents History of surgical removal of pituitary gland tumor excision History of bilateral salpingo-oophorectomy (BSO) History of esophagogastroduodenoscopy (EGD) multiple with multiple dilations History of colonoscopy History of tooth extraction S/P carpal tunnel release left S/P arthroscopic knee surgery left Fusion of spine multiple (fusion + revision) Removal spinal hardware T11-L1: 08/16/17: Grade 1 view, MAC #3, ETT 7.0 at [facility] T11-L1 hardware removal: 03/19/19: MAC#3 at [facility] History of arthroscopy right shoulder History of hysterectomy Social History Smoking Status: Never smoker Do You Dip or Chew Tobacco: No Hx Alcohol Use: No Alcohol type: hard liquor alcohol intake frequency: holidays/special occasions only Hx Substance Use: No substance use type: does not use Substance Use Type Other:: prescribed pain killers Physical Exam Vital Signs Last Vital Signs Temp 36.7 C 08/22/23 07:48 Pulse 73 08/22/23 07:48 Resp 16 08/22/23 07:48 BP 109/63 08/22/23 07:48 Pulse Ox 97 08/22/23 07:48 O2 Del Method Room Air 08/22/23 07:48 Testing Laboratory Results 08/22/23 05:13 08/22/23 05:13 PT 11.4 Seconds (9.0-12.0) 08/20/23 17:50 INR 1.1 (0.9-1.1) 08/20/23 17:50 APTT 25 Seconds (21-31) 08/20/23 17:50 Urine Color Yellow 08/20/23 21:14 Urine Appearance Clear (Clear) 08/20/23 21:14 Urine pH 5.5 (4.5-7.5) 08/20/23 21:14 Ur Specific Molino 1.014 (1.000-1.030) 08/20/23 21:14 Urine Protein Negative (Negative) 08/20/23 21:14 Urine Glucose (UA) Negative (Negative) 08/20/23 21:14 Urine Ketones Negative (Negative) 08/20/23 21:14 Urine Nitrite Negative (Negative) 08/20/23 21:14 Ur Leukocyte Esterase 2+ (Negative) H 08/20/23 21:14 Urine WBC (Auto) 11-20 /hpf (0-5) H 08/20/23 21:14 Urine RBC (Auto) 0-2 /hpf (0-2) 08/20/23 21:14 U Hyaline Cast (Auto) 0-2 /lpf (0-2) 08/20/23 21:14 U Epithel Cells (Auto) 3-5 /hpf (0-2) H 08/20/23 21:14 Urine Bacteria (Auto) None Seen (None Seen) 08/20/23 21:14 08/20/23 19:51 Gram Stain - Final Toe,Left Great Wound Culture - Preliminary Staphylococcus species 08/20/23 17:50 Aerobic Blood Culture - Preliminary Blood No growth in Aerobic bottle after 24 hours. Anaerobic Blood Culture - Preliminary No growth in Anaerobic bottle after 24 hours. 08/20/23 17:50 Aerobic Blood Culture - Preliminary Blood No growth in Aerobic bottle after 24 hours. Anaerobic Blood Culture - Preliminary No growth in Anaerobic bottle after 24 hours. 08/20/23 21:14 Urine Culture - Preliminary Urine,Clean Catch Pin-point growth present, reincubating. 08/22/23 08/21/23 05:18 23:59 POC Glucose 97 125 H Echocardiogram Date: 04/22/19 EF: 60-65% LV Function: normal Valvular Disease: + no significant valvular disease
--- NOTE | 2023-08-22 13:36 | Podiatry Consultation ---
Date of Consultation August 22, 2023 Assessment & Plan (1) Osteomyelitis: Laterality: left Osteomyelitis location: foot Osteomyelitis type: other acute Qualified Code(s): M86.172 - Other acute osteomyelitis, left ankle and foot (2) Diabetic infection of left foot: (3) Uncontrolled diabetes mellitus: Diabetes mellitus type: type 2 Glycemic state: with hyperglycemia Qualified Code(s): E11.65 - Type 2 diabetes mellitus with hyperglycemia (4) Personal history of diabetic foot ulcer: Plan Patient was examined and evaluated. Based on clinical exam and radiographic findings, she would absolutely benefit from a hallux amputation. She is amenable to this. This surgical intervention was scheduled for this afternoon. After amputation, as long as she remains stable, she can likely be discharged home over the weekend and follow up outpatient. There is nothing to suggest that this wound will not be primarily closable at the time of surgery. We will plan on following up with her within 2 weeks for further follow-up and to remove the sutures at 2 weeks postoperatively as well. Patient is already nothing by mouth and should remain this way until after surgery this evening. History of Present Illness Reason for Consultation: Left hallux osteomyelitis Attending Physician: Tadeo Franco DO History of Present Illness Patient presents to the hospital for evaluation and treatment of left hallux ulceration. She states that she has had this ulcer here on an off for a long time. She has been in wound care for it and believes that it had been getting better until recently. Now, she was sent to the hospital after radiographs revealed erosions of the bone underlying the wound. She states that overall, systemically, she is feeling good. She denies any nausea or vomiting fevers chills or shortness of breath. She denies any pain to this left toe at this time as well. She is interested in a more definitive correction at this time after failing wound care treatment. Allergies Allergy/AdvReac Type Severity Reaction Status Date / Time cephalexin Allergy Intermediate Hives Verified 08/20/23 19:30 Cephalosporins Allergy Intermediate Hives Verified 08/20/23 19:30 infliximab Allergy Intermediate Itching, Verified 08/20/23 19:30 rash Penicillins Allergy Intermediate Hives Verified 08/20/23 19:30 ciprofloxacin AdvReac Intermediate N/V Verified 08/20/23 19:30 doxycycline AdvReac Intermediate GI upset Verified 08/20/23 19:30 Home Medications Medication Instructions Recorded Confirmed Type aspirin 81 mg tablet,delayed 81 mg PO QAM 06/10/18 08/20/23 History release vedolizumab 300 mg intravenous 300 mg IV Q8WK #1 ea 06/28/20 08/20/23 Rx solution (Entyvio) buspirone 10 mg tablet 20 mg PO BID 12/06/20 08/20/23 History hydroxyzine HCl 25 mg tablet 25 mg PO BID PRN anxiety #30 tabs 12/07/20 08/20/23 Rx duloxetine 30 mg capsule,delayed 30 mg PO QAM 03/02/21 08/20/23 History release (Cymbalta) duloxetine 60 mg capsule,delayed 60 mg PO QAM 10/03/21 08/20/23 History release pen needle, diabetic 32 gauge x #100 ea 10/18/21 07/16/23 Rx 5/32" (BD Ultra-Fine Jacqueline Pen Needle) blood sugar diagnostic (OneTouch #300 ea 09/23/22 07/16/23 Rx Verio test strips) calcium carbonate 600 mg-vitamin 1 tab PO BID 12/26/22 08/20/23 History D3 10 mcg (400 unit) tablet (Calcium with Vitamin D) multivitamin 1 tab PO DAILY 12/26/22 08/20/23 History insulin glargine 100 unit/mL (3 30 unit (0.3 mL) subcut QPM #45 mL 03/27/23 08/20/23 Rx mL) subcutaneous pen (Lantus Solostar U-100 Insulin) lancets 33 gauge #300 ea 06/05/23 07/16/23 Rx atorvastatin 20 mg tablet 20 mg PO QAM #90 tabs 07/22/23 08/20/23 Rx gabapentin 600 mg tablet 600 mg PO BID #180 tabs 07/22/23 08/20/23 Rx levalbuterol tartrate 45 1 puff inhalation Q6H PRN 07/22/23 08/20/23 Rx mcg/actuation aerosol inhaler shortness of breath or wheezing (Xopenex HFA) #45 grams levothyroxine 112 mcg tablet 112 mcg PO QAM #90 tabs 07/22/23 08/20/23 Rx lisinopril 30 mg tablet 30 mg PO QAM #90 tabs 07/22/23 08/20/23 Rx loperamide 2 mg capsule 2 mg PO Q6H PRN loose stool 90 07/22/23 08/20/23 Rx days #180 caps metformin 500 mg tablet,extended 500 mg PO .COMPLEX #270 tabs 07/22/23 08/20/23 Rx release 24 hr omeprazole 40 mg capsule,delayed 40 mg PO BID #180 caps 07/22/23 08/20/23 Rx release topiramate 25 mg tablet (Topamax) 25 mg PO BID #180 tabs 07/22/23 08/20/23 Rx tramadol 50 mg tablet 50 mg PO BID 30 days #60 tabs 07/24/23 08/20/23 Rx ondansetron HCl 4 mg tablet 8 mg (2 x 4 mg) PO Q8H PRN Nausea 08/05/23 08/20/23 Rx #180 tabs acetaminophen 500 mg tablet 500 mg PO Q6H PRN Pain 08/20/23 08/20/23 History cyanocobalamin (vitamin B-12) 1,000 mcg PO DAILY 08/20/23 08/20/23 History 1,000 mcg tablet (Vitamin B-12) diphenhydramine HCl 25 mg capsule 25 mg PO DIRECTED PRN NEEDED 08/20/23 08/20/23 History (Benadryl) docusate sodium 100 mg capsule 100 mg PO DAILY 08/20/23 08/20/23 History (Stool Softener) meclizine 12.5 mg tablet 12.5 - 25 mg PO BID PRN dizziness 08/20/23 08/20/23 His tory Patient History Medical History Anemia CKD (chronic kidney disease) stage 3, GFR 30-59 ml/min Diabetic peripheral neuropathy associated with type 2 diabetes mellitus Sleep apnea no device Crohns disease Weakness of both legs Lumbar post-laminectomy syndrome History of anemia remote hx blood transfusion post-op Chronic left hip pain Recurrent UTI (urinary tract infection) Hiatal hernia Vertigo "comes and goes" last episode 04/22/23, uses the meclizine as needed which h elps. Tinnitus Esophageal dysmotility dysphagia s/p dilation Back pain, chronic Surgical History History of cataract surgery LEFT History of cardiac cath 04/2019 r/t ALICEA, no stents History of surgical removal of pituitary gland tumor excision History of bilateral salpingo-oophorectomy (BSO) History of esophagogastroduodenoscopy (EGD) multiple with multiple dilations History of colonoscopy History of tooth extraction S/P carpal tunnel release left S/P arthroscopic knee surgery left Fusion of spine multiple (fusion + revision) Removal spinal hardware T11-L1: 08/16/17: Grade 1 view, MAC #3, ETT 7.0 at [facility] T11-L1 hardware removal: 03/19/19: MAC#3 at [facility] History of arthroscopy right shoulder History of hysterectomy Family History Mother Diabetes Family history of diabetes mellitus Myocardial infarction Breast cancer Hypertension Other Coronary heart disease No family history of adverse response to anesthesia Denies family history of Ovarian cancer Prostate cancer Lung cancer Colorectal cancer Stroke Social History Smoking Status: Never smoker Second Hand Exposure: Yes ( smoked); Do You Dip or Chew Tobacco: No; Hx Alcohol Use: No Hx Substance Use: No Preferred Language: Uzbek Communication Ability: Effective Visual Impairment: Limited Hearing Ability: Normal 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 Beliefs That Will Affect Care: None marital status: marital status details: Three children Current Living Situation: Alone Current Living Situation Comment: [facility] current occupational status: retired Feels Safe at Home: Yes Childhood Exposure to Second-Hand Smoke: Yes Diet Comment: regular caffeine: Yes (pepsi) during the past year weight has: remained stable Dental Care, Regularly: No Physical Activity Frequency: Does not Exercise Physical Activity Frequency Comment: due to physical condition Seatbelt Use: always Sunscreen Use: Yes Assistive Devices: Cane and Walker Review of Systems Review of Systems: All systems reviewed & are unremarkable except as noted in HPI & below Constitutional: no fever, no chills and no fatigue Eyes: no problem reported Ear, Nose, Mouth, Throat: no problem reported Respiratory: no problem reported Cardiovascular: + edema; no problem reported Gastrointestinal: no nausea, no vomiting and no problem reported Genitourinary: no problem reported Musculoskeletal: no problem reported Integumentary: + skin ulcer, + wounds and + erythema Neurologic: + loss of sensation, + numbness and + pa resthesia; no generalized weakness Psychiatric: no problem reported Physical Exam Physical Exam: Lower extremity focused exam: DP/PT pulses 0/4 bilaterally. CFT is brisk to the digits except for the left hallux where the overlying large ulceration obscures distal capillary refill. The ulceration extends to the level of the bone directly on clinical exam. No significant bleeding or drainage is appreciated to the hallux. Advanced trophic changes are noted to the skin throughout otherwise. No hair growth is noted. Distal cooling is appreciated. Focal protective sensation is absent to the lower extremity. No ascending cellulitis is appreciated from the level of the hallux ulceration. Constitutional: WD/WN, vitals as above + ill appearing and + obese; no acute distress Eyes: PERRL, conjunctivae normal, anicteric sclerae ENMT: external ear and nose normal, oropharynx normal Mouth: + poor dentition Neck: trachea midline, no thyromegaly normal visual inspection Respiratory: normal respiratory effort; no respiratory distress Cardiovascular: Rate/Rhythm: regular rate and regular rhythm Vessels: + posterior tibial pulses abnormal and + dorsalis pedis pulses abnormal Chest (Breasts): Chest: normal inspection of chest Gastrointestinal (Abdomen): Inspection/Auscultation: abdomen normal to inspection Percussion/Palpation: + abdomen tender and abdomen soft Musculoskeletal: no cyanosis or clubbing, extremities motor strength 5/5 Head/Neck/Chest: normocephalic and head atraumatic Extremities: extremities normal to inspection Skin: + ulcer and + skin atrophy Neurologic: awake; no focal motor deficits Psychiatric: A+Ox3, euthymic affect Results & Data Vital Signs (Past 12 Hours) Vital Signs Temp Pulse Resp BP Pulse Ox O2 Del Method 08/22/23 07:48 36.7 C 73 16 109/63 97 Room Air Diagnostic Findings Plain film x-ray reveals extensive erosions of the distal phalanx of the left hallux. This is consistent with clinical exam where the bone is immediately palpable underlying the ulcer. This is highly suggestive of osteomyelitis.
[2023-08-22] MEDS ORDERED: ONDANSETRON INJ 2 MG/ML 2 ML VIAL ONE (16:15)
[2023-08-22] MEDS ORDERED: fentaNYL citrate PF 100 MCG/2 ML VIAL ONE (16:16)
[2023-08-22] MEDS ORDERED: PROPOFOL IV EMULSION 10 MG/ML 20 ML VIAL IV ONE (16:16)
--- NOTE | 2023-08-22 16:28 | Billing Data ---
Date of Service August 22, 2023 Coding Level of Care Code 29663 SUB INP/OBS CARE
[2023-08-22] MEDS: LACTATED RINGER'S 1,000 ML IV SCH (17:09)
[2023-08-22] MEDS: BUPIVACAINE 0.5 % 5 MG/1 ML MPF 30ML VIAL ONE (17:35)
[2023-08-22] MEDS ORDERED: PHENYLEPHRINE 100MCG/ML 10ML SYR IV ONE (17:39)
--- NOTE | 2023-08-22 17:48 | Post Operative Brief Note ---
Immediate Post Op Note Date of Surgery August 22, 2023 Pre & Post Diagnosis Operation Date: 08/22/23 07:00 Pre-Op Diagnosis: Left Great Toe Osteomylitis Post-Op Diagnosis: Left Great Toe Osteomylitis I identified the patient and participated in the time-out.: Yes Procedure Operation Date: 08/22/23 07:00 Actual Procedures p Left Hallux Amputation - Brian Butler DPM Surgeon Brian Butler DPM Sign Hanger None Estimated Blood Loss 2 Findings Consistent with Post-Op Diagnosis Specimens Left hallux pathology Left bone culture Anesthesia Type MAC Complications none Disposition Accompanied Patient To Recovery: Yes Disposition: Recovery Room
[2023-08-22] MEDS ORDERED: ePHEDrine sulfate 50 MG/ML AMP IV PRN (18:12)
[2023-08-22] MEDS ORDERED: fentaNYL citrate PF 100 MCG/2 ML VIAL IV PRN (18:12)
[2023-08-22] MEDS ORDERED: ATROPINE SULFATE 0.1 MG/ML 10ML SYR IV PRN (18:12)
[2023-08-22] MEDS ORDERED: ONDANSETRON INJ 2 MG/ML 2 ML VIAL IV PRN (18:12)
[2023-08-22] MEDS ORDERED: Nursing to Pharmacy Communication SCH (21:45)
--- NOTE | 2023-08-22 22:37 | Operative Report ---
Post Operative Report Pre & Post Diagnosis Operation Date: 08/22/23 07:00 Pre-Op Diagnosis: Left Great Toe Osteomylitis Post-Op Diagnosis: Left Great Toe Osteomylitis I identified the patient and participated in the time-out.: Yes Procedure Operation Date: 08/22/23 07:00 Actual Procedures p Left Hallux Amputation - Brian Butler DPM Surgeon Brian Butler DPM [employer] Design Sales Consultant None Estimated Blood Loss 2 Findings Consistent with Post-Op Diagnosis clinically clean margins were able to be obtained with resecting the digit at the level of the metatarsal phalangeal joint. No deeper abscess noted. Of n ote, no active bleeding was surgical dissection. Blood loss was extremely minimal despite the more proximal level of amputation Specimens left hallux sent for pathology and culture and sensitivity testing Anesthesia Type MAC Complications none Disposition Accompanied Patient To Recovery: Yes Disposition: Recovery Room Indications this patient is a consult of mine earlier today who presented to the emergency department from a wound care recommendation recently. She has failed conservative outpatient wound care. She states that the ulceration was doing better, however, recently the ulceration reopened an extremely deep level. Because of the level of insult to she was sent to the hospital for further evaluation and treatment. She denies any systemic signs or symptoms but does admit to this ulceration being an issue for a long time. We did discuss that she has options as far as treatment of this, including debridement of the ulcer with continued wound care and IV antibiotics versus amputation of the toe. We discussed that amputation offers a much more direct path towards healing. She is interested in this at this time. Consent was obtained after discussing the procedure in detail. Preoperative tractions, postoperative instructions, relative risks, and outcomes were all discussed. All questions were answered. Description of Procedure the patient was brought to the operating room placed on the operating table in the supine position. Following administration of IV sedation, local analgesia was obtained utilizing 10 cc of half percent Marcaine in a digital block. The left lower extremity was scrubbed prepped and draped in the usual aseptic manner. No tourniquet was utilized due to the patient's advanced trophic changes and evidence of necrosis to this digit. Attention was directed to the left hallux where a racquet-shaped incision was made extending along the dorsal medial aspect of the first metatarsal, extending circumferentially around the digit at the mid shaft of the proximal phalanx. The incision was carried down to the level of the proximal phalanx and the toe was disarticulated at the metatarsal phalangeal joint. The toe was passed off to the back table in one specimen and was later sectioned to send packaging sales representative samples of the affected bone for bone culture. The remainder of the toe was sent for bone pathology. The incision was flushed with copious amounts of sterile saline and closure was performed utilizing 2-0 nylon in a simple interrupted and horizontal mattress fashion. The incision was dressed with Xeroform gauze, 4 x 4 gauze, Kerlix, and an Conor wrap. The patient tolerated the procedure well and was transferred to the recovery room with vital signs stable and vascular status intact to the feet. Clinically clear margins were able to be obtained but her overall lack of blood flow is concerning for her long-term prognosis. We will continue to annhorace leija here on this hospitalization and as an outpatient once she is able to be discharged home. She can likely be discharged home in the short-term here as long as she remains stable postoperatively. I attest to the content of the Intraoperative Record and any orders documented therein. Any exceptions are noted below.
[2023-08-22] MEDS: MELATONIN 3 MG TAB PO PRN (23:41)
[2023-08-23] MEDS ORDERED: Nursing to Pharmacy Communication SCH (02:00)
[2023-08-23] MEDS: VANCOMYCIN HCL 1,000 MG in SODIUM CHLORIDE 0.9% 250 ML IV SCH (05:20)
[2023-08-23 06:48] LABS: Hematocrit (blood only) 28.9 % (37.0-47.0); Hemoglobin 8.9 g/dl (12.0-16.0); Mean Corpuscular Hemoglobin 23.2 pg (25.0-34.0); Mean Corpuscular Hgb Conc 30.8 g/dL (32.0-36.0); Mean Corpuscular Volume 75.3 fL (80.0-100.0); Mean Platelet Volume 9.7 fL (9.4-12.4); Platelet Count 470 K/uL (130-400); RDW Coefficient of Variation 17.8 % (11.5-14.5); Red Blood Count 3.84 M/uL (4.20-5.40); White Blood Count 8.85 K/ul (4.8-10.8)
--- NOTE | 2023-08-23 06:48 | Hospitalist Progress Note ---
Date of Service August 23, 2023 Assessment & Plan (1) Diabetic infection of left foot: (2) Osteomyelitis: (3) Hypomagnesemia: (4) Uncontrolled diabetes mellitus: (5) GERD (gastroesophageal reflux disease): (6) Hypothyroidism: (7) Hypertension: (8) Hyperlipidemia: Plan Pt is a 73 yo female with PMH of crohn's, vertigo, DM, HTN, hypothyroidism, and HLD presenting due to concern of worsening left great toe infection. Osteomyelitis of left great toe - in the setting of uncontrolled DM; last A1c 8.6% (06/2023) - pt previously following with wound care; per pt, they had called her recently have her re-establish - xray of left great toe showing significant erosion consistent with osteomyelitis - blood cx pending; wound culture; staph - s/p cipro and vanco in the ER; will continue IV antibiotics today with plan for transition to oral doxy on discharge for 2 weeks total AB coverage - podiatry consulted; s/p L great toe amputation 08/21 Uncontrolled DM w/ neuropathy - last A1c 8.6% (06/2023) - hold home metformin - insulin glargine 15u BID; SSI- adjust PRN - continue gabapentin 600mg BID Anemia - Hgb 10.6 upon admission; pt with hx of Crohn's disease; last colonoscopy 04/2023 showing mild ileitis/colitis found - appears somewhat new as pt had normal Hgb last year - vitamin B12 and folate levels acceptable, iron level low but will defer iron supplementation in the setting of acute infection Chronic conditions: GERD: continue pantoprazole 40 mg IV BID Chronic lower back pain: continue tramadol 50 mg BID Anxiety/depression: continue home buspirone 20 mg BID DVT ppx: POD#1 so defer today but will start lovenox qam tomorrow Admission and Anticipated Discharge Date Admission Date: August 20, 2023 Supervising Physician Co-Signing Physician Notes Patient seen and examined, chart reviewed, case discussed with Dr. Villafana and I agree with the assessment and plan as above except as otherwise noted Labs and images reviewed 73-year-old female s/p left hallux amputation for osteomyelitis. Has had some intermittent soreness over foot but reports this does feel improved from previous days. Patient with good margins, however had poor vascularization and blood flow. Recommended for 2 weeks of antibiotics, surface cultures were positive for MSSA. Oral Doxy continued, follow final surgical culture results. Patient is penicillin and cephalosporin allergic. PT/OT pending, unfortunately patient needs a orthotic/boot to proceed with PT and ambulate and this is not available possibly until Friday. Pending discussion at [facility] to see if this can be facilitated sooner. She denies fever, chills, sweats, nausea, vomiting today agree with above Subjective Pt is a 73 yo female with PMH of crohn's, vertigo, DM, HTN, hypothyroidism, and HLD presenting due to concern of worsening left great toe infection. Today, pt states she feels okay she just hates being here and would like to go home as soon as it is safe for her to go. She states "I just feel like I am doing absolutely nothing here all day and I would rather do nothing at home." No questions or complaints otherwise, physically feels well with some soreness in her foot that is relatively mild. No chest pain or SOB. Review of Systems Review of Systems: Per HPI. Physical Exam Physical Exam: General:Alert and oriented, no acute distress, HEENT: Normocephalic, moist oral mucosa, Cardio: Regular rate and rhythm, no murmur, Resp:Lungs clear to auscultation b/l, no wheezes or rhonchi, Skin: Warm, pink, dry, Results & Data Results & Data Vital Signs (Past 12 Hours) Vital Signs Temp Pulse Resp BP Pulse Ox O2 Del Method 08/23/23 03:09 36.5 C 70 17 110/54 L 98 Room Air 08/22/23 21:35 37.0 C 98 H 16 128/73 97 Room Air 08/22/23 20:43 36.9 C 52 L 16 118/75 97 Room Air 08/22/23 19:35 36.8 C 63 16 119/72 97 Room Air 08/22/23 19:05 36.8 C 73 18 117/61 97 Room Air Resident Activity Tracking Resident Involvement: Resident Care Provided Care Provided: Adult Hospital Medicine (2) Osteomyelitis Laterality: left Osteomyelitis location: foot Osteomyelitis type: other acute Qualified Code(s): M86.172 - Other acute osteomyelitis, left ankle and foot (4) Uncontrolled diabetes mellitus Diabetes mellitus type: type 2 Glycemic state: with hyperglycemia Qualified Code(s): E11.65 - Type 2 diabetes mellitus with hyperglycemia
[2023-08-23 07:07] LABS: BUN Creatinine Ratio 9.7 (10-20); Calcium 8.9 mg/dl (8.6-10.3); Creatinine Clr Calc Pharmacy 37.7 ml/min; Est GFR (African American) 55.4 ml/min; Est GFR (Non-African American) 47.8 ml/min; Magnesium 1.2 mg/dl (1.7-2.4); Potassium 3.6 mmol/L (3.5-5.1)
[2023-08-23] MEDS: INSULIN ASPART PER UNIT CHARGE SC SCH (08:53)
[2023-08-23] MEDS: MAGNESIUM SULFATE / D5W 1 GM/100 ML BAG IV SCH (12:57)
--- NOTE | 2023-08-23 12:57 | Billing Data ---
Date of Service August 23, 2023 Coding Level of Care Code 08607 SUB INP/OBS CARE
--- NOTE | 2023-08-24 06:47 | Hospitalist Progress Note ---
Date of Service August 24, 2023 Assessment & Plan (1) Diabetic infection of left foot: (2) Osteomyelitis: (3) Hypomagnesemia: (4) Uncontrolled diabetes mellitus: (5) GERD (gastroesophageal reflux disease): (6) Hypothyroidism: (7) Hypertension: (8) Hyperlipidemia: Plan Pt is a 73 yo female with PMH of crohn's, vertigo, DM, HTN, hypothyroidism, and HLD presenting due to concern of worsening left great toe infection. Today, awaiting foot measurements tomorrow for walking boot, then PT/OT to see her to [facility] for dispo planning. Osteomyelitis of left great toe - in the setting of uncontrolled DM; last A1c 8.6% (06/2023) - pt previously following with wound care; per pt, they had called her recently have her re-establish - xray of left great toe showing significant erosion consistent with osteomyelitis - blood cx pending; wound culture; staph - s/p cipro and vanco in the ER; will continue IV antibiotics today with plan for transition to oral doxy on discharge for 2 weeks total AB coverage - podiatry consulted; s/p L great toe amputation 08/21 Uncontrolled DM w/ neuropathy - last A1c 8.6% (06/2023) - hold home metformin - insulin glargine 15u BID; SSI- adjust PRN - continue gabapentin 600mg BID Anemia - Hgb 10.6 upon admission; pt with hx of Crohn's disease; last colonoscopy 04/2023 showing mild ileitis/colitis found - appears somewhat new as pt had normal Hgb last year - vitamin B12 and folate levels acceptable, iron level low but will defer iron supplementation in the setting of acute infection Chronic conditions: GERD: continue pantoprazole 40 mg IV BID Chronic lower back pain: continue tramadol 50 mg BID Anxiety/depression: continue home buspirone 20 mg BID DVT ppx: lovenox Admission and Anticipated Discharge Date Admission Date: August 20, 2023 Supervising Physician Co-Signing Physician Notes Patient seen and examined, chart reviewed, case discussed with Dr. Villafana and I agree with the assessment and plan as above except as otherwise noted Labs and images reviewed 23-year-old female s/p l hallux amputation for osteomyelitis. 2 weeks of antibiotics to be completed postoperatively, anticipate conversion to doxycycline at discharge based on surgical culture sensitivities. Surgical cultures have speciated for staph MSSA with sensitivities pending, prior surface culture showed pansensitive MSSA.. Patient has no questions or concerns at bedside. She will be fit for an orthotic boot on 08/24, unfortunately this cannot be done prior to then and then may have full PT/OT assessments in progress to placement at that time. At bedside assessment lungs are clear, heart is regular. PT pulses intact. No pain on palpation overlying surgical site Subjective Pt is a 73 yo female with PMH of crohn's, vertigo, DM, HTN, hypothyroidism, and HLD presenting due to concern of worsening left great toe infection. Today, pt states she feels fine, states she maybe did not sleep the best last night since it is hard to sleep here and states that she misses her home, but otherwise not much pain, tolerating diet, and feels generally well. No further questions or complaints. No chest pain or SOB. No abdominal pain, nausea, or vomiting. Review of Systems Review of Systems: Per HPI. Physical Exam Physical Exam: General:Alert and oriented, no acute distress, HEENT: Normocephalic, moist oral mucosa, Cardio: Regular rate and rhythm, no murmur, Resp:Lungs clear to auscultation b/l, no wheezes or rhonchi, Skin: Warm, pink, dry, Results & Data Results & Data Vital Signs (Past 12 Hours) Vital Signs Temp Pulse Pulse Resp BP Pulse Ox O2 Del Method 08/24/23 06:44 36.8 C 75 16 108/65 94 Room Air 08/23/23 19:37 36.7 C 69 12 121/69 95 Room Air Resident Activity Tracking Resident Involvement: Resident Care Provided Care Provided: Adult Hospital Medicine (2) Osteomyelitis Laterality: left Osteomyelitis location: foot Osteomyelitis type: other acute Qualified Code(s): M86.172 - Other acute osteomyelitis, left ankle and foot (4) Uncontrolled diabetes mellitus Diabetes mellitus type: type 2 Glycemic state: with hyperglycemia Qualified Code(s): E11.65 - Type 2 diabetes mellitus with hyperglycemia
[2023-08-24 07:16] LABS: Basophils # (auto) 0.11 K/uL (0.00-0.20); Basophils % (auto) 1.5 %; Eosinophils # (auto) 0.29 K/uL (0.00-0.50); Hemoglobin 9.1 g/dl (12.0-16.0); Immature Granulocytes # (auto) 0.08 K/uL (0.01-0.20); Immature Granulocytes % (auto) 1.1 %; Lymphocytes # (auto) 2.28 K/uL (1.20-3.40); Lymphocytes % (auto) 31.8 %; Mean Corpuscular Hemoglobin 23.4 pg (25.0-34.0); Mean Corpuscular Hgb Conc 31.4 g/dL (32.0-36.0); Mean Corpuscular Volume 74.6 fL (80.0-100.0); Mean Platelet Volume 9.5 fL (9.4-12.4); Monocytes # (auto) 0.83 K/uL (0.11-0.59); Monocytes % (auto) 11.6 %; Neutrophils # (auto) 3.59 K/uL (1.40-6.50); Platelet Count 490 K/uL (130-400); RDW Coefficient of Variation 17.9 % (11.5-14.5); RDW Standard Deviation 47.6 fL (36.4-46.3); Red Blood Count 3.89 M/uL (4.20-5.40); White Blood Count 7.18 K/ul (4.8-10.8)
[2023-08-24 07:34] LABS: BUN Creatinine Ratio 8.8 (10-20); Calcium 8.8 mg/dl (8.6-10.3); Creatinine Clr Calc Pharmacy 41.8 ml/min; Est GFR (African American) 62.8 ml/min; Est GFR (Non-African American) 54.1 ml/min; Potassium 3.7 mmol/L (3.5-5.1)
[2023-08-24] MEDS: ENOXAPARIN INJ 40 MG/0.4 ML SYR SQ SCH (08:33)
--- NOTE | 2023-08-24 11:51 | Billing Data ---
Date of Service August 24, 2023 Coding Level of Care Code 25445 SUB INP/OBS CARE
[2023-08-25] MEDS: VANCOMYCIN LEVEL ONE (06:35)
[2023-08-25 06:47] LABS: Basophils % (auto) 1.3 %; Eosinophils # (auto) 0.31 K/uL (0.00-0.50); Hematocrit (blood only) 31.1 % (37.0-47.0); Hemoglobin 9.7 g/dl (12.0-16.0); Immature Granulocytes # (auto) 0.13 K/uL (0.01-0.20); Immature Granulocytes % (auto) 1.7 %; Lymphocytes # (auto) 2.66 K/uL (1.20-3.40); Lymphocytes % (auto) 34.4 %; Mean Corpuscular Hemoglobin 23.5 pg (25.0-34.0); Mean Corpuscular Hgb Conc 31.2 g/dL (32.0-36.0); Mean Corpuscular Volume 75.5 fL (80.0-100.0); Mean Platelet Volume 8.9 fL (9.4-12.4); Monocytes # (auto) 0.86 K/uL (0.11-0.59); Monocytes % (auto) 11.1 %; Neutrophils # (auto) 3.68 K/uL (1.40-6.50); Neutrophils % (auto) 47.5 %; Platelet Count 498 K/uL (130-400); RDW Standard Deviation 48.7 fL (36.4-46.3); Red Blood Count 4.12 M/uL (4.20-5.40); White Blood Count 7.74 K/ul (4.8-10.8)
[2023-08-25 07:03] LABS: BUN Creatinine Ratio 9.6 (10-20); Calcium 9.1 mg/dl (8.6-10.3); Creatinine Clr Calc Pharmacy 34.1 ml/min; Est GFR (African American) 49.1 ml/min; Est GFR (Non-African American) 42.3 ml/min; Potassium 3.9 mmol/L (3.5-5.1)
--- NOTE | 2023-08-25 08:17 | Pharmacy Report ---
Pharmacy PK ABX Note - Date of Service August 25, 2023 - Assessment and Plan Assessment 08/24 * Random vancomycin level this AM was ~13 mcg/ml - current vancomycin dosing estimated to achieve goal AUC/ONIEL therefore will continue current regimen. 08/21 * Ms Cabrera is a 73 year old F receiving vancomycin and ciprofloxacin for treatment of L great toe osteomyelitis/DM foot infection. * Pertinent microbiologic data includes: Urine culture shows pinpoint growth, b lood cultures x 2 no growth to date, and L toe culture still pending (gram positive cocci, gram negative bacilli, and gram positive bacilli on gram stain) * PMH is significant for uncontrolled DM w/ neuropathy, Crohn's, recurrent UTI * Remains afebrile w/ no overt leukocytosis. Unclear baseline SCr, ranging ~1- 1.3 mg/dL. Current SCr of 1.15 mg/dL. Plan Vancomycin * Current regimen: 1000 mg IV every 24 hours * Plan to continue current regimen. Preliminary toe cultures with staph and Gm+ cocci with sensitivities pending Pharmacy will continue to follow and will adjust dose/frequency as necessary. Thank you. Pharmacy has transitioned to AUC monitoring for vancomycin. AUC/ONIEL is the preferred PK/PD target and is associated with decreased risk of nephrotoxicity compared to traditional trough targets.
--- NOTE | 2023-08-25 15:05 | Hospitalist Progress Note ---
Date of Service August 25, 2023 Assessment & Plan (1) Diabetic infection of left foot: (2) Osteomyelitis: (3) Hypomagnesemia: (4) Uncontrolled diabetes mellitus: (5) GERD (gastroesophageal reflux disease): (6) Hypothyroidism: (7) Hypertension: (8) Hyperlipidemia: Plan Pt is a 73 yo female with PMH of crohn's, vertigo, DM, HTN, hypothyroidism, and HLD presenting due to concern of worsening left great toe infection now s/p great toe amputation. Fitted for walking boot today. Awaiting PT/OT recs for discharge. Osteomyelitis of left great toe Likely in the setting of uncontrolled DM; last A1c 8.6% (06/2023). Osteo on imaging. BCx NGTD x24H. WCx s. aureus and e. faecalis. Currently on doxycycline. Start daptomycin for 7 days to cover e. faecalis. doxy and daptomycin podiatry consult - appreciate recs Uncontrolled DM w/ neuropathy - last A1c 8.6% (06/2023) - hold home metformin - insulin glargine 15u BID; SSI- adjust PRN - continue gabapentin 600mg BID Anemia - Hgb 10.6 upon admission; pt with hx of Crohn's disease; last colonoscopy 04/2023 showing mild ileitis/colitis found - appears somewhat new as pt had normal Hgb last year - vitamin B12 and folate levels acceptable, iron level low but will defer iron supplementation in the setting of acute infection Chronic conditions: GERD: continue pantoprazole 40 mg IV BID Chronic lower back pain: continue tramadol 50 mg BID Anxiety/depression: continue home buspirone 20 mg BID DVT ppx: lovenox Admission and Anticipated Discharge Date Admission Date: August 20, 2023 Supervising Physician Co-Signing Physician Notes Attending attestation Pt seen and examined in concert with Dr. Nielson. In agreement with the documented findings as noted in the resident documentation with any exceptions or additions as noted here. Sitting upright in bed without current complaint, some mild pain of the affected extremity well controlled at present. On examination, S1/S2 nl RRR no MCG. Good airmovement throughout with some mild decreased breath sounds of the b/l LL. Abd NT/ND BS+ve Osteomyelitis of the L great toe s/p amputation - continue doxycycline PO to complete course. Follow up final cultures. Encourage incentive spirometry to minimize atelectasis from positional cause. Else see resident documentation as noted. Subjective Patient seen at bedside this AM. No CP or SOB. Intermittent pain - improves with medication. Tolerating PO. +BM. Review of Systems 2 Review of Systems: See HPI Physical Exam 2 Physical Exam: Gen: well appearing patient in NAD HEENT: AT NC MMM Resp: CTAB no wheezing no increased work of breathing CV: RRR no m/r/g clinically well perfused Abd: non-distended MSK: no obvious deformities Skin: no rashes or bruising Neuro: alert and oriented Psych: appropriate mood and affect Results & Data Results & Data Vital Signs (Past 12 Hours) Vital Signs Temp Pulse Pulse Resp BP Pulse Ox O2 Del Method 08/25/23 14:44 36.6 C 69 16 120/58 L 92 Room Air 08/25/23 12:06 36.5 C 66 20 100/58 L 96 Room Air 08/25/23 08:02 36.5 C 60 18 102/58 L 94 Room Air 08/25/23 07:17 36.6 C 70 16 121/55 L 92 Room Air Laboratory Results 08/25/23 06:32 08/25/23 06:32 (2) Osteomyelitis Laterality: left Osteomyelitis location: foot Osteomyelitis type: other acute Qualified Code(s): M86.172 - Other acute osteomyelitis, left ankle and foot (4) Uncontrolled diabetes mellitus Diabetes mellitus type: type 2 Glycemic state: with hyperglycemia Qualified Code(s): E11.65 - Type 2 diabetes mellitus with hyperglycemia
[2023-08-25] MEDS: DAPTOmycin 325 MG in SYRINGE 0 ML IV SCH (18:36)
[2023-08-25] MEDS: DOXYCYCLINE HYCLATE 100 MG CAP PO SCH (20:10)
--- NOTE | 2023-08-25 23:16 | Podiatry Progress Note ---
Date of Service August 24, 2023 Assessment & Plan (1) Osteomyelitis: (2) Diabetic infection of left foot: (3) Uncontrolled diabetes mellitus: Plan Pt examined and evaluated. - Has been fit by nursing into surgical shoe, which is good for ambulating short term/in controlled setting. - Pending fit with Cam walker for longer distances and better protection of the surgical site. Should be evaluated Friday. - Can d/c home with minimal abx after fit into walker boot. Potentially could benefit from 2 weeks oral abx for empiric therapy, but would defer to ID team and/or primary care team. Clinically clear margins were able to be obtained along with primary surgical closure. - Will remove sutures at 2 weeks s/p amputation as an outpatient. - Will follow here sporadically, but likely d/c in the next day or two. Admission and Anticipated Discharge Date Admission Date: August 20, 2023 Subjective Pt seen at bedside. No new concerns. Eager to go home when able; has no new pain or s/s of infection. Review of Systems Review of Systems: All systems reviewed & are unremarkable except as noted in HPI & below Constitutional: no fever, no chills and no fatigue Eyes: no problem reported Ear, Nose, Mouth, Throat: no problem reported Respiratory: no problem reported Cardiovascular: + edema; no problem reported Gastrointestinal: no nausea, no vomiting and no problem reported Genitourinary: no problem reported Musculoskeletal: no problem reported Integumentary: + skin ulcer, + wounds and + erythema Neurologic: + loss of sensation, + numbness and + pa resthesia; no generalized weakness Psychiatric: no problem reported Physical Exam Physical Exam: Lower extremity focused exam: DP/PT pulses 0/4 bilaterally. CFT is brisk to the digits. Sutures intact to the left hallux amputation site. No active bleeding/drainage noted. No pain on exam. No significant bleeding or drainage is appreciated to the hallux. Advanced trophic changes are noted to the skin throughout otherwise. No hair growth is noted. Distal cooling is appreciated. Focal protective sensation is absent to the lower extremity. No ascending cellulitis is appreciated from the level of the hallux ulceration. Constitutional: WD/WN, vitals as above + ill appearing and + obese; no acute distress Eyes: PERRL, conjunctivae normal, anicteric sclerae ENMT: external ear and nose normal, oropharynx normal Mouth: + poor dentition Neck: trachea midline, no thyromegaly normal visual inspection Respiratory: normal respiratory effort; no respiratory distress Cardiovascular: Rate/Rhythm: regular rate and regular rhythm Vessels: + posterior tibial pulses abnormal and + dorsalis pedis pulses abnormal Chest (Breasts): Chest: normal inspection of chest Gastrointestinal (Abdomen): Inspection/Auscultation: abdomen normal to inspection Percussion/Palpation: + abdomen tender and abdomen soft Musculoskeletal: no cyanosis or clubbing, extremities motor strength 5/5 Head/Neck/Chest: normocephalic and head atraumatic Extremities: extremities normal to inspection Skin: + ulcer and + skin atrophy Neurologic: awake; no focal motor deficits Psychiatric: A+Ox3, euthymic affect Results & Data Results & Data Vital Signs (Past 12 Hours) Vital Signs Temp Pulse Pulse Resp BP Pulse Ox O2 Del Method 08/25/23 20:05 36.8 C 72 16 145/67 H 97 Room Air 08/25/23 14:44 36.6 C 69 16 120/58 L 92 Room Air 08/25/23 12:06 36.5 C 66 20 100/58 L 96 Room Air (1) Osteomyelitis Laterality: left Osteomyelitis location: foot Osteomyelitis type: other acute Qualified Code(s): M86.172 - Other acute osteomyelitis, left ankle and foot (3) Uncontrolled diabetes mellitus Diabetes mellitus type: type 2 Glycemic state: with hyperglycemia Qualified Code(s): E11.65 - Type 2 diabetes mellitus with hyperglycemia
--- NOTE | 2023-08-26 07:03 | Hospitalist Progress Note ---
Date of Service August 26, 2023 Assessment & Plan (1) Diabetic infection of left foot: (2) Osteomyelitis: (3) Hypomagnesemia: (4) Uncontrolled diabetes mellitus: (5) GERD (gastroesophageal reflux disease): (6) Hypothyroidism: (7) Hypertension: (8) Hyperlipidemia: Plan Pt is a 73 y/o female with PMH of crohn's, vertigo, DM, HTN, hypothyroidism, and HLD presenting due to concern of worsening left great toe infection now s/p great toe amputation. Fitted for walking boot. Awaiting PT/OT recs for discharge. Osteomyelitis of left great toe Likely in the setting of uncontrolled DM; last A1c 8.6% (06/2023). Osteo on imaging. BCx NGTD x24H. WCx s. aureus and e. faecalis. Currently on doxycycline. Start daptomycin for 7 days to cover e. faecalis. doxy and daptomycin - may need PICC podiatry consult - appreciate recs awaiting PT/OT recs Uncontrolled DM w/ neuropathy - last A1c 8.6% (06/2023) - hold home metformin - insulin glargine 15u BID; SSI- adjust PRN - continue gabapentin 600mg BID Anemia - Hgb 10.6 upon admission; pt with hx of Crohn's disease; last colonoscopy 04/2023 showing mild ileitis/colitis found - appears somewhat new as pt had normal Hgb last year - vitamin B12 and folate levels acceptable, iron level low but will defer iron supplementation in the setting of acute infection Chronic conditions: GERD: continue pantoprazole 40 mg IV BID Chronic lower back pain: continue tramadol 50 mg BID Anxiety/depression: continue home buspirone 20 mg BID DVT ppx: lovenox Admission and Anticipated Discharge Date Admission Date: August 20, 2023 Supervising Physician Co-Signing Physician Notes Attending attestation Pt seen and examined in concert with Dr. Nielson. In agreement with the documented findings as noted in the resident documentation with any exceptions or additions as noted here. Gradually improving pain of the left lower extremity with good subjective tolerance of PT with walking boot. On examination, S1/S2 nl RRR no MCG. Good air movement throughout, mild decreased breath sounds of the b/l LL. Abd NT/ND BS+ve Osteomyelitis of the L great toe s/p amputation - wound culture +ve for E. faecalis s/p addition of daptomycin, continue doxycycline. Encourage incentive spirometry to minimize atelectasis from positional cause. Else see resident documentation as noted. Subjective Patient seen at bedside this morning. Denies any CP or SOB. Pain in foot is tolerable with pain medication. Did have some trouble starting ambulation with PT. Otherwise tolerating PO. Review of Systems Review of Systems: See HPI Physical Exam Physical Exam: Gen: well appearing patient in NAD HEENT: AT NC MMM Resp: no increased work of breathing CV: clinically well perfused Abd: non-distended MSK: no obvious deformities Skin: no rashes or bruising Neuro: alert and oriented Psych: appropriate mood and affect Results & Data Results & Data Vital Signs (Past 12 Hours) Vital Signs Temp Pulse Resp BP Pulse Ox O2 Del Method 08/25/23 20:05 36.8 C 72 16 145/67 H 97 Room Air Resident Activity Tracking Resident Involvement: Resident Care Provided Care Provided: Adult Hospital Medicine (2) Osteomyelitis Laterality: left Osteomyelitis location: foot Osteomyelitis type: other acute Qualified Code(s): M86.172 - Other acute osteomyelitis, left ankle and foot (4) Uncontrolled diabetes mellitus Diabetes mellitus type: type 2 Glycemic state: with hyperglycemia Qualified Code(s): E11.65 - Type 2 diabetes mellitus with hyperglycemia
[2023-08-26 08:01] LABS: Basophils # (auto) 0.14 K/uL (0.00-0.20); Eosinophils # (auto) 0.33 K/uL (0.00-0.50); Eosinophils % (auto) 4.6 %; Hematocrit (blood only) 30.1 % (37.0-47.0); Hemoglobin 9.4 g/dl (12.0-16.0); Immature Granulocytes # (auto) 0.12 K/uL (0.01-0.20); Immature Granulocytes % (auto) 1.7 %; Lymphocytes # (auto) 2.39 K/uL (1.20-3.40); Lymphocytes % (auto) 33.4 %; Mean Corpuscular Hemoglobin 23.4 pg (25.0-34.0); Mean Corpuscular Hgb Conc 31.2 g/dL (32.0-36.0); Mean Corpuscular Volume 75.1 fL (80.0-100.0); Mean Platelet Volume 9.5 fL (9.4-12.4); Monocytes # (auto) 0.97 K/uL (0.11-0.59); Monocytes % (auto) 13.6 %; Neutrophils % (auto) 44.7 %; Platelet Count 474 K/uL (130-400); RDW Standard Deviation 48.8 fL (36.4-46.3); Red Blood Count 4.01 M/uL (4.20-5.40); White Blood Count 7.15 K/ul (4.8-10.8)
[2023-08-26 08:19] LABS: BUN Creatinine Ratio 12.7 (10-20); Calcium 9.1 mg/dl (8.6-10.3); Creatinine Clr Calc Pharmacy 36.1 ml/min; Est GFR (African American) 52.6 ml/min; Est GFR (Non-African American) 45.4 ml/min; Potassium 3.8 mmol/L (3.5-5.1)
[2023-08-26] MEDS: ONDANSETRON INJ 2 MG/ML 2 ML VIAL IV PRN (09:12)
[2023-08-27 08:18] LABS: Basophils # (auto) 0.15 K/uL (0.00-0.20); Basophils % (auto) 1.9 %; Eosinophils # (auto) 0.34 K/uL (0.00-0.50); Eosinophils % (auto) 4.2 %; Hemoglobin 9.2 g/dl (12.0-16.0); Immature Granulocytes # (auto) 0.09 K/uL (0.01-0.20); Immature Granulocytes % (auto) 1.1 %; Lymphocytes # (auto) 3.19 K/uL (1.20-3.40); Lymphocytes % (auto) 39.6 %; Mean Corpuscular Hemoglobin 23.1 pg (25.0-34.0); Mean Corpuscular Hgb Conc 30.7 g/dL (32.0-36.0); Mean Corpuscular Volume 75.2 fL (80.0-100.0); Mean Platelet Volume 9.2 fL (9.4-12.4); Monocytes # (auto) 1.19 K/uL (0.11-0.59); Monocytes % (auto) 14.8 %; Neutrophils % (auto) 38.4 %; Platelet Count 488 K/uL (130-400); RDW Coefficient of Variation 18.6 % (11.5-14.5); RDW Standard Deviation 50.1 fL (36.4-46.3); Red Blood Count 3.99 M/uL (4.20-5.40); White Blood Count 8.06 K/ul (4.8-10.8)
[2023-08-27 08:45] LABS: BUN Creatinine Ratio 13.9 (10-20); Calcium 9.1 mg/dl (8.6-10.3); Creatinine Clr Calc Pharmacy 39.5 ml/min; Est GFR (African American) 58.6 ml/min; Est GFR (Non-African American) 50.5 ml/min; Potassium 4.2 mmol/L (3.5-5.1)
[2023-08-27 12:18] VITALS: BP 108/62; PULSE 86; RESP 20; TEMP 97.7; O2SAT 97
[2023-08-27] MEDS ORDERED: ACETAMINOPHEN 500 MG TAB PO PRN (13:14)
--- NOTE | 2023-08-27 13:30 | Discharge Summary ---
Date of Service August 27, 2023 Admission HPI Per Admitting Provider Pt is a 73 yo female with PMH of crohn's, vertigo, DM, HTN, hypothyroidism, and HLD presenting due to concern of worsening left great toe infection. Pt notes that she has been dealing with a left foot wound for many months but over the past week she noticed an increase in wound size. Her "bone is sticking out" which prompted her to come to the hospital. She does endorses some superior left foot pain extending up into her leg. She endorses some reflux symptoms and trouble eating but no vomiting, fevers, or chills. She denies current chest pain and SOB. In the ER, pt was given mag 2g, cipro x1, and vanco x1. Admission Exam Per Admitting Provider Constitutional: NAD, bradycardic. Eyes: Conjunctivae normal. Respiratory: CTA bilaterally. Non labored breathing. No rhonchi, wheezing, or crackles. Cardiovascular: Regular rhythm, bradycardic. No murmurs noted. No LE edema. Gastrointestinal (Abdomen): Nontender, +BS. No masses noted. Skin: No rashes or skin lesions noted. Neurologic: Sensation grossly intact. No FND appreciated. Psychiatric: Speech of normal pace and content. Mood and affect congruent. Principal Diagnosis osteomyelitis Discharge Exam Gen: well appearing patient in NAD HEENT: AT NC MMM Resp: CTAB no wheezing no increased work of breathing CV: RRR no m/r/g clinically well perfused Abd: non-distended MSK: no obvious deformities Skin: no rashes or bruising Neuro: alert and oriented Psych: appropriate mood and affect Discharge Data Allergies Allergy/AdvReac Type Severity Reaction Status Date / Time cephalexin Allergy Intermediate Hives Verified 08/20/23 19:30 Cephalosporins Allergy Intermediate Hives Verified 08/20/23 19:30 infliximab Allergy Intermediate Itching, Verified 08/20/23 19:30 rash Penicillins Allergy Intermediate Hives Verified 08/20/23 19:30 ciprofloxacin AdvReac Intermediate N/V Verified 08/20/23 19:30 doxycycline AdvReac Intermediate GI upset Verified 08/20/23 19:30 Consultations 08/20/23 18:57 ED Decision to Admit Stat 08/21/23 09:25 Consult Podiatry Routine Procedures Performed Operation Date: 08/22/23 07:00 Actual Procedures p Left Hallux Amputation(Left) - Brian Butler DPM Hospital Course (1) Diabetic infection of left foot: (2) Osteomyelitis: (3) Hypomagnesemia: (4) Uncontrolled diabetes mellitus: (5) GERD (gastroesophageal reflux disease): (6) Hypothyroidism: (7) Hypertension: (8) Hyperlipidemia: Plan Pt is a 73 y/o female with PMH of crohn's, vertigo, DM, HTN, hypothyroidism, and HLD presenting due to concern of worsening left great toe infection now s/p great toe amputation. Fitted for walking boot. Awaiting PT/OT recs for discharge. Osteomyelitis of left great toe Likely in the setting of uncontrolled DM; last A1c 8.6% (06/2023). Osteo on imaging. BCx NGTD x24H. WCx s. aureus and e. faecalis. Appropriate covered with 5 days of post-op antibiotics - doxycycline, vanc -> dapto. Recommend outpatient surgery f/u and wound clinic if needed. PT did recommend rehab for strengthening. With shared decision making patient to return home with care from daughter/granddaughter. If symptoms worsen would do 2 weeks of enterococcus and MSSA coverage. Strict return precautions given. Uncontrolled DM w/ neuropathy Held home meds. Basal with SSI while inpatient. Last A1c 8.6% (06/2023). Would recommend reviewing insulin regimen outpatient. Continue gabapentin 600 mg BID for neuropathy symptoms. Anemia | Iron Deficiency |Crohn's Anemic on admission. Pt with hx of Crohn's disease; last colonoscopy 04/2023 showing mild ileitis/colitis found. Stable around 9. Would recommend outpatient monitoring and supplementation of iron after clearance of acute infection. Chronic conditions: GERD: continue pantoprazole 40 mg IV BID Chronic lower back pain: continue tramadol 50 mg BID Anxiety/depression: continue home buspirone 20 mg BID Total Time Total Time Spent Total Time Spent (In Minutes): See attending attestation Discharge Plan Discharge Items Patient Disposition: Home - Self-Care Reason For Visit: LEFT GREAT TOE OSTEOMYELITIS Discharge Diagnosis: left great toe osteomyelitis Activity: Per Instructions section Non-emergency contact: Primary Care Provider and Surgeon Call non-emergency contact if: you have any medication questions and your temperature is above 101 Follow-up/Referrals: Pro,Paramjit Heck MD [Primary Care Provider] - 09/09/23 1:30 pm Diet: Carb Consistent or DM2 Addtl Attending Provider Instructions: You were seen in the hospital for toe osteomyelitis. You did have a procedure to remove the infected toe. You completed your course of antibiotics. I would recommend strict sugar control to help with healing. We would recommend rehab for strengthening, but with shared decision making we have decided that you will return home with care from your daughter. It will be important to follow up with your PCP. If you do not hear from them, call their office to schedule. Pending Studies at Discharge: No Stand-Alone Forms: [facility] Medications and DC Order Prescriptions: Continued multivitamin Tablet 1 tab PO DAILY calcium carbonate-vitamin D3 [Calcium with Vitamin D] 600 mg-10 mcg (400 unit) tablet 1 tab PO BID Entyvio 300 mg recon soln 300 mg IV Q8WK Qty: 1 6RF (DME) pen needle, diabetic [BD Ultra-Fine Jacqueline Pen Needle] 32 gauge x 5/32" needle See Rx Instructions .ROUTE .MEDSUPPLY Qty: 100 3RF Rx Instructions: Use once daily with Lantus (DME) OneTouch Verio test strips Strip See Rx Instructions .ROUTE .MEDSUPPLY Qty: 300 3RF Rx Instructions: Check sugar 3 times a day insulin glargine [Lantus Solostar U-100 Insulin] 100 unit/mL (3 mL) insulin pen 30 unit subcut QPM Qty: 45 1RF Patient Comments: 30 units Rx Instructions: PER PT "HAVEN'T USED FOR A LONG TIME, WRONG NEEDLES FROM PHARMACY". LAST FILLED 09/08. inject 30 units at bed time; total daily dose up to 30 units a day (DME) lancets 33 gauge misc See Rx Instructions .MEDSUPPLY Qty: 300 3RF Rx Instructions: As directed check blood sugars 3 omeprazole 40 mg capsule,delayed release(DR/EC) 40 mg PO BID Qty: 180 3RF topiramate [Topamax] 25 mg tablet 25 mg PO BID Qty: 180 3RF levothyroxine 112 mcg tablet 112 mcg PO QAM Qty: 90 3RF Patient Comments: TAKES "IF REMEMBERS TO TAKE" atorvastatin 20 mg tablet 20 mg PO QAM Qty: 90 3RF lisinopril 30 mg tablet 30 mg PO QAM Qty: 90 3RF levalbuterol tartrate [Xopenex HFA] 45 mcg/actuation HFA aerosol inhaler 1 puff INH Q6H PRN (Reason: shortness of breath or wheezing) Qty: 45 3RF loperamide 2 mg capsule 2 mg PO Q6H PRN (Reason: loose stool) 90 Days Qty: 180 3RF Patient Comments: PT DOES NOT HAVE gabapentin 600 mg tablet 600 mg PO BID Qty: 180 3RF metformin 500 mg tablet extended release 24 hr 500 mg PO .COMPLEX Qty: 270 3RF Rx Instructions: TAKES 500 MG QAM, THEN 1,000 MG QPM. tramadol 50 mg tablet 50 mg PO BID 30 Days Qty: 60 0RF ondansetron HCl 4 mg tablet 8 mg PO Q8H PRN (Reason: Nausea) Qty: 180 0RF hydroxyzine HCl 25 mg tablet 25 mg PO BID PRN (Reason: anxiety) Qty: 30 0RF duloxetine [Cymbalta] 30 mg capsule,delayed release(DR/EC) 30 mg PO QAM Rx Instructions: TOTAL 90 MG--TAKES WITH 60 MG CAP. aspirin 81 mg Tablet,Delayed Release (Dr/Ec) 81 mg PO QAM Patient Comments: PT STATES NOT TAKING buspirone 10 mg Tablet 20 mg PO BID duloxetine 60 mg capsule,delayed release(DR/EC) 60 mg PO QAM Rx Instructions: TOTAL DOSE 90 MG--TAKES WITH 30 MG CAP. acetaminophen 500 mg Tablet 500 mg PO Q6H PRN (Reason: Pain) meclizine 12.5 mg tablet 12.5 - 25 mg PO BID PRN (Reason: dizziness) Rx Instructions: 1-2 orally twice a day PRN; cyanocobalamin (vitamin B-12) [Vitamin B-12] 1,000 mcg Tablet 1,000 mcg PO DAILY diphenhydramine HCl [Benadryl] 25 mg Capsule 25 mg PO DIRECTED PRN (Reason: NEEDED) docusate sodium [Stool Softener] 100 mg Capsule 100 mg PO DAILY Discharge Orders: Discharge Order (Routine); Ordered 08/27/23 Ordered By: Esmer Nielson Admission Data Admit Date/Time: 08/20/23 19:43 Attending Provider: Panfilo Merritt Admit Provider: Liseth Land Primary Care Provider: Paramjit Martinez Other Providers: Kenisha Resendez; Brian Butler; Tammy,Fax; [facility] Other Interventions: Discharge Summary Assessment (RN) Last Done: 08/27/23 14:48 Supervising Physician Co-Signing Physician Notes Attending attestation Pt seen and examined in concert with Dr. Nielson. In agreement with the documented findings as noted in the resident documentation with any exceptions or additions as noted here. Left lower extremity pain well controlled at present and tolerating boot well though vehemently declines rehab services in the inpatient setting after discussion of risks/benefits On examination, S1/S2 nl RRR no MCG. Good air movement throughout, mild decreased breath sounds of the b/l LL. Abd NT/ND BS+ve Osteomyelitis of the L great toe s/p amputation - completed course of abx while inpatient. Would encourage follow up with care team and rehab services. Else see resident documentation as noted. Total attending physician time spent with this patient's care on the day of discharge: 35 minutes. Resident Activity Tracking Resident Involvement: Resident Care Provided Care Provided: Adult Hospital Medicine
== END 2023-08-27 16:19 | disposition home health service (06) | DRG 617 ==
LOC: ED 16:14 → SUATTDRO 19:43 → 3W 19:43
DX: Z98.1 Arthrodesis status; Z83.3 Family history of diabetes mellitus; E11.65 Type 2 diabetes mellitus with hyperglycemia; K21.9 Gastro-esophageal reflux disease without esophagitis; E11.621 Type 2 diabetes mellitus with foot ulcer; E83.42 Hypomagnesemia; Z88.1 Allergy status to other antibiotic agents; Z79.82 Long term (current) use of aspirin; Z88.8 Allergy status to other drugs, medicaments and biological substances; E03.9 Hypothyroidism, unspecified; Z91.199 Patient's noncompliance with other medical treatment and regimen due to unspecified reason; K50.90 Crohn's disease, unspecified, without complications; E11.40 Type 2 diabetes mellitus with diabetic neuropathy, unspecified; E78.5 Hyperlipidemia, unspecified; M86.172 Other acute osteomyelitis, left ankle and foot; E11.52 Type 2 diabetes mellitus with diabetic peripheral angiopathy with gangrene; Z79.4 Long term (current) use of insulin; D50.9 Iron deficiency anemia, unspecified; Z88.0 Allergy status to penicillin; Z79.890 Hormone replacement therapy; L08.9 Local infection of the skin and subcutaneous tissue, unspecified; I10 Essential (primary) hypertension; E11.69 Type 2 diabetes mellitus with other specified complication

== ENCOUNTER 2023-10-16 16:45 | Observation (INO) ==
[2023-10-16 17:27] LABS: Basophils # (auto) 0.07 K/uL (0.00-0.20); Basophils % (auto) 0.7 %; Hematocrit (blood only) 40.4 % (37.0-47.0); Hemoglobin 12.7 g/dl (12.0-16.0); Immature Granulocytes # (auto) 0.05 K/uL (0.01-0.20); Immature Granulocytes % (auto) 0.5 %; Lymphocytes # (auto) 1.31 K/uL (1.20-3.40); Mean Corpuscular Hemoglobin 23.4 pg (25.0-34.0); Mean Corpuscular Hgb Conc 31.4 g/dL (32.0-36.0); Mean Corpuscular Volume 74.5 fL (80.0-100.0); Mean Platelet Volume 10.4 fL (9.4-12.4); Monocytes # (auto) 1.36 K/uL (0.11-0.59); Monocytes % (auto) 13.5 %; Neutrophils # (auto) 7.25 K/uL (1.40-6.50); Neutrophils % (auto) 72.3 %; Platelet Count 357 K/uL (130-400); RDW Coefficient of Variation 17.9 % (11.5-14.5); RDW Standard Deviation 46.5 fL (36.4-46.3); Red Blood Count 5.42 M/uL (4.20-5.40); White Blood Count 10.04 K/ul (4.8-10.8)
--- NOTE | 2023-10-16 17:42 | Emergency Department Note ---
Impression & Plan Acute dyspnea, COVID-19, Generalized weakness, Hypomagnesemia ED Provider Note HISTORY OF PRESENT ILLNESS: Patient is a 73-year-old female presenting with sore throat and shortness of breath. Patient reports that she has had a "burning sore throat" for the last 2 to 3 days. Reports that she has had shortness of breath and a cough productive of a white or yellow sputum. Denies any chest pain. Denies any abdominal pain. Reports "I hurt all over." Denies any recent falls or head injury. She denies any notable fevers at home. Denies any recent sick contact exposures. Patient reports feeling generalized weakness and hurting all over. ROS: as above PHYSICAL EXAM: Constitutional: Patient appears in no acute distress. HENT: Head: Normocephalic and atraumatic. Eyes: EOMI, PERRL Mouth/Throat: Mucous membranes moist. Neck: Trachea midline. Neck supple. Cardiovascular: RRR, No murmurs, rubs or gallops. Intact distal pulses. Pulmonary/Chest: No respiratory distress. Breath sounds clear and equal bilaterally. No wheezes or rales. Abdominal: Abdomen soft, no tenderness, rebound or guarding. Musculoskeletal: No edema, tenderness or deformity noted. Skin: Warm and dry. No rash, erythema, pallor or cyanosis Psychiatric: Appropriate mood and affect for situation. Neurological: Alert and keenly responsive. CN II-XII grossly intact, moving all extremities equally and fully. MDM: - Vitals signs showed hypertension and tachycardia. - History obtained via patient. History as above. - Chronic conditions affecting care: HTN; HLD; hypothyroidism; GERD; Crohn's disease; obesity; DM-2; restless leg syndrome - Differential diagnoses include, but are not limited to: Congestive heart failure; acute coronary syndrome; COPD/asthma exacerbation; pulmonary edema; pulmonary embolism; pneumonia; pneumothorax; viral syndrome - Order placed for continuous cardiac monitoring. At this time, monitor showed rate of 87 bpm with normal sinus rhythm, per my interpretation. - External medical records reviewed. Primary care visit note dated 10/06/2023 was reviewed. Patient follows in their clinic for her multiple medical problems. - EKG interpreted by myself showed normal sinus rhythm. Rate 86 bpm. QT prolonged at 418. No acute ischemic changes. - Laboratory workup interpreted by myself showed normal WBC; normal PT/INR; hyponatremia (Na 131); elevated anion gap (13); hyperglycemia (glucose 200); hypomagnesemia (Mg 1.4); elevated troponin (21.2) - CXR negative for pneumonia, per my interpretation. - Patient complaining of "pain all over." She had nursing staff remove her IV secondary to say that it was hurting her too much. She is given 650 mg of p.o. Tylenol. - Viral respiratory panel positive for COVID-19. - 1g IV magnesium ordered for electrolyte replacement - Discussion was had with case investigator about patient's case and need for admission - Hospitalist consulted for admission [facility] ASSESSMENT AND PLAN: Diagnosis: Acute dyspnea; COVID-19; generalized weakness; hypomagnesemia Plan: Admit Past Med/Surg History Problem List (Updated 10/16/23 @ 19:14 by Kimberley Topete MD) Hypomagnesemia (Acute) Generalized weakness (Acute) COVID-19 (Acute) Acute dyspnea (Acute) Depression Anxiety Surgical wound, non healing (Acute) Diabetic ulcer of toe of left foot (Acute) Anemia Wound of left foot Lumbar stenosis with neurogenic claudication Benign paroxysmal positional vertigo hx/no recent issues Schatzki's ring s/p dilation Lumbar pain with radiation down both legs Hypomagnesemia (Acute) Osteomyelitis (Acute) Diabetic infection of left foot Dyspnea Dysphagia Difficulty swallowing pills Obesity (BMI 30.0-34.9) Uncontrolled diabetes mellitus (Chronic) Crohn's ileocolitis (Chronic) Hearing loss (Chronic) Vitamin D deficiency (Chronic) Vitamin B12 deficiency (Chronic) Osteopenia (Chronic) Laryngopharyngeal reflux (LPR) (Chronic) Depression with anxiety (Chronic) Common migraine without aura (Chronic) Chromophobe adenoma (Chronic) GERD (gastroesophageal reflux disease) (Chronic) Hypothyroidism (Chronic) Hypertension (Chronic) Hyperlipidemia (Chronic) Asthma (Chronic) well controlled, has not used inhaler in years Personal history of diabetic foot ulcer left foot - "pretty healed at this time" does follow with wound clinic as needed. Medical History Wheezing Muscular deconditioning CKD (chronic kidney disease) stage 3, GFR 30-59 ml/min Diabetic peripheral neuropathy associated with type 2 diabetes mellitus Sleep apnea Crohns disease Weakness of both legs Lumbar post-laminectomy syndrome History of anemia Chronic left hip pain Recurrent UTI (urinary tract infection) Hiatal hernia Vertigo Tinnitus Esophageal dysmotility Back pain, chronic Surgical History History of cataract surgery History of cardiac cath History of surgical removal of pituitary gland History of bilateral salpingo-oophorectomy (BSO) History of esophagogastroduodenoscopy (EGD) History of colonoscopy History of tooth extraction S/P carpal tunnel release S/P arthroscopic knee surgery Fusion of spine History of arthroscopy History of hysterectomy Family History Mother Diabetes Family history of diabetes mellitus Myocardial infarction Breast cancer Hypertension Other Coronary heart disease No family history of adverse response to anesthesia Denies family history of Ovarian cancer Prostate cancer Lung cancer Colorectal cancer Stroke Social History Smoking Status: Never smoker Second Hand Exposure: Yes ( smoked); Do You Dip or Chew Tobacco: No; Hx Alcohol Use: No Hx Substance Use: No Preferred Language: Citizen Of [place] Communication Ability: Effective Visual Impairment: Limited Hearing Ability: Hard of Hearing 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 Beliefs That Will Affect Care: None marital status: marital status details: Three children Current Living Situation: Alone Current Living Situation Comment: [facility] current occupational status: retired Feels Safe at Home: Yes Childhood Exposure to Second-Hand Smoke: Yes Diet Comment: regular caffeine: Yes (pepsi) during the past year weight has: remained stable Dental Care, Regularly: No Physical Activity Frequency: Does not Exercise Physical Activity Frequency Comment: due to physical condition Seatbelt Use: always Sunscreen Use: Yes Assistive Devices: Cane, Glasses and Walker Allergies Allergies Allergy/AdvReac Type Severity Reaction Status Date / Time cephalexin Allergy Intermediate Hives Verified 10/16/23 17:13 Cephalosporins Allergy Intermediate Hives Verified 10/16/23 17:13 infliximab Allergy Intermediate Itching, Verified 10/16/23 17:13 rash Penicillins Allergy Intermediate Hives Verified 10/16/23 17:13 ciprofloxacin AdvReac Intermediate N/V Verified 10/16/23 17:13 doxycycline AdvReac Intermediate GI upset Verified 10/16/23 17:13 Home Meds Home Medications Medication Instructions Recorded Confirmed aspirin 81 mg tablet,delayed 81 mg PO QAM 06/10/18 10/16/23 release buspirone 10 mg tablet 10 mg PO BID 12/06/20 10/16/23 duloxetine 30 mg capsule,delayed 30 mg PO QAM 03/02/21 10/16/23 release (Cymbalta) duloxetine 60 mg capsule,delayed 60 mg PO QAM 10/03/21 10/16/23 release calcium carbonate 600 mg-vitamin 1 tab PO BID 12/26/22 10/16/23 D3 10 mcg (400 unit) tablet (Calcium with Vitamin D) multivitamin 1 tab PO DAILY 12/26/22 10/16/23 cyanocobalamin (vitamin B-12) 1,000 mcg PO DAILY 08/20/23 10/16/23 1,000 mcg tablet (Vitamin B-12) diphenhydramine HCl 25 mg capsule 25 mg PO DIRECTED PRN NEEDED 08/20/23 10/16/23 (Benadryl) docusate sodium 100 mg capsule 100 mg PO DAILY 08/20/23 10/16/23 (Stool Softener) meclizine 12.5 mg tablet 12.5 - 25 mg PO BID PRN dizziness 08/20/23 10/16/23 insulin glargine 100 unit/mL (3 33 unit subcut QPM 09/23/23 10/16/23 mL) subcutaneous pen (Lantus Solostar U-100 Insulin) acetaminophen 500 mg tablet 500 mg PO Q6H PRN Pain 10/16/23 10/16/23 levalbuterol tartrate 45 1 inh inhalation Q6H PRN Shortness 10/16/23 10/16/23 mcg/actuation aerosol inhaler Of Breath Or Wheezing ondansetron HCl 4 mg tablet 8 mg PO Q8H PRN NAUSEA/VOMITING 10/16/23 10/16/23 Previous Rx's Medication Instructions Recorded vedolizumab 300 mg intravenous 300 mg IV Q8WK #1 ea 06/28/20 solution (Entyvio) pen needle, diabetic 32 gauge x #100 ea 10/18/21" (BD Ultra-Fine Jacqueline Pen Needle) blood sugar diagnostic (OneTouch #300 ea 09/23/22 Verio test strips) lancets 33 gauge #300 ea 06/05/23 atorvastatin 20 mg tablet 20 mg PO QAM #90 tabs 07/22/23 gabapentin 600 mg tablet 600 mg PO BID #180 tabs 07/22/23 levothyroxine 112 mcg tablet 112 mcg PO QAM #90 tabs 07/22/23 lisinopril 30 mg tablet 30 mg PO QAM #90 tabs 07/22/23 loperamide 2 mg capsule 2 mg PO Q6H PRN loose stool 90 07/22/23 days #180 caps metformin 500 mg tablet,extended 500 mg PO .COMPLEX #270 tabs 07/22/23 release 24 hr omeprazole 40 mg capsule,delayed 40 mg PO BID #180 caps 07/22/23 release topiramate 25 mg tablet (Topamax) 25 mg PO BID #180 tabs 07/22/23 hydroxyzine HCl 25 mg tablet 25 mg PO BID PRN anxiety #30 tabs 08/29/23 tramadol 50 mg tablet 50 mg PO BID 30 days #60 tabs 09/15/23 ropinirole 0.25 mg tablet 0.25 mg PO HS #30 tabs 10/07/23 Results & Data (ED) Vital Signs Vital Signs - 24 hr 10/16/23 17:03 10/16/23 17:03 10/16/23 17:17 Temperature 36.8 C 36.8 C Temperature Source Oral Oral Pulse Rate 92 H Pulse Rate [Apical] 91 H Respiratory Rate 20 20 Respiratory Effort / Characteristics Spontaneous Labored Spontaneous Labored Respiratory Depth Normal Respiratory Pattern Regular Blood Pressure 182/86 H Blood Pressure [Right Arm] 182/86 H Blood Pressure Mean 118 Blood Pressure Mean [Right Arm] 118 Blood Pressure Position [Right Arm] Pulse Oximetry 99 99 99 Oxygen Delivery Method Room Air Room Air Room Air Sepsis Recent Fever Within 48 Hours No Sepsis New/Unexplained Change in Mental Status No Sepsis Action Taken by Nursing No Action Required 10/16/23 17:51 10/16/23 17:59 10/16/23 18:31 Temperature Temperature Source Pulse Rate 90 Pulse Rate [Apical] 91 H 87 Respiratory Rate 15 14 Respiratory Effort / Characteristics Non-Labored Spontaneous Non-Labored Spontaneous Respiratory Depth Normal Normal Respiratory Pattern Regular Regular Blood Pressure Blood Pressure [Right Arm] 157/66 H 181/74 H Blood Pressure Mean Blood Pressure Mean [Right Arm] 96 109 Blood Pressure Position [Right Arm] Left Lateral Right Lateral Pulse Oximetry 99 98 Oxygen Delivery Method Room Air Room Air Sepsis Recent Fever Within 48 Hours Sepsis New/Unexplained Change in Mental Status Sepsis Action Taken by Nursing Laboratory Data 10/16/23 16:58 10/16/23 16:58 Lab Results 10/16/23 Range/Units 16:58 WBC 10.04 (4.8-10.8) K/ul RBC 5.42 H (4.20-5.40) M/uL Hgb 12.7 (12.0-16.0) g/dl Hct 40.4 (37.0-47.0) % MCV 74.5 L (80.0-100.0) fL MCH 23.4 L (25.0-34.0) pg MCHC 31.4 L (32.0-36.0) g/dL RDW Std Deviation 46.5 H (36.4-46.3) fL RDW Coeff of Brianna 17.9 H (11.5-14.5) % Plt Count 357 (130-400) K/uL MPV 10.4 (9.4-12.4) fL Immature Gran % (Auto) 0.5 % Neut % (Auto) 72.3 % Lymph % (Auto) 13.0 % Green % (Auto) 13.5 % Eos % (Auto) 0.0 % Baso % (Auto) 0.7 % Neut # (Auto) 7.25 H (1.40-6.50) K/uL Lymph # (Auto) 1.31 (1.20-3.40) K/uL Green # (Auto) 1.36 H (0.11-0.59) K/uL Eos # (Auto) 0.00 (0.00-0.50) K/uL Baso # (Auto) 0.07 (0.00-0.20) K/uL Immature Gran # (Auto) 0.05 (0.01-0.20) K/uL PT 10.9 (9.0-12.0) Seconds INR 1.0 (0.9-1.1) Sodium 131 L (136-145) mmol/L Potassium 4.0 (3.5-5.1) mmol/L Chloride 95 L (98-107) mmol/L Carbon Dioxide 23 (21-32) mmol/L Anion Gap 13 H (3-11) BUN 14 (6-23) mg/dl Creatinine 1.03 (0.6-1.2) mg/dl Est Cr Clr Drug Dosing 47.4 ml/min Est GFR ( Amer) 62.0 ml/min Est GFR (Non-Af Amer) 53.5 ml/min BUN/Creatinine Ratio 13.6 (10-20) Glucose 200 H (70-99(Fasting)) mg/dl Calcium 10.7 H (8.6-10.3) mg/dl Magnesium 1.4 L (1.7-2.4) mg/dl Total Bilirubin 0.5 (0.2-1.0) mg/dl AST 17 (13-39) U/L ALT 11 (7-52) U/L Alkaline Phosphatase 108 H (34-104) U/L Troponin I High Sens 21.2 H (0-14) pg/ml Total Protein 8.7 H (6.0-8.3) gm/dl Albumin 4.6 (3.4-5.0) gm/dl Globulin 4.1 H (2.5-4.0) gm/dl Albumin/Globulin Ratio 1.1 (0.9-2) Adenovirus (PCR) Not Detected (NotDetected) B. pertussis DNA (PCR) Not Detected (NotDetected) B.parapertussis DNA PCR Not Detected (NotDetected) C. pneumoniae DNA (PCR) Not Detected (NotDetected) Coronavirus OC43 (PCR) Not Detected (NotDetected) Coronavirus HKU1 (PCR) Not Detected (NotDetected) Coronavirus 229E (PCR) Not Detected (NotDetected) SARS-CoV-2 (PCR) DETECTED A (NotDetected) Coronavirus NL63 (PCR) Not Detected (NotDetected) Human Metapneumovir PCR Not Detected (NotDetected) Influenza Type A (PCR) Not Detected (NotDetected) Influenza Type B (PCR) Not Detected (NotDetected) M. pneumoniae (PCR) Not Detected (NotDetected) Parainfluenza 1 (PCR) Not Detected (NotDetected) Parainfluenza 2 (PCR) Not Detected (NotDetected) Parainfluenza 3 (PCR) Not Detected (NotDetected) Parainfluenza 4 (PCR) Not Detected (NotDetected) RSV (PCR) Not Detected (NotDetected) Entero/Rhino (PCR) Not Detected (NotDetected) Administered Medications Discontinued Medications Acetaminophen (Acetaminophen 325 Mg Tab) 650 mg PO NOW STA Stop: 10/16/23 18:10 Last Admin: 10/16/23 18:29 Dose: 650 mg Documented By: FRANCISCO Imaging Data Radiologist's Impression: Chest X-Ray 10/16/23 17:13 XR chest 1V portable CLINICAL HISTORY: Dyspnea COMPARISON STUDY: Chest radiograph August 20, 2023. FINDINGS: Lung volumes are normal. Lungs are clear. There is no pneumothorax or pleural effusion. Cardiac size is normal. A moderate sized hernia is again noted. There is no evidence for pulmonary edema. IMPRESSION: No acute cardiopulmonary findings. ACT 112: Negative or not required by law. Electronically signed by: Huang Hargrove M.D. 10/16/2023 5:58 PM Discharge Plan Visit Data Chief Complaint: Illness Stated Complaint: ILLNESS ED Provider: Kimberley Topete Discharge Problem: Acute dyspnea, COVID-19, Generalized weakness, Hypomagnesemia Forms Stand Alone Forms: My Swidjit Prescriptions Prescriptions: No Action multivitamin Tablet 1 tab PO DAILY calcium carbonate-vitamin D3 [Calcium with Vitamin D] 600 mg-10 mcg (400 unit) tablet 1 tab PO BID insulin glargine [Lantus Solostar U-100 Insulin] 100 unit/mL (3 mL) insulin pen 33 unit subcut QPM Patient Comments: 30 units Rx Instructions: NO HX OF BEING FILLED ON EXT MED HX. Entyvio 300 mg recon soln 300 mg IV Q8WK Qty: 1 6RF (DME) pen needle, diabetic [BD Ultra-Fine Jacqueline Pen Needle] 32 gauge x 5/32" needle See Rx Instructions .ROUTE .MEDSUPPLY Qty: 100 3RF Rx Instructions: Use once daily with Lantus (DME) OneTouch Verio test strips Strip See Rx Instructions .ROUTE .MEDSUPPLY Qty: 300 3RF Rx Instructions: Check sugar 3 times a day (DME) lancets 33 gauge misc See Rx Instructions .MEDSUPPLY Qty: 300 3RF Rx Instructions: As directed check blood sugars 3 omeprazole 40 mg capsule,delayed release(DR/EC) 40 mg PO BID Qty: 180 3RF topiramate [Topamax] 25 mg tablet 25 mg PO BID Qty: 180 3RF levothyroxine 112 mcg tablet 112 mcg PO QAM Qty: 90 3RF Patient Comments: TAKES "IF REMEMBERS TO TAKE" atorvastatin 20 mg tablet 20 mg PO QAM Qty: 90 3RF lisinopril 30 mg tablet 30 mg PO QAM Qty: 90 3RF loperamide 2 mg capsule 2 mg PO Q6H PRN (Reason: loose stool) 90 Days Qty: 180 3RF Patient Comments: PT DOES NOT HAVE gabapentin 600 mg tablet 600 mg PO BID Qty: 180 3RF metformin 500 mg tablet extended release 24 hr 500 mg PO .COMPLEX Qty: 270 3RF Rx Instructions: TAKES 500 MG QAM, THEN 1,000 MG QPM. tramadol 50 mg tablet 50 mg PO BID 30 Days Qty: 60 0RF duloxetine [Cymbalta] 30 mg capsule,delayed release(DR/EC) 30 mg PO QAM Rx Instructions: TOTAL 90 MG--TAKES WITH 60 MG CAP. hydroxyzine HCl 25 mg tablet 25 mg PO BID PRN (Reason: anxiety) Qty: 30 0RF ropinirole 0.25 mg tablet 0.25 mg PO HS Qty: 30 2RF Rx Instructions: MED NOT ON PT'S MED LIST, OR EXT MED HX. aspirin 81 mg Tablet,Delayed Release (Dr/Ec) 81 mg PO QAM Patient Comments: PT STATES NOT TAKING buspirone 10 mg Tablet 10 mg PO BID Rx Instructions: PER EXT MED HX. duloxetine 60 mg capsule,delayed release(DR/EC) 60 mg PO QAM Rx Instructions: TOTAL DOSE 90 MG--TAKES WITH 30 MG CAP. meclizine 12.5 mg tablet 12.5 - 25 mg PO BID PRN (Reason: dizziness) Rx Instructions: 1-2 orally twice a day PRN; cyanocobalamin (vitamin B-12) [Vitamin B-12] 1,000 mcg Tablet 1,000 mcg PO DAILY diphenhydramine HCl [Benadryl] 25 mg Capsule 25 mg PO DIRECTED PRN (Reason: NEEDED) docusate sodium [Stool Softener] 100 mg Capsule 100 mg PO DAILY acetaminophen [Tylenol Ex Str Rapid Release] 500 mg Tablet 500 mg PO Q6H PRN (Reason: Pain) levalbuterol tartrate 45 mcg/actuation HFA aerosol inhaler 1 inh INHALATION Q6H PRN (Reason: Shortness Of Breath Or Wheezing) ondansetron HCl 4 mg tablet 8 mg PO Q8H PRN (Reason: NAUSEA/VOMITING) Rx Instructions: TAKE 2 TABLETS EVERY 8 HOURS NEEDED FOR NAUSEA Referrals Referrals: Pro,Paramjit Heck MD [Primary Care Provider] -
[2023-10-16 17:49] LABS: Albumin Globulin Ratio 1.1 (0.9-2); Albumin Level 4.6 gm/dl (3.4-5.0); BUN Creatinine Ratio 13.6 (10-20); Bilirubin,Total 0.5 mg/dl (0.2-1.0); Calcium 10.7 mg/dl (8.6-10.3); Creatinine Clr Calc Pharmacy 47.4 ml/min; Est GFR (Non-African American) 53.5 ml/min; Globulin 4.1 gm/dl (2.5-4.0); Magnesium 1.4 mg/dl (1.7-2.4); Total Protein 8.7 gm/dl (6.0-8.3)
[2023-10-16 17:52] LABS: Prothrombin Time 10.9 Seconds (9.0-12.0)
[2023-10-16 17:55] LABS: Troponin I High Sensitivity 21.2 pg/ml (0-14)
--- NOTE | 2023-10-16 17:59 | XRay Report ---
XR chest 1V portable CLINICAL HISTORY: Dyspnea COMPARISON STUDY: Chest radiograph August 20, 2023. FINDINGS: Lung volumes are normal. Lungs are clear. There is no pneumothorax or pleural effusion. Car diac size is normal. A moderate sized hernia is again noted. There is no evidence for pulmonary edema . IMPRESSION: No acute cardiopulmonary findings. ACT 112: Negative or not required by law. Electronically signed by: Huang Hargrove M.D. 10/16/2023 5:58 PM
[2023-10-16 18:16] LABS: Adenovirus PCR Not Detected (NotDetected); Bordetella parapertussis PCR Not Detected (NotDetected); Bordetella pertussis PCR Not Detected (NotDetected); Chlamydia pneumoniae PCR Not Detected (NotDetected); Coronavirus 229E PCR Not Detected (NotDetected); Coronavirus CoV-2 (COVID19)PCR DETECTED (NotDetected); Coronavirus HKU1 PCR Not Detected (NotDetected); Coronavirus NL63 PCR Not Detected (NotDetected); Coronavirus OC43PCR Not Detected (NotDetected); Human Metapneumovirus PCR Not Detected (NotDetected); Influenza A PCR Not Detected (NotDetected); Influenza B PCR Not Detected (NotDetected); Mycoplasma pneumoniae PCR Not Detected (NotDetected); Parainfluenza Virus 1 PCR Not Detected (NotDetected); Parainfluenza Virus 2 PCR Not Detected (NotDetected); Parainfluenza Virus 3 PCR Not Detected (NotDetected); Parainfluenza Virus 4 PCR Not Detected (NotDetected); Respiratory Syncytial VirusPCR Not Detected (NotDetected); Rhinovirus/Enterovirus PCR Not Detected (NotDetected)
[2023-10-16] MEDS: ACETAMINOPHEN 325 MG TAB PO STA (18:29)
--- NOTE | 2023-10-16 20:06 | History & Physical Report ---
Date of Service October 16, 2023 Assessment & Plan (1) Generalized weakness: Plan: Weakness 2/2 COVID Patient reports sore throat, productive cough, and general myalgias and aching all over [employer] is positive for COVID As patient is not hypoxic, has myalgias due to viral illness, and is not septic at time of admission return home was discussed and offered to patient. She feels that she is become progressively weak and she is not able to ambulate and function at home and feels that she may need rehab. PT/OT consulted She is not hypoxic, does not meet criteria for remdesivir or ongoing steroidspatient with poor p.o. intake of several days and hypomagnesemic. Repleted IV and started on p.o. in the morning with repeat check in AM. (2) COVID-19: (3) DM2 (diabetes mellitus, type 2): Plan: Type II DM With second toe ulceration Continue basal bolus on admission Will BSG [id number] Plan Chronic stable issues Crohn's: Continue Entyvio. No new symptoms - Anxiety/depression: Follows with [facility]. Continue home medications. -Hypothyroidism: Continue Synthroid DVT prophylaxis: Lovenox Disposition: Medical/surgical. Mildly elevated troponin which is down trended without EKG changes and likely demand. No ongoing chest pain at reassessment CODE STATUS: Full code Diet: DM 2 History of Present Illness Primary Care Provider: Paramjit Martinez MD Shana Cabrera is a 73-year-old female with a past medical history of hyperte nsion, Crohn's on Entyvio, hypothyroidism, hyperlipidemia, depression/anxiety, GERD, DM2, lumbar radiculopathy presents with diffuse chronic pain. Shana is seen at the bedside. She reports she has chronic fatigue, muscle and bodyaches, and has generally felt poor and weak at home for many weeks and is slowly getting worse however in the last couple of days she does feel she has had shortness of breath, increased cough, and aches all over. Thinks that this has been present for around a week. She felt so weak at home that she had difficulty ambulating. She does endorse some chest pain when she coughs, denies chest pain at rest. Denies any chest pain. Denies dysuria. Denies sweating. She is she is too weak to return home, and that she "just cannot manage ". She would like to potentially pursue some rehab if this get her stronger Medical History: Reviewed Medications: Reviewed Surgical History: Reviewed Family history: Reviewed Allergies: Reviewed Social History: Denies tobacco/regular etoh use Code Status: Full Allergies Allergy/AdvReac Type Severity Reaction Status Date / Time cephalexin Allergy Intermediate Hives Verified 10/16/23 17:13 Cephalosporins Allergy Intermediate Hives Verified 10/16/23 17:13 infliximab Allergy Intermediate Itching, Verified 10/16/23 17:13 rash Penicillins Allergy Intermediate Hives Verified 10/16/23 17:13 ciprofloxacin AdvReac Intermediate N/V Verified 10/16/23 17:13 doxycycline AdvReac Intermediate GI upset Verified 10/16/23 17:13 Home Medications Medication Instructions Recorded Confirmed Type aspirin 81 mg tablet,delayed 81 mg PO QAM 06/10/18 10/16/23 History release vedolizumab 300 mg intravenous 300 mg IV Q8WK #1 ea 06/28/20 10/16/23 Rx solution (Entyvio) buspirone 10 mg tablet 10 mg PO BID 12/06/20 10/16/23 History duloxetine 30 mg capsule,delayed 30 mg PO QAM 03/02/21 10/16/23 History release (Cymbalta) duloxetine 60 mg capsule,delayed 60 mg PO QAM 10/03/21 10/16/23 History release pen needle, diabetic 32 gauge x #100 ea 10/18/21 10/08/23 Rx 5/32" (BD Ultra-Fine Jacqueline Pen Needle) blood sugar diagnostic (OneTouch #300 ea 09/23/22 10/08/23 Rx Verio test strips) calcium carbonate 600 mg-vitamin 1 tab PO BID 12/26/22 10/16/23 History D3 10 mcg (400 unit) tablet (Calcium with Vitamin D) multivitamin 1 tab PO DAILY 12/26/22 10/16/23 History lancets 33 gauge #300 ea 06/05/23 10/08/23 Rx atorvastatin 20 mg tablet 20 mg PO QAM #90 tabs 07/22/23 10/16/23 Rx gabapentin 600 mg tablet 600 mg PO BID #180 tabs 07/22/23 10/16/23 Rx levothyroxine 112 mcg tablet 112 mcg PO QAM #90 tabs 07/22/23 10/16/23 Rx lisinopril 30 mg tablet 30 mg PO QAM #90 tabs 07/22/23 10/16/23 Rx loperamide 2 mg capsule 2 mg PO Q6H PRN loose stool 90 07/22/23 10/16/23 Rx days #180 caps metformin 500 mg tablet,extended 500 mg PO .COMPLEX #270 tabs 07/22/23 10/16/23 Rx release 24 hr omeprazole 40 mg capsule,delayed 40 mg PO BID #180 caps 07/22/23 10/16/23 Rx release topiramate 25 mg tablet (Topamax) 25 mg PO BID #180 tabs 07/22/23 10/16/23 Rx cyanocobalamin (vitamin B-12) 1,000 mcg PO DAILY 08/20/23 10/16/23 History 1,000 mcg tablet (Vitamin B-12) diphenhydramine HCl 25 mg capsule 25 mg PO DIRECTED PRN NEEDED 08/20/23 10/16/23 History (Benadryl) docusate sodium 100 mg capsule 100 mg PO DAILY 08/20/23 10/16/23 History (Stool Softener) meclizine 12.5 mg tablet 12.5 - 25 mg PO BID PRN dizziness 08/20/23 10/16/23 History hydroxyzine HCl 25 mg tablet 25 mg PO BID PRN anxiety #30 tabs 08/29/23 10/16/23 Rx tramadol 50 mg tablet 50 mg PO BID 30 days #60 tabs 09/15/23 10/16/23 Rx insulin glargine 100 unit/mL (3 33 unit subcut QPM 09/23/23 10/16/23 History mL) subcutaneous pen (Lantus Solostar U-100 Insulin) ropinirole 0.25 mg tablet 0.25 mg PO HS #30 tabs 10/07/23 10/16/23 Rx acetaminophen 500 mg tablet 500 mg PO Q6H PRN Pain 10/16/23 10/16/23 History levalbuterol tartrate 45 1 inh inhalation Q6H PRN Shortness 10/16/23 10/16/23 History mcg/actuation aerosol inhaler Of Breath Or Wheezing ondansetron HCl 4 mg tablet 8 mg PO Q8H PRN NAUSEA/VOMITING 08/29/24 08/29/24 History Past Med/Surg History Problem List (Updated 10/16/23 @ 21:10 by Heber Garcia MD) DM2 (diabetes mellitus, type 2) Hypomagnesemia (Acute) Generalized weakness (Acute) COVID-19 (Acute) Acute dyspnea (Acute) Depression Anxiety Surgical wound, non healing (Acute) Diabetic ulcer of toe of left foot (Acute) Anemia Wound of left foot Lumbar stenosis with neurogenic claudication Benign paroxysmal positional vertigo hx/no recent issues Schatzki's ring s/p dilation Lumbar pain with radiation down both legs Hypomagnesemia (Acute) Osteomyelitis (Acute) Diabetic infection of left foot Dyspnea Dysphagia Difficulty swallowing pills Obesity (BMI 30.0-34.9) Uncontrolled diabetes mellitus (Chronic) Crohn's ileocolitis (Chronic) Hearing loss (Chronic) Vitamin D deficiency (Chronic) Vitamin B12 deficiency (Chronic) Osteopenia (Chronic) Laryngopharyngeal reflux (LPR) (Chronic) Depression with anxiety (Chronic) Common migraine without aura (Chronic) Chromophobe adenoma (Chronic) GERD (gastroesophageal reflux disease) (Chronic) Hypothyroidism (Chronic) Hypertension (Chronic) Hyperlipidemia (Chronic) Asthma (Chronic) well controlled, has not used inhaler in years Personal history of diabetic foot ulcer left foot - "pretty healed at this time" does follow with wound clinic as needed. Medical History Wheezing Muscular deconditioning CKD (chronic kidney disease) stage 3, GFR 30-59 ml/min Diabetic peripheral neuropathy associated with type 2 diabetes mellitus Sleep apnea Crohns disease Weakness of both legs Lumbar post-laminectomy syndrome History of anemia Chronic left hip pain Recurrent UTI (urinary tract infection) Hiatal hernia Vertigo Tinnitus Esophageal dysmotility Back pain, chronic Surgical History History of cataract surgery History of cardiac cath History of surgical removal of pituitary gland History of bilateral salpingo-oophorectomy (BSO) History of esophagogastroduodenoscopy (EGD) History of colonoscopy History of tooth extraction S/P carpal tunnel release S/P arthroscopic knee surgery Fusion of spine History of arthroscopy History of hysterectomy Family History Mother Diabetes Family history of diabetes mellitus Myocardial infarction Breast cancer Hypertension Other Coronary heart disease No family history of adverse response to anesthesia Denies family history of Ovarian cancer Prostate cancer Lung cancer Colorectal cancer Stroke Social History Smoking Status: Never smoker Second Hand Exposure: Yes ( smoked); Do You Dip or Chew Tobacco: No; Hx Alcohol Use: No Hx Substance Use: No Preferred Language: Sammarinese Communication Ability: Effective Visual Impairment: Limited Hearing Ability: Hard of Hearing 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: No Beliefs That Will Affect Care: None marital status: marital status details: Three children Current Living Situation: Alone Current Living Situation Comment: [facility] current occupational status: retired Feels Safe at Home: Yes Childhood Exposure to Second-Hand Smoke: Yes Diet Comment: regular caffeine: Yes (pepsi) during the past year weight has: remained stable Dental Care, Regularly: No Physical Activity Frequency: Does not Exercise Physical Activity Frequency Comment: due to physical condition Seatbelt Use: always Sunscreen Use: Yes Assistive Devices: Cane, Glasses and Walker Physical Exam Physical Exam: General: A&Ox3. NAD. Cooperative. HEENT: Atraumatic, normocephalic. Pulm: CTAB A&P. -wheezes, -rales, -rhonchi. Symmetrical chest rise. No increased work of breathing. No respiratory distress. Cardiac: RRR, -mrg. Radial pulses intact and symmetrical. Abdominal: Nontender, nondistended, soft. BS present. Results & Data Results & Data Vital Signs (Past 12 Hours) Vital Signs Temp Pulse Pulse Resp BP BP Pulse Ox 10/16/23 18:31 87 14 181/74 H 98 10/16/23 17:59 91 H 15 157/66 H 99 10/16/23 17:51 90 10/16/23 17:17 99 10/16/23 17:03 36.8 C 91 H 20 182/86 H 99 10/16/23 17:03 36.8 C 92 H 20 182/86 H 99 O2 Del Method 10/16/23 18:31 Room Air 10/16/23 17:59 Room Air 10/16/23 17:51 10/16/23 17:17 Room Air 10/16/23 17:03 Room Air 10/16/23 17:03 Room Air PG Care Time/CCT Total # of Minutes Spent Total Time Spent with Patient: Total time spent is greater than 50% in coordination of care (as documented) at patient's floor/unit and/or counseling patient: Coding Level of Care Code 40590 INT INP/OBS CARE 2/55MIN Diagnoses Generalized weakness R53.1 COVID-19 U07.1 DM2 (diabetes mellitus, type 2) E11.9
[2023-10-16] MEDS: SODIUM CHLORIDE 0.9% 1,000 ML IV ONE (20:15)
[2023-10-16] MEDS: MAGNESIUM SULFATE / D5W 1 GM/100 ML BAG IV STA (20:15)
[2023-10-16] MEDS: dexAMETHasone**PF** 10 MG/ML VIAL IV ONE (20:16)
[2023-10-16] MEDS: ONDANSETRON INJ 2 MG/ML 2 ML VIAL ONE (21:00)
[2023-10-16] MEDS ORDERED: GLUCOSE 40% GEL 15 GM TUBE PO PRN (21:15)
[2023-10-16] MEDS ORDERED: PHARMACY GLYCEMIC MGMT CONSULT PRN (21:15)
[2023-10-16] MEDS ORDERED: CARBOHYDRATES FOR HYPOGLYCEMIA PO PRN (21:15)
[2023-10-16] MEDS ORDERED: GLUCAGON FOR INJ 1 MG VIAL SQ PRN (21:15)
[2023-10-16] MEDS ORDERED: DEXTROSE 50% 50 ML SYRINGE IV PRN (21:15)
[2023-10-16] MEDS ORDERED: GLUCOSE 10 TAB/TUBE PO PRN (21:15)
[2023-10-16] MEDS ORDERED: LEVALBUTEROL TARTRATE 15 GM HFA.AER.AD INH PRN (22:24)
[2023-10-16] MEDS ORDERED: LOPERAMIDE HCL 2 MG CAP PO PRN (22:24)
[2023-10-16] MEDS: MAGNESIUM SULFATE / D5W 1 GM/100 ML BAG IV ONE (22:41)
[2023-10-16] MEDS: traMADol HCL 50 MG TABLET PO STA (23:35)
[2023-10-16] MEDS: ONDANSETRON INJ 2 MG/ML 2 ML VIAL IV PRN (23:36)
[2023-10-16] MEDS: MELATONIN 3 MG TAB PO PRN (23:38)
[2023-10-16] MEDS: INSULIN ASPART PER UNIT CHARGE SC SCH (23:40)
[2023-10-16] MEDS: LANTUS PER UNIT CHARGE SQ SCH (23:41)
[2023-10-17 00:29] LABS: Appearance Urine Clear (Clear); Bacteria Urine Automated None Seen (None Seen); Bilirubin Urine Negative (Negative); Blood Urine Negative (Negative); Cast Urine Automated 0-2 /lpf (0-2); Color Urine Yellow; Epithelial Cell Urine Auto 0-2 /hpf (0-2); Glucose Urine UA Negative (Negative); Ketones Urine Negative (Negative); Leukocyte Esterase Urine Trace (Negative); Nitrite Urine Negative (Negative); Protein Urine 1+ (Negative); RBC Urine Automated 0-2 /hpf (0-2); Specific Gravity Urine 1.007 (1.000-1.030); Urobilinogen Urine Negative (Negative); WBC Urine Automated 0-5 /hpf (0-5)
[2023-10-17] MEDS: ACETAMINOPHEN 500 MG TAB PO PRN (00:29)
[2023-10-17] MEDS: PROCHLORPERAZINE 5 MG in SYRINGE 4 ML IV PRN (02:45)
[2023-10-17] MEDS: rOPINIRole HCL 0.25 MG TABLET PO ONE (04:18)
[2023-10-17] MEDS: hydrOXYzine HCl 25 MG TAB PO ONE (04:18)
[2023-10-17] MEDS: INSULIN ASPART PER UNIT CHARGE SC SCH (04:29)
[2023-10-17] MEDS: LEVOTHYROXINE SODIUM 112 MCG TABLET PO SCH (04:42)
[2023-10-17 06:51] LABS: Basophils # (auto) 0.02 K/uL (0.00-0.20); Basophils % (auto) 0.3 %; Hemoglobin 11.8 g/dl (12.0-16.0); Immature Granulocytes # (auto) 0.04 K/uL (0.01-0.20); Immature Granulocytes % (auto) 0.6 %; Lymphocytes # (auto) 1.07 K/uL (1.20-3.40); Lymphocytes % (auto) 14.9 %; Mean Corpuscular Hemoglobin 23.7 pg (25.0-34.0); Mean Corpuscular Hgb Conc 31.9 g/dL (32.0-36.0); Mean Corpuscular Volume 74.4 fL (80.0-100.0); Mean Platelet Volume 10.9 fL (9.4-12.4); Monocytes # (auto) 0.84 K/uL (0.11-0.59); Monocytes % (auto) 11.7 %; Neutrophils # (auto) 5.21 K/uL (1.40-6.50); Neutrophils % (auto) 72.5 %; Platelet Count 348 K/uL (130-400); RDW Coefficient of Variation 17.2 % (11.5-14.5); RDW Standard Deviation 45.4 fL (36.4-46.3); Red Blood Count 4.97 M/uL (4.20-5.40); White Blood Count 7.18 K/ul (4.8-10.8)
[2023-10-17 07:01] LABS: BUN Creatinine Ratio 19.2 (10-20); Calcium 10.3 mg/dl (8.6-10.3); Creatinine Clr Calc Pharmacy 44.6 ml/min; Est GFR (African American) 61.3 ml/min; Est GFR (Non-African American) 52.9 ml/min; Magnesium 2.1 mg/dl (1.7-2.4); Potassium 3.7 mmol/L (3.5-5.1)
[2023-10-17] MEDS: ASPIRIN 81 MG ECTAB PO SCH (08:44)
[2023-10-17] MEDS: CALCIUM 600MG + VIT D 400 IU TAB PO SCH (08:45)
[2023-10-17] MEDS: GABAPENTIN 600 MG TAB PO SCH (08:45)
[2023-10-17] MEDS: busPIRone 5 MG TAB PO SCH (08:45)
[2023-10-17] MEDS: lisinopril 10 MG TAB PO SCH (08:45)
[2023-10-17] MEDS: ATORVASTATIN 20 MG TAB PO SCH (08:45)
[2023-10-17] MEDS: DOCUSATE SODIUM 100 MG CAP PO SCH (08:45)
[2023-10-17] MEDS: DULoxetine HCL 30 MG CAP PO SCH (08:45)
[2023-10-17] MEDS: CYANOCOBALAMIN (B-12) 500 MCG TABLET PO SCH (08:45)
[2023-10-17] MEDS: DULoxetine HCL 60 MG CAP PO SCH (08:45)
[2023-10-17] MEDS: traMADol HCL 50 MG TABLET PO SCH (08:46)
[2023-10-17] MEDS: TOPIRAMATE 25 MG TAB PO SCH (08:46)
[2023-10-17] MEDS: MAGNESIUM OXIDE 400 MG TAB PO SCH (08:46)
[2023-10-17] MEDS: ENOXAPARIN INJ 40 MG/0.4 ML SYR SQ SCH (08:46)
[2023-10-17] MEDS: MULTIVITAMIN TAB PO SCH (08:46)
[2023-10-17] MEDS: PANTOprazole 40 MG TAB PO SCH (08:46)
--- NOTE | 2023-10-17 13:59 | Pharmacy Report ---
Pharmacy Glycemic Short Note 2 - Date of Service October 17, 2023 - Glycemic Short BSG Results (Last 24 hours): 10/16/23 10/16/23 10/17/23 16:58 22:24 04:17 Glucose 200 H POC Glucose 230 H 250 H 10/17/23 10/17/23 10/17/23 05:50 07:47 12:03 Glucose 209 H POC Glucose 163 H 86 OUTPATIENT ANTIDIABETIC REGIMEN: * Lantus 33units QS HS * metformin ER 500mg QAM, 1000mg QPM ASSESSMENT: * Shana is a 73 YOF admitted with COVID-19 infection and a history of Type 2 diabetes mellitus. Pharmacy has been consulted to assist with glycemic management while inpatient. * Fasting BSG this AM elevated, received 10mg IV dexamethasone yesterday in ER upon admission. She is not hypoxic and no ongoing steroids are currently ordered. Lantus given yesterday evening at a weight based stress of 2 to cov er. Will aim for approximately half of her home basal insulin dosing this evening. * Novolog initiated at a weight based stress of 2, tightened slightly this AM based on BSG downtrend. BSG below goal range at lunch thus returned to a weight based stress of 2 as steroid effects likely wearing off. PLAN FOR INPATIENT GLYCEMIC CONTROL: * Hold outpatient oral diabetes medications * Basal insulin * Lantus 15-20 units SQ HS * Bolus insulin * NovoLog per scale ACHS or Q6hrs while NPO * Goal Range: Low 110 mg/dL - High 140 mg/dL * Correction Factor: 30 mg/dL/unit * Nutritional / Prandial insulin per carb ratio of 1 unit per 10 grams CHO consumed
--- NOTE | 2023-10-17 15:31 | Discharge Summary ---
Discharge Summary Date of Service October 17, 2023 Principal Dx & Hospital Course #1 = Principal Diagnosis (1) Generalized weakness: Weakness 2/2 COVID Patient reports sore throat, productive cough, and general myalgias and aching all over [employer] is positive for COVID As patient is not hypoxic, has myalgias due to viral illness, and is not septic at time of admission return home was discussed and offered to patient. She feels that she is become progressively weak and she is not able to ambulate and function at home and feels that she may need rehab. PT/OT consulted-OT saw her and said she could return home. PT was unable to see her before discharge but patient was ambulating independently in the room with her walker and she and her daughter felt comfortable with returning home by the next day after hospitalization. She is not hypoxic, does not meet criteria for remdesivir or ongoing steroidspatient with poor p.o. intake of several days and hypomagnesemic. Repleted IV and started on p.o. magnesium-check magnesium levels as an ou tpatient -Will send home with Paxlovid 5-day course of the renal dosing -She was feeling much better by the day after admission Stable for discharged home (2) COVID-19: As noted above (3) DM2 (diabetes mellitus, type 2): Continue home medications Plan Chronic stable issues Crohn's: Continue Entyvio. No new symptoms - Anxiety/depression: Follows with [facility]. Continue home medications. -Hypothyroidism: Continue Synthroid DVT prophylaxis: Lovenox Disposition: Stable for discharge to home Notes For Next Care Provider Check magnesium levels as an outpatient Medication Changes From Visit Added Paxlovid x 5 days Added magnesium oxide 250 Mg p.o. once daily Admission HPI Per Admitting Provider Shana Cabrera is a 73-year-old female with a past medical history of hypertension, Crohn's on Entyvio, hypothyroidism, hyperlipidemia, depression/anxiety, GERD, DM2, lumbar radiculopathy presents with diffuse chroni c pain. Shana is seen at the bedside. She reports she has chronic fatigue, muscle and bodyaches, and has generally felt poor and weak at home for many weeks and is slowly getting worse however in the last couple of days she does feel she has had shortness of breath, increased cough, and aches all over. Thinks that this has been present for around a week. She felt so weak at home that she had d ifficulty ambulating. She does endorse some chest pain when she coughs, denies chest pain at rest. Denies any chest pain. Denies dysuria. Denies sweating. She is she is too weak to return home, and that she "just cannot manage ". She would like to potentially pursue some rehab if this get her stronger Medical History: Reviewed Medications: Reviewed Surgical History: Reviewed Family history: Reviewed Allergies: Reviewed Social History: Denies tobacco/regular etoh use Code Status: Full Discharge Exam Constitutional WD/WN, vitals as above Respiratory normal respiratory effort, lungs clear to auscultation Cardiovascular RRR, no murmur, no edema Psychiatric A+Ox3, euthymic affect Discharge Plan Discharge Items Patient Disposition: Home - Home Health Services Reason For Visit: COVID, WEAKNESS Discharge Diagnosis: COVID-19 Generalized weakness Condition on Discharge: Good Activity: As commented below Lifting: Gradually increase as tolerated Exercise/Sports: Gradually increase as tolerated Non-emergency contact: Primary Care Provider Call non-emergency contact if: you have any medication questions and your symptoms worsen Follow-up/Referrals: Pro,Paramjit Heck MD [Primary Care Provider] - (Follow-up within 1 to 2 weeks) Diet: Carb Consistent or DM2 Addtl Attending Provider Instructions: Please take the Paxlovid to help shorten the course and symptoms of your COVID- 19 illness. You can take an oral magnesium supplement and have your doctor check your magnesium levels as an outpatient. While you are on Paxlovid, do not take your atorvastatin. Pending Studies at Discharge: No Stand-Alone Forms: My [facility], Smoking Cessation Medications and DC Order Prescriptions: New magnesium oxide 250 mg magnesium tablet 250 mg PO DAILY Qty: 30 0RF Rx Instructions: OTC Paxlovid 150-100 mg tablets,dose pack See Rx Instructions .ROUTE .COMPLEX Qty: 20 0RF Rx Instructions: take ONE 150 mg tablet of nirmatrelvir with ONE 100 mg tablet of ritonavir t wice daily for 5 days Continued multivitamin Tablet 1 tab PO DAILY calcium carbonate-vitamin D3 [Calcium with Vitamin D] 600 mg-10 mcg (400 unit) tablet 1 tab PO BID insulin glargine [Lantus Solostar U-100 Insulin] 100 unit/mL (3 mL) insulin pen 33 unit subcut QPM Patient Comments: 30 units Rx Instructions: NO HX OF BEING FILLED ON EXT MED HX. Entyvio 300 mg recon soln 300 mg IV Q8WK Qty: 1 6RF (DME) pen needle, diabetic [BD Ultra-Fine Jacqueline Pen Needle] 32 gauge x 5/32" needle See Rx Instructions .ROUTE .MEDSUPPLY Qty: 100 3RF Rx Instructions: Use once daily with Lantus (DME) OneTouch Verio test strips Strip See Rx Instructions .ROUTE .MEDSUPPLY Qty: 300 3RF Rx Instructions: Check sugar 3 times a day (DME) lancets 33 gauge misc See Rx Instructions .MEDSUPPLY Qty: 300 3RF Rx Instructions: As directed check blood sugars 3 omeprazole 40 mg capsule,delayed release(DR/EC) 40 mg PO BID Qty: 180 3RF topiramate [Topamax] 25 mg tablet 25 mg PO BID Qty: 180 3RF levothyroxine 112 mcg tablet 112 mcg PO QAM Qty: 90 3RF Patient Comments: TAKES "IF REMEMBERS TO TAKE" lisinopril 30 mg tablet 30 mg PO QAM Qty: 90 3RF loperamide 2 mg capsule 2 mg PO Q6H PRN (Reason: loose stool) 90 Days Qty: 180 3RF Patient Comments: PT DOES NOT HAVE gabapentin 600 mg tablet 600 mg PO BID Qty: 180 3RF metformin 500 mg tablet extended release 24 hr 500 mg PO .COMPLEX Qty: 270 3RF Rx Instructions: TAKES 500 MG QAM, THEN 1,000 MG QPM. tramadol 50 mg tablet 50 mg PO BID 30 Days Qty: 60 0RF duloxetine [Cymbalta] 30 mg capsule,delayed release(DR/EC) 30 mg PO QAM Rx Instructions: TOTAL 90 MG--TAKES WITH 60 MG CAP. hydroxyzine HCl 25 mg tablet 25 mg PO BID PRN (Reason: anxiety) Qty: 30 0RF ropinirole 0.25 mg tablet 0.25 mg PO HS Qty: 30 2RF Rx Instructions: MED NOT ON PT'S MED LIST, OR EXT MED HX. aspirin 81 mg Tablet,Delayed Release (Dr/Ec) 81 mg PO QAM Patient Comments: PT STATES NOT TAKING buspirone 10 mg Tablet 10 mg PO BID Rx Instructions: PER EXT MED HX. duloxetine 60 mg capsule,delayed release(DR/EC) 60 mg PO QAM Rx Instructions: TOTAL DOSE 90 MG--TAKES WITH 30 MG CAP. meclizine 12.5 mg tablet 12.5 - 25 mg PO BID PRN (Reason: dizziness) Rx Instructions: 1-2 orally twice a day PRN; cyanocobalamin (vitamin B-12) [Vitamin B-12] 1,000 mcg Tablet 1,000 mcg PO DAILY diphenhydramine HCl [Benadryl] 25 mg Capsule 25 mg PO DIRECTED PRN (Reason: NEEDED) docusate sodium [Stool Softener] 100 mg Capsule 100 mg PO DAILY acetaminophen [Tylenol Ex Str Rapid Release] 500 mg Tablet 500 mg PO Q6H PRN (Reason: Pain) levalbuterol tartrate 45 mcg/actuation HFA aerosol inhaler 1 inh INHALATION Q6H PRN (Reason: Shortness Of Breath Or Wheezing) ondansetron HCl 4 mg tablet 8 mg PO Q8H PRN (Reason: NAUSEA/VOMITING) Rx Instructions: TAKE 2 TABLETS EVERY 8 HOURS NEEDED FOR NAUSEA Held atorvastatin 20 mg tablet 20 mg PO QAM Qty: 90 3RF Hold Instructions: Resume on 10/23/23. Admission Data Admit Date/Time: 10/16/23 21:14 Attending Provider: Debo Melton Admit Provider: Heber Garcia Primary Care Provider: Paramjit Martinez Other Providers: Alfred Serrano; [facility] Stay Data Consultations 10/16/23 19:13 ED Decision to Admit Stat Pending Results Patient Have Any Pending Studies at Discharge: No Discharge Instructions Given to Patient (Per Discharging Provider) Please take the Paxlovid to help shorten the course and symptoms of your COVID- 19 illness. You can take an oral magnesium supplement and have your doctor check your magnesium levels as an outpatient. While you are on Paxlovid, do not take your atorvastatin. Total Time Total Time Spent Total Time Spent (In Minutes): 35 minutes Coding Level of Care Code 98346 INP/OBS DISCH >30 MIN Diagnoses Generalized weakness R53.1 COVID-19 U07.1 DM2 (diabetes mellitus, type 2) E11.9
[2023-10-17 15:34] VITALS: PULSE 88; RESP 16; TEMP 98.1; O2SAT 95
[2023-10-17 16:01] VITALS: BP 167/79
[2023-10-17] MEDS ORDERED: rOPINIRole HCL 0.25 MG TABLET PO SCH (21:00)
--- NOTE | 2023-10-18 00:04 | Electrocardiogram Report ---
Test Reason : Blood Pressure : */* mmHG Vent. Rate : 86 BPM Atrial Rate : 86 BPM P-R Int : 202 ms QRS Dur : 72 ms QT Int : 418 ms P-R-T Axes : 55 62 70 degrees QTcB Int : 500 ms Sinus rhythm with Premature supraventricular complexes Prolonged QT Abnormal ECG When compared with ECG of 21-Feb-2021 23:34, Premature supraventricular complexes are now Present QT has lengthened Confirmed by Delvin Patten ([id number]) on 10/18/2023 12:04:11 AM Referred By: REFERRED SELF Confirmed By: Delvin Patten
== END 2023-10-17 16:56 | disposition home health service (06) ==
LOC: SUATTDRO → ED 16:45 → 3E 16:45 → SUATTDRO 21:14 → 3E 22:02

== ENCOUNTER 2024-10-28 22:48 | Inpatient (IN) ==
--- NOTE | 2024-10-28 23:12 | Emergency Department Note ---
Impression & Plan Acute alteration in mental status, Hypercalcemia, Hallucinations Admit to the [facility] ED Provider Note NAME: CECI FOREMAN AGE: 74 SEX: Female INFORMANT: Patient ED PROVIDER(S): Haylee Thomason DO CHIEF COMPLAINT: Dizziness and back pain PLAN: Disposition: Admit to the [facility] MEDICAL DECISION MAKING: This is a 74-year-old female patient who had a stroke approximately 3 months ago lives at home alone. Family has noticed over the past 3 days she has become increasingly confused and seems to be hallucinating. On my evaluation of the patient, she complained of dizziness and low back pain. Patient is alert to person and place but has significant confusion with regards to the past couple of days or why she is here in the emergency department. Laboratory studies revealed a mild leukocytosis with a white count of 14.5. H&H were stable. Coagulation studies were unremarkable. Creatinine was 1.38 which is baseline for this patient. Patient's calcium was elevated. Troponin was negative. Urinalysis showed trace ketones and trace leukocyte esterase but no convincing signs of infection. CT scan of the brain was performed which was unremarkable. Chest x-ray showed questionable signs of bronchitis. Care/management discussed with: Patient's daughter who is at the bedside along with the canvassing manager and [facility]. Triage Nursing notes: reviewed and agree with them. Vital Signs: reviewed and remarkable for hypertension Additional History obtained from: EMS Chronic Medical/Social Conditions affecting care: Anxiety and depression for which she is followed at [place]. Patient has had previous inpatient psychiatric stays. Prior/ Outside/ External records reviewed: I did review previous primary care notes Differential Diagnosis: intracranial hemorrhage, hypoglycemia, electrolyte abnormality Diagnostics, independently interpreted by me: ECG: normal sinus rhythm at a rate of 95 with a first-degree AV block and occasional PVC. Cardiac Monitoring: Normal sinus rhythm at 95 Imaging studies: chest x-ray: Questionable evidence of bronchitis as per Imbro CT scan of the brain: As per [facility] HPI: 74 year old Female arrives for evaluation of altered mental status. family called EMS today because they felt the patient had increased confusion over the past 3 days. On my exam, patient is confused but her complaint is of dizziness and low back pain.. PAST MEDICAL HISTORY: See Below, PAST SURGICAL HISTORY: See Below, SOCIAL HISTORY: See Below, HOME MEDICATIONS: See list ALLERGIES: see list VITALS: See Below PHYSICAL EXAMINATION: HEENT: Head - normocephalic and atraumatic. Pupils are equal, round, and reactive to light. Extraocular eye muscles are intact and sclera are anicteric. Nose - moist nasal mucosa without discharge. Mouth - moist buccal mucosa. Oropharynx is nonerythematous and there is no tonsillar exudate or edema noted. Neck: Supple; no JVD, nuchal rigidity, cervical lymphadenopathy Heart: Regular rate and rhythm. There is a normal S1 and S2 with no murmurs, clicks, or gallops appreciated. Lungs: Clear to auscultation bilaterally with no wheezes, rales, or rhonchi. Abdomen: Soft, completely nontender, nondistended, with good bowel sounds. There are no palpable pulsatile masses or hepatosplenomegaly. There is no guarding, rigidity, or rebound noted. Extremities: No evidence of cyanosis, clubbing, or edema. There are easily palpable peripheral pulses. Neuro:The patient is awake and alert, oriented Person and place but had difficulty answering some other simple questions. Muscle strength is 5/5 in all 4 extremities. The patient has equal accelerator systems director strength and equal pedal push and pull. There are no cerebellar signs. Psych: The patient became quite agitated once her daughter arrived here in the emergency department explaining she wanted to be discharged to go home. The daughter confirmed the fact that the patient has been quite confused. Patient is fixated on concern of being evicted from her apartment but the daughter confirms that this is not the case. Emergency Department course: The patient was evaluated in room B-9. A complete history and physical was performed. Laboratory studies were drawn as above. An order was placed for continuous cardiac monitoring. The patient was in a normal sinus rhythm at a rate of 95. Twelve-lead EKG was obtained. Portable chest x-ray was performed. Patient went for CT scan of the brain. Upon returning from radiology, the patient became increasingly agitated and wished to be discharged to home. I had concerns for the patient's ability to care for herself Or even capacity to make decisions. Patient's daughter admits that she has had an altered mental status for the past 3 days and she is not sure that she is even taking her medications appropriately. The patient was openly able to talk to the ED psychiatric nurse outreach case manager and seemed to become much more relaxed and cooperative. The case was discussed with the [facility] Hospitalist and they will evaluate for further inpatient care. Past Med/Surg History Problem List (Updated 10/29/24 @ 19:02 by Haylee Thomason DO) Hallucinations (Acute) Hypercalcemia (Acute) Acute alteration in mental status (Acute) Hypercalcemia Acute kidney injury superimposed on CKD Encounter for pre-operative examination Elevated serum creatinine (Acute) Osteomyelitis of toe of left foot (Acute) Right foot pain (Acute) Diabetic ulcer of toe of right foot (Acute) DM2 (diabetes mellitus, type 2) Generalized weakness (Acute) Anxiety (Chronic) Diabetic ulcer of toe of left foot (Acute) Wound of left foot Hypomagnesemia (Acute) Diabetic infection of left foot Dyspnea Dysphagia Difficulty swallowing pills Obesity (BMI 30.0-34.9) Lumbar pain with radiation down both legs Anemia Crohn's ileocolitis (Chronic) Hearing loss (Chronic) Vitamin D deficiency (Chronic) Vitamin B12 deficiency (Chronic) Osteopenia (Chronic) Laryngopharyngeal reflux (LPR) (Chronic) Depression with anxiety (Chronic) Common migraine without aura (Chronic) Chromophobe adenoma (Chronic) Benign paroxysmal positional vertigo hx/no recent issues Hypothyroidism (Chronic) Hypertension (Chronic) Hyperlipidemia (Chronic) Asthma (Chronic) well controlled, has not used inhaler in years Lumbar stenosis with neurogenic claudication Medical History (Updated 10/29/24 @ 19:02 by Haylee Thomason DO) Chronic cerebrovascular accident (CVA) - Hx of - Head CT 07/18/24 incidentally noted new chronic 1.6cm infarct to left occipital lobe and chronic small vessel ischemic disease compared to 2019 imaging - PCP recommended MRI of brain (could only do under sedation, MRI cancelled for 09/22/24 due to elevated creatinine) - PCP also recommended carotid ultrasound (patient never had done) - Scheduled to see neurology 11/10/24 Hypothyroidism Hyperlipidemia Hypertension GERD (gastroesophageal reflux disease) Benign paroxysmal positional vertigo hx/no recent issues Asthma well controlled, no inhaler use in years Anxiety Schatzki's ring s/p dilation Diabetic foot ulcer has small area second toe left foot, and right foot 4 areas that wound care is following DM2 (diabetes mellitus, type 2) Poor historian History of COVID-19 09/2023 Muscular deconditioning CKD (chronic kidney disease) stage 3, GFR 30-59 ml/min no specialist Diabetic peripheral neuropathy associated with type 2 diabetes mellitus Sleep apnea no device Crohns disease Weakness of both legs Lumbar post-laminectomy syndrome History of anemia remote hx blood transfusion post-op Chronic left hip pain Recurrent UTI (urinary tract infection) none at present Hiatal hernia Vertigo "comes and goes" last episode 04/22/23, uses the meclizine as needed which helps. Tinnitus Esophageal dysmotility dysphagia s/p dilation Back pain, chronic Surgical History Osteomyelitis of toe of left foot first big toe amputated History of cataract surgery LEFT History of cardiac cath 04/2019 r/t ALICEA, no stents History of surgical removal of pituitary gland tumor excision History of bilateral salpingo-oophorectomy (BSO) History of esophagogastroduodenoscopy (EGD) multiple with multiple dilations History of colonoscopy History of tooth extraction S/P carpal tunnel release left S/P arthroscopic knee surgery left Fusion of spine multiple (fusion + revision) Removal spinal hardware T11-L1: 08/16/17: Grade 1 view, MAC #3, ETT 7.0 at [facility] T11-L1 hardware removal: 03/19/19: MAC#3 at [facility] History of arthroscopy right shoulder History of hysterectomy Family History Mother Diabetes Family history of diabetes mellitus Myocardial infarction Breast cancer Hypertension Sister Stroke Other Coronary heart disease No family history of adverse response to anesthesia Denies family history of Ovarian cancer Prostate cancer Lung cancer Colorectal cancer Social History Smoking Status: Never smoker Second Hand Exposure: No; Do You Dip or Chew Tobacco: No; Hx Alcohol Use: No Hx Substance Use: No Preferred Language: Lebanese Communication Ability: Impaired Visual Impairment: Limited Hearing Ability: Hard of Hearing Boxing Instructor Required: No Beliefs That Will Affect Care: None marital status: marital status details: Three children Current Living Situation: Alone Current Living Situation Comment: patient restless and unable to communicate current occupational status: retired Feels Safe at Home: Yes Childhood Exposure to Second-Hand Smoke: Yes Diet Comment: regular caffeine: Yes (pepsi) during the past year weight has: remained stable Dental Care, Regularly: No Physical Activity Frequency: Does not Exercise Physical Activity Frequency Comment: due to physical condition Seatbelt Use: always Sunscreen Use: Yes Assistive Devices: Cane and Glasses Allergies Allergies Allergy/AdvReac Type Severity Reaction Status Date / Time cephalexin Allergy Intermediate Hives Verified 10/28/24 23:51 Cephalosporins Allergy Intermediate Hives Verified 10/28/24 23:51 infliximab Allergy Intermediate Itching, Verified 10/28/24 23:51 rash Penicillins Allergy Intermediate Hives Verified 10/28/24 23:51 ciprofloxacin AdvReac Intermediate N/V Verified 10/28/24 23:51 doxycycline AdvReac Intermediate GI upset Verified 10/28/24 23:51 Home Meds Home Medications Medication Instructions Recorded Confirmed aspirin 81 mg tablet,delayed 81 mg PO QAM 06/10/18 10/28/24 release multivitamin 1 tab PO QAM 12/26/22 10/28/24 cyanocobalamin (vitamin B-12) 1,000 mcg PO DAILY 08/20/23 10/28/24 1,000 mcg tablet (Vitamin B-12) diphenhydramine HCl 25 mg capsule 25 mg PO DIRECTED PRN NEEDED 08/20/23 10/28/24 (Benadryl) acetaminophen 500 mg tablet 500 mg PO DIRECTED PRN Pain 07/18/24 10/28/24 buspirone 30 mg tablet 30 mg PO BID 07/18/24 10/28/24 duloxetine 60 mg capsule,delayed 60 mg PO QAM 07/18/24 10/28/24 release hydroxyzine HCl 25 mg tablet 25 mg PO 5XD PRN anxiety 07/18/24 10/28/24 ondansetron HCl 4 mg tablet 8 mg PO Q8H PRN NAUSEA/VOMITING 07/18/24 10/28/24 ropinirole 0.25 mg tablet 0.25 mg PO BID 07/18/24 10/28/24 duloxetine 30 mg capsule,delayed 30 mg PO QAM 10/28/24 10/28/24 release Previous Rx's Medication Instructions Recorded vedolizumab 300 mg intravenous 300 mg IV Q8WK #1 ea 06/28/20 solution (Entyvio) insulin glargine 100 unit/mL (3 44 - 60 unit (0.44 - 0.6 mL) 11/04/23 mL) subcutaneous pen (Lantus subcut QPM 3 months #45 mL Solostar U-100 Insulin) levothyroxine 88 mcg tablet 88 mcg PO QAM #60 tabs 04/28/24 omeprazole 40 mg capsule,delayed 40 mg PO BID #180 caps 05/10/24 release ropinirole 1 mg tablet 1 mg PO BID #180 tabs 05/10/24 topiramate 25 mg tablet (Topamax) 25 mg PO BID #180 tabs 05/10/24 atorvastatin 20 mg tablet 20 mg PO QAM #90 tabs 05/17/24 lisinopril 30 mg tablet 30 mg PO QAM #90 tabs 05/17/24 metformin 500 mg tablet,extended 500 mg PO .COMPLEX #270 tabs 05/17/24 release 24 hr blood sugar diagnostic (OneTouch #300 ea 07/01/24 Verio test strips) loperamide 2 mg capsule 2 mg PO Q6H PRN loose stool 90 07/27/24 days #180 caps blood-glucose meter (OneTouch #1 ea 09/17/24 Verio Reflect Meter) lancets 33 gauge #300 ea 09/17/24 pen needle, diabetic 32 gauge x #100 ea 09/17/24 5/32" tramadol 50 mg tablet 50 mg PO BID 30 days #60 tabs 09/17/24 meclizine 12.5 mg tablet 12.5 - 25 mg (1 - 2 x 12.5 mg) PO 10/04/24 BID PRN dizziness #180 tabs levalbuterol tartrate 45 1 inh inhalation Q6H PRN Shortness 10/05/24 mcg/actuation aerosol inhaler Of Breath Or Wheezing #15 grams gabapentin 600 mg tablet 600 mg PO BID #180 tabs 10/22/24 Results & Data (ED) Vital Signs Vital Signs - 24 hr 10/28/24 22:53 10/28/24 23:30 10/28/24 23:31 Temperature 36.6 C Temperature Source Oral Pulse Rate 95 H 97 H Pulse Rate [Radial] Pulse Rhythm [Radial] Pulse Strength [Radial] Respiratory Rate 18 Respiratory Effort / Characteristics Non-Labored Spontaneous Respiratory Depth Normal Respiratory Pattern Regular Blood Pressure 177/78 H Blood Pressure [Right Arm] Blood Pressure Mean 111 Blood Pressure Mean [Right Arm] Blood Pressure Position [Right Arm] Pulse Oximetry 95 98 Oxygen Delivery Method Room Air Room Air Sepsis Recent Fever Within 48 Hours No Sepsis New/Unexplained Change in Mental Status Yes Sepsis Action Taken by Nursing No Action Required 10/29/24 00:48 10/29/24 02:00 10/29/24 04:00 Temperature 36.8 C Temperature Source Oral Pulse Rate Pulse Rate [Radial] 95 H 99 H 108 H Pulse Rhythm [Radial] Regular Pulse Strength [Radial] Normal Respiratory Rate 18 17 20 Respiratory Effort / Characteristics Non-Labored Spontaneous Non-Labored Spontaneous Non-Labored Spontaneous Respiratory Depth Normal Normal Normal Respiratory Pattern Regular Regular Regular Blood Pressure Blood Pressure [Right Arm] 163/117 H 183/88 H 161/108 H Blood Pressure Mean Blood Pressure Mean [Right Arm] 132 119 125 Blood Pressure Position [Right Arm] Sitting Pulse Oximetry 90 98 93 Oxygen Delivery Method Room Air Room Air Room Air Sepsis Recent Fever Within 48 Hours Sepsis New/Unexplained Change in Mental Status Sepsis Action Taken by Nursing Laboratory Data 10/29/24 09:39 10/29/24 09:39 Lab Results 10/28/24 10/29/24 Range/Units 23:14 00:00 WBC 14.56 H (4.8-10.8) K/ul RBC 5.33 (4.20-5.40) M/uL Hgb 12.4 (12.0-16.0) g/dl Hct 40.7 (37.0-47.0) % MCV 76.4 L (80.0-100.0) fL MCH 23.3 L (25.0-34.0) pg MCHC 30.5 L (32.0-36.0) g/dL RDW Std Deviation 43.0 (36.4-46.3) fL RDW Coeff of Brianna 15.9 H (11.5-14.5) % Plt Count 425 H (130-400) K/uL MPV 10.5 (9.4-12.4) fL Immature Gran % (Auto) 0.3 % Neut % (Auto) 60.2 % Lymph % (Auto) 24.7 % [place] % (Auto) 13.9 % Eos % (Auto) 0.4 % Baso % (Auto) 0.5 % Neut # (Auto) 8.75 H (1.40-6.50) K/uL Lymph # (Auto) 3.60 H (1.20-3.40) K/uL [place] # (Auto) 2.03 H (0.11-0.59) K/uL Eos # (Auto) 0.06 (0.00-0.50) K/uL Baso # (Auto) 0.08 (0.00-0.20) K/uL Immature Gran # (Auto) 0.04 (0.01-0.20) K/uL PT 10.7 (9.0-12.0) Seconds INR 1.0 (0.9-1.1) APTT 26 (21-31) Seconds PTT Ratio 1.0 Sodium 135 L (136-145) mmol/L Potassium 4.1 (3.5-5.1) mmol/L Chloride 101 (98-107) mmol/L Carbon Dioxide 25 (21-32) mmol/L Anion Gap 9 (3-11) BUN 21 (6-23) mg/dl Creatinine 1.38 H (0.6-1.2) mg/dl Est Cr Clr Drug Dosing 30.5 ml/min eGFR 39.92 BUN/Creatinine Ratio 15.2 (10-20) Glucose 220 H (70-99(Fasting)) mg/dl Calcium 11.2 H (8.6-10.3) mg/dl Magnesium 1.9 (1.7-2.4) mg/dl Total Bilirubin 0.7 (0.2-1.0) mg/dl AST 21 (13-39) U/L ALT 15 (7-52) U/L Alkaline Phosphatase 148 H (34-104) U/L Troponin I High Sens 12.3 (0-14) pg/ml Total Protein 8.6 H (6.0-8.3) gm/dl Albumin 4.5 (3.4-5.0) gm/dl Globulin 4.1 H (2.5-4.0) gm/dl Albumin/Globulin Ratio 1.1 (0.9-2) Procalcitonin 0.07 (0-0.5) ng/ml Urine Color Yellow Urine Appearance Clear (Clear) Urine pH 5.0 (4.5-7.5) Ur Specific [place] 1.027 (1.000-1.030) Urine Protein 1+ H (Negative) Urine Glucose (UA) Negative (Negative) Urine Ketones Trace H (Negative) Urine Blood Negative (Negative) Urine Nitrite Negative (Negative) Urine Bilirubin Negative (Negative) Urine Urobilinogen Negative (Negative) Ur Leukocyte Esterase Trace H (Negative) Urine WBC (Auto) 0-5 (0-5) /hpf Urine RBC (Auto) 0-2 (0-2) /hpf U Hyaline Cast (Auto) 3-5 H (0-2) /lpf U Epithel Cells (Auto) 3-5 H (0-2) /hpf Urine Bacteria (Auto) None Seen (None Seen) Urine Comment Administered Medications Aspirin (Aspirin 81 Mg Ectab) 81 mg PO [facility] Stop: 11/28/24 08:59 Last Admin: 10/29/24 08:26 Dose: 81 mg Documented By: ADILENE Buspirone HCl (Buspirone 15 Mg Tab) 30 mg PO BID [facility] Stop: 11/28/24 08:59 Last Admin: 10/29/24 08:25 Dose: 30 mg Documented By: ADILENE Duloxetine HCl (Duloxetine Hcl 30 Mg Cap) 30 mg PO [facility] Stop: 11/28/24 08:59 Last Admin: 10/29/24 08:25 Dose: 30 mg Documented By: ADILENE Duloxetine HCl (Duloxetine Hcl 60 Mg Cap) 60 mg PO [facility] Stop: 11/28/24 08:59 Last Admin: 10/29/24 08:27 Dose: 60 mg Documented By: ADILENE Insulin Aspart (Insulin Aspart Per Unit Charge) 0 units SC ACHS [facility] Stop: 11/28/24 07:29 Last Admin: 10/29/24 17:00 Dose: Not Given Documented By: Admin: 10/29/24 11:49 Dose: Not Given Documented By: Admin: 10/29/24 08:42 Dose: 4 units Documented By: ADILENE Co-signed By: HERLINDA Levothyroxine Sodium (Levothyroxine Sodium 88 Mcg Tablet) [facility] Stop: 11/28/24 06:29 Last Admin: 10/29/24 08:23 Dose: 88 mcg Documented By: ADILENE Lisinopril (Lisinopril 10 Mg Tab) 30 mg PO [facility] Stop: 11/28/24 08:59 Last Admin: 10/29/24 08:24 Dose: 30 mg Documented By: ADILENE Miconazole Nitrate (Miconazole Nitrate Powder 85 Gm) 1 appln EXT PRN PRN PRN Reason: Affected Skin Folds Stop: 11/28/24 08:18 Last Admin: 10/29/24 18:05 Dose: 1 appln Documented By: ADILENE Ropinirole HCl (Ropinirole Hcl 1 Mg Tablet) 1 mg PO BID [facility] Stop: 11/28/24 08:59 Last Admin: 10/29/24 08:27 Dose: 1 mg Documented By: ADILENE Topiramate (Topiramate 25 Mg Tab) 25 mg PO BID [facility] Stop: 11/28/24 08:59 Last Admin: 10/29/24 08:24 Dose: 25 mg Documented By: ADILENE Tramadol HCl (Tramadol Hcl 50 Mg Tablet) 50 mg PO BID [facility] Stop: 11/28/24 08:59 Last Admin: 10/29/24 08:41 Dose: 50 mg Documented By: ADILENE Discontinued Medications Atorvastatin Calcium (Atorvastatin 20 Mg Tab) 20 mg PO QAM [facility] Stop: 11/28/24 08:59 Last Admin: 10/29/24 08:26 Dose: 20 mg Documented By: ADILENE Cyanocobalamin (Cyanocobalamin (B-12) 500 Mcg Tablet) 1,000 mcg PO DAILY [facility] Stop: 11/28/24 08:59 Last Admin: 10/29/24 08:25 Dose: 1,000 mcg Documented By: ADILENE Gabapentin (Gabapentin 600 Mg Tab) 600 mg PO BID [facility] Stop: 11/28/24 08:59 Last Admin: 10/29/24 08:27 Dose: 600 mg Documented By: ADILENE Sodium Chloride (Nss) 1,000 mls @ 80 mls/hr IV .[id number] [facility] Stop: 10/29/24 16:44 Last Infusion: 10/29/24 17:03 Dose: Infused Documented By: Admin: 10/29/24 07:02 Dose: 80 mls/hr Documented By: CARMELO Lorazepam (Lorazepam 2 Mg/1 Ml Vial) 0.5 mg IV NOW STA Stop: 10/29/24 05:23 Last Admin: 10/29/24 05:30 Dose: 0.5 mg Documented By: FRANCISCO Metformin HCl (Metformin Hcl Er 500 Mg Tabcr) 500 mg PO QDB [facility] Stop: 11/28/24 07:29 Last Admin: 10/29/24 08:19 Dose: 500 mg Documented By: ADILENE Metformin HCl (Metformin Hcl Er 500 Mg Tabcr) 1,000 mg PO QDD [facility] Stop: 11/28/24 16:29 Last Admin: 10/29/24 17:02 Dose: Not Given Documented By: ADILENE Multivitamins (Multivitamin Tab) 1 tab PO QAM [facility] Stop: 11/28/24 08:59 Last Admin: 10/29/24 08:24 Dose: 1 tab Documented By: ADILENE Pantoprazole Sodium (Pantoprazole 40 Mg Tab) 40 mg PO BID [facility] Stop: 11/28/24 08:59 Last Admin: 10/29/24 08:19 Dose: 40 mg Documented By: ADILENE Discharge Plan Visit Data Chief Complaint: Altered Mental Status Stated Complaint: AMS ED Provider: Haylee Thomason Discharge Problem: Acute alteration in mental status, Hypercalcemia, Hallucinations Patient Disposition: Admitted As Inpatient Condition: Serious Discharge Instructions Interventions: ED Discharge Assessment Last Done: 10/29/24 05:10
[2024-10-28 23:40] LABS: Hematocrit (blood only) 40.7 % (37.0-47.0); Hemoglobin 12.4 g/dl (12.0-16.0); Immature Granulocytes # (auto) 0.04 K/uL (0.01-0.20); Immature Granulocytes % (auto) 0.3 %; Mean Corpuscular Hemoglobin 23.3 pg (25.0-34.0); Mean Corpuscular Volume 76.4 fL (80.0-100.0); Platelet Count 425 K/uL (130-400); RDW Standard Deviation 43.0 fL (36.4-46.3); Red Blood Count 5.33 M/uL (4.20-5.40); White Blood Count 14.56 K/ul (4.8-10.8)
[2024-10-28 23:57] LABS: Alanine Aminotransferase 15.0 U/L (7-52); Albumin Globulin Ratio 1.1 (0.9-2); Alkaline Phosphatase 148.0 U/L (34-104); Anion Gap 9.0 (3-11); Bilirubin,Total 0.7 mg/dl (0.2-1.0); Blood Urea Nitrogen 21.0 mg/dl (6-23); Calcium 11.2 mg/dl (8.6-10.3); Carbon Dioxide 25.0 mmol/L (21-32); Chloride 101.0 mmol/L (98-107); Creatinine Clr Calc Pharmacy 30.5 ml/min; Globulin 4.1 gm/dl (2.5-4.0); Glucose 220.0 mg/dl (70-99(Fasting)); Magnesium 1.9 mg/dl (1.7-2.4); Potassium 4.1 mmol/L (3.5-5.1); Sodium 135.0 mmol/L (136-145); Total Protein 8.6 gm/dl (6.0-8.3)
[2024-10-29 00:30] LABS: INR 1.0 (0.9-1.1); Partial Thromboplastin Time 26 Seconds (21-31); Prothrombin Time 10.7 Seconds (9.0-12.0)
[2024-10-29 00:43] LABS: Appearance Urine Clear (Clear); Bacteria Urine Automated None Seen (None Seen); Glucose Urine UA Negative (Negative); RBC Urine Automated 0-2 /hpf (0-2); WBC Urine Automated 0-5 /hpf (0-5)
--- NOTE | 2024-10-29 02:32 | CT Scan Report ---
Exam(s): CT HEAD Without Contrast EXAM: CT Head Without Intravenous Contrast CLINICAL HISTORY: Reason for exam: altered ms. TECHNIQUE: Axial computed tomography images of the head/brain without intravenous contrast. CTDI is 36.9 mGy and DLP is 702 mGy-cm. Automated exposure control was utilized for the study. A dose lowering technique was utilized adhering to the principles of ALARA. COMPARISON: Prior head CT from July 18, 2024. FINDINGS: Brain: Remote ischemic injury of the left occipital lobe with encephalomalacia and gliosis. No hemorrhage. No significant white matter disease. No edema. Ventricles: Unremarkable. No ventriculomegaly. Bones/joints: Unremarkable. No acute fracture. Soft tissues: Unremarkable. Sinuses: Unremarkable as visualized. No acute sinusitis. Mastoid air cells: Unremarkable as visualized. No mastoid effusion. IMPRESSION: No evidence of acute intracranial pathology. Electronically signed by: Sunita Shen MD 10/29/24 02:31 AM
--- NOTE | 2024-10-29 02:33 | XRay Report ---
Exam(s): XR CXR 1 VIEW EXAM: XR Chest, 1 View CLINICAL HISTORY: Reason for exam: Sepsis. TECHNIQUE: Frontal view of the chest. COMPARISON: Prior chest x-ray from July 18, 2024. FINDINGS: Lungs: Moderate to heavy peribronchial thickening of the central and right lower lobe bronchi. No consolidation. Pleural space: Unremarkable. No pneumothorax. Heart: Unremarkable. No cardiomegaly. Mediastinum: Unremarkable. Normal mediastinal contour. Bones/joints: Diffuse osteopenia throughout the visualized bones. No acute fracture. IMPRESSION: Bronchitis, which may be of infectious or inflammatory etiologies. No consolidation or pleural effusion. Electronically signed by: Sunita Shen MD 10/29/24 02:32 AM
--- NOTE | 2024-10-29 04:27 | History & Physical Report ---
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 The patient was brought to the emergency department due to family concerns regarding worsening confusion, and patient also complained of dizziness and low back pain. HPI and review of systems are able to be done slowly, due to patient's intermittent confusion. [facility] and [facility]. Altered mental status- Differential including but not limited to: Hypercalcemia, dehydration, SYLVESTER on CKD, CVA, hyperglycemia, Crohn's, others Hypercalcemia- Calcium 11.2 on admission Range has been from 10.0-11.3 Repeat calcium and phosphorus, 25-hydroxy vitamin D, and parathyroid hormone levels May be the cause of her cough contribution to altered mental status Placed on NSS 80 mL x 1 L, then recheck laboratories in a.m. 1.6 cm left occipital pole CVA- Noted on CT head 07/18/2024 CT head today negative Order MRI brain without contrast SYLVESTER on CKD- Creatinine 1.38, with base 1.2 IV fluids as noted above, recheck laboratories in the a.m. Diabetes mellitus- Reduce glargine to 30 units subcu daily Hold metformin Placed on Accu-Cheks with NovoLog SSI Neuropathy/depression with anxiety- Continue buspirone, duloxetine, gabapentin, hydroxyzine, ropinirole, tramadol and topiramate Hyperlipidemia- Continue atorvastatin GERD- Continue omeprazole/pantoprazole Hypothyroidism- Continue levothyroxine History of Present Illness Chief Complaint: The patient was brought to the emergency department due to family concerns regarding altered mentation, dizziness, and back pain. 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 The patient was brought to the emergency department due to family concerns regarding worsening confusion, and patient also complained of dizziness and low back pain. HPI and review of systems are able to be done slowly, due to patient's intermittent confusion. [facility] and further treatment. Allergies Allergy/AdvReac Type Severity Reaction Status Date / Time cephalexin Allergy Intermediate Hives Verified 10/28/24 23:51 Cephalosporins Allergy Intermediate Hives Verified 10/28/24 23:51 infliximab Allergy Intermediate Itching, Verified 10/28/24 23:51 rash Penicillins Allergy Intermediate Hives Verified 10/28/24 23:51 ciprofloxacin AdvReac Intermediate N/V Verified 10/28/24 23:51 doxycycline AdvReac Intermediate GI upset Verified 10/28/24 23:51 Home Medications Medication Instructions Recorded Confirmed Type aspirin 81 mg tablet,delayed 81 mg PO QAM 06/10/18 10/28/24 History release vedolizumab 300 mg intravenous 300 mg IV Q8WK #1 ea 06/28/20 10/28/24 Rx solution (Entyvio) multivitamin 1 tab PO QAM 12/26/22 10/28/24 History cyanocobalamin (vitamin B-12) 1,000 mcg PO DAILY 08/20/23 10/28/24 History 1,000 mcg tablet (Vitamin B-12) diphenhydramine HCl 25 mg capsule 25 mg PO DIRECTED PRN NEEDED 08/20/23 10/28/24 History (Benadryl) insulin glargine 100 unit/mL (3 44 - 60 unit (0.44 - 0.6 mL) 11/04/23 10/28/24 Rx mL) subcutaneous pen (Lantus subcut QPM 3 months #45 mL Solostar U-100 Insulin) levothyroxine 88 mcg tablet 88 mcg PO QAM #60 tabs 04/28/24 10/28/24 Rx omeprazole 40 mg capsule,delayed 40 mg PO BID #180 caps 05/10/24 10/28/24 Rx release ropinirole 1 mg tablet 1 mg PO BID #180 tabs 05/10/24 10/28/24 Rx topiramate 25 mg tablet (Topamax) 25 mg PO BID #180 tabs 05/10/24 10/28/24 Rx atorvastatin 20 mg tablet 20 mg PO QAM #90 tabs 05/17/24 10/28/24 Rx lisinopril 30 mg tablet 30 mg PO QAM #90 tabs 05/17/24 10/28/24 Rx metformin 500 mg tablet,extended 500 mg PO .COMPLEX #270 tabs 05/17/24 10/28/24 Rx release 24 hr blood sugar diagnostic (OneTouch #300 ea 07/01/24 09/30/24 Rx Verio test strips) acetaminophen 500 mg tablet 500 mg PO DIRECTED PRN Pain 07/18/24 10/28/24 History buspirone 30 mg tablet 30 mg PO BID 07/18/24 10/28/24 History duloxetine 60 mg capsule,delayed 60 mg PO QAM 07/18/24 10/28/24 History release hydroxyzine HCl 25 mg tablet 25 mg PO 5XD PRN anxiety 07/18/24 10/28/24 History ondansetron HCl 4 mg tablet 8 mg PO Q8H PRN NAUSEA/VOMITING 07/18/24 10/28/24 History ropinirole 0.25 mg tablet 0.25 mg PO BID 07/18/24 10/28/24 History loperamide 2 mg capsule 2 mg PO Q6H PRN loose stool 90 07/27/24 10/28/24 Rx days #180 caps blood-glucose meter (OneTouch #1 ea 09/17/24 09/30/24 Rx Verio Reflect Meter) lancets 33 gauge #300 ea 09/17/24 09/30/24 Rx pen needle, diabetic 32 gauge x #100 ea 09/17/24 09/30/24 Rx 5/32" tramadol 50 mg tablet 50 mg PO BID 30 days #60 tabs 09/17/24 10/28/24 Rx meclizine 12.5 mg tablet 12.5 - 25 mg (1 - 2 x 12.5 mg) PO 10/04/24 10/28/24 Rx BID PRN dizziness #180 tabs levalbuterol tartrate 45 1 inh inhalation Q6H PRN Shortness 10/05/24 10/28/24 Rx mcg/actuation aerosol inhaler Of Breath Or Wheezing #15 grams gabapentin 600 mg tablet 600 mg PO BID #180 tabs 10/22/24 10/28/24 Rx duloxetine 30 mg capsule,delayed 30 mg PO QAM 10/28/24 10/28/24 History release Past Med/Surg History Problem List (Updated 10/29/24 @ 04:55 by Alfred Serrano MD) Hypercalcemia Acute kidney injury superimposed on CKD Encounter for pre-operative examination Elevated serum creatinine (Acute) Osteomyelitis of toe of left foot (Acute) Right foot pain (Acute) Diabetic ulcer of toe of right foot (Acute) DM2 (diabetes mellitus, type 2) Generalized weakness (Acute) Anxiety (Chronic) Diabetic ulcer of toe of left foot (Acute) Wound of left foot Hypomagnesemia (Acute) Diabetic infection of left foot Dyspnea Dysphagia Difficulty swallowing pills Obesity (BMI 30.0-34.9) Lumbar pain with radiation down both legs Anemia Crohn's ileocolitis (Chronic) Hearing loss (Chronic) Vitamin D deficiency (Chronic) Vitamin B12 deficiency (Chronic) Osteopenia (Chronic) Laryngopharyngeal reflux (LPR) (Chronic) Depression with anxiety (Chronic) Common migraine without aura (Chronic) Chromophobe adenoma (Chronic) Benign paroxysmal positional vertigo hx/no recent issues Hypothyroidism (Chronic) Hypertension (Chronic) Hyperlipidemia (Chronic) Asthma (Chronic) well controlled, has not used inhaler in years Lumbar stenosis with neurogenic claudication Medical History (Updated 10/29/24 @ 04:55 by Alfred Serrano MD) Chronic cerebrovascular accident (CVA) - Hx of - Head CT 07/18/24 incidentally noted new chronic 1.6cm infarct to left occipital lobe and chronic small vessel ischemic disease compared to 2019 imaging - PCP recommended MRI of brain (could only do under sedation, MRI cancelled for 09/22/24 due to elevated creatinine) - PCP also recommended carotid ultrasound (patient never had done) - Scheduled to see neurology 11/10/24 Hypothyroidism Hyperlipidemia Hypertension GERD (gastroesophageal reflux disease) Benign paroxysmal positional vertigo hx/no recent issues Asthma well controlled, no inhaler use in years Anxiety Schatzki's ring s/p dilation Diabetic foot ulcer has small area second toe left foot, and right foot 4 areas that wound care is following DM2 (diabetes mellitus, type 2) Poor historian History of COVID-19 09/2023 Muscular deconditioning CKD (chronic kidney disease) stage 3, GFR 30-59 ml/min no specialist Diabetic peripheral neuropathy associated with type 2 diabetes mellitus Sleep apnea no device Crohns disease Weakness of both legs Lumbar post-laminectomy syndrome History of anemia remote hx blood transfusion post-op Chronic left hip pain Recurrent UTI (urinary tract infection) none at present Hiatal hernia Vertigo "comes and goes" last episode 04/22/23, uses the meclizine as needed which helps. Tinnitus Esophageal dysmotility dysphagia s/p dilation Back pain, chronic Surgical History Osteomyelitis of toe of left foot first big toe amputated History of cataract surgery LEFT History of cardiac cath 04/2019 r/t ALICEA, no stents History of surgical removal of pituitary gland tumor excision History of bilateral salpingo-oophorectomy (BSO) History of esophagogastroduodenoscopy (EGD) multiple with multiple dilations History of colonoscopy History of tooth extraction S/P carpal tunnel release left S/P arthroscopic knee surgery left Fusion of spine multiple (fusion + revision) Removal spinal hardware T11-L1: 08/16/17: Grade 1 view, MAC #3, ETT 7.0 at [facility] T11-L1 hardware removal: 03/19/19: MAC#3 at [facility] History of arthroscopy right shoulder History of hysterectomy Family History Mother Diabetes Family history of diabetes mellitus Myocardial infarction Breast cancer Hypertension Sister Stroke Other Coronary heart disease No family history of adverse response to anesthesia Denies family history of Ovarian cancer Prostate cancer Lung cancer Colorectal cancer Social History Smoking Status: Unknown if ever smoked Second Hand Exposure: No; Do You Dip or Chew Tobacco: No; Hx Alcohol Use: No Hx Substance Use: No Preferred Language: Pashto Communication Ability: Effective Visual Impairment: Limited Hearing Ability: 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 Beliefs That Will Affect Care: None marital status: marital status details: Three children Current Living Situation: Alone Current Living Situation Comment: [facility] current occupational status: retired Feels Safe at Home: Yes Childhood Exposure to Second-Hand Smoke: Yes Diet Comment: regular caffeine: Yes (pepsi) during the past year weight has: remained stable Dental Care, Regularly: No Physical Activity Frequency: Does not Exercise Physical Activity Frequency Comment: due to physical condition Seatbelt Use: always Sunscreen Use: Yes Assistive Devices: Glasses, Walker and Wheelchair Review of Systems Review of Systems: The patient denies chest pain, palpitations, shortness of breath, dyspnea on exertion, cough, lower extremity swelling, sore throat, fevers, chills, sweats, nausea, vomiting, diarrhea , constipation, abdominal pain, pelvic pain, blood in urine or stool, dysuria, urinary frequency or urgency, lightheadedness, dizziness, headache, loss of consciousness, rash, abnormal bruising or bleeding, focal weakness, numbness or tingling in arms or legs, generalized arthralgias or myalgias, back or neck pain, or night sweats. The review of systems is otherwise negative other than for that already noted above, and at least 10 systems have been reviewed. Physical Exam Physical Exam: The patient is awake, intermittently confused, normocephalic and atraumatic, lying in bed and in no acute distress. HEENT--PERRL, EOMI, mucous membranes and oropharynx dry. Neck--supple. No JVD. No bruits. Thyroid normal, trachea midline, no adenopathy. Heart--normal S1 and S2. No murmurs, rubs or gallops. Lungs--clear bilaterally, no respiratory distress, no accessory muscle use. Abdomen--normal bowel sounds and soft. Nontender. Nondistended, no hernias or masses, no organomegaly. Extremities--no cyanosis or clubbing. No edema. There are good distal pulses b/l. Dermatologic--normal skin turgor, normal color, no abnormal lymph nodes, no rash. Neurologic--cranial nerves II through XII grossly intact. Rheumatologic--normal range of motion. Psychiatric--normal affect. Results & Data Results & Data Vital Signs (Past 12 Hours) Vital Signs Temp Pulse Pulse Resp BP BP Pulse Ox 10/29/24 04:00 108 H 20 161/108 H 93 10/29/24 02:00 36.8 C 99 H 17 183/88 H 98 10/29/24 00:48 95 H 18 163/117 H 90 10/28/24 23:31 97 H 10/28/24 23:30 98 10/28/24 22:53 36.6 C 95 H 18 177/78 H 95 O2 Del Method 10/29/24 04:00 Room Air 10/29/24 02:00 Room Air 10/29/24 00:48 Room Air 10/28/24 23:31 10/28/24 23:30 Room Air 10/28/24 22:53 Room Air Laboratory Results Laboratory Results WBC 14.56 K/ul (4.8-10.8) H 10/28/24 23:14 RBC 5.33 M/uL (4.20-5.40) 10/28/24 23:14 Hgb 12.4 g/dl (12.0-16.0) 10/28/24 23:14 Hct 40.7 % (37.0-47.0) 10/28/24 23:14 MCV 76.4 fL (80.0-100.0) L 10/28/24 23:14 MCH 23.3 pg (25.0-34.0) L 10/28/24 23:14 MCHC 30.5 g/dL (32.0-36.0) L 10/28/24 23:14 RDW Std Deviation 43.0 fL (36.4-46.3) 10/28/24 23:14 RDW Coeff of Brianna 15.9 % (11.5-14.5) H 10/28/24 23:14 Plt Count 425 K/uL (130-400) H 10/28/24 23:14 MPV 10.5 fL (9.4-12.4) 10/28/24 23:14 Immature Gran % (Auto) 0.3 % 10/28/24 23:14 Neut % (Auto) 60.2 % 10/28/24 23:14 Lymph % (Auto) 24.7 % 10/28/24 23:14 Spencer % (Auto) 13.9 % 10/28/24 23:14 Eos % (Auto) 0.4 % 10/28/24 23:14 Baso % (Auto) 0.5 % 10/28/24 23:14 Neut # (Auto) 8.75 K/uL (1.40-6.50) H 10/28/24 23:14 Lymph # (Auto) 3.60 K/uL (1.20-3.40) H 10/28/24 23:14 Spencer # (Auto) 2.03 K/uL (0.11-0.59) H 10/28/24 23:14 Eos # (Auto) 0.06 K/uL (0.00-0.50) 10/28/24 23:14 Baso # (Auto) 0.08 K/uL (0.00-0.20) 10/28/24 23:14 Immature Gran # (Auto) 0.04 K/uL (0.01-0.20) 10/28/24 23:14 PT 10.7 Seconds (9.0-12.0) 10/28/24 23:14 INR 1.0 (0.9-1.1) 10/28/24 23:14 APTT 26 Seconds (21-31) 10/28/24 23:14 PTT Ratio 1.0 10/28/24 23:14 Sodium 135 mmol/L (136-145) L 10/28/24 23:14 Potassium 4.1 mmol/L (3.5-5.1) 10/28/24 23:14 Chloride 101 mmol/L (98-107) 10/28/24 23:14 Carbon Dioxide 25 mmol/L (21-32) 10/28/24 23:14 Anion Gap 9 (3-11) 10/28/24 23:14 BUN 21 mg/dl (6-23) 10/28/24 23:14 Creatinine 1.38 mg/dl (0.6-1.2) H 10/28/24 23:14 Est Cr Clr Drug Dosing 30.5 ml/min 10/28/24 23:14 eGFR 39.92 10/28/24 23:14 BUN/Creatinine Ratio 15.2 (10-20) 10/28/24 23:14 Glucose 220 mg/dl (70-99(Fasting)) H 10/28/24 23:14 Calcium 11.2 mg/dl (8.6-10.3) H 10/28/24 23:14 Magnesium 1.9 mg/dl (1.7-2.4) 10/28/24 23:14 Total Bilirubin 0.7 mg/dl (0.2-1.0) 10/28/24 23:14 AST 21 U/L (13-39) 10/28/24 23:14 ALT 15 U/L (7-52) 10/28/24 23:14 Alkaline Phosphatase 148 U/L (34-104) H 10/28/24 23:14 Troponin I High Sens 12.3 pg/ml (0-14) 10/28/24 23:14 Total Protein 8.6 gm/dl (6.0-8.3) H 10/28/24 23:14 Albumin 4.5 gm/dl (3.4-5.0) 10/28/24 23:14 Globulin 4.1 gm/dl (2.5-4.0) H 10/28/24 23:14 Albumin/Globulin Ratio 1.1 (0.9-2) 10/28/24 23:14 Procalcitonin 0.07 ng/ml (0-0.5) 10/28/24 23:14 Urine Color Yellow 10/29/24 00:00 Urine Appearance Clear (Clear) 10/29/24 00:00 Urine pH 5.0 (4.5-7.5) 10/29/24 00:00 Ur Specific [place] 1.027 (1.000-1.030) 10/29/24 00:00 Urine Protein 1+ (Negative) H 10/29/24 00:00 Urine Glucose (UA) Negative (Negative) 10/29/24 00:00 Urine Ketones Trace (Negative) H 10/29/24 00:00 Urine Blood Negative (Negative) 10/29/24 00:00 Urine Nitrite Negative (Negative) 10/29/24 00:00 Urine Bilirubin Negative (Negative) 10/29/24 00:00 Urine Urobilinogen Negative (Negative) 10/29/24 00:00 Ur Leukocyte Esterase Trace (Negative) H 10/29/24 00:00 Urine WBC (Auto) 0-5 /hpf (0-5) 10/29/24 00:00 Urine RBC (Auto) 0-2 /hpf (0-2) 10/29/24 00:00 U Hyaline Cast (Auto) 3-5 /lpf (0-2) H 10/29/24 00:00 U Epithel Cells (Auto) 3-5 /hpf (0-2) H 10/29/24 00:00 Urine Bacteria (Auto) None Seen (None Seen) 10/29/24 00:00 Urine Comment 10/29/24 00:00 Impressions Chest X-Ray 10/28/24 22:55 Exam(s): XR CXR 1 VIEW EXAM: XR Chest, 1 View CLINICAL HISTORY: Reason for exam: Sepsis. TECHNIQUE: Frontal view of the chest. COMPARISON: Prior chest x-ray from July 18, 2024. FINDINGS: Lungs: Moderate to heavy peribronchial thickening of the central and right lower lobe bronchi. No consolidation. Pleural space: Unremarkable. No pneumothorax. Heart: Unremarkable. No cardiomegaly. Mediastinum: Unremarkable. Normal mediastinal contour. Bones/joints: Diffuse osteopenia throughout the visualized bones. No acute fracture. IMPRESSION: Bronchitis, which may be of infectious or inflammatory etiologies. No consolidation or pleural effusion. Electronically signed by: Sunita Shen MD 10/29/24 02:[address] 10/28/24 23:07 Exam(s): CT HEAD Without Contrast EXAM: CT Head Without Intravenous Contrast CLINICAL HISTORY: Reason for exam: altered ms. TECHNIQUE: Axial computed tomography images of the head/brain without intravenous contrast. CTDI is 36.9 mGy and DLP is 702 mGy-cm. Automated exposure control was utilized for the study. A dose lowering technique was utilized adhering to the principles of ALARA. COMPARISON: Prior head CT from July 18, 2024. FINDINGS: Brain: Remote ischemic injury of the left occipital lobe with encephalomalacia and gliosis. No hemorrhage. No significant white matter disease. No edema. Ventricles: Unremarkable. No ventriculomegaly. Bones/joints: Unremarkable. No acute fracture. Soft tissues: Unremarkable. Sinuses: Unremarkable as visualized. No acute sinusitis. Mastoid air cells: Unremarkable as visualized. No mastoid effusion. IMPRESSION: No evidence of acute intracranial pathology. Electronically signed by: Sunita Shen MD 10/29/24 02:31 AM Code Status & VTE Plan Code Status Full code VTE Prophylaxis Plan VTE Prophylaxis will be ordered: Yes PG Care Time/CCT Total # of Minutes Spent Total Time Spent with Patient: Total time spent is greater than 50% in coordination of care (as documented) at patient's floor/unit and/or counseling patient: Coding Level of Care Code 16203 INT INP/OBS CARE 3/75MIN Diagnoses Somnolence R40.0 Altered mental status type: somnolence Acute kidney injury superimposed on CKD N17.9; N18.9 DM2 (diabetes mellitus, type 2) E11.9 Hypercalcemia E83.52 (1) AMS (altered mental status) Altered mental status type: somnolence Qualified Code(s): R40.0 - Somnolence
[2024-10-29 05:14] LABS: Calcium 10.6 mg/dl (8.6-10.3)
[2024-10-29] MEDS ORDERED: DEXTROSE 50% 50 ML SYRINGE IV PRN (06:20)
[2024-10-29] MEDS ORDERED: GLUCOSE 40% GEL 15 GM TUBE PO PRN (06:20)
[2024-10-29] MEDS ORDERED: GLUCOSE 10 TAB/TUBE PO PRN (06:20)
[2024-10-29] MEDS ORDERED: LOPERAMIDE HCL 2 MG CAP PO PRN (06:20)
[2024-10-29] MEDS ORDERED: VEDOLIZUMAB 300 MG/VIAL INJ IV SCH (06:20)
[2024-10-29] MEDS ORDERED: CARBOHYDRATES FOR HYPOGLYCEMIA PO PRN (06:20)
[2024-10-29] MEDS ORDERED: GLUCAGON FOR INJ 1 MG VIAL SQ PRN (06:20)
[2024-10-29] MEDS ORDERED: LEVALBUTEROL TARTRATE 15 GM HFA.AER.AD INH PRN (06:20)
[2024-10-29] MEDS ORDERED: ONDANSETRON 4 MG OD TAB PO PRN (06:28)
[2024-10-29] MEDS: SODIUM CHLORIDE 0.9% 1,000 ML IV SCH (07:02)
[2024-10-29] MEDS: LEVOTHYROXINE SODIUM 88 MCG TABLET PO SCH (08:23)
[2024-10-29] MEDS: TOPIRAMATE 25 MG TAB PO SCH (08:24)
[2024-10-29] MEDS: MULTIVITAMIN TAB PO SCH (08:24)
[2024-10-29] MEDS: busPIRone 15 MG TAB PO SCH (08:25)
[2024-10-29] MEDS: CYANOCOBALAMIN (B-12) 500 MCG TABLET PO SCH (08:25)
[2024-10-29] MEDS: ATORVASTATIN 20 MG TAB PO SCH (08:26)
[2024-10-29] MEDS: ASPIRIN 81 MG ECTAB PO SCH (08:26)
[2024-10-29] MEDS: GABAPENTIN 600 MG TAB PO SCH (08:27)
[2024-10-29] MEDS: INSULIN ASPART PER UNIT CHARGE SC SCH (08:42)
[2024-10-29 08:47] LABS: Cholesterol 135.0 mg/dl (0-200); HDL Cholesterol 46.0 mg/dl; Triglycerides 241.0 mg/dl (0-150)
[2024-10-29 10:26] LABS: Hematocrit (blood only) 39.1 % (37.0-47.0); Hemoglobin 12.6 g/dl (12.0-16.0); Immature Granulocytes # (auto) 0.06 K/uL (0.01-0.20); Immature Granulocytes % (auto) 0.4 %; Mean Corpuscular Hemoglobin 24.4 pg (25.0-34.0); Mean Corpuscular Volume 75.8 fL (80.0-100.0); Platelet Count 432 K/uL (130-400); RDW Standard Deviation 42.4 fL (36.4-46.3); Red Blood Count 5.16 M/uL (4.20-5.40); White Blood Count 17.11 K/ul (4.8-10.8)
[2024-10-29 10:47] LABS: Alkaline Phosphatase 135.0 U/L (34-104); Anion Gap 10.0 (3-11); Blood Urea Nitrogen 21.0 mg/dl (6-23); Calcium 10.8 mg/dl (8.6-10.3); Carbon Dioxide 23.0 mmol/L (21-32); Chloride 104.0 mmol/L (98-107); Creatinine Clr Calc Pharmacy 37.1 ml/min; Glucose 147.0 mg/dl (70-99(Fasting)); Potassium 4.1 mmol/L (3.5-5.1); Sodium 137.0 mmol/L (136-145)
--- NOTE | 2024-10-29 14:17 | Magnetic Resonance Report ---
MR brain wo con CLINICAL HISTORY: hx CVA 08/11, new confusion COMPARISON STUDY: Head CT yesterday FINDINGS: There is motion artifact. No restricted diffusion seen to suggest acute infarction. No mass effect, midline shift, or hydrocephalus. There are mild chronic small vessel ischemic changes. IMPRESSION: No evidence of acute infarction. ACT 112: Negative or not required by law. Electronically signed by: Dk Candelario M.D. 10/29/2024 2:16 PM
[2024-10-29] MEDS: MICONAZOLE NITRATE POWDER 85 GM EXT PRN (18:05)
[2024-10-29] MEDS ORDERED: VANCOMYCIN CONSULT ACTIVE PRN (19:28)
[2024-10-29 20:48] LABS: Calcium 10.5 mg/dl (8.6-10.3)
[2024-10-29 20:50] LABS: Chlamydia pneumoniae PCR Not Detected (NotDetected); Coronavirus 229E PCR Not Detected (NotDetected); Coronavirus CoV-2 (COVID19)PCR Not Detected (NotDetected); Coronavirus HKU1 PCR Not Detected (NotDetected); Coronavirus NL63 PCR Not Detected (NotDetected); Coronavirus OC43PCR Not Detected (NotDetected); Human Metapneumovirus PCR Not Detected (NotDetected); Parainfluenza Virus 1 PCR Not Detected (NotDetected); Parainfluenza Virus 2 PCR Not Detected (NotDetected); Parainfluenza Virus 3 PCR Not Detected (NotDetected); Parainfluenza Virus 4 PCR Not Detected (NotDetected); Respiratory Syncytial VirusPCR Not Detected (NotDetected); Rhinovirus/Enterovirus PCR Not Detected (NotDetected)
[2024-10-29] MEDS: LANTUS PER UNIT CHARGE SQ SCH (20:51)
[2024-10-29] MEDS: AZTREONAM 2,000 MG in DEXTROSE 5% MINI-B 100 ML IV STA (20:57)
[2024-10-29] MEDS: VANCOMYCIN HCL 1,500 MG in SODIUM CHLORIDE 0.9% 500 ML IV ONE (21:00)
[2024-10-29] MEDS: ACETAMINOPHEN 325 MG TAB PO PRN (22:33)
[2024-10-30 05:43] LABS: Hematocrit (blood only) 34.9 % (37.0-47.0); Hemoglobin 10.8 g/dl (12.0-16.0); Mean Corpuscular Hemoglobin 23.7 pg (25.0-34.0); Mean Corpuscular Volume 76.7 fL (80.0-100.0); RDW Standard Deviation 43.1 fL (36.4-46.3); Red Blood Count 4.55 M/uL (4.20-5.40); White Blood Count 10.46 K/ul (4.8-10.8)
[2024-10-30 05:44] LABS: Immature Granulocytes # (auto) 0.04 K/uL (0.01-0.20); Immature Granulocytes % (auto) 0.4 %; Platelet Count 322 K/uL (130-400)
[2024-10-30 06:02] LABS: Alanine Aminotransferase 13.0 U/L (7-52); Albumin Globulin Ratio 1.1 (0.9-2); Alkaline Phosphatase 110.0 U/L (34-104); Anion Gap 6.0 (3-11); Bilirubin,Total 0.5 mg/dl (0.2-1.0); Blood Urea Nitrogen 21.0 mg/dl (6-23); Calcium 10.0 mg/dl (8.6-10.3); Carbon Dioxide 24.0 mmol/L (21-32); Chloride 106.0 mmol/L (98-107); Creatinine Clr Calc Pharmacy 37.4 ml/min; Globulin 3.1 gm/dl (2.5-4.0); Glucose 140.0 mg/dl (70-99(Fasting)); Magnesium 1.9 mg/dl (1.7-2.4); Potassium 4.0 mmol/L (3.5-5.1); Sodium 136.0 mmol/L (136-145); Total Protein 6.6 gm/dl (6.0-8.3)
--- NOTE | 2024-10-30 06:18 | Electrocardiogram Report ---
Test Reason : Blood Pressure : */* mmHG Vent. Rate : 95 BPM Atrial Rate : 95 BPM P-R Int : 214 ms QRS Dur : 76 ms QT Int : 364 ms P-R-T Axes : 36 27 62 degrees QTcB Int : 457 ms Sinus rhythm with 1st degree A-V block with occasional Premature ventricular complexes Otherwise normal ECG When compared with ECG of 21-Oct-2024 09:43, Premature ventricular complexes are now Present Confirmed by Delvin Patten ([id number]) on 10/30/2024 6:17:55 AM Referred By: REFERRED SELF Confirmed By: Delvin Patten
[2024-10-30 07:27] LABS: Hemoglobin A1C 6.8 % (4.5-5.6)
[2024-10-30 12:27] LABS: Appearance Urine Clear (Clear); Bacteria Urine Automated None Seen (None Seen); Cast Urine Automated 0-2 /lpf (0-2); Glucose Urine UA Negative (Negative); RBC Urine Automated 0-2 /hpf (0-2); WBC Urine Automated 21-50 /hpf (0-5)
[2024-10-30] MEDS: VANCOMYCIN HCL / NSS 1,000 MG/270 ML BAG IV SCH (12:33)
--- NOTE | 2024-10-30 13:18 | Hospitalist Progress Note ---
Date of Service October 30, 2024 Assessment & Plan (1) AMS (altered mental status): Plan: RESOLVING very well on 10/30/2024. Etiology of acute metabolic encephalopathy remains unclear and may be due to (a) acute UTI and/or (b) acute osteomyelitis of left 2nd toe, s/p partial left 2nd toe amputation on 10/21/2024, 10:05am, [facility] Dr. Brian Butler) in patient with past medical history of methicillin-sensitive, vancomycin- sensitive staphylococcal infection of left second toe (as noted on 08/02/2024 wound culture of left 2nd toe), methicillin-sensitive, vancomycin-sensitive staphylococcal infection of left third toe (as noted on 01/29/2024 wound culture of left 3rd toe), and methicillin-sensitive, vancomycin-sensitive staphylococcal infection and vancomycin-sensitive Enterococcus faecalis infection of left hallux (as noted on 08/20/2023, 9:14pm wound culture of left hallux). To address (a) acute UTI: U/A (10/29/2024, 12:00am): clear yellow, LE trace, nitrite-, WBC 0-5, RBC 0-2, epithelial cells 3- 5, bacteria 0 U/A (10/30/2024, 11:54am): clear yellow, LE 2+, nitrite-, WBC 21-50, RBC 0- 2, epithelial cells 6-10, bacteria 0. Urine culture (10/30/2024, 11:54am): Patient subsequently received aztreonam 2g IV x 1 dose (10/29/2024, 8:57pm), vancomycin 1.5g IV x 1 dose (10/29/2024, 9:00pm), and vancomycin 1g IV daily x 1 dose (10/30/2024, 12:33pm). Patient's acute metabolic encephalopathy subsequently is RESOLVING very well on 10/30/2024. Hence, I have opted to continue aztreonam 1g IV q8 x 8 doses (10/30/2024, 2:00pm) and vancomycin 1g IV daily on 10/30/2024, 2:00pm). I will check vitals, genito-urinary exam, and urine culture (10/30/2024, 11:54am) in the 10/31/2024 am. To address (b) acute osteomyelitis of left 2nd toe, s/p partial left 2nd toe amputation on 10/21/2024, 10:05am, [facility] Dr. Brian Butler) in patient with past medical history of methicillin-sensitive, vancomycin-sensitive staphylococcal infection of left second toe (as noted on 08/02/2024 wound culture of left 2nd toe), methicillin-sensitive, vancomycin-sensitive staphylococcal infection of left third toe (as noted on 01/29/2024 wound culture of left 3rd toe), and methicillin-sensitive, vancomycin-sensitive staphylococcal infection and vancomycin-sensitive Enterococcus faecalis infection of left hallux (as noted on 08/20/2023, 9:14pm wound culture of left hallux), patient subsequently received aztreonam 2g IV x 1 dose (10/29/2024, 8:57pm), vancomycin 1.5g IV x 1 dose (10/29/2024, 9:00pm), and vancomycin 1g IV daily x 1 dose (10/30/2024, 12:33pm). Patient's acute metabolic encephalopathy subsequently is RESOLVING very well on 10/30/2024. Hence, I have opted to continue aztreonam 1g IV q8 x 8 doses (10/30/2024, 2:00pm) and vancomycin 1g IV daily on 10/30/2024, 2:00pm). I will check vitals, left 2nd toe exam, bone pathology (sent by [facility] Dr. Brian Butler to Pathology Lab), and blood cultures #1 and #2 (10/29/2024, 7:04pm) in the 10/31/2024 am. (2) Acute kidney injury superimposed on CKD: Plan: RESOLVING well s/p 1 liter of 0.9% NS @ 80 mL/hr (10/29/2024, 7:02pm). cf., BUN 21, creatinine 1.38, GFR 39.92 (10/28/2024, 11:14pm). cf., BUN 21, creatinine 1.25, GFR 44.95 (10/29/2024, 9:39am). cf., BUN 21, creatinine 1.24, GFR 45.38 (10/30/2024, 5:29am). cf., CKD stage III with baseline creatinine range, 1.21 - 1.24 (12/16/2023 - 10/21/2024). I have opted to continue rehydration therapy utilizing 1 liter of 0.9% NS @ 71 mL/hr (10/30/2024, 2:00pm), based on a delivery rate of 1 mL of 0.9% NS per kg of body weight per hour, and a body weight of 70.5 kg. I will check repeat creatinine level in the 10/31/2024 am. (3) DM2 (diabetes mellitus, type 2): Plan: cf., HbA1c 6.8% (10/30/2024, 5:29am). Long-term glycemic control is most probably poor, despite HbA1c 6.8% (10/30/2024, 5:29am), which might suggest that patient's long-term glycemic control is modest. The reason that long-term glycemic control is poor in this patient is due to the fact that in anemic states (cf., patient suffers from chronic microcytic, hypochromic anemia with baseline Hb range, 9.1 - 11.1 g/dL (08/20/2023 - 10/21/2024), increased RBC turnover leads to concomitant reductions in both Hb and HbA1c levels. In contrast, in non-anemic states, the lack of increased RBC turnover does not affect HbA1c levels. Hence, attention turns towards serum glucose levels: cf., glucose 220 mg/dL, CO2 25, anion gap 9 (10/28/2024, 11:14pm)(admission date). cf., glucose 147 mg/dL, CO2 23, anion gap 10 (10/29/2024, 9:39am). cf., glucose 140 mg/dL, CO2 24, anion gap 6 (10/30/2024, 5:29am)(current date) Hence, patient continues to receive carbohydrate consistent diet, lantus 30 units SQ qpm, aspart insulin sliding scale qac + qhs, and POC glucose qac + qhs. (4) Hypercalcemia: Plan: RESOLVED with post-hydration Ca 10.0 mg/L (10/30/2024, 5:29am), s/p 1 liter of 0.9% NS @ 80 mL/hr (10/29/2024, 7:02pm). cf., Ca 11.2 mg/dL (10/28/2024, 11:14pm). cf., Ca 10.6 mg/dL (10/29/2024, 4:33am). cf., Ca 10.8 mg/dL (10/29/2024, 9:39am). cf., Ca 10.0 mg/dL (10/30/2024, 5:29am). cf., baseline Ca range, 9.1 - 10.3 mg/dL (10/29/2016 - 10/21/2024). I have opted to continue rehydration therapy utilizing 1 liter of 0.9% NS @ 71 mL/hr (10/30/2024, 2:00pm), based on a delivery rate of 1 mL of 0.9% NS per kg of body weight per hour, and a body weight of 70.5 kg. I will check repeat Ca level in the 10/31/2024 am. (5) Microcytic hypochromic anemia: Plan: Chronic microcytic, hypochromic anemia with baseline Hb range, 9.1 - 11.1 g/dL (08/20/2023 - 10/21/2024), cf., Hb 12.4 g/dL, MCV 76.4, MCHC 30.5 (10/28/2024, 11:14pm). cf., Hb 12.6 g/dL, MCV 75.8, MCHC 32.2 (10/29/2024, 9:39am). cf., Hb 10.8 g/dL, MCV 76.7, MCHC 30.9 (10/30/2024, 5:29am). Etiology of chronic microcytic, hypochromic anemia remains unclear. Hence, I have opted to check iron studies (Fe, TIBC, ferritin) on 10/30/2024, 2:14pm), and if iron deficiency is present, I will start patient on elemental iron 65mg PO daily and recommend repeat iron studies (Fe, TIBC, ferritin) in 3 months from 10/30/2024, 2:14pm. 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 The patient was brought to the emergency department due to family concerns regarding worsening confusion, and patient also complained of dizziness and low back pain. HPI and review of systems are able to be done slowly, due to patient's intermittent confusion. The patient was referred to the [facility] service for admission for evaluation and further treatment. Altered mental status- Differential including but not limited to: Hypercalcemia, dehydration, SYLVESTER on CKD, CVA, hyperglycemia, Crohn's, others Hypercalcemia- Calcium 11.2 on admission Range has been from 10.0-11.3 Repeat calcium and phosphorus, 25-hydroxy vitamin D, and parathyroid hormone levels May be the cause of her cough contribution to altered mental status Placed on NSS 80 mL x 1 L, then recheck laboratories in a.m. 1.6 cm left occipital pole CVA- Noted on CT head 07/18/2024 CT head today negative Order MRI brain without contrast SYLVESTER on CKD- Creatinine 1.38, with base 1.2 IV fluids as noted above, recheck laboratories in the a.m. Diabetes mellitus- Reduce glargine to 30 units subcu daily Hold metformin Placed on Accu-Cheks with NovoLog SSI Neuropathy/depression with anxiety- Continue buspirone, duloxetine, gabapentin, hydroxyzine, ropinirole, tramadol and topiramate Hyperlipidemia- Continue atorvastatin GERD- Continue omeprazole/pantoprazole Hypothyroidism- Continue levothyroxine Admission and Anticipated Discharge Date Admission Date: October 29, 2024 Subjective "I feel fine now. Can I go back home to my [facility] ([place]) apartment tomorrow?" Review of Systems Constitutional: Negative for antecedent/coincident fevers, chills, diaphoresis, cough, wheeze, sore throat, hemoptysis, shortness of breath, dyspnea on exertion, chest pains, palpitations, pleurisy, nausea, vomiting, diarrhea, abdominal pain, pelvic pain, hematemesis, hematochezia, melena, hematuria, dysuria, frequency, urgency, flank pain, headaches, dizziness, lightheadedness, visual changes, hearing changes, weakness, falls, syncope, trauma, travel history, sick contacts, or food/drug ingestions novel or new. All other review of systems are reported as negative by the patient on 10/30/2024. Physical Exam Constitutional: General: Comfortable, cooperative, coherent. Wide awake and alert. Not confused, lethargic, or obtunded. Patient speaks in complete, fluent, and articulate sentences without pause, interruption, cough, or wheeze. HEENT: Normocephalic, atraumatic. Extra-ocular muscles intact. Pupils equally round and reactive to light. No nystagmus, gaze paresis, anisocoria, miosis, mydriasis, hyphema, chemosis, scleral injection, conjunctivitis, or pterygium. No otorrhea or rhinorrhea. No pharyngeal discharge or exudate. Neck: Supple, no stridor or bruit. Jugular venous pressure is estimated to be 3 cm above the sternal angle of Clement, which is, by definition, 5 cm above the level of the right atrium. Hence, jugular venous pressure of 8 cm is not elevated on 10/30/2024. Lymphatics: No anterior/posterior cervical, infraclavicular, supraclavicular, axillary, epitrochlear, or inguinal adenopathy. Chest: Symmetric rise and fall with respirations. Non-tender to palpation. Lungs: Clear to auscultation and percussion. No audible expiratory wheeze, egophony, pectoriloquy, increase in tactile fremitus, or flatness/dullness to percussion at the bases. Heart: Regular rate and rhythm. S1 and S2 noted. No S3 or S4 summation gallop. No tripartite friction rub. Grade II/ early systolic murmur at left lower sternal border without radiation to the carotids, axilla, or back, and which remains invariant in regards to the respiratory cycle. Abdomen: Soft, non-tender, non-distended. No rebound, guarding, Bell's sign, or organomegaly. Bowel sounds auscultated in all 4 quadrants. Extremities: No clubbing, cyanosis, or edema. Extremities: Left foot s/p left hallux amputation with surgical stump well- healed. Extremities: s/p left 2nd toe distal metatarsophalangeal amputation with surgical stump replaced with deformities created by the patient in fits of anxiety wherein patient took a toenail clipper and hacked out pieces of flesh where the surgical stump used to be well-healed and has been replaced with what appears to be a crude upright V-shaped crater with jagged edges. Extremities: s/p left 5th toe distal metatarsophalangeal amputation with surgical stump well-healed. Extremities: s/p right foot with right hallux toenail, right 2nd toenail, and right 3rd toenail ripped out by patient's own hands in fits of anxiety, leaving slightly bloody areas of exposed skin which used to be covered by the right hallux toenail, right 2nd toenail, and right 3rd toenail. Right 4th toenail and right 5th toenail appear to have been "eaten away" by chronic onychomycosis. Skin: No decubitus ulcer, exanthem, or enanthem. Urology: No dorsey catheter. No purewick. No urethral discharge. Neurology: Alert and oriented in regards to person, place, time, and situation. 5/5 motor strength in all 4 extremities, proximally and distally. DTR+. No myoclonus, tremors, or tics. Psychiatry: No flat affect. No monotone voice. Smiles appropriately. Results & Data Results & Data Vital Signs (Past 12 Hours) Vital Signs Temp Pulse Pulse Resp BP Pulse Ox O2 Del Method 10/30/24 12:10 Room Air 10/30/24 11:25 87 10/30/24 11:05 36.7 C 91 H 18 129/67 96 Room Air 10/30/24 07:44 36.9 C 77 18 151/66 H 95 Room Air 10/30/24 04:10 95 H 10/30/24 03:18 36.7 C 78 16 130/74 93 Room Air Laboratory Results WBC 14.56, N60 L25 M14 B1, Hb 12.4, MCV 76.4, MCHC 30.5, platelet 425 (10/28/2024, 11:14pm). WBC 17.11, N65 L21 M13 B1, Hb 12.6, MCV 75.8, MCHC 32.2, platelet 432 (10/29/2024, 9:39am). WBC 10.46, N53 L28 M15 B1, Hb 10.8, MCV 76.7, MCHC 30.9, platelet 322 (10/30/2024, 5:29am). BUN 21, creatinine 1.38, GFR 39.92 (10/28/2024, 11:14pm). BUN 21, creatinine 1.25, GFR 44.95 (10/29/2024, 9:39am). BUN 21, creatinine 1.24, GFR 45.38 (10/30/2024, 5:29am). Lactate #1 1.8 mmol/L (10/29/2024, 8:05pm). Lactate #2 1.3 mmol/L (10/29/2024, 11:08pm). Lactate #3 0.8 mmol/L (10/30/2024, 5:32am). Procalcitonin #1 0.07 ng/mL (10/29/2024, 8:05pm). Procalcitonin #2 0.07 ng/mL (10/29/2024, 11:08pm). Procalcitonin #3 0.08 ng/mL (10/30/2024, 5:32am). U/A (10/29/2024, 12:00am): clear yellow, LE trace, nitrite-, WBC 0-5, RBC 0-2, epithelial cells 3- 5, bacteria 0 U/A (10/30/2024, 11:54am): clear yellow, LE 2+, nitrite-, WBC 21-50, RBC 0- 2, epithelial cells 6-10, bacteria 0. Urine culture (10/30/2024, 11:54am): Diagnostic Findings MRI brain without IV contrast (10/29/2024, 4:26am): No acute bleed, mass, or midline shift. CT brain without IV contrast (10/28/2024, 11:07pm): No acute bleed, mass, or midline shift. Portable CXR (10/28/2024, 10:55pm): No infiltrate, effusion, cardiomegaly, pulmonary vascular congestion, or pneumothorax (by my review). PG Care Time/CCT Total # of Minutes Spent Total Time Spent with Patient: Total time spent is greater than 50% in coordination of care (as documented) at patient's floor/unit and/or counseling patient: Coding Level of Care Code 89283 SUB INP/OBS CARE 3/50MIN Diagnoses Somnolence R40.0 Altered mental status type: somnolence Acute kidney injury superimposed on CKD N17.9; N18.9 Type 2 diabetes mellitus without complication, with long-term current use of insulin E11.9; Z79.4 Diabetes mellitus extermination supervisor insulin use: with extermination supervisor use Diabetes mellitus complication status: without complication Hypercalcemia E83.52 Microcytic hypochromic anemia D50.9 Osteomyelitis of second toe of left foot M86.9 (1) AMS (altered mental status) Altered mental status type: somnolence Qualified Code(s): R40.0 - Somnolence (3) DM2 (diabetes mellitus, type 2) Diabetes mellitus extermination supervisor insulin use: with extermination supervisor use Diabetes mellitus complication status: without complication Qualified Code(s): E11.9 - Type 2 diabetes mellitus without complications; Z79.4 - buttermaker helper (current) use of insulin
--- NOTE | 2024-10-30 13:41 | XCELERA ---
[id number]
[2024-10-30] MEDS ORDERED: VANCOMYCIN CONSULT ACTIVE PRN (14:22)
[2024-10-30 15:07] LABS: Iron 13.0 mcg/dl (35-150)
[2024-10-30 15:27] LABS: Ferritin 20.8 ng/ml (8-388)
[2024-10-30] MEDS: SODIUM CHLORIDE 0.9% 1,000 ML IV SCH (15:29)
[2024-10-30] MEDS: AZTREONAM 1,000 MG in DEXTROSE 5% MINI-B 100 ML IV SCH (15:29)
[2024-10-31 06:04] LABS: Hematocrit (blood only) 36.8 % (37.0-47.0); Hemoglobin 11.1 g/dl (12.0-16.0); Immature Granulocytes # (auto) 0.05 K/uL (0.01-0.20); Immature Granulocytes % (auto) 0.5 %; Mean Corpuscular Hemoglobin 23.6 pg (25.0-34.0); Mean Corpuscular Volume 78.3 fL (80.0-100.0); Platelet Count 315 K/uL (130-400); RDW Standard Deviation 44.3 fL (36.4-46.3); Red Blood Count 4.70 M/uL (4.20-5.40); White Blood Count 9.18 K/ul (4.8-10.8)
[2024-10-31 06:19] LABS: Alanine Aminotransferase 14.0 U/L (7-52); Albumin Globulin Ratio 1.2 (0.9-2); Alkaline Phosphatase 115.0 U/L (34-104); Anion Gap 4.0 (3-11); Bilirubin,Total 0.4 mg/dl (0.2-1.0); Blood Urea Nitrogen 22.0 mg/dl (6-23); Calcium 10.1 mg/dl (8.6-10.3); Carbon Dioxide 25.0 mmol/L (21-32); Chloride 107.0 mmol/L (98-107); Creatinine Clr Calc Pharmacy 37.8 ml/min; Globulin 3.2 gm/dl (2.5-4.0); Glucose 119.0 mg/dl (70-99(Fasting)); Magnesium 1.6 mg/dl (1.7-2.4); Potassium 3.8 mmol/L (3.5-5.1); Sodium 136.0 mmol/L (136-145); Total Protein 6.9 gm/dl (6.0-8.3)
[2024-10-31] MEDS ORDERED: SODIUM PHOSPHATE 3 MMOL/1 ML 5 ML VIAL IV ONE (10:46)
[2024-10-31] MEDS: SODIUM PHOSPHATE 3 MMOL/1 ML 5 ML VIAL IV ONE (11:54)
[2024-10-31] MEDS: SODIUM PHOSPHATE 15 MMOL in SODIUM CHLORIDE 0.9% 250 ML IV ONE (12:29)
[2024-10-31] MEDS: MAGNESIUM SULFATE / D5W 1 GM/100 ML BAG IV SCH (12:30)
[2024-10-31] MEDS ORDERED: VANCOMYCIN CONSULT ACTIVE PRN (12:45)
[2024-10-31] MEDS ORDERED: VANCOMYCIN HCL / NSS 1,000 MG/270 ML BAG IV ONE (13:00)
[2024-10-31] MEDS: VANCOMYCIN HCL / NSS 1,000 MG/270 ML BAG IV ONE (15:35)
--- NOTE | 2024-10-31 19:57 | Hospitalist Progress Note ---
Date of Service October 31, 2024 Assessment & Plan (1) AMS (altered mental status): Plan: RESOLVING very well on 10/30/2024 and on 10/31/2024. Etiology of acute metabolic encephalopathy remains unclear and is probably due to acute group B Streptococcus agalactiae UTI (as noted on 10/30/2024, 11:54am urine culture with 40,000 cfu/mL Streptococcus agalactiae). Of note, despite patient's past medical history of methicillin-sensitive, vancomycin-sensitive staphylococcal infection of left second toe (as noted on 08/02/2024 wound culture of left 2nd toe), Of note, despite patient's past medical history of methicillin-sensitive, vancomycin-sensitive staphylococcal infection of left third toe (as noted on 01/29/2024 wound culture of left 3rd toe), Of note, despite patient's past medical history of methicillin-sensitive, vancomycin-sensitive staphylococcal infection and vancomycin-sensitive Enterococcus faecalis infection of left hallux (as noted on 08/20/2023, 9:14pm wound culture of left hallux), Of note, despite patient having undergone partial left 2nd toe amputation on 10/21/2024, 10:05am, [facility] [employer] Dr. Brian Butler) to address a clinical diagnosis of acute osteomyelitis of left 2nd toe, Left 2nd toe amputation biopsy/pathology (10/21/2024, 3:47pm) reveals "no microscopic evidence of osteomyelitis or osteonecrosis." (as per [facility] Pathologist Dr. Olvin Ross). Left 2nd toe proximal margin bone biopsy/pathology (10/21/2024, 3:47pm) reveals "Viable bone with overlying fibrovascular tissue is seen. Osteonecrosis and osteomyelitis are not seen." (as per [facility] Pathologist Dr. Olvin Ross). To address (a) acute UTI: U/A (10/29/2024, 12:00am): clear yellow, LE trace, nitrite-, WBC 0-5, RBC 0-2, epithelial cells 3- 5, bacteria 0 U/A (10/30/2024, 11:54am): clear yellow, LE 2+, nitrite-, WBC 21-50, RBC 0- 2, epithelial cells 6-10, bacteria 0. Urine culture (10/30/2024, 11:54am): 40,000 cfu/mL Streptococcus agalactiae). Patient received vancomycin 1.5g IV x 1 dose (10/29/2024, 9:00pm), and vancomycin 1g IV daily x 1 dose (10/30/2024, 12:33pm). Patient's acute metabolic encephalopathy subsequently was RESOLVING very well on 10/30/2024. Hence, I opted to continue vancomycin 1g IV daily x 1 dose (10/31/2024, 3:35pm). Patient's acute metabolic encephalopathy subsequently continues to RESOLVE very well on 10/31/2024, but patient's nurse disagrees and feels that patient is more confused on 10/31/2024. Hence, I discontinued aztreonam 1g IV q8 x 3 doses (10/30/2024, 3:29pm, 10:45pm; 10/31/2024, 5:40am) on 10/31/2024, s/p aztreonam 2g IV x 1 dose (10/29/2024, 8:57pm), as (a) patient's acute metabolic encephalopathy could be aggravated by ongoing aztreonam 1g IV q8 and as (b) both tissue biopsy/bone biopsy reports of left 2nd toe (10/21/2024, 3:47pm) are negative for osteomyelitis. In addition, I have opted not to continue vancomycin as 3 doses of vancomycin should be sufficient to cover/treat patient's low-amplitude UTI with 40,000 cfu/mL Streptococcus agalactiae (as noted on 10/30/2024, 11:54am urine culture). In addition, I have solicited formal Physical Therapy, Occupational Therapy, and Case Management Service evaluations on 10/31/2024 to determine if patient is safe for discharge back to her [facility] apartment on 10/31/2024, or at the latest, 11/01/2024. Of final note, patient's magnesium level is low today at 1.6 mg/dL (10/31/2024, 5:39am) and patient's phosphorus level is also low today at 1.9 mg/dL (10/31/2024, 5:39am); both electrolyte abnormalities may be due to acute Streptococcus agalactiae UTI (as noted on 10/30/2024, 11:54am urine culture) mediated magne-uresis and phosphat-uresis, respectively. Subsequently, acute hypomagnesemia can cause confusion in human beings, including this patient, as magnesium is integral to normal cell function and nerve transmission; when magnesium levels are low, the cerebral muscle becomes weak and confusion frequently ensues. Subsequently, acute hypophosphatemia can cause confusion in human beings, including this patient, as phosphorus is essential for ATP production, which is the basic packet of energy needed by the brain and all organs to operate. (2) Acute kidney injury superimposed on CKD: Plan: RESOLVING well s/p 1 liter of 0.9% NS @ 80 mL/hr (10/29/2024, 7:02pm). cf., BUN 21, creatinine 1.38, GFR 39.92 (10/28/2024, 11:14pm). cf., BUN 21, creatinine 1.25, GFR 44.95 (10/29/2024, 9:39am). cf., BUN 21, creatinine 1.24, GFR 45.38 (10/30/2024, 5:29am). cf., BUN 22, creatinine 1.25, GFR 44.95 (10/31/2024, 5:39am). cf., CKD stage III with baseline creatinine range, 1.21 - 1.24 (12/16/2023 - 10/21/2024). Patient received rehydration therapy utilizing 1 liter of 0.9% NS @ 71 mL/hr (10/30/2024, 2:00pm), based on a delivery rate of 1 mL of 0.9% NS per kg of body weight per hour, and a body weight of 70.5 kg. Subsequently, creatinine level remains nominally unchanged. Hence, I have opted to rehydrate patient with a 2nd liter of 1 liter of 0.9% NS @ 72 mL/hr (10/31/2024, 8:16pm), based on a delivery rate of 1 mL of 0.9% NS per kg of body weight per hour, and a body weight of 71.7 kg. I will check repeat creatinine level in the 11/01/2024 am. (3) DM2 (diabetes mellitus, type 2): Plan: cf., HbA1c 6.8% (10/30/2024, 5:29am). Long-term glycemic control is most probably poor, despite HbA1c 6.8% (10/30/2024, 5:29am), which might suggest that patient's long-term glycemic control is modest. The reason that long-term glycemic control is poor in this patient is due to the fact that in anemic states (cf., patient suffers from chronic microcytic, hypochromic anemia with baseline Hb range, 9.1 - 11.1 g/dL (08/20/2023 - 10/21/2024), increased RBC turnover leads to concomitant reductions in both Hb and HbA1c levels. In contrast, in non-anemic states, the lack of increased RBC turnover does not affect HbA1c levels. Hence, attention turns towards serum glucose levels: cf., glucose 220 mg/dL, CO2 25, anion gap 9 (10/28/2024, 11:14pm)(admission date). cf., glucose 147 mg/dL, CO2 23, anion gap 10 (10/29/2024, 9:39am). cf., glucose 140 mg/dL, CO2 24, anion gap 6 (10/30/2024, 5:29am). cf., glucose 119 mg/dL, CO2 25, anion gap 4 (10/31/2024, 5:39am)(current). Hence, patient continues to receive carbohydrate consistent diet, lantus 30 units SQ qpm, aspart insulin sliding scale qac + qhs, and POC glucose qac + qhs. (4) Hypercalcemia: Plan: RESOLVED with post-hydration Ca 10.0 mg/L (10/30/2024, 5:29am), s/p 1 liter of 0.9% NS @ 80 mL/hr (10/29/2024, 7:02pm). cf., Ca 11.2 mg/dL (10/28/2024, 11:14pm). cf., Ca 10.6 mg/dL (10/29/2024, 4:33am). cf., Ca 10.8 mg/dL (10/29/2024, 9:39am). cf., Ca 10.0 mg/dL (10/30/2024, 5:29am). cf., Ca 10.1 mg/dL (10/31/2024, 5:39am). cf., baseline Ca range, 9.1 - 10.3 mg/dL (10/29/2016 - 10/21/2024). Patient received rehydration therapy utilizing 1 liter of 0.9% NS @ 71 mL/hr (10/30/2024, 2:00pm), based on a delivery rate of 1 mL of 0.9% NS per kg of body weight per hour, and a body weight of 70.5 kg, and serum calcium level remains normal. Hence, I have opted to rehydrate patient with a 2nd liter of 1 liter of 0.9% NS @ 72 mL/hr (10/31/2024, 8:16pm), based on a delivery rate of 1 mL of 0.9% NS per kg of body weight per hour, and a body weight of 71.7 kg. I will check repeat C a level in the 11/01/2024 am. (5) Hypomagnesemia: Plan: cf., Mg 1.9 mg/dL (10/28/2024, 11:14pm). cf., Mg 1.9 mg/dL (10/30/2024, 5:29am). cf., Mg 1.6 mg/dL (10/31/2024, 5:39am). Etiology of acute hypomagnesemia remains unclear, but may be due to acute Streptococcus agalactiae UTI (as noted on 10/30/2024, 11:54am urine culture) mediated magne-uresis. Hence, I have opted to supplement with magnesium sulfate 1g IV x 2 doses (10/31/2024, 12:30pm, 2:20pm). I have ordered repeat Mg level testing (10/31/2024, 8:17pm; 11/01/2024, 4:44am). Of final note, acute hypomagnesemia can cause confusion in human beings, including this patient, as magnesium is integral to normal cell function and nerve transmission; when magnesium levels are low, the cerebral muscle becomes weak and confusion frequently ensues. (6) Hypophosphatemia: Plan: cf., PO4 2.5 mg/dL (10/29/2024, 4:33am). cf., PO4 2.5 mg/dL (10/29/2024, 9:39am). cf., PO4 1.9 mg/dL (10/31/2024, 5:39am). Etiology of acute hypophosphatemia remains unclear, but may be due to acute Streptococcus agalactiae UTI (as noted on 10/30/2024, 11:54am urine culture) mediated phosphat-uresis. Hence, I have opted to supplement with sodium phosphate 15 mmol IV x 1 dose (10/31/2024, 12:29pm). I have ordered repeat PO4 level testing (10/31/2024, 8:17pm; 11/01/2024, 4:44am). Of final note, acute hypophosphatemia can cause confusion in human beings, including this patient, as phosphorus is essential for ATP production, which is the basic packet of energy needed by the brain and all organs to operate. (7) Microcytic hypochromic anemia: Plan: Chronic microcytic, hypochromic anemia with baseline Hb range, 9.1 - 11.1 g/dL (08/20/2023 - 10/21/2024), cf., Hb 12.4 g/dL, MCV 76.4, MCHC 30.5 (10/28/2024, 11:14pm). cf., Hb 12.6 g/dL, MCV 75.8, MCHC 32.2 (10/29/2024, 9:39am). cf., Hb 10.8 g/dL, MCV 76.7, MCHC 30.9 (10/30/2024, 5:29am). cf., Hb 11.1 g/dL, MCV 78.3, MCHC 30.2 (10/31/2024, 5:39am). Etiology of chronic microcytic, hypochromic anemia remains unclear. Hence, I opted to check iron studies (Fe, TIBC, ferritin) on 10/30/2024, 2:14pm), and iron deficiency is NOT present (cf., low Fe 13 ug/dL, normal TIBC 344 ug/dL, and normal ferritin 20.8 ng/mL (10/30/2024, 2:32pm). (8) Osteomyelitis of second toe of left foot: Plan: cf., Both tissue biopsy/bone biopsy reports of left 2nd toe (10/21/2024, 3:47pm) are negative for osteomyelitis. Hence, I will defer to Podiatry Service of Dr. Brian Butler regarding empiric antibiotics in this patient. 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 The patient was brought to the emergency department due to family concerns regarding worsening confusion, and patient also complained of dizziness and low back pain. HPI and review of systems are able to be done slowly, due to patient's intermittent confusion. The patient was referred to the [facility] service for admission for evaluation and further treatment. Altered mental status- Differential including but not limited to: Hypercalcemia, dehydration, SYLVESTER on CKD, CVA, hyperglycemia, Crohn's, others Hypercalcemia- Calcium 11.2 on admission Range has been from 10.0-11.3 Repeat calcium and phosphorus, 25-hydroxy vitamin D, and parathyroid hormone levels May be the cause of her cough contribution to altered mental status Placed on NSS 80 mL x 1 L, then recheck laboratories in a.m. 1.6 cm left occipital pole CVA- Noted on CT head 07/18/2024 CT head today negative Order MRI brain without contrast SYLVESTER on CKD- Creatinine 1.38, with base 1.2 IV fluids as noted above, recheck laboratories in the a.m. Diabetes mellitus- Reduce glargine to 30 units subcu daily Hold metformin Placed on Accu-Cheks with NovoLog SSI Neuropathy/depression with anxiety- Continue buspirone, duloxetine, gabapentin, hydroxyzine, ropinirole, tramadol and topiramate Hyperlipidemia- Continue atorvastatin GERD- Continue omeprazole/pantoprazole Hypothyroidism- Continue levothyroxine Admission and Anticipated Discharge Date Admission Date: October 29, 2024 Subjective "I feel fine now. Can I go back home to my [facility] ([place], [place]) apartment tomorrow? You promised me yesterday (10/30/2024) that I can go back home today (10/31/2024), and now my nurse is saying that I can't go back home today (10/31/2024)." Review of Systems Constitutional: Negative for antecedent/coincident fevers, chills, diaphoresis, cough, wheeze, sore throat, hemoptysis, shortness of breath, dyspnea on exertion, chest pains, palpitations, pleurisy, nausea, vomiting, diarrhea, abdominal pain, pelvic pain, hematemesis, hematochezia, melena, hematuria, dysuria, frequency, urgency, flank pain, headaches, dizziness, lightheadedness, visual changes, hearing changes, weakness, falls, syncope, trauma, travel history, sick contacts, or food/drug ingestions novel or new. All other review of systems are reported as negative by the patient on 10/31/2024. Physical Exam Constitutional: General: Comfortable, cooperative, coherent. Wide awake and alert. Not confused, lethargic, or obtunded. Patient speaks in complete, fluent, and articulate sentences without pause, interruption, cough, or wheeze. HEENT: Normocephalic, atraumatic. Extra-ocular muscles intact. Pupils equally round and reactive to light. No nystagmus, gaze paresis, anisocoria, miosis, mydriasis, hyphema, chemosis, scleral injection, conjunctivitis, or pterygium. No otorrhea or rhinorrhea. No pharyngeal discharge or exudate. Neck: Supple, no stridor or bruit. Jugular venous pressure is estimated to be 3 cm above the sternal angle of Clement, which is, by definition, 5 cm above the level of the right atrium. Hence, jugular venous pressure of 8 cm is not elevated on 10/31/2024. Lymphatics: No anterior/posterior cervical, infraclavicular, supraclavicular, axillary, epitrochlear, or inguinal adenopathy. Chest: Symmetric rise and fall with respirations. Non-tender to palpation. Lungs: Clear to auscultation and percussion. No audible expiratory wheeze, egophony, pectoriloquy, increase in tactile fremitus, or flatness/dullness to percussion at the bases. Heart: Regular rate and rhythm. S1 and S2 noted. No S3 or S4 summation gallop. No tripartite friction rub. Grade II/ early systolic murmur at left lower sternal border without radiation to the carotids, axilla, or back, and which remains invariant in regards to the respiratory cycle. Abdomen: Soft, non-tender, non-distended. No rebound, guarding, Bell's sign, or organomegaly. Bowel sounds auscultated in all 4 quadrants. Extremities: No clubbing, cyanosis, or edema. Extremities: Left foot s/p left hallux amputation with surgical stump well- healed. Extremities: s/p left 2nd toe distal metatarsophalangeal amputation (10/21/2024, 10:05am, [facility] [employer] Dr. Brian Butler) with surgical stump replaced with deformities created by the patient in fits of anxiety wherein patient took a toenail clipper and hacked out pieces of flesh where the surgical stump used to be well-healed and has been replaced with what appears to be a crude upright V-shaped crater with jagged edges. Extremities: s/p left 5th toe distal metatarsophalangeal amputation with surgical stump well-healed. Extremities: s/p right foot with right hallux toenail, right 2nd toenail, and right 3rd toenail ripped out by patient's own hands in fits of anxiety, leaving slightly bloody areas of exposed skin which used to be covered by the right hallux toenail, right 2nd toenail, and right 3rd toenail. Right 4th toenail and right 5th toenail appear to have been "eaten away" by chronic onychomycosis. Skin: No decubitus ulcer, exanthem, or enanthem. Urology: No dorsey catheter. No purewick. No urethral discharge. Neurology: Alert and oriented in regards to person, place, time, and situation. 5/5 motor strength in all 4 extremities, proximally and distally. DTR+. No myoclonus, tremors, or tics. Psychiatry: No flat affect. No monotone voice. Smiles appropriately. Results & Data Results & Data Vital Signs (Past 12 Hours) Vital Signs Temp Pulse Pulse Resp BP Pulse Ox O2 Del Method 10/31/24 19:33 36.6 C 88 20 151/66 H 94 Room Air 10/31/24 18:07 93 H 10/31/24 11:13 36.6 C 95 H 18 155/63 H 94 Room Air Laboratory Results WBC 14.56, N60 L25 M14 B1, Hb 12.4, MCV 76.4, MCHC 30.5, platelet 425 (10/28/2024, 11:14pm). WBC 17.11, N65 L21 M13 B1, Hb 12.6, MCV 75.8, MCHC 32.2, platelet 432 (10/29/2024, 9:39am). WBC 10.46, N53 L28 M15 B1, Hb 10.8, MCV 76.7, MCHC 30.9, platelet 322 (10/30/2024, 5:29am). BUN 21, creatinine 1.38, GFR 39.92 (10/28/2024, 11:14pm). BUN 21, creatinine 1.25, GFR 44.95 (10/29/2024, 9:39am). BUN 21, creatinine 1.24, GFR 45.38 (10/30/2024, 5:29am). Lactate #1 1.8 mmol/L (10/29/2024, 8:05pm). Lactate #2 1.3 mmol/L (10/29/2024, 11:08pm). Lactate #3 0.8 mmol/L (10/30/2024, 5:32am). Procalcitonin #1 0.07 ng/mL (10/29/2024, 8:05pm). Procalcitonin #2 0.07 ng/mL (10/29/2024, 11:08pm). Procalcitonin #3 0.08 ng/mL (10/30/2024, 5:32am). U/A (10/29/2024, 12:00am): clear yellow, LE trace, nitrite-, WBC 0-5, RBC 0-2, epithelial cells 3- 5, bacteria 0 U/A (10/30/2024, 11:54am): clear yellow, LE 2+, nitrite-, WBC 21-50, RBC 0- 2, epithelial cells 6-10, bacteria 0. Urine culture (10/30/2024, 11:54am): Diagnostic Findings MRI brain without IV contrast (10/29/2024, 4:26am): No acute bleed, mass, or midline shift. CT brain without IV contrast (10/28/2024, 11:07pm): No acute bleed, mass, or midline shift. Portable CXR (10/28/2024, 10:55pm): No infiltrate, effusion, cardiomegaly, pulmonary vascular congestion, or pneumothorax (by my review). TTE (, 8:09am): 1. LVEF 65-70%. LV wall thickness normal. LV wall motion normal. 2. RV normal size and normal systolic function. 3. LA/RA sizes normal. No ASD. No PFO. 4. Trace AR. No . 5. No HI. 6. No MR. 7. Mild TR. 8. Aortic root normal size. 9. No pericardial effusion. 10.Grade I LV diastolic dysfunction. (as per [facility] Dr. Kevin Wright). PG Care Time/CCT Total # of Minutes Spent Total Time Spent with Patient: Total time spent is greater than 50% in coordination of care (as documented) at patient's floor/unit and/or counseling patient: Coding Level of Care Code 13015 SUB INP/OBS CARE 3/50MIN Diagnoses Somnolence R40.0 Altered mental status type: somnolence Acute kidney injury superimposed on CKD N17.9; N18.9 Type 2 diabetes mellitus without complication, with long-term current use of insulin E11.9; Z79.4 Diabetes mellitus fpc insulin use: with fpc use Diabetes mellitus complication status: without complication Hypercalcemia E83.52 Hypomagnesemia E83.42 Hypophosphatemia E83.39 Microcytic hypochromic anemia D50.9 Osteomyelitis of second toe of left foot M86.9 (1) AMS (altered mental status) Altered mental status type: somnolence Qualified Code(s): R40.0 - Somnolence (3) DM2 (diabetes mellitus, type 2) Diabetes mellitus long term care phlebotomist insulin use: with long term care phlebotomist use Diabetes mellitus complication status: without complication Qualified Code(s): E11.9 - Type 2 diabetes mellitus without complications; Z79.4 - USP (current) use of insulin
[2024-10-31] MEDS: SODIUM CHLORIDE 0.9% 1,000 ML IV ONE (20:44)
[2024-10-31 21:30] LABS: Magnesium 2.0 mg/dl (1.7-2.4)
[2024-10-31] MEDS ORDERED: MELATONIN 3 MG TAB PO PRN (22:08)
[2024-10-31] MEDS: MELATONIN 3 MG TAB PO PRN (22:22)
[2024-11-01 07:30] LABS: Anion Gap 6.0 (3-11); Blood Urea Nitrogen 13.0 mg/dl (6-23); Calcium 9.9 mg/dl (8.6-10.3); Carbon Dioxide 26.0 mmol/L (21-32); Chloride 107.0 mmol/L (98-107); Creatinine Clr Calc Pharmacy 47.7 ml/min; Glucose 98.0 mg/dl (70-99(Fasting)); Magnesium 1.8 mg/dl (1.7-2.4); Potassium 3.8 mmol/L (3.5-5.1); Sodium 139.0 mmol/L (136-145)
--- NOTE | 2024-11-01 09:22 | Hospitalist Progress Note ---
Date of Service November 01, 2024 Assessment & Plan (1) AMS (altered mental status): Plan: -Pt appears to be at baseline -UTI and electrolyte abnormalities treated and resolved. (2) Acute kidney injury superimposed on CKD: Plan: -resolved -s/p IVF -cr 0.99 (3) DM2 (diabetes mellitus, type 2): Plan: - lantus 30 units SQ qpm, aspart insulin sliding scale qac + qhs, and POC glucose qac + qhs. (4) Hypercalcemia: Plan: RESOLVED with post-hydration Ca 10.0 mg/L (10/30/2024, 5:29am), s/p 1 liter of 0.9% NS @ 80 mL/hr (10/29/2024, 7:02pm). (5) Hypomagnesemia: Plan: -resolved (6) Hypophosphatemia: Plan: cf., PO4 1.9 mg/dL (10/31/2024, 5:39am). (7) Microcytic hypochromic anemia: Plan: Chronic microcytic, hypochromic anemia with baseline Hb range, 9.1 - 11.1 g/dL (08/20/2023 - 10/21/2024), 6.7, MCHC 30.9 (10/30/2024, 5:29am). cf., Hb 11.1 g/dL, MCV 78.3, MCHC 30.2 (10/31/2024, 5:39am). ). (8) Osteomyelitis of second toe of left foot: Plan: Both tissue biopsy/bone biopsy reports of left 2nd toe (10/21/2024, 3:47pm) are negative for osteomyelitis. 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 The patient was brought to the emergency department due to family concerns regarding worsening confusion, and patient also complained of dizziness and low back pain. HPI and review of systems are able to be done slowly, due to patient's intermittent confusion. [facility] and further treatment. Admission and Anticipated Discharge Date Admission Date: October 29, 2024 Subjective Pt had episode of agitation last night, 1:1 sitter in placed. She is refusing meds this am. Review of Systems Review of Systems: CONST: Negative for fever, body aches and chills. HENT: Negative for neck pain/stiffness, headache, congestion, sore throat, swelling. EYES: Negative for discharge/pain or vision changes. RESP: Negative for cough/hemoptysis and shortness of breath. CV: Negative chest pain, difficulty breathing, palpitations. ABD: Negative pain, nausea, vomiting. : Negative increase frequency, dysuria, blood in urine or stool. MUSC: Negative for muscle aches, edema. SKIN: Negative rash, lesions/sores. NEURO: Negative headache, dizziness, weakness. Physical Exam Physical Exam: GENERAL APPEARANCE NAD, activity normal for age, well developed/ well nourished, no cyanosis, pallor, or diaphoresis. EYES lids/conjunctiva normal. EARS/NOSE/THROAT Mucous membranes moist, nares normal, lips/teeth normal uvula midline without oral pharyngeal erythema, exudate or swelling TMs normal bilaterally. No lymphangitis/lymphedema. HEAD/NECK normocephalic atraumatic, no facial trauma, neck is supple. RESPIRATORY respiratory effort normal, speaks in full sentences, no tripod position, no accessory muscle use. Lungs clear to auscultation without rhonchi, wheezes, rales CARDIAC Regular rate and rhythm, no edema. ABDOMINAL Soft, ND/NT. No evidence of fluid wave. No pulsatile masses on exam, rebound tenderness, Bell sign or pain over Mcburney's point. MUSCLES/EXTREMITIES No abnormal range of motion, no swelling. SKIN Warm, pink and dry. No rashes, dermatoses, petechiae or lesions. NEUROLOGICAL Speech is clear and appropriate. Normal level of consciousness. Gait and coordination are normal. 5/5 strength in all extremities. PSYCH Normal mood and affect. Judgement/competence is appropriate Results & Data Results & Data Vital Signs (Past 12 Hours) Vital Signs Temp Pulse Pulse Resp BP BP Pulse Ox 11/01/24 08:22 11/01/24 08:21 63 11/01/24 07:20 36.8 C 92 H 18 171/72 H 100 11/01/24 03:29 91 H 22 156/94 H 10/31/24 23:45 75 10/31/24 22:59 36.6 C 76 18 158/80 H 93 O2 Del Method 11/01/24 08:22 Room Air 11/01/24 08:21 11/01/24 07:20 Room Air 11/01/24 03:29 10/31/24 23:45 10/31/24 22:59 Room Air PG Care Time/CCT Total # of Minutes Spent Total Time Spent with Patient: Total time spent is greater than 50% in coordination of care (as documented) at patient's floor/unit and/or counseling patient: Coding Level of Care Code 91123 SUB INP/OBS CARE 2/35MIN Diagnoses Somnolence R40.0 Altered mental status type: somnolence Acute kidney injury superimposed on CKD N17.9; N18.9 Type 2 diabetes mellitus without complication, with long-term current use of insulin E11.9; Z79.4 Diabetes mellitus care home insulin use: with care home use Diabetes mellitus complication status: without complication Hypercalcemia E83.52 Hypomagnesemia E83.42 Hypophosphatemia E83.39 Microcytic hypochromic anemia D50.9 Osteomyelitis of second toe of left foot M86.9 (1) AMS (altered mental status) Altered mental status type: somnolence Qualified Code(s): R40.0 - Somnolence (3) DM2 (diabetes mellitus, type 2) Diabetes mellitus intermediate designer insulin use: with care home use Diabetes mellitus complication status: without complication Qualified Code(s): E11.9 - Type 2 diabetes mellitus without complications; Z79.4 - assistant terminal manager (current) use of insulin
[2024-11-01] MEDS: MUPIROCIN 2% OINT 22 GM TUBE EXT SCH ×2 (10:21→12:50)
--- NOTE | 2024-11-01 12:35 | Podiatry Consultation ---
Date of Consultation November 01, 2024 Assessment & Plan (1) Osteomyelitis of second toe of left foot: (2) Osteomyelitis of toe of left foot: (3) Diabetic ulcer of toe of left foot: Diabetes mellitus type: type 2 Non-pressure ulcer stage: limited to breakdown of skin Qualified Code(s): E11.621 - Type 2 diabetes mellitus with foot ulcer; L97.521 - Non-pressure chronic ulcer of other part of left foot li mited to breakdown of skin Plan Patient seen at bedside. No new concerns noted to the left foot. Surgical site is improving, should continue to heal without much intervention. Would benefit from adhesive bandage and antibiotic ointment to the second toe. Orders for wound care entered. Foot is stable, so can be discharged home when she gets to her baseline. No surgical intervention planned for the foot. When she is stable medically,She could be discharged home and will follow up with her on an outpatient basis. She still is at risk of worsening concern to the foot, though it do not believe this is leading to her increased confusion at this time. I did discuss this with the patient, though it is always uncertain how much she retains. We will continue to follow up with her while she remains inpatient and keep an eye on this wound. History of Present Illness Reason for Consultation: Foot infection Attending Physician: Miguel Angel Desir MD History of Present Illness Patient seen at bedside. She is known to our service from a recent amputation and amputation separately around a year ago. We recently removed her sutures and at her follow-up visit for this, she was noted to be confused and her daughter was concerned that she was having more TIAs or stroke symptoms. With this increased confusion and decreased ability to find words, we instructed her to present to the emergency department for further follow-up. She did seem neurologically intact at the time other than this confusion and we suspect that she may have a urinary tract infection but cautioned that the emergency department and hospital admission would be helpful in ruling out any worse concerns. At bedside currently, she does remember who I am and knows that she is in the hospital. She does seem to be at her baseline level of cognition. Still she denies any current complaints and believes she is doing okay. Allergies Allergy/AdvReac Type Severity Reaction Status Date / Time cephalexin Allergy Intermediate Hives Verified 10/28/24 23:51 Cephalosporins Allergy Intermediate Hives Verified 10/28/24 23:51 infliximab Allergy Intermediate Itching, Verified 10/28/24 23:51 rash Penicillins Allergy Intermediate Hives Verified 10/28/24 23:51 ciprofloxacin AdvReac Intermediate N/V Verified 10/28/24 23:51 doxycycline AdvReac Intermediate GI upset Verified 10/28/24 23:51 Home Medications Medication Instructions Recorded Confirmed Type aspirin 81 mg tablet,delayed 81 mg PO QAM 06/10/18 10/28/24 History release vedolizumab 300 mg intravenous 300 mg IV Q8WK #1 ea 06/28/20 10/28/24 Rx solution (Entyvio) multivitamin 1 tab PO QAM 12/26/22 10/28/24 History cyanocobalamin (vitamin B-12) 1,000 mcg PO DAILY 08/20/23 10/28/24 History 1,000 mcg tablet (Vitamin B-12) diphenhydramine HCl 25 mg capsule 25 mg PO DIRECTED PRN NEEDED 08/20/23 10/28/24 History (Benadryl) insulin glargine 100 unit/mL (3 44 - 60 unit (0.44 - 0.6 mL) 11/04/23 10/28/24 Rx mL) subcutaneous pen (Lantus subcut QPM 3 months #45 mL Solostar U-100 Insulin) levothyroxine 88 mcg tablet 88 mcg PO QAM #60 tabs 04/28/24 10/28/24 Rx omeprazole 40 mg capsule,delayed 40 mg PO BID #180 caps 05/10/24 10/28/24 Rx release ropinirole 1 mg tablet 1 mg PO BID #180 tabs 05/10/24 10/28/24 Rx topiramate 25 mg tablet (Topamax) 25 mg PO BID #180 tabs 05/10/24 10/28/24 Rx atorvastatin 20 mg tablet 20 mg PO QAM #90 tabs 05/17/24 10/28/24 Rx lisinopril 30 mg tablet 30 mg PO QAM #90 tabs 05/17/24 10/28/24 Rx metformin 500 mg tablet,extended 500 mg PO .COMPLEX #270 tabs 05/17/24 10/28/24 Rx release 24 hr blood sugar diagnostic (OneTouch #300 ea 07/01/24 09/30/24 Rx Verio test strips) acetaminophen 500 mg tablet 500 mg PO DIRECTED PRN Pain 07/18/24 10/28/24 History buspirone 30 mg tablet 30 mg PO BID 07/18/24 10/28/24 History duloxetine 60 mg capsule,delayed 60 mg PO QAM 07/18/24 10/28/24 History release hydroxyzine HCl 25 mg tablet 25 mg PO 5XD PRN anxiety 07/18/24 10/28/24 History ondansetron HCl 4 mg tablet 8 mg PO Q8H PRN NAUSEA/VOMITING 07/18/24 10/28/24 History ropinirole 0.25 mg tablet 0.25 mg PO BID 07/18/24 10/28/24 History loperamide 2 mg capsule 2 mg PO Q6H PRN loose stool 90 07/27/24 10/28/24 Rx days #180 caps blood-glucose meter (OneTouch #1 ea 09/17/24 09/30/24 Rx Verio Reflect Meter) lancets 33 gauge #300 ea 09/17/24 09/30/24 Rx pen needle, diabetic 32 gauge x #100 ea 09/17/24 09/30/24 Rx 5/32" tramadol 50 mg tablet 50 mg PO BID 30 days #60 tabs 09/17/24 10/28/24 Rx meclizine 12.5 mg tablet 12.5 - 25 mg (1 - 2 x 12.5 mg) PO 10/04/24 10/28/24 Rx BID PRN dizziness #180 tabs levalbuterol tartrate 45 1 inh inhalation Q6H PRN Shortness 10/05/24 10/28/24 Rx mcg/actuation aerosol inhaler Of Breath Or Wheezing #15 grams gabapentin 600 mg tablet 600 mg PO BID #180 tabs 10/22/24 10/28/24 Rx duloxetine 30 mg capsule,delayed 30 mg PO QAM 10/28/24 10/28/24 History release mupirocin 2 % topical ointment 1 applic EXT BID #22 grams 11/02/24 Rx Patient History Medical History Chronic cerebrovascular accident (CVA) - Hx of - Head CT 07/18/24 incidentally noted new chronic 1.6cm infarct to left occipital lobe and chronic small vessel ischemic disease compared to 2019 imaging - PCP recommended MRI of brain (could only do under sedation, MRI cancelled for 09/22/24 due to elevated creatinine) - PCP also recommended carotid ultrasound (patient never had done) - Scheduled to see neurology 11/10/24 Hypothyroidism Hyperlipidemia Hypertension GERD (gastroesophageal reflux disease) Benign paroxysmal positional vertigo hx/no recent issues Asthma well controlled, no inhaler use in years Anxiety Schatzki's ring s/p dilation Diabetic foot ulcer has small area second toe left foot, and right foot 4 areas that wound care is following DM2 (diabetes mellitus, type 2) Poor historian History of COVID-19 09/2023 Muscular deconditioning CKD (chronic kidney disease) stage 3, GFR 30-59 ml/min no specialist Diabetic peripheral neuropathy associated with type 2 diabetes mellitus Sleep apnea no device Crohns disease Weakness of both legs Lumbar post-laminectomy syndrome History of anemia remote hx blood transfusion post-op Chronic left hip pain Recurrent UTI (urinary tract infection) none at present Hiatal hernia Vertigo "comes and goes" last episode 04/22/23, uses the meclizine as needed which helps. Tinnitus Esophageal dysmotility dysphagia s/p dilation Back pain, chronic Surgical History Osteomyelitis of toe of left foot first big toe amputated History of cataract surgery LEFT History of cardiac cath 04/2019 r/t ALICEA, no stents History of surgical removal of pituitary gland tumor excision History of bilateral salpingo-oophorectomy (BSO) History of esophagogastroduodenoscopy (EGD) multiple with multiple dilations History of colonoscopy History of tooth extraction S/P carpal tunnel release left S/P arthroscopic knee surgery left Fusion of spine multiple (fusion + revision) Removal spinal hardware T11-L1: 08/16/17: Grade 1 view, MAC #3, ETT 7.0 at [facility] T11-L1 hardware removal: 03/19/19: MAC#3 at [facility] History of arthroscopy right shoulder History of hysterectomy Family History Mother Diabetes Family history of diabetes mellitus Myocardial infarction Breast cancer Hypertension Sister Stroke Other Coronary heart disease No family history of adverse response to anesthesia Denies family history of Ovarian cancer Prostate cancer Lung cancer Colorectal cancer Social History Smoking Status: Never smoker Second Hand Exposure: No; Do You Dip or Chew Tobacco: No; Hx Alcohol Use: No Hx Substance Use: No Preferred Language: Persian Communication Ability: Impaired Visual Impairment: Limited Hearing Ability: Hard of Hearing Social Services Technician Required: No Beliefs That Will Affect Care: None marital status: marital status details: Three children Current Living Situation: Alone Current Living Situation Comment: patient restless and unable to communicate current occupational status: retired Feels Safe at Home: Yes Childhood Exposure to Second-Hand Smoke: Yes Diet Comment: regular caffeine: Yes (pepsi) during the past year weight has: remained stable Dental Care, Regularly: No Physical Activity Frequency: Does not Exercise Physical Activity Frequency Comment: due to physical condition Seatbelt Use: always Sunscreen Use: Yes Assistive Devices: Walker Review of Systems Review of Systems: All systems reviewed & are unremarkable except as noted in HPI & below and Unobtainable due to cognitive status Constitutional: no fever, no chills and no fatigue Eyes: no problem reported Ear, Nose, Mouth, Throat: no problem reported Respiratory: no problem reported Cardiovascular: + edema; no problem reported Gastrointestinal: no nausea, no vomiting and no problem reported Genitourinary: no problem reported Musculoskeletal: no problem reported Integumentary: + skin ulcer, + wounds and + erythema Neurologic: + loss of sensation, + numbness and + pa resthesia; no generalized weakness Psychiatric: no problem reported Physical Exam Physical Exam: Lower extremity focused exam: DP/PT pulses nonpalpable, at baseline. Advanced trophic changes are noted to the bilateral lower extremity. CFT is brisk to the remaining digits. Left hallux amputation is noted. Left second toe irritation site is clean and 100% granular, though superficially dehisced after her digital amputation. No deep probing is noted. No ascending cellulitis is noted. The foot is cool with no local edema or purulent drainage appreciated. Constitutional: WD/WN, vitals as above + ill appearing and + obese Eyes: PERRL, conjunctivae normal, anicteric sclerae ENMT: external ear and nose normal, oropharynx normal Mouth: + edentulous Neck: trachea midline, no thyromegaly normal visual inspection Respiratory: normal respiratory effort; no respiratory distress Cardiovascular: Rate/Rhythm: regular rate and regular rhythm Vessels: + posterior tibial pulses abnormal and + dorsalis pedis pulses abnormal Chest (Breasts): Chest: normal inspection of chest Gastrointestinal (Abdomen): Inspection/Auscultation: abdomen normal to inspection Percussion/Palpation: + abdomen tender and abdomen soft Musculoskeletal: no cyanosis or clubbing, extremities motor strength 5/5 Head/Neck/Chest: normocephalic and head atraumatic Extremities: extremities normal to inspection Neurologic: awake; no focal motor deficits Psychiatric: A+Ox3, euthymic affect Results & Data Vital Signs (Past 12 Hours) Vital Signs Temp Pulse Pulse Resp BP BP Pulse Ox 11/01/24 08:22 11/01/24 08:21 63 11/01/24 07:20 36.8 C 92 H 18 171/72 H 100 11/01/24 03:29 91 H 22 156/94 H O2 Del Method 11/01/24 08:22 Room Air 11/01/24 08:21 11/01/24 07:20 Room Air 11/01/24 03:29
[2024-11-02] MEDS: MECLIZINE 12.5 MG TAB PO PRN (07:37)
[2024-11-02 08:39] LABS: Anion Gap 8.0 (3-11); Blood Urea Nitrogen 14.0 mg/dl (6-23); Calcium 10.3 mg/dl (8.6-10.3); Carbon Dioxide 23.0 mmol/L (21-32); Chloride 105.0 mmol/L (98-107); Creatinine Clr Calc Pharmacy 44.5 ml/min; Glucose 118.0 mg/dl (70-99(Fasting)); Magnesium 1.6 mg/dl (1.7-2.4); Potassium 3.9 mmol/L (3.5-5.1); Sodium 136.0 mmol/L (136-145)
--- NOTE | 2024-11-02 09:46 | Discharge Summary ---
Discharge Summary Date of Service November 02, 2024 Principal Dx & Hospital Course #1 = Principal Diagnosis (1) AMS (altered mental status): -Pt appears to be at baseline -UTI and electrolyte abnormalities treated and resolved. (2) Acute kidney injury superimposed on CKD: -resolved -s/p IVF -cr 0.99 (3) DM2 (diabetes mellitus, type 2): - lantus 30 units SQ qpm, aspart insulin sliding scale qac + qhs, and POC glucose qac + qhs. (4) Hypercalcemia: RESOLVED with post-hydration Ca 10.0 mg/L (10/30/2024, 5:29am), s/p 1 liter of 0.9% NS @ 80 mL/hr (10/29/2024, 7:02pm). (5) Hypomagnesemia: -resolved (6) Hypophosphatemia: cf., PO4 1.9 mg/dL (10/31/2024, 5:39am). (7) Microcytic hypochromic anemia: Chronic microcytic, hypochromic anemia with baseline Hb range, 9.1 - 11.1 g/dL (08/20/2023 - 10/21/2024), 6.7, MCHC 30.9 (10/30/2024, 5:29am). cf., Hb 11.1 g/dL, MCV 78.3, MCHC 30.2 (10/31/2024, 5:39am). ). (8) Osteomyelitis of second toe of left foot: Both tissue biopsy/bone biopsy reports of left 2nd toe (10/21/2024, 3:47pm) are negative for osteomyelitis. Podiatry consulted bactroban Plan The patient is a 74-year-old female with a past medical history of left occipital pole CVA on 07/18/2024, intermittent hypercalcemia, left toe osteomyelitis, diabetes mellitus type 2, anxiety, dysphagia, Crohn's ileocolitis, anemia, vit D deficiency, vitamin B12 deficiency, depression with anxiety, hypothyroidism, hypertension, hyperlipidemia, asthma, and lumbar stenosis with neurogenic claudication. The patient was brought to the emergency department due to family concerns regarding worsening confusion, and patient also complained of dizziness and low back pain. HPI and review of systems are able to be done slowly, due to patient's intermitt ent confusion. The patient was referred to the [facility] service for admission for evaluation and further treatment. Admission HPI Per Admitting Provider The patient is a 74-year-old female with a past medical history of left occipital pole CVA on 07/18/2024, intermittent hypercalcemia, left toe osteomy elitis, diabetes mellitus type 2, anxiety, dysphagia, Crohn's ileocolitis, anemia, vit D deficiency, vitamin B12 deficiency, depression with anxiety, hypothyroidism, hypertension, hyperlipidemia, asthma, and lumbar stenosis with neurogenic claudication. The patient was brought to the emergency department due to family concerns regarding worsening confusion, and patient also complained of dizziness and low back pain. HPI and review of systems are able to be done slowly, due to patient's intermittent confusion. The patient was referred to the [facility] service for admission for evaluation and further treatment. Discharge Exam GENERAL APPEARANCE NAD, activity normal for age, well developed/ well nourished, no cyanosis, pallor, or diaphoresis. EYES lids/conjunctiva normal. EARS/NOSE/THROAT Mucous membranes moist, nares normal, lips/teeth normal uvula midline without oral pharyngeal erythema, exudate or swelling TMs normal bilaterally. No lymphangitis/lymphedema. HEAD/NECK normocephalic atraumatic, no facial trauma, neck is supple. RESPIRATORY respiratory effort normal, speaks in full sentences, no tripod position, no accessory muscle use. Lungs clear to auscultation without rhonchi, wheezes, rales CARDIAC Regular rate and rhythm, no edema. ABDOMINAL Soft, ND/NT. No evidence of fluid wave. No pulsatile masses on exam, rebound tenderness, Bell sign or pain over Mcburney's point. MUSCLES/EXTREMITIES No abnormal range of motion, no swelling. SKIN Warm, pink and dry. No rashes, dermatoses, petechiae or lesions. NEUROLOGICAL Speech is clear and appropriate. Normal level of consciousness. Gait and coordination are normal. 5/5 strength in all extremities. PSYCH Normal mood and affect. Judgement/competence is appropriate Discharge Plan Discharge Items Patient Disposition: Transfer [facility] Reason For Visit: MS CHANGE, HYPERCALCEMIA, SYLVESTER/CKD Discharge Diagnosis: metabolic encephalopathy, UTI, hypercalcemia Condition on Discharge: Serious Activity: Resume your previous activity Non-emergency contact: Primary Care Provider Call non-emergency contact if: you have any medication questions Follow-up/Referrals: Pro,Paramjit W., MD [Primary Care Provider] - Diet: Regular Addtl Attending Provider Instructions: Follow up with PMD in 1 week Pending Studies at Discharge: No Stand-Alone Forms: My [facility] Skilled Items Patient informed of condition?: No DNR: No Discharge Level of Care: Skilled Communicable Disease: No Discharge Prognosis: Stable Lines: None Urinary Catheter: No Medications and DC Order Prescriptions: New mupirocin 2 % Ointment 1 applic EXT BID Qty: 22 0RF Continued multivitamin Tablet 1 tab PO QAM Entyvio 300 mg recon soln 300 mg IV Q8WK Qty: 1 6RF Rx Instructions: UNABLE TO VERIFY THIS MEDICATION levothyroxine 88 mcg tablet 88 mcg PO QAM Qty: 60 5RF Patient Comments: TAKES "IF REMEMBERS TO TAKE" ropinirole 1 mg tablet 1 mg PO BID Qty: 180 3RF Rx Instructions: ON EXT MED HX, NOT ON PT MED LIST topiramate [Topamax] 25 mg tablet 25 mg PO BID Qty: 180 3RF omeprazole 40 mg capsule,delayed release(DR/EC) 40 mg PO BID Qty: 180 3RF lisinopril 30 mg tablet 30 mg PO QAM Qty: 90 3RF metformin 500 mg tablet extended release 24 hr 500 mg PO .COMPLEX Qty: 270 3RF Rx Instructions: TAKES 500 MG QAM, THEN 1,000 MG QPM. atorvastatin 20 mg tablet 20 mg PO QAM Qty: 90 3RF Hold Instructions: Resume on 10/23/23. (DME) OneTouch Verio test strips Strip See Rx Instructions .ROUTE .MEDSUPPLY Qty: 300 3RF Rx Instructions: Check sugar 3 times a day loperamide 2 mg capsule 2 mg PO Q6H PRN (Reason: loose stool) 90 Days Qty: 180 3RF Patient Comments: PT DOES NOT HAVE meclizine 12.5 mg tablet 12.5 - 25 mg PO BID PRN (Reason: dizziness) Qty: 180 0RF Rx Instructions: 1-2 orally twice a day PRN; levalbuterol tartrate 45 mcg/actuation HFA aerosol inhaler 1 inh INHALATION Q6H PRN (Reason: Shortness Of Breath Or Wheezing) Qty: 15 1RF gabapentin 600 mg tablet 600 mg PO BID Qty: 180 3RF insulin glargine [Lantus Solostar U-100 Insulin] 100 unit/mL (3 mL) insulin pen 44 - 60 unit subcut QPM MDD 60 90 Days Qty: 45 3RF Rx Instructions: LAST FILLED 03/10/24 FOR 75 DAYS. UNABLE TO VERIFY. Inject 44 units once daily. Increase by 3 units every 3rd day until fasting blood sugars are under 150 then continue this dose. (DME) blood-glucose meter [LavaboomTouch Verio Reflect Meter] Misc See Rx Instructions .Route Qty: 1 0RF Rx Instructions: As directed to check BS 2-3 times daily (DME) lancets 33 gauge misc See Rx Instructions .MEDSUPPLY Qty: 300 3RF Rx Instructions: As directed check blood sugars 3 times a day (DME) pen needle, diabetic 32 gauge x 5/32" needle See Rx Instructions .ROUTE .MEDSUPPLY Qty: 100 3RF Rx Instructions: Use once daily with Lantus tramadol 50 mg tablet 50 mg PO BID 30 Days Qty: 60 0RF aspirin 81 mg Tablet,Delayed Release (Dr/Ec) 81 mg PO QAM cyanocobalamin (vitamin B-12) [Vitamin B-12] 1,000 mcg Tablet 1,000 mcg PO DAILY diphenhydramine HCl [Benadryl] 25 mg Capsule 25 mg PO DIRECTED PRN (Reason: NEEDED) duloxetine 30 mg capsule,delayed release(DR/EC) 30 mg PO QAM Rx Instructions: TOTAL DOSE 90 MG--TAKES WITH 60 MG CAP. ropinirole 0.25 mg Tablet 0.25 mg PO BID Rx Instructions: ON EXT MED HX, NOT ON PT MED LIST buspirone 30 mg tablet 30 mg PO BID duloxetine 60 mg capsule,delayed release(DR/EC) 60 mg PO QAM Rx Instructions: TOTAL DOSE 90 MG--TAKES WITH 30 MG CAP. ondansetron HCl 4 mg tablet 8 mg PO Q8H PRN (Reason: NAUSEA/VOMITING) hydroxyzine HCl 25 mg tablet 25 mg PO 5XD PRN (Reason: anxiety) acetaminophen 500 mg Tablet 500 mg PO DIRECTED PRN (Reason: Pain) Discharge Orders: Discharge Order (Routine); Ordered 11/02/24 Ordered By: Miguel Angel Lobo/Other Patient Handouts: Managing Type 2 Diabetes, How to Check Your Blood Sugar Admission Data Admit Date/Time: 10/29/24 04:26 Attending Provider: Miguel Angel Desir Admit Provider: Alfred Serrano Primary Care Provider: Paramjit Martinez Other Providers: Alfred Serrano; Brian Butler; [facility] Hospital Stay Data Consultations 10/29/24 03:53 ED Decision to Admit Stat 11/01/24 09:11 Consult Podiatry Routine Diagnostic Imagining Performed 10/28/24 23:07 CT head/brain wo con Stat 10/29/24 04:26 MRI Brain [MR brain wo con] Stat Pending Results Patient Have Any Pending Studies at Discharge: No Discharge Instructions Given to Patient (Per Discharging Provider) Follow up with PMD in 1 week Total Time Total Time Spent Total Time Spent (In Minutes): 50 Coding Level of Care Code 72166 INP/OBS DISCH >30 MIN Diagnoses Somnolence R40.0 Altered mental status type: somnolence Acute kidney injury superimposed on CKD N17.9; N18.9 Type 2 diabetes mellitus without complication, with long-term current use of insulin E11.9; Z79.4 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
[2024-11-02] MEDS: IBUPROFEN 600 MG TAB PO STA (22:25)
[2024-11-02 22:30] LABS: Uric Acid 8.3 mg/dl (2.6-7.2)
[2024-11-02] MEDS: COLCHICINE 0.6 MG TAB PO ONE (23:16)
[2024-11-03] MEDS: COLCHICINE 0.6 MG TAB PO ONE (00:17)
[2024-11-03] MEDS: ACETAMINOPHEN 500 MG TAB PO PRN (07:34)
[2024-11-03] MEDS: MAGNESIUM OXIDE 400 MG TAB PO SCH (07:35)
[2024-11-03] MEDS: COLCHICINE 0.6 MG TAB PO SCH (07:35)
[2024-11-03] MEDS: DICLOFENAC SOD 1% GEL 100 GM TUBE EXT SCH (07:39)
[2024-11-03 09:11] LABS: Anion Gap 10.0 (3-11); Blood Urea Nitrogen 20.0 mg/dl (6-23); Calcium 10.2 mg/dl (8.6-10.3); Carbon Dioxide 22.0 mmol/L (21-32); Chloride 104.0 mmol/L (98-107); Creatinine Clr Calc Pharmacy 39.7 ml/min; Glucose 185.0 mg/dl (70-99(Fasting)); Magnesium 1.8 mg/dl (1.7-2.4); Potassium 3.9 mmol/L (3.5-5.1); Sodium 136.0 mmol/L (136-145)
--- NOTE | 2024-11-03 10:33 | Hospitalist Progress Note ---
Date of Service November 03, 2024 Assessment & Plan (1) AMS (altered mental status): Plan: -Pt appears to be at baseline -UTI and electrolyte abnormalities treated and resolved. (2) Acute kidney injury superimposed on CKD: Plan: -resolved -s/p IVF -cr 0.99 (3) DM2 (diabetes mellitus, type 2): Plan: - lantus 30 units SQ qpm, aspart insulin sliding scale qac + qhs, and POC glucose qac + qhs. (4) Hypercalcemia: Plan: RESOLVED with post-hydration Ca 10.0 mg/L (10/30/2024, 5:29am), s/p 1 liter of 0.9% NS @ 80 mL/hr (10/29/2024, 7:02pm). (5) Hypomagnesemia: Plan: -resolved (6) Hypophosphatemia: Plan: cf., PO4 1.9 mg/dL (10/31/2024, 5:39am). (7) Microcytic hypochromic anemia: Plan: Chronic microcytic, hypochromic anemia with baseline Hb range, 9.1 - 11.1 g/dL (08/20/2023 - 10/21/2024), 6.7, MCHC 30.9 (10/30/2024, 5:29am). cf., Hb 11.1 g/dL, MCV 78.3, MCHC 30.2 (10/31/2024, 5:39am). ). (8) Osteomyelitis of second toe of left foot: Plan: Both tissue biopsy/bone biopsy reports of left 2nd toe (10/21/2024, 3:47pm) are negative for osteomyelitis. 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 The patient was brought to the emergency department due to family concerns regarding worsening confusion, and patient also complained of dizziness and low back pain. HPI and review of systems are able to be done slowly, due to patient's intermittent confusion. The patient was [facility] for admission for evaluation and further treatment. Awaiting discharge to [facility] Admission and Anticipated Discharge Date Admission Date: October 29, 2024 Subjective No events overnight. Pt resting comfortably in bed. Review of Systems Review of Systems: CONST: Negative for fever, body aches and chills. HENT: Negative for neck pain/stiffness, headache, congestion, sore throat, swelling. EYES: Negative for discharge/pain or vision changes. RESP: Negative for cough/hemoptysis and shortness of breath. CV: Negative chest pain, difficulty breathing, palpitations. ABD: Negative pain, nausea, vomiting. : Negative increase frequency, dysuria, blood in urine or stool. MUSC: Negative for muscle aches, edema. SKIN: Negative rash, lesions/sores. NEURO: Negative headache, dizziness, weakness. Physical Exam Physical Exam: GENERAL APPEARANCE NAD, activity normal for age, well developed/ well nourished, no cyanosis, pallor, or diaphoresis. EYES lids/conjunctiva normal. EARS/NOSE/THROAT Mucous membranes moist, nares normal, lips/teeth normal uvula midline without oral pharyngeal erythema, exudate or swelling TMs normal bilaterally. No lymphangitis/lymphedema. HEAD/NECK normocephalic atraumatic, no facial trauma, neck is supple. RESPIRATORY respiratory effort normal, speaks in full sentences, no tripod position, no accessory muscle use. Lungs clear to auscultation without rhonchi, wheezes, rales CARDIAC Regular rate and rhythm, no edema. ABDOMINAL Soft, ND/NT. No evidence of fluid wave. No pulsatile masses on exam, rebound tenderness, Bell sign or pain over Mcburney's point. MUSCLES/EXTREMITIES No abnormal range of motion, no swelling. SKIN Warm, pink and dry. No rashes, dermatoses, petechiae or lesions. NEUROLOGICAL Speech is clear and appropriate. Normal level of consciousness. Gait and coordination are normal. 5/5 strength in all extremities. PSYCH Normal mood and affect. Judgement/competence is appropriate Results & Data Results & Data Vital Signs (Past 12 Hours) Vital Signs Temp Pulse Resp BP Pulse Ox O2 Del Method 11/03/24 07:30 Room Air 11/03/24 07:23 36.7 C 78 18 144/61 H 95 Room Air PG Care Time/CCT Total # of Minutes Spent Total Time Spent with Patient: Total time spent is greater than 50% in coordination of care (as documented) at patient's floor/unit and/or counseling patient: Coding Level of Care Code 55718 SUB INP/OBS CARE 2/35MIN Diagnoses Somnolence R40.0 Altered mental status type: somnolence Acute kidney injury superimposed on CKD N17.9; N18.9 Type 2 diabetes mellitus without complication, with long-term current use of insulin E11.9; Z79.4 Diabetes mellitus prison insulin use: with prison use Diabetes mellitus complication status: without complication Hypercalcemia E83.52 Hypomagnesemia E83.42 Hypophosphatemia E83.39 Microcytic hypochromic anemia D50.9 Osteomyelitis of second toe of left foot M86.9 (1) AMS (altered mental status) Altered mental status type: somnolence Qualified Code(s): R40.0 - Somnolence (3) DM2 (diabetes mellitus, type 2) 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
[2024-11-03] MEDS: IBUPROFEN 600 MG TAB PO PRN (17:09)
[2024-11-03] MEDS: ONDANSETRON INJ 2 MG/ML 2 ML VIAL IV PRN (21:24)
[2024-11-04 08:03] LABS: Anion Gap 6.0 (3-11); Blood Urea Nitrogen 21.0 mg/dl (6-23); Calcium 10.3 mg/dl (8.6-10.3); Carbon Dioxide 26.0 mmol/L (21-32); Chloride 106.0 mmol/L (98-107); Creatinine Clr Calc Pharmacy 42.1 ml/min; Glucose 156.0 mg/dl (70-99(Fasting)); Potassium 4.1 mmol/L (3.5-5.1); Sodium 138.0 mmol/L (136-145)
[2024-11-04 09:15] LABS: Hematocrit (blood only) 39.3 % (37.0-47.0); Hemoglobin 11.9 g/dl (12.0-16.0); Mean Corpuscular Hemoglobin 23.4 pg (25.0-34.0); Mean Corpuscular Volume 77.2 fL (80.0-100.0); Platelet Count 384 K/uL (130-400); RDW Standard Deviation 44.9 fL (36.4-46.3); Red Blood Count 5.09 M/uL (4.20-5.40); White Blood Count 11.45 K/ul (4.8-10.8)
--- NOTE | 2024-11-04 09:44 | Hospitalist Progress Note ---
Date of Service November 04, 2024 Assessment & Plan (1) AMS (altered mental status): Plan: -Pt appears to be at baseline -UTI and electrolyte abnormalities treated and resolved. (2) Acute kidney injury superimposed on CKD: Plan: -resolved -s/p IVF -cr 0.99 (3) DM2 (diabetes mellitus, type 2): Plan: - lantus 30 units SQ qpm, aspart insulin sliding scale qac + qhs, and POC glucose qac + qhs. (4) Hypercalcemia: Plan: RESOLVED with post-hydration Ca 10.0 mg/L (10/30/2024, 5:29am), s/p 1 liter of 0.9% NS @ 80 mL/hr (10/29/2024, 7:02pm). (5) Hypomagnesemia: Plan: -resolved (6) Hypophosphatemia: Plan: cf., PO4 1.9 mg/dL (10/31/2024, 5:39am). (7) Microcytic hypochromic anemia: Plan: Chronic microcytic, hypochromic anemia with baseline Hb range, 9.1 - 11.1 g/dL (08/20/2023 - 10/21/2024), 6.7, MCHC 30.9 (10/30/2024, 5:29am). cf., Hb 11.1 g/dL, MCV 78.3, MCHC 30.2 (10/31/2024, 5:39am). ). (8) Osteomyelitis of second toe of left foot: Plan: Both tissue biopsy/bone biopsy reports of left 2nd toe (10/21/2024, 3:47pm) are negative for osteomyelitis. 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 The patient was brought to the emergency department due to family concerns regarding worsening confusion, and patient also complained of dizziness and low back pain. HPI and review of systems are able to be done slowly, due to patient's intermittent confusion. The patient was referred to the [place] [facility] service for admission for evaluation and further treatment. Awaiting discharge to [facility] today before 4pm Admission and Anticipated Discharge Date Admission Date: October 29, 2024 Subjective No events overnight. Pt resting comfortably in bed. Review of Systems Review of Systems: CONST: Negative for fever, body aches and chills. HENT: Negative for neck pain/stiffness, headache, congestion, sore throat, swelling. EYES: Negative for discharge/pain or vision changes. RESP: Negative for cough/hemoptysis and shortness of breath. CV: Negative chest pain, difficulty breathing, palpitations. ABD: Negative pain, nausea, vomiting. : Negative increase frequency, dysuria, blood in urine or stool. MUSC: Negative for muscle aches, edema. SKIN: Negative rash, lesions/sores. NEURO: Negative headache, dizziness, weakness. Physical Exam Physical Exam: GENERAL APPEARANCE NAD, activity normal for age, well developed/ well nourished, no cyanosis, pallor, or diaphoresis. EYES lids/conjunctiva normal. EARS/NOSE/THROAT Mucous membranes moist, nares normal, lips/teeth normal uvula midline without oral pharyngeal erythema, exudate or swelling TMs normal bilaterally. No lymphangitis/lymphedema. HEAD/NECK normocephalic atraumatic, no facial trauma, neck is supple. RESPIRATORY respiratory effort normal, speaks in full sentences, no tripod position, no accessory muscle use. Lungs clear to auscultation without rhonchi, wheezes, rales CARDIAC Regular rate and rhythm, no edema. ABDOMINAL Soft, ND/NT. No evidence of fluid wave. No pulsatile masses on exam, rebound tenderness, Bell sign or pain over Mcburney's point. MUSCLES/EXTREMITIES No abnormal range of motion, no swelling. SKIN Warm, pink and dry. No rashes, dermatoses, petechiae or lesions. NEUROLOGICAL Speech is clear and appropriate. Normal level of consciousness. Gait and coordination are normal. 5/5 strength in all extremities. PSYCH Normal mood and affect. Judgement/competence is appropriate Results & Data Results & Data Vital Signs (Past 12 Hours) Vital Signs Temp Pulse Resp BP Pulse Ox O2 Del Method 11/04/24 07:22 36.6 C 69 16 139/70 97 Room Air 11/03/24 23:33 36.7 C 76 20 164/80 H 97 Room Air PG Care Time/CCT Total # of Minutes Spent Total Time Spent with Patient: Total time spent is greater than 50% in coordination of care (as documented) at patient's floor/unit and/or counseling patient: Coding Level of Care Code 60249 SUB INP/OBS CARE 2/35MIN Diagnoses Somnolence R40.0 Altered mental status type: somnolence Acute kidney injury superimposed on CKD N17.9; N18.9 Type 2 diabetes mellitus without complication, with long-term current use of insulin E11.9; Z79.4 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: with [facility] use Diabetes mellitus complication status: without complication Hypercalcemia E83.52 Hypomagnesemia E83.42 Hypophosphatemia E83.39 Microcytic hypochromic anemia D50.9 Osteomyelitis of second toe of left foot M86.9 (1) AMS (altered mental status) Altered mental status type: somnolence Qualified Code(s): R40.0 - Somnolence (3) DM2 (diabetes mellitus, type 2) Diabetes mellitus [facility] insulin use: with software developer use Diabetes mellitus complication status: without complication Qualified Code(s): E11.9 - Type 2 d iabetes mellitus without complications; Z79.4 - manager estate (current) use of insulin
[2024-11-04] MEDS: ONDANSETRON 4 MG OD TAB PO PRN (20:17)
[2024-11-05 06:59] VITALS: RESP 16
--- NOTE | 2024-11-05 10:02 | Hospitalist Progress Note ---
Date of Service November 05, 2024 Assessment & Plan (1) AMS (altered mental status): Plan: -Pt appears to be at baseline -UTI and electrolyte abnormalities treated and resolved. (2) Acute kidney injury superimposed on CKD: Plan: -resolved -s/p IVF -cr 0.99 (3) DM2 (diabetes mellitus, type 2): Plan: - lantus 30 units SQ qpm, aspart insulin sliding scale qac + qhs, and POC glucose qac + qhs. (4) Hypercalcemia: Plan: RESOLVED with post-hydration Ca 10.0 mg/L (10/30/2024, 5:29am), s/p 1 liter of 0.9% NS @ 80 mL/hr (10/29/2024, 7:02pm). (5) Hypomagnesemia: Plan: -resolved (6) Hypophosphatemia: Plan: cf., PO4 1.9 mg/dL (10/31/2024, 5:39am). (7) Microcytic hypochromic anemia: Plan: Chronic microcytic, hypochromic anemia with baseline Hb range, 9.1 - 11.1 g/dL (08/20/2023 - 10/21/2024), 6.7, MCHC 30.9 (10/30/2024, 5:29am). cf., Hb 11.1 g/dL, MCV 78.3, MCHC 30.2 (10/31/2024, 5:39am). ). (8) Osteomyelitis of second toe of left foot: Plan: Both tissue biopsy/bone biopsy reports of left 2nd toe (10/21/2024, 3:47pm) are negative for osteomyelitis. 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 The patient was brought to the emergency department due to family concerns regarding worsening confusion, and patient also complained of dizziness and low back pain. HPI and review of systems are able to be done slowly, due to patient's intermittent confusion. The patient was referred to the [facility] service for admission for evaluation and further treatment. PT recommending rehab,auth pending for [facility] however patient would like to go home Follow up with case management about final decision on disposition Admission and Anticipated Discharge Date Admission Date: October 29, 2024 Subjective No events overnight. Pt resting comfortably in bed. Review of Systems Review of Systems: CONST: Negative for fever, body aches and chills. HENT: Negative for neck pain/stiffness, headache, congestion, sore throat, swelling. EYES: Negative for discharge/pain or vision changes. RESP: Negative for cough/hemoptysis and shortness of breath. CV: Negative chest pain, difficulty breathing, palpitations. ABD: Negative pain, nausea, vomiting. : Negative increase frequency, dysuria, blood in urine or stool. MUSC: Negative for muscle aches, edema. SKIN: Negative rash, lesions/sores. NEURO: Negative headache, dizziness, weakness. Constitutional: Negative for antecedent/coincident fevers, chills, diaphoresis, cough, wheeze, sore throat, hemoptysis, shortness of breath, dyspnea on exertion, chest pains, palpitations, pleurisy, nausea, vomiting, diarrhea, abdominal pain, pelvic pain, hematemesis, hematochezia, melena, hematuria, dysuria, frequency, urgency, flank pain, headaches, dizziness, lightheadedness, visual changes, hearing changes, weakness, falls, syncope, trauma, travel history, sick contacts, or food/drug ingestions novel or new. All other review of systems are reported as negative by the patient on 10/31/2024. Physical Exam Physical Exam: GENERAL APPEARANCE NAD, activity normal for age, well developed/ well nourished, no cyanosis, pallor, or diaphoresis. EYES lids/conjunctiva normal. EARS/NOSE/THROAT Mucous membranes moist, nares normal, lips/teeth normal uvula midline without oral pharyngeal erythema, exudate or swelling TMs normal bilaterally. No lymphangitis/lymphedema. HEAD/NECK normocephalic atraumatic, no facial trauma, neck is supple. RESPIRATORY respiratory effort normal, speaks in full sentences, no tripod position, no accessory muscle use. Lungs clear to auscultation without rhonchi, wheezes, rales CARDIAC Regular rate and rhythm, no edema. ABDOMINAL Soft, ND/NT. No evidence of fluid wave. No pulsatile masses on exam, rebound tenderness, Bell sign or pain over Mcburney's point. MUSCLES/EXTREMITIES No abnormal range of motion, no swelling. SKIN Warm, pink and dry. No rashes, dermatoses, petechiae or lesions. NEUROLOGICAL Speech is clear and appropriate. Normal level of consciousness. Gait and coordination are normal. 5/5 strength in all extremities. PSYCH Normal mood and affect. Judgement/competence is appropriate Results & Data Results & Data Vital Signs (Past 12 Hours) Vital Signs Temp Pulse Resp BP Pulse Ox O2 Del Method 11/05/24 06:58 36.7 C 96 H 16 129/76 95 Room Air 11/04/24 22:22 36.7 C 94 H 18 141/84 H 94 Room Air PG Care Time/CCT Total # of Minutes Spent Total Time Spent with Patient: Total time spent is greater than 50% in coordination of care (as documented) at patient's floor/unit and/or counseling patient: Coding Level of Care Code 93428 SUB INP/OBS CARE 2/35MIN Diagnoses Somnolence R40.0 Altered mental status type: somnolence Acute kidney injury superimposed on CKD N17.9; N18.9 Type 2 diabetes mellitus without complication, with long-term current use of insulin E11.9; Z79.4 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 Diabetes mellitus complication status: without complication Hypercalcemia E83.52 Hypomagnesemia E83.42 Hypophosphatemia E83.39 Microcytic hypochromic anemia D50.9 Osteomyelitis of second toe of left foot M86.9 (1) AMS (altered mental status) Altered mental status type: somnolence Qualified Code(s): R40.0 - Somnolence (3) DM2 (diabetes mellitus, type 2) 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
[2024-11-05 15:18] VITALS: BP 157/98; PULSE 99; TEMP 97.9; O2SAT 96
== END 2024-11-05 18:32 | disposition home health service (06) | DRG 689 ==
LOC: ED 22:48 → 2S 10-29 04:26 → SUATTDRO 10-29 04:26 → 2S 10-29 05:10 → 3N 11-01 18:21

== ENCOUNTER 2025-02-15 15:44 | Inpatient (IN) ==
[2025-02-15] MEDS ORDERED: STAT IV Infusion **Titration per Protocol STA ×2 (15:55→16:11)
--- NOTE | 2025-02-15 16:09 | Emergency Department Note ---
Impression & Plan Acute hypoxic respiratory failure, Multifocal pneumonia, Sepsis, Acute hypotension ED Provider Note NAME: CECI FOREMAN AGE: 74 SEX: F : 1950 ARRIVES VIA: Ambulance INFORMANT: EMS ED PROVIDER(S): Tadeo Kumar DO CHIEF COMPLAINT: Altered mental status HPI: Patient is a 74-year-old female with a past medical history of overdose, hallucinations, hypercapnia, CKD, diabetes and anxiety who presents to the ER as she was seen yesterday here for an overdose. She was discharged home. Family found her today unresponsive. They have no other history. Patient is obtunded and unable to provide any additional history. ADDITIONAL HISTORY OBTAINED: Per HPI Chronic Medical/Social Conditions Affecting Care: Per HPI PAST MEDICAL HISTORY:See Below PAST SURGICAL HISTORY:See Below FAMILY HISTORY:See Below SOCIAL HISTORY:See Below HOME MEDICATIONS:See Below ALLERGIES:See Below VITALS:See Below PHYSICAL EXAMINATION: GENERAL: Sitting up in bed, ill-appearing, unresponsive EYE EXAM: normal conjunctiva. PERRL and EOM's grossly intact. OROPHARYNX: no exudate, no erythema, lips, buccal mucosa, and tongue normal and mucous membranes are moist NECK: supple, no nuchal rigidity, no adenopathy, non-tender LUNGS: Clear to auscultation. Normal chest wall mechanics HEART: no murmurs, S1 normal and S2 normal ABDOMEN: abdomen soft, non-tender, normo-active bowel sounds, no masses, no rebound or guarding. BACK: Back is symmetrical on inspection and there is no deformity, no midline tenderness, no CVA tenderness. SKIN: Bruising over the right shoulder UPPER EXTREMITIES: upper extremities are grossly normal. LOWER EXTREMITIES: No pitting edema. NEURO EXAM: Eyes are open withdraws lower extremities and upper extremities to pain. Nonverbal MEDICAL DECISION MAKING: Patient is a 74-year-old female who presents to the ER obtunded unresponsive. IVs were established. She was started on Levophed and was titrated up to 0.5 as her pressures were in the 60s. She was intubated with rocuronium and ketamine. She was started on epinephrine. She coded shortly after this. CPR was performed under my direction as described below. We were able to obtain ROSC after multiple rounds of epinephrine, IV calcium gluconate and bicarb. She was started on insulin drip. She was given IV antibiotics in combination with IV fluids. Chest x-ray confirmed pneumonia. CT head chest abdomen pelvis confirmed multifocal pneumonia. ICU was present at bedside and assisted throughout the code. Please see their note for further details. Did discuss with nursing staff who was able to contact family. They were made aware. She was also shocked initially x 1 with a started CPR as she went into V-fib this eventually went into PEA and then we were able to obtain ROSC. Consults/Care Managements Discussions: Per [facility] Triage Nursing notes reviewed. Limited review of prior medical records performed Vital Signs: reviewed and remarkable for no significant abnormalities Differential diagnosis: Differential diagnoses includes but is not limited to toxic, metabolic, infectious, traumatic, cardiac, neurologic, hematologic, psychiatric and inflammatory etiologies. ER treatment provided: See below Diagnostics interpreted by me include EKG and cardiac monitoring as listed below: -Cardiac Monitoring: An order was placed for continuous cardiac monitoring. The monitor shows a rate of 95 with sinus rhythm. -ECG: Sinus rhythm rate 96 Normal axis No PVCs QTc 464 EKG #2 Atrial tachycardia rate of 134 Normal axis No PVCs QTc 537 -Laboratory studies:Interpreted by me as stated above in MDM and shown below. Imaging studies: Xrays: As interpreted by me: Portable AP upright 1 view of the chest shows ET tube 1 cm above the hank without infiltrate CTs show: CT of the head chest abdomen pelvis showed multifocal pneumonia Procedures: Procedure #1: CPR was performed and started by me and then performed under my direction for several rounds for about 6 to 10 minutes. Procedure #2 EM PROCEDURE NOTE - Endotracheal Intubation PROCEDURE NOTE: Informed consent was not obtained by the patient. Verify Correct Patient: yes Procedure: Endotracheal intubation Indication: Respiratory failure The procedure was done emergently. Description of the Procedure: The patient was seen and properly identified. The patient was pre-oxygenated and intubated after rapid sequence induction with meds: Rocuronium and ketamine. Intubation was performed using a curved blade and a 7.5 cuffed endotracheal tube. The tube was visualized going through the cords and secured with the 21cm cherie at the lips. The patient had good bilateral breath sounds in the axillae with good chest rise. Proper ET tube placement was confirmed by end tidal CO2 detector. The patient tolerated the procedure well. Critical Care: I have personally spent 75 minutes of critical care time in the direct management of this patient. This includes bedside care, interpretation of diagnostic studies, and testing, discussion with consultants, patient, and family members, and other required patient management activities. This 75 minutes is in excess of all separately billable procedures. Past Med/Surg History Problem List (Updated 02/15/25 @ 22:11 by Tadeo Kumar DO) Acute hypotension (Acute) Sepsis (Acute) Multifocal pneumonia (Acute) Acute hypoxic respiratory failure (Acute) Influenza A Cardiac arrest Acute renal failure Acute respiratory failure Severe sepsis Septic shock Overdose of drug (Acute) Stroke Hypophosphatemia Hypomagnesemia Osteomyelitis of second toe of left foot Microcytic hypochromic anemia Hallucinations (Acute) Hypercalcemia (Acute) Acute alteration in mental status (Acute) Hypercalcemia Acute kidney injury superimposed on CKD Elevated serum creatinine (Acute) Osteomyelitis of toe of left foot (Acute) Right foot pain (Acute) Diabetic ulcer of toe of right foot (Acute) DM2 (diabetes mellitus, type 2) Generalized weakness (Acute) Anxiety (Chronic) Diabetic ulcer of toe of left foot (Acute) Wound of left foot Hypomagnesemia (Acute) Diabetic infection of left foot Dyspnea Dysphagia Difficulty swallowing pills Obesity (BMI 30.0-34.9) Lumbar pain with radiation down both legs Anemia Crohn's ileocolitis (Chronic) Hearing loss (Chronic) Vitamin D deficiency (Chronic) Vitamin B12 deficiency (Chronic) Osteopenia (Chronic) Laryngopharyngeal reflux (LPR) (Chronic) Depression with anxiety (Chronic) Common migraine without aura (Chronic) Chromophobe adenoma (Chronic) Benign paroxysmal positional vertigo hx/no recent issues Hypothyroidism (Chronic) Hypertension (Chronic) Hyperlipidemia (Chronic) Asthma (Chronic) well controlled, has not used inhaler in years Lumbar stenosis with neurogenic claudication Medical History Chronic cerebrovascular accident (CVA) - Hx of - Head CT 07/18/24 incidentally noted new chronic 1.6cm infarct to left occipital lobe and chronic small vessel ischemic disease compared to 2019 imaging - PCP recommended MRI of brain (could only do under sedation, MRI cancelled for 09/22/24 due to elevated creatinine) - PCP also recommended carotid ultrasound (patient never had done) - Scheduled to see neurology 11/10/24 Hypothyroidism Hyperlipidemia Hypertension GERD (gastroesophageal reflux disease) Benign paroxysmal positional vertigo hx/no recent issues Asthma well controlled, no inhaler use in years Anxiety Schatzki's ring s/p dilation Diabetic foot ulcer has small area second toe left foot, and right foot 4 areas that wound care is following DM2 (diabetes mellitus, type 2) Poor historian History of COVID-19 09/2023 Muscular deconditioning CKD (chronic kidney disease) stage 3, GFR 30-59 ml/min no specialist Diabetic peripheral neuropathy associated with type 2 diabetes mellitus Sleep apnea no device Crohns disease Weakness of both legs Lumbar post-laminectomy syndrome History of anemia remote hx blood transfusion post-op Chronic left hip pain Recurrent UTI (urinary tract infection) none at present Hiatal hernia Vertigo "comes and goes" last episode 04/22/23, uses the meclizine as needed which helps. Tinnitus Esophageal dysmotility dysphagia s/p dilation Back pain, chronic Surgical History Osteomyelitis of toe of left foot first big toe amputated History of cataract surgery LEFT History of cardiac cath 04/2019 r/t ALICEA, no stents History of surgical removal of pituitary gland tumor excision History of bilateral salpingo-oophorectomy (BSO) History of esophagogastroduodenoscopy (EGD) multiple with multiple dilations History of colonoscopy History of tooth extraction S/P carpal tunnel release left S/P arthroscopic knee surgery left Fusion of spine multiple (fusion + revision) Removal spinal hardware T11-L1: 08/16/17: Grade 1 view, MAC #3, ETT 7.0 at [facility] T11-L1 hardware removal: 03/19/19: MAC#3 at [facility] History of arthroscopy right shoulder History of hysterectomy Family History Mother Diabetes Family history of diabetes mellitus Myocardial infarction Breast cancer Hypertension Sister Stroke Other Coronary heart disease No family history of adverse response to anesthesia Denies family history of Ovarian cancer Prostate cancer Lung cancer Colorectal cancer Social History Smoking Status: Never smoker Second Hand Exposure: No; Do You Dip or Chew Tobacco: No; Hx Alcohol Use: No Hx Substance Use: No Preferred Language: Montenegrin Communication Ability: Effective Visual Impairment: Limited Hearing Ability: Hard of Hearing Manager Federal Required: No Beliefs That Will Affect Care: None marital status: marital status details: Three children Current Living Situation: Alone Current Living Situation Comment: patient restless and unable to communicate current occupational status: retired Feels Safe at Home: Yes Childhood Exposure to Second-Hand Smoke: Yes Diet Comment: regular caffeine: Yes (pepsi) during the past year weight has: remained stable Dental Care, Regularly: No Physical Activity Frequency: Does not Exercise Physical Activity Frequency Comment: due to physical condition Seatbelt Use: always Sunscreen Use: Yes Assistive Devices: Cane and Glasses Allergies Allergies Allergy/AdvReac Type Severity Reaction Status Date / Time cephalexin Allergy Intermediate Hives Verified 12/28/24 09:03 Cephalosporins Allergy Intermediate Hives Verified 12/28/24 09:03 infliximab Allergy Intermediate Itching, Verified 12/28/24 09:03 rash Penicillins Allergy Intermediate Hives Verified 12/28/24 09:03 ciprofloxacin AdvReac Intermediate N/V Verified 12/28/24 09:03 doxycycline AdvReac Intermediate GI upset Verified 12/28/24 09:03 Home Meds Home Medications Medication Instructions Recorded Confirmed aspirin 81 mg tablet,delayed 81 mg PO QAM 06/10/18 12/28/24 release multivitamin 1 tab PO QAM 12/26/22 12/28/24 cyanocobalamin (vitamin B-12) 1,000 mcg PO DAILY 08/20/23 12/28/24 1,000 mcg tablet (Vitamin B-12) diphenhydramine HCl 25 mg capsule 25 mg PO DIRECTED PRN NEEDED 08/20/23 12/28/24 (Benadryl) acetaminophen 500 mg tablet 500 mg PO DIRECTED PRN Pain 07/18/24 12/28/24 buspirone 30 mg tablet 30 mg PO BID 07/18/24 12/28/24 duloxetine 60 mg capsule,delayed 60 mg PO QAM 07/18/24 12/28/24 release hydroxyzine HCl 25 mg tablet 25 mg PO 5XD PRN anxiety 07/18/24 12/28/24 ondansetron HCl 4 mg tablet 8 mg PO Q8H PRN NAUSEA/VOMITING 07/18/24 12/28/24 duloxetine 30 mg capsule,delayed 30 mg PO QAM 10/28/24 12/28/24 release Previous Rx's Medication Instructions Recorded vedolizumab 300 mg intravenous 300 mg IV Q8WK #1 ea 06/28/20 solution (Entyvio) levothyroxine 88 mcg tablet 88 mcg PO QAM #60 tabs 04/28/24 ropinirole 1 mg tablet 1 mg PO BID #180 tabs 05/10/24 topiramate 25 mg tablet (Topamax) 25 mg PO BID #180 tabs 05/10/24 atorvastatin 20 mg tablet 20 mg PO QAM #90 tabs 05/17/24 lisinopril 30 mg tablet 30 mg PO QAM #90 tabs 05/17/24 metformin 500 mg tablet,extended 500 mg PO .COMPLEX #270 tabs 05/17/24 release 24 hr blood sugar diagnostic (OneTouch #300 ea 07/01/24 Verio test strips) blood-glucose meter (OneTouch #1 ea 09/17/24 Verio Reflect Meter) lancets 33 gauge #300 ea 09/17/24 levalbuterol tartrate 45 1 inh inhalation Q6H PRN Shortness 10/05/24 mcg/actuation aerosol inhaler Of Breath Or Wheezing #15 grams mupirocin 2 % topical ointment 1 applic EXT BID #22 grams 11/02/24 insulin glargine 100 unit/mL (3 44 - 60 unit (0.44 - 0.6 mL) 12/28/24 mL) subcutaneous pen (Lantus subcut QPM 3 months #45 mL Solostar U-100 Insulin) pen needle, diabetic 32 gauge x #100 ea 12/28/24" loperamide 2 mg capsule 2 mg PO Q6H PRN loose stool 90 12/31/24 days #180 caps gabapentin 600 mg tablet 600 mg PO BID #180 tabs 01/31/25 omeprazole 40 mg capsule,delayed 40 mg PO BID #180 caps 01/31/25 release tramadol 50 mg tablet 50 mg PO BID 30 days #60 tabs 02/01/25 meclizine 12.5 mg tablet 12.5 - 25 mg (1 - 2 x 12.5 mg) PO 02/14/25 BID PRN dizziness #180 tabs Results & Data (ED) Vital Signs Vital Signs - 24 hr 02/15/25 15:44 02/15/25 15:44 02/15/25 15:53 Temperature 36.4 C L Temperature Source Axillary Pulse Rate 95 H 94 H Respiratory Rate 44 H Respiratory Effort / Characteristics Short of Breath Blood Pressure 69/59 L Blood Pressure Mean 62 Blood Pressure Position Semi-fowlers Pulse Oximetry Oxygen Delivery Method CPAP CPAP Fraction of Inspired Oxygen Sepsis New/Unexplained Change in Mental Status Yes Sepsis Action Taken by Nursing No Action Required End-Tidal CO2 02/15/25 16:05 02/15/25 16:12 Temperature Temperature Source Pulse Rate 60 32 L Respiratory Rate 22 Respiratory Effort / Characteristics Blood Pressure Blood Pressure Mean Blood Pressure Position Pulse Oximetry 70 L Oxygen Delivery Method Fraction of Inspired Oxygen 100 Sepsis New/Unexplained Change in Mental Status Sepsis Action Taken by Nursing End-Tidal CO2 60 Laboratory Data 02/15/25 16:00 02/15/25 16:00 Lab Results 02/15/25 02/15/25 02/15/25 Range/Units 15:49 16:00 16:04 WBC 12.23 H (4.8-10.8) K/ul RBC 5.36 (4.20-5.40) M/uL Hgb 13.0 (12.0-16.0) g/dL POC Hgb 15.0 (12.0-16.0) g/dl Hct 42.8 (37.0-47.0) % POC Hct 44 (37-47) % MCV 79.9 L D (80.0-100.0) fL MCH 24.3 L (25.0-34.0) pg MCHC 30.4 L (32.0-36.0) g/dL RDW Std Deviation 46.3 (36.4-46.3) fL RDW Coeff of Brianna 16.0 H (11.5-14.5) % Plt Count 419 H (130-400) K/uL MPV 11.3 (9.4-12.4) fL Immature Gran % (Auto) 0.2 % Neut % (Auto) 79.8 % Lymph % (Auto) 13.0 % Teller % (Auto) 6.8 % Eos % (Auto) 0.0 % Baso % (Auto) 0.2 % Neut # (Auto) 9.76 H (1.40-6.50) K/uL Lymph # (Auto) 1.59 (1.20-3.40) K/uL Teller # (Auto) 0.83 H (0.11-0.59) K/uL Eos # (Auto) 0.00 (0.00-0.50) K/uL Baso # (Auto) 0.02 (0.00-0.20) K/uL Immature Gran # (Auto) 0.03 (0.01-0.20) K/uL VBG pH < 7.00 L (7.36-7.41) VBG pCO2 65 H (38-50) mmHg VBG pO2 65 mmHg VBG HCO3 TNP VBG O2 Saturation 81.3 % VBG Base Excess TNP POC Sodium 136 (135-144) mmol/L Sodium 134 L (136-145) mmol/L POC Potassium 3.6 (3.3-5.0) mmol/L Potassium 3.6 (3.5-5.1) mmol/L POC Chloride 102 (101-112) mmol/L Chloride 100 (98-107) mmol/L Carbon Dioxide 14 L (21-32) mmol/L POC Total CO2 15 L (24-31) mmol/L Anion Gap 20 H (3-11) POC Anion Gap 23.0 (16-25) mmol/L POC BUN 28 H (7-18) mg/dl BUN 31 H (6-23) mg/dl Creatinine 1.92 H D (0.6-1.2) mg/dl POC Creatinine 1.9 H (0.6-1.3) mg/dl Est Cr Clr Drug Dosing Not Reportable eGFR 26.86 BUN/Creatinine Ratio 16.1 (10-20) Glucose 458 H* (70-99(Fasting)) mg/dl POC Glucose 413 H* (70-99) mg/dl POC Glucose (other) 425 H* (70-99) mg/dl Lactate 10.7 H* (0.4-2.0) mmol/L Calcium 8.2 L (8.6-10.3) mg/dl POC Ioniz Calcium Nathan 1.03 L (1.12-1.32) mmol/l Phosphorus 6.5 H (2.5-4.9) mg/dl Magnesium 2.1 (1.7-2.4) mg/dl Total Bilirubin 0.6 (0.2-1.0) mg/dl Direct Bilirubin 0.2 (0-0.2) mg/dl AST 33 (13-39) U/L ALT 21 (7-52) U/L Alkaline Phosphatase 108 H (34-104) U/L Troponin I High Sens 66.3 H* D (0-14) pg/ml Total Protein 7.0 (6.0-8.3) gm/dl Albumin 3.4 (3.4-5.0) gm/dl Procalcitonin 4.14 H (0-0.5) ng/ml Administered Medications Epinephrine HCl () 4 mg in 254 mls @ 13.716 mls/hr IV .[id number] ANITA; Protocol Stop: 03/17/25 16:14 Last Titration: 02/15/25 19:19 Dose: Infused Documented By: MTP Co-signed By: SHAQ Titration: 02/15/25 19:18 Dose: Infused Documented By: MTP Co-signed By: SHAQ Admin: 02/15/25 16:30 Dose: 0.5 mcg/kg/min, 137.2 mls/hr Documented By: CEF Co-signed By: NA Norepinephrine Bitartrate (Levophed/D5w) 16 mg in 250 mls @ 35.672 mls/hr IV .Q7H1M ANITA; Protocol Stop: 03/17/25 17:44 Last Titration: 02/15/25 19:18 Dose: 0.01 mcg/kg/min, 0.6 mls/hr Documented By: MTP Co-signed By: SHAQ Admin: 02/15/25 17:21 Dose: 0.05 mcg/kg/min, 3.6 mls/hr Documented By: CEF Co-signed By: [facility] Discontinued Medications Sodium Chloride (Nss) 1,000 mls @ 999 mls/hr IV .Q1H1M ANITA Stop: 02/15/25 18:00 Last Admin: 02/15/25 19:22 Dose: Not Given Documented By: MTP Norepinephrine Bitartrate (Levophed/D5w) 4 mg in 250 mls @ 135 mls/hr IV .Q1H52M ANITA; Protocol Stop: 02/15/25 17:45 Last Admin: 02/15/25 16:12 Dose: 0.5 mcg/kg/min, 135 mls/hr Documented By: CEF Co-signed By: BLAKE Meropenem 500 mg/ Syringe 10 mls @ 2 mls/min IV NOW STA; Protocol Stop: 02/15/25 16:40 Last Admin: 02/15/25 16:56 Dose: 2 mls/min Documented By: CEF Vancomycin HCl 1,500 mg/ (Sodium Chloride) 530 mls @ 200 mls/hr IV NOW STA Stop: 02/15/25 19:15 Last Admin: 02/15/25 17:20 Dose: 200 mls/hr Documented By: CEF Potassium Chloride (K Junior / Wtr) 20 meq in 100 mls @ 50 mls/hr IV NOW ONE Stop: 02/15/25 18:59 Last Admin: 02/15/25 17:15 Dose: 50 mls/hr Documented By: CEF Co-signed By: BLAKE Insulin Pump (Dc Home Insulin Pump) 1 each N/A NOW STA Stop: 02/15/25 16:13 Last Admin: 02/15/25 19:25 Dose: Not Given Documented By: MTP Miscellaneous (Rapid Sequence Induction Bag) Confirm Administered Dose 1 each N/A .STK-MED ONE Stop: 02/15/25 16:00 Last Admin: 02/15/25 19:21 Dose: Not Given Documented By: MTP Miscellaneous (Stat Iv Infusion Titration Per Protocol) 1 each N/A NOW STA Stop: 02/15/25 16:13 Last Admin: 02/15/25 19:25 Dose: Not Given Documented By: MTP Norepinephrine Bitartrate (Norepinephrine/D5w 4 Mg/250 Ml) Confirm Administered Dose 4 mg IV .STK-MED ONE Stop: 02/15/25 15:56 Last Admin: 02/15/25 18:45 Dose: Not Given Documented By: CEF Imaging Data Radiologist's Impression: Chest X-Ray 02/15/25 15:55 EXAM: Radiograph of the Chest 1 View INDICATION: Sepsis TECHNIQUE: Frontal view of the chest. Image obtained at 4:08 PM COMPARISON: 10/28/2024 FINDINGS: Lungs and pleural spaces: The patient is markedly rotated. There is airspace consolidation in the right lower lung. There is prominent density of the left hilum presumably artifactual. No pleural effusion or pneumothorax. Heart: Shape and configuration within normal limits allowing for technique. Mediastinum: Normal contour. Bones/joints: No fracture, erosion or dislocation. Soft tissues: No abnormality noted. No radiopaque foreign body noted. Tubes, lines and devices: The endotracheal tube (ETT) is in satisfactory position with tip 1.4 cm above the hank. Upper abdomen: No abnormality noted. IMPRESSION: 1. Right basilar pneumonia. 2. Lines and tubes as above. ACT 112: N/A Electronically signed by Mary Morris 02-15-2025 4:[address] 02/15/25 16:06 EXAM: CT Head and Cervical Spine Without Intravenous Contrast INDICATION: Hypoxia and altered level of consciousness. TECHNIQUE: Axial computed tomography images of the head/brain and cervical spine without intravenous contrast. Sagittal and coronal reformatted images were created and reviewed. This CT exam was performed using one or more of the following dose reduction techniques: automated exposure control, adjustment of the mA and/or kV according to patient size, and/or use of iterative reconstruction technique. COMPARISON: 10/28/2024 FINDINGS: Limitations: None. Brain and extra-axial spaces: There is age appropriate cortical atrophy and chronic ischemic periventricular white matter hypodensity. No acute infarct, hemorrhage or mass noted. 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 Sinuses: No layering fluid in the visualized portions of the paranasal sinuses. Mastoid air cells: No mastoid effusion. Orbits: No acute abnormality noted. Vertebrae: Complex left cervical bowing and accentuated lordosis noted. No cervical fracture or subluxation. Discs/spinal canal/neural foramina: There is moderate degenerative disc narrowing, spondylosis and mild uncal spurring C5-C6. There is minimal ventral thecal sac flattening at this level with mild disc bulge. There is mild right foraminal stenosis at this level. Other bones/joints: There is an acute fracture of the right posterior first rib. Soft tissues: No acute abnormality noted. Vasculature: No acute abnormality noted. Lung apices: No acute abnormality noted. Pleural space: There is mild asymmetric foci of ground glass opacity in the right upper lobe. No apical pneumothorax. Tubes, lines and devices: Endotracheal tube in place. IMPRESSION: 1. Cerebral atrophy. No acute changes. 2. Acute nondisplaced fracture of the right posterior first rib. 3. Ground glass opacities in the right upper lobe are nonspecific. Consider aspiration pneumonitis and contusion. 4. No cervical fracture. ACT 112: N/A Electronically signed by Mary Morris 02-15-2025 6:[address] 02/15/25 16:06 EXAM: CT Head and Cervical Spine Without Intravenous Contrast INDICATION: Hypoxia and altered level of consciousness. TECHNIQUE: Axial computed tomography images of the head/brain and cervical spine without intravenous contrast. Sagittal and coronal reformatted images were created and reviewed. This CT exam was performed using one or more of the following dose reduction techniques: automated exposure control, adjustment of the mA and/or kV according to patient size, and/or use of iterative reconstruction technique. COMPARISON: 10/28/2024 FINDINGS: Limitations: None. Brain and extra-axial spaces: There is age appropriate cortical atrophy and chronic ischemic periventricular white matter hypodensity. No acute infarct, hemorrhage or mass noted. 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 Sinuses: No layering fluid in the visualized portions of the paranasal sinuses. Mastoid air cells: No mastoid effusion. Orbits: No acute abnormality noted. Vertebrae: Complex left cervical bowing and accentuated lordosis noted. No cervical fracture or subluxation. Discs/spinal canal/neural foramina: There is moderate degenerative disc narrowing, spondylosis and mild uncal spurring C5-C6. There is minimal ventral thecal sac flattening at this level with mild disc bulge. There is mild right foraminal stenosis at this level. Other bones/joints: There is an acute fracture of the right posterior first rib. Soft tissues: No acute abnormality noted. Vasculature: No acute abnormality noted. Lung apices: No acute abnormality noted. Pleural space: There is mild asymmetric foci of ground glass opacity in the right upper lobe. No apical pneumothorax. Tubes, lines and devices: Endotracheal tube in place. IMPRESSION: 1. Cerebral atrophy. No acute changes. 2. Acute nondisplaced fracture of the right posterior first rib. 3. Ground glass opacities in the right upper lobe are nonspecific. Consider aspiration pneumonitis and contusion. 4. No cervical fracture. ACT 112: N/A Electronically signed by Mary Morris 02-15-2025 6:43 PM Discharge Plan Visit Data Chief Complaint: Shortness of Breath/Dyspnea Stated Complaint: sob ED Provider: Tadeo Kumar Discharge Problem: Acute hypoxic respiratory failure, Multifocal pneumonia, Sepsis, Acute hypotension Patient Disposition: Admitted As Inpatient Condition: Critical Discharge Instructions Interventions: ED Discharge Assessment Last Done: 02/15/25 19:31 Discharge Problem: Sepsis Qualifiers: Sepsis type: sepsis due to unspecified organism Sepsis acute organ dysfunction status: unspecified Qualified Code(s): A41.9 - Sepsis, unspecified organism
[2025-02-15] MEDS ORDERED: GLUCOSE 10 TAB/TUBE PO PRN (16:12)
[2025-02-15] MEDS ORDERED: GLUCOSE 40% GEL 15 GM TUBE PO PRN (16:12)
[2025-02-15] MEDS ORDERED: CARBOHYDRATES FOR HYPOGLYCEMIA PO PRN (16:12)
[2025-02-15] MEDS ORDERED: DEXTROSE 50% 50 ML SYRINGE IV PRN (16:12)
[2025-02-15] MEDS ORDERED: GLUCAGON FOR INJ 1 MG VIAL SQ PRN (16:12)
[2025-02-15] MEDS: NOREPINEPHRINE/D5W 4 MG/250 ML PLCT IV SCH (16:12)
[2025-02-15] MEDS ORDERED: INSULIN REGULAR 250 UNITS in SODIUM CHLORIDE 0.9% 247.5 ML IV SCH (16:15)
[2025-02-15 16:19] LABS: Oxygen Saturation VBG 81.3 %; PCO2 VBG 65 mmHg (38-50); PO2 VBG 65 mmHg
[2025-02-15] MEDS ORDERED: DKA GOAL RANGE 150-250 mg/dl ONE (16:28)
[2025-02-15] MEDS ORDERED: INSULIN ASPART PER UNIT CHARGE SC SCH (16:30)
[2025-02-15] MEDS: EPINEPHrine/NSS 4 MG/254 ML BAG IV SCH (16:30)
--- NOTE | 2025-02-15 16:31 | XRay Report ---
EXAM: Radiograph of the Chest 1 View INDICATION: Sepsis TECHNIQUE: Frontal view of the chest. Image obtained at 4:08 PM COMPARISON: 10/28/2024 FINDINGS: Lungs and pleural spaces: The patient is markedly rotated. There is airspace consolidation in the right lower lung. There is prominent density of the left hilum presumably artifactual. No pleural effusion or pneumothorax. Heart: Shape and configuration within normal limits allowing for technique. Mediastinum: Normal contour. Bones/joints: No fracture, erosion or dislocation. Soft tissues: No abnormality noted. No radiopaque foreign body noted. Tubes, lines and devices: The endotracheal tube (ETT) is in satisfactory position with tip 1.4 cm above the hank. Upper abdomen: No abnormality noted. IMPRESSION: 1. Right basilar pneumonia. 2. Lines and tubes as above. ACT 112: N/A Electronically signed by Mary Morris 02-15-2025 4:30 PM
[2025-02-15 16:35] LABS: pH VBG < 7.00 (7.36-7.41)
[2025-02-15] MEDS ORDERED: Patient's HEIGHT &/or WEIGHT Needed STA (16:39)
[2025-02-15 16:43] LABS: Hematocrit (blood only) 42.8 % (37.0-47.0); Hemoglobin 13.0 g/dL (12.0-16.0); Immature Granulocytes # (auto) 0.03 K/uL (0.01-0.20); Immature Granulocytes % (auto) 0.2 %; Mean Corpuscular Hemoglobin 24.3 pg (25.0-34.0); Mean Corpuscular Volume 79.9 fL (80.0-100.0); Platelet Count 419 K/uL (130-400); RDW Standard Deviation 46.3 fL (36.4-46.3); Red Blood Count 5.36 M/uL (4.20-5.40); White Blood Count 12.23 K/ul (4.8-10.8)
[2025-02-15] MEDS ORDERED: NovoLIN-R BOLUS FROM BAG IV ONE (16:45)
[2025-02-15] MEDS: MEROPENEM 500 MG in SYRINGE 0 ML IV STA (16:56)
[2025-02-15 16:59] LABS: Alanine Aminotransferase 21 U/L (7-52); Albumin Level 3.4 gm/dl (3.4-5.0); Alkaline Phosphatase 108 U/L (34-104); Anion Gap 20 (3-11); Bilirubin,Total 0.6 mg/dl (0.2-1.0); Blood Urea Nitrogen 31 mg/dl (6-23); Calcium 8.2 mg/dl (8.6-10.3); Carbon Dioxide 14 mmol/L (21-32); Chloride 100 mmol/L (98-107); Glucose 458 mg/dl (70-99(Fasting)); Magnesium 2.1 mg/dl (1.7-2.4); Potassium 3.6 mmol/L (3.5-5.1); Sodium 134 mmol/L (136-145); Total Protein 7.0 gm/dl (6.0-8.3)
[2025-02-15 17:06] VITALS: TEMP 97.5
--- NOTE | 2025-02-15 17:09 | History & Physical Report ---
Date of Service February 15, 2025 Assessment & Plan (1) Septic shock: (2) Severe sepsis: (3) Acute respiratory failure: (4) Acute renal failure: (5) DM2 (diabetes mellitus, type 2): (6) Anxiety: Plan #severe sepsis/septic shock/acute respiratory failureappears most likely pneumo jemal as the source. Covering with meropenem, vancomycin, doxycycline. Supportive care with the ventilator and pressors, IV fluids. Admit to ICU. 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 #Severe acidosisappears both metabolic and respiratorymanage septic shock and respiratory failure. Follow #acute renal failuredue to above #DVT prophylaxisheparin subcu #type 2 diabetesinsulin drip for now. Appears to probably have some degree of microvascular ischemic disease given prior history of foot ulcers and osteomyelitis. A1c 10/30/2024 was 6.8 #elevated troponindemand ischemiatrend. Echocardiogram from about 3 months ago showed normal LV size and wall thickness with an EF of 65 to 70%, only mild tricuspid regurgitation has any notable valve abnormality #microcytosisappears to have been iron deficientreplace once sepsis has resolved #lumbar spinal stenosisgabapentin obviously currently on hold while intubated #Crohn'sfollow clinically #anxietyobviously currently well intubated BuSpar and duloxetine are on hold #hypothyroidismSynthroid on hold, can switch to IV if intubated/n.p.o. status becomes prolonged History of Present Illness Chief Complaint: Unresponsive Primary Care Provider: NO PCP patient found unresponsive. Brought to the ER. Became hemodynamically unstable and required ACLS. ROSC obtained. See ER physician notes for granular details. ICU seeing patient and getting central IV access. No HPI or review of systems obtainable. Of note copious purulent sputum when intubated. Allergies Allergy/AdvReac Type Severity Reaction Status Date / Time cephalexin Allergy Intermediate Hives Verified 12/28/24 09:03 Cephalosporins Allergy Intermediate Hives Verified 12/28/24 09:03 infliximab Allergy Intermediate Itching, Verified 12/28/24 09:03 rash Penicillins Allergy Intermediate Hives Verified 12/28/24 09:03 ciprofloxacin AdvReac Intermediate N/V Verified 12/28/24 09:03 doxycycline AdvReac Intermediate GI upset Verified 12/28/24 09:03 Home Medications Medication Instructions Recorded Confirmed Type aspirin 81 mg tablet,delayed 81 mg PO QAM 06/10/18 12/28/24 History release vedolizumab 300 mg intravenous 300 mg IV Q8WK #1 ea 06/28/20 12/28/24 Rx solution (Entyvio) multivitamin 1 tab PO QAM 12/26/22 12/28/24 History cyanocobalamin (vitamin B-12) 1,000 mcg PO DAILY 08/20/23 12/28/24 History 1,000 mcg tablet (Vitamin B-12) diphenhydramine HCl 25 mg capsule 25 mg PO DIRECTED PRN NEEDED 08/20/23 12/28/24 History (Benadryl) levothyroxine 88 mcg tablet 88 mcg PO QAM #60 tabs 04/28/24 12/28/24 Rx ropinirole 1 mg tablet 1 mg PO BID #180 tabs 05/10/24 12/28/24 Rx topiramate 25 mg tablet (Topamax) 25 mg PO BID #180 tabs 05/10/24 12/28/24 Rx atorvastatin 20 mg tablet 20 mg PO QAM #90 tabs 05/17/24 12/28/24 Rx lisinopril 30 mg tablet 30 mg PO QAM #90 tabs 05/17/24 12/28/24 Rx metformin 500 mg tablet,extended 500 mg PO .COMPLEX #270 tabs 05/17/24 12/28/24 Rx release 24 hr blood sugar diagnostic (OneTouch #300 ea 07/01/24 12/28/24 Rx Verio test strips) acetaminophen 500 mg tablet 500 mg PO DIRECTED PRN Pain 07/18/24 12/28/24 History buspirone 30 mg tablet 30 mg PO BID 07/18/24 12/28/24 History duloxetine 60 mg capsule,delayed 60 mg PO QAM 07/18/24 12/28/24 History release hydroxyzine HCl 25 mg tablet 25 mg PO 5XD PRN anxiety 07/18/24 12/28/24 History ondansetron HCl 4 mg tablet 8 mg PO Q8H PRN NAUSEA/VOMITING 07/18/24 12/28/24 History blood-glucose meter (OneTouch #1 ea 09/17/24 12/28/24 Rx Verio Reflect Meter) lancets 33 gauge #300 ea 09/17/24 12/28/24 Rx levalbuterol tartrate 45 1 inh inhalation Q6H PRN Shortness 10/05/24 12/28/24 Rx mcg/actuation aerosol inhaler Of Breath Or Wheezing #15 grams duloxetine 30 mg capsule,delayed 30 mg PO QAM 10/28/24 12/28/24 History release mupirocin 2 % topical ointment 1 applic EXT BID #22 grams 11/02/24 12/28/24 Rx insulin glargine 100 unit/mL (3 44 - 60 unit (0.44 - 0.6 mL) 12/28/24 12/28/24 Rx mL) subcutaneous pen (Lantus subcut QPM 3 months #45 mL Solostar U-100 Insulin) pen needle, diabetic 32 gauge x #100 ea 12/28/24 12/28/24 Rx 32" loperamide 2 mg capsule 2 mg PO Q6H PRN loose stool 90 12/31/24 Rx days #180 caps gabapentin 600 mg tablet 600 mg PO BID #180 tabs 01/31/25 Rx omeprazole 40 mg capsule,delayed 40 mg PO BID #180 caps 01/31/25 Rx release tramadol 50 mg tablet 50 mg PO BID 30 days #60 tabs 02/01/25 Rx meclizine 12.5 mg tablet 12.5 - 25 mg (1 - 2 x 12.5 mg) PO 02/14/25 Rx BID PRN dizziness #180 tabs Past Med/Surg History Problem List (Updated 02/15/25 @ 17:08 by Tadeo Franco DO) Acute renal failure Acute respiratory failure Severe sepsis Septic shock Overdose of drug (Acute) Stroke Hypophosphatemia Hypomagnesemia Osteomyelitis of second toe of left foot Microcytic hypochromic anemia Hallucinations (Acute) Hypercalcemia (Acute) Acute alteration in mental status (Acute) Hypercalcemia Acute kidney injury superimposed on CKD Elevated serum creatinine (Acute) Osteomyelitis of toe of left foot (Acute) Right foot pain (Acute) Diabetic ulcer of toe of right foot (Acute) DM2 (diabetes mellitus, type 2) Generalized weakness (Acute) Anxiety (Chronic) Diabetic ulcer of toe of left foot (Acute) Wound of left foot Hypomagnesemia (Acute) Diabetic infection of left foot Dyspnea Dysphagia Difficulty swallowing pills Obesity (BMI 30.0-34.9) Lumbar pain with radiation down both legs Anemia Crohn's ileocolitis (Chronic) Hearing loss (Chronic) Vitamin D deficiency (Chronic) Vitamin B12 deficiency (Chronic) Osteopenia (Chronic) Laryngopharyngeal reflux (LPR) (Chronic) Depression with anxiety (Chronic) Common migraine without aura (Chronic) Chromophobe adenoma (Chronic) Benign paroxysmal positional vertigo hx/no recent issues Hypothyroidism (Chronic) Hypertension (Chronic) Hyperlipidemia (Chronic) Asthma (Chronic) well controlled, has not used inhaler in years Lumbar stenosis with neurogenic claudication Medical History Chronic cerebrovascular accident (CVA) - Hx of - Head CT 07/18/24 incidentally noted new chronic 1.6cm infarct to left occipital lobe and chronic small vessel ischemic disease compared to 2019 imaging - PCP recommended MRI of brain (could only do under sedation, MRI cancelled for 09/22/24 due to elevated creatinine) - PCP also recommended carotid ultrasound (patient never had done) - Scheduled to see neurology 11/10/24 Hypothyroidism Hyperlipidemia Hypertension GERD (gastroesophageal reflux disease) Benign paroxysmal positional vertigo hx/no recent issues Asthma well controlled, no inhaler use in years Anxiety Schatzki's ring s/p dilation Diabetic foot ulcer has small area second toe left foot, and right foot 4 areas that wound care is following DM2 (diabetes mellitus, type 2) Poor historian History of COVID-19 09/2023 Muscular deconditioning CKD (chronic kidney disease) stage 3, GFR 30-59 ml/min no specialist Diabetic peripheral neuropathy associated with type 2 diabetes mellitus Sleep apnea no device Crohns disease Weakness of both legs Lumbar post-laminectomy syndrome History of anemia remote hx blood transfusion post-op Chronic left hip pain Recurrent UTI (urinary tract infection) none at present Hiatal hernia Vertigo "comes and goes" last episode 04/22/23, uses the meclizine as needed which helps. Tinnitus Esophageal dysmotility dysphagia s/p dilation Back pain, chronic Surgical History Osteomyelitis of toe of left foot first big toe amputated History of cataract surgery LEFT History of cardiac cath 04/2019 r/t ALICEA, no stents History of surgical removal of pituitary gland tumor excision History of bilateral salpingo-oophorectomy (BSO) History of esophagogastroduodenoscopy (EGD) multiple with multiple dilations History of colonoscopy History of tooth extraction S/P carpal tunnel release left S/P arthroscopic knee surgery left Fusion of spine multiple (fusion + revision) Removal spinal hardware T11-L1: 08/16/17: Grade 1 view, MAC #3, ETT 7.0 at [facility] T11-L1 hardware removal: 03/19/19: MAC#3 at [facility] History of arthroscopy right shoulder History of hysterectomy Family History Mother Diabetes Family history of diabetes mellitus Myocardial infarction Breast cancer Hypertension Sister Stroke Other Coronary heart disease No family history of adverse response to anesthesia Denies family history of Ovarian cancer Prostate cancer Lung cancer Colorectal cancer Social History Smoking Status: Never smoker Second Hand Exposure: No; Do You Dip or Chew Tobacco: No; Hx Alcohol Use: No Hx Substance Use: No Preferred Language: Danish Communication Ability: Impaired Visual Impairment: Limited Hearing Ability: Hard of Hearing Shipping Inspector Required: No Beliefs That Will Affect Care: None marital status: marital status details: Three children Current Living Situation: Alone Current Living Situation Comment: patient restless and unable to communicate current occupational status: retired Feels Safe at Home: Yes Childhood Exposure to Second-Hand Smoke: Yes Diet Comment: regular caffeine: Yes (pepsi) during the past year weight has: remained stable Dental Care, Regularly: No Physical Activity Frequency: Does not Exercise Physical Activity Frequency Comment: due to physical condition Seatbelt Use: always Sunscreen Use: Yes Assistive Devices: Walker Review of Systems Review of Systems: All systems reviewed & are unremarkable except as noted in HPI & below Physical Exam Physical Exam: General she is intubated and sedated. On the ventilator. Currently getting central lines placed. labs and diagnostics show a CBC with a white count of 12.23, hemoglobin 13.0, MCV of 79.9, platelets of 419. VBG with a pH of less than 7, pCO2 of 65, pO2 65. Complete metabolic panel with a sodium of 134, potassium 3.6, chloride 100, CO2 14, BUN 31, creatinine 1.92, glucose 458, calcium 8.2, lactate 10.7, phosphorus 6.5, mag 2.1, transaminases and bilirubin normal, alk phos 108, troponin 66.3, procalcitonin 4.14 Results & Data Results & Data Vital Signs (Past 12 Hours) Vital Signs Pulse 02/15/25 15:53 94 H Code Status & VTE Plan VTE Prophylaxis Plan VTE Prophylaxis will be ordered: Yes PG Care Time/CCT Total # of Minutes Spent Total Time Spent with Patient: Total time spent is greater than 50% in coordination of care (as documented) at patient's floor/unit and/or counseling patient: Coding Level of Care Code 03084 INT INP/OBS CARE 2/55MIN Diagnoses Septic shock A41.9; R65.21 Severe sepsis A41.9; R65.20 Acute respiratory failure J96.00 Acute renal failure N17.9 Type 2 diabetes mellitus without complication, with long-term current use of insulin E11.9; Z79.4 Diabetes mellitus long term care social worker insulin use: with [facility] use Diabetes mellitus complication status: without complication Anxiety F41.9 (5) DM2 (diabetes mellitus, type 2) Diabetes mellitus long term care social worker insulin use: with long term care social worker use Diabetes mellitus complication status: without complication Qualified Code(s): E11.9 - Type 2 diabetes mellitus without complications; 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
[2025-02-15] MEDS: POTASSIUM CHLORIDE / WTR 20 MEQ/100 ML PLCT IV ONE (17:15)
[2025-02-15] MEDS: VANCOMYCIN HCL 1,500 MG in SODIUM CHLORIDE 0.9% 500 ML IV STA (17:20)
[2025-02-15] MEDS: MAX Conc; 16mg in 250mL IV SCH (17:21)
[2025-02-15 17:56] VITALS: RESP 26
[2025-02-15 18:12] VITALS: BP 147/47
--- NOTE | 2025-02-15 18:16 | Procedure Note ---
Procedure Note Date of Service February 15, 2025 Procedure date: Noted above Procedure: Central venous access Pre-procedure indication: Need for vasoactive medication administration, CODE BLUE Post-procedure Diagnosis: same as above Prior to Procedure: Informed Consent: Emergent consent implied Attending Staff: Sarabjit Borrero DO Resident/APC: Not applicable Skin Prep: Chlorhexidine Anesthesia: 4 mL 1% lidocaine without epinephrine The identity of the patient was confirmed and a bedside time out was performed. Description of Procedure: After sterile prep and sterile drape utilizing standard sterile technique the superficial skin of the left subclavian area was anesthetized. The target vessel was identified and entered with an 18-gauge needle. An initial stick resulted in bright red blood, this was immediately recognized and the needle was withdrawn. Patient was repositioned and upon entry with the 18-gauge needle dark venous blood return was noted. A guidewire was inserted through the needle and into the vessel. The needle was withdrawn and a skin cale was made. A tissue dilator was advanced via Seldinger technique and removed. A triple lumen catheter was inserted via Seldinger technique and the guidewire removed. All ports ang and flushed easily. A Biopatch was placed, and the catheter was secured via silk suture. A sterile dressing was then applied. Complications: None Estimated blood loss: Trace Patient tolerated the procedure well. [facility] [place] Procedure Codes (Charges) Tubes, Drains, and Vasc Access Procedure 1: Tubes, Drains, and Vasc Access: [id number] Insertion Of Non-tunneled Catheter Age 4 Yrs> Coding CPT Codes Tubes, Drains, and Vasc Access - Tubes, Drains, and Vasc Access: Insertion Of Non-tunneled Catheter Age 4 Yrs> ([id number]) Additional Codes Date of Service ([facility].SURGERY)
--- NOTE | 2025-02-15 18:17 | Critical Care Consultation ---
Date of Consultation February 15, 2025 Assessment & Plan (1) Acute renal failure: (2) Acute respiratory failure: (3) Septic shock: (4) Cardiac arrest: (5) Influenza A: Plan Patient's vasoactive medication requirements continue to increase, oxygen saturations were always marginal at best. Upon presentation of family at the bedside report the patient had been declining in functional status, it was felt if the patient were to rearrest she would not want heroic measures undertaken. She was already on supraphysiologic doses of vasoactive medications. Patient's heart rate started to decrease, blood pressure dropped and then the patient became asystolic and passed at 7:24 PM with family present at the bedside. Supervising Physician Co-Signing Physician Notes I have personally spent 90 minutes of critical care time in the direct management of this patient. This is a life/limb threatening event. This includes time spent evaluating patient, direct bedside care, chart review, placing orders, interpretation of diagnostic studies, discussion with consultants, patient, and/or family members regarding treatment decisions, as well as other required patient management activities. This time is exclusive of all separately billable procedures, and teaching time and separate from and in addition to any other critical care service time. History of Present Illness Reason for Consultation: JUSTIN QUINONES Attending Physician: Tadeo Franco DO History of Present Illness I was notified of the patient via overhead JUSTIN QUINONES in the emergency department. Upon my presentation CPR was in progress. Briefly past medical history was related to me that she is a poorly controlled diabetic who was seen approximately yesterday with a chief complaint of taking additional hydroxyzine secondary to feeling unwell and mild difficulty breathing. She presents from home via EMS, she was lethargic and poorly responsive, she was promptly intubated in the emergency department. Labs obtained prior to the intubation and subsequent cardiac arrest reported to demonstrate a lactic acid of 10. During the resuscitative process significant purulent material was noted to be emanating from the endotracheal tube. Please refer to CPR code sheets for additional details. After approximately 3 rounds of epinephrine able to regain a pulse (she had pulseless electrical activity prior to that). She required a continuous infusion of Levophed as well as epinephrine. An emergent arterial line was placed for continuous hemodynamic monitoring and central venous access was obtained. Hemodynamics improved, she was transferred to the ICU for further management. While in the ICU family arrived, she had increasing vasoactive medication requirements. At no point was she producing urine. At no point from my evaluation in the emergency department until now it did she show any neurologic response. She was noted to be positive for influenza A. She was started on broad-spectrum antibiotics to include meropenem secondary to multiple energies, vancomycin, doxycycline. Allergies Allergy/AdvReac Type Severity Reaction Status Date / Time cephalexin Allergy Intermediate Hives Verified 12/28/24 09:03 Cephalosporins Allergy Intermediate Hives Verified 12/28/24 09:03 infliximab Allergy Intermediate Itching, Verified 12/28/24 09:03 rash Penicillins Allergy Intermediate Hives Verified 12/28/24 09:03 ciprofloxacin AdvReac Intermediate N/V Verified 12/28/24 09:03 doxycycline AdvReac Intermediate GI upset Verified 12/28/24 09:03 Home Medications Medication Instructions Recorded Confirmed Type aspirin 81 mg tablet,delayed 81 mg PO QAM 06/10/18 12/28/24 History release vedolizumab 300 mg intravenous 300 mg IV Q8WK #1 ea 06/28/20 12/28/24 Rx solution (Entyvio) multivitamin 1 tab PO QAM 12/26/22 12/28/24 History cyanocobalamin (vitamin B-12) 1,000 mcg PO DAILY 08/20/23 12/28/24 History 1,000 mcg tablet (Vitamin B-12) diphenhydramine HCl 25 mg capsule 25 mg PO DIRECTED PRN NEEDED 08/20/23 12/28/24 History (Benadryl) levothyroxine 88 mcg tablet 88 mcg PO QAM #60 tabs 04/28/24 12/28/24 Rx ropinirole 1 mg tablet 1 mg PO BID #180 tabs 05/10/24 12/28/24 Rx topiramate 25 mg tablet (Topamax) 25 mg PO BID #180 tabs 05/10/24 12/28/24 Rx atorvastatin 20 mg tablet 20 mg PO QAM #90 tabs 05/17/24 12/28/24 Rx lisinopril 30 mg tablet 30 mg PO QAM #90 tabs 05/17/24 12/28/24 Rx metformin 500 mg tablet,extended 500 mg PO .COMPLEX #270 tabs 05/17/24 12/28/24 Rx release 24 hr blood sugar diagnostic (OneTouch #300 ea 07/01/24 12/28/24 Rx Verio test strips) acetaminophen 500 mg tablet 500 mg PO DIRECTED PRN Pain 07/18/24 12/28/24 Hi story buspirone 30 mg tablet 30 mg PO BID 07/18/24 12/28/24 History duloxetine 60 mg capsule,delayed 60 mg PO QAM 07/18/24 12/28/24 History release hydroxyzine HCl 25 mg tablet 25 mg PO 5XD PRN anxiety 07/18/24 12/28/24 History ondansetron HCl 4 mg tablet 8 mg PO Q8H PRN NAUSEA/VOMITING 07/18/24 12/28/24 History blood-glucose meter (OneTouch #1 ea 09/17/24 12/28/24 Rx Verio Reflect Meter) lancets 33 gauge #300 ea 09/17/24 12/28/24 Rx levalbuterol tartrate 45 1 inh inhalation Q6H PRN Shortness 10/05/24 12/28/24 Rx mcg/actuation aerosol inhaler Of Breath Or Wheezing #15 grams duloxetine 30 mg capsule,delayed 30 mg PO QAM 10/28/24 12/28/24 History release mupirocin 2 % topical ointment 1 applic EXT BID #22 grams 11/02/24 12/28/24 Rx insulin glargine 100 unit/mL (3 44 - 60 unit (0.44 - 0.6 mL) 12/28/24 12/28/24 Rx mL) subcutaneous pen (Lantus subcut QPM 3 months #45 mL Solostar U-100 Insulin) pen needle, diabetic 32 gauge x #100 ea 12/28/24 12/28/24 Rx 5/32" loperamide 2 mg capsule 2 mg PO Q6H PRN loose stool 90 12/31/24 Rx days #180 caps gabapentin 600 mg tablet 600 mg PO BID #180 tabs 01/31/25 Rx omeprazole 40 mg capsule,delayed 40 mg PO BID #180 caps 01/31/25 Rx release tramadol 50 mg tablet 50 mg PO BID 30 days #60 tabs 02/01/25 Rx meclizine 12.5 mg tablet 12.5 - 25 mg (1 - 2 x 12.5 mg) PO 02/14/25 Rx BID PRN dizziness #180 tabs Patient History Medical History Chronic cerebrovascular accident (CVA) - Hx of - Head CT 07/18/24 incidentally noted new chronic 1.6cm infarct to left occipital lobe and chronic small vessel ischemic disease compared to 2019 imaging - PCP recommended MRI of brain (could only do under sedation, MRI cancelled for 09/22/24 due to elevated creatinine) - PCP also recommended carotid ultrasound (patient never had done) - Scheduled to see neurology 11/10/24 Hypothyroidism Hyperlipidemia Hypertension GERD (gastroesophageal reflux disease) Benign paroxysmal positional vertigo hx/no recent issues Asthma well controlled, no inhaler use in years Anxiety Schatzki's ring s/p dilation Diabetic foot ulcer has small area second toe left foot, and right foot 4 areas that wound care is following DM2 (diabetes mellitus, type 2) Poor historian History of COVID-19 09/2023 Muscular deconditioning CKD (chronic kidney disease) stage 3, GFR 30-59 ml/min no specialist Diabetic peripheral neuropathy associated with type 2 diabetes mellitus Sleep apnea no device Crohns disease Weakness of both legs Lumbar post-laminectomy syndrome History of anemia remote hx blood transfusion post-op Chronic left hip pain Recurrent UTI (urinary tract infection) none at present Hiatal hernia Vertigo "comes and goes" last episode 04/22/23, uses the meclizine as needed which helps. Tinnitus Esophageal dysmotility dysphagia s/p dilation Back pain, chronic Surgical History Osteomyelitis of toe of left foot first big toe amputated History of cataract surgery LEFT History of cardiac cath 04/2019 r/t ALICEA, no stents History of surgical removal of pituitary gland tumor excision History of bilateral salpingo-oophorectomy (BSO) History of esophagogastroduodenoscopy (EGD) multiple with multiple dilations History of colonoscopy History of tooth extraction S/P carpal tunnel release left S/P arthroscopic knee surgery left Fusion of spine multiple (fusion + revision) Removal spinal hardware T11-L1: 08/16/17: Grade 1 view, MAC #3, ETT 7.0 at [facility] T11-L1 hardware removal: 03/19/19: MAC#3 at [facility] History of arthroscopy right shoulder History of hysterectomy Family History Mother Diabetes Family history of diabetes mellitus Myocardial infarction Breast cancer Hypertension Sister Stroke Other Coronary heart disease No family history of adverse response to anesthesia Denies family history of Ovarian cancer Prostate cancer Lung cancer Colorectal cancer Social History Smoking Status: Never smoker Second Hand Exposure: No; Do You Dip or Chew Tobacco: No; Hx Alcohol Use: No Hx Substance Use: No Preferred Language: Sammarinese Communication Ability: Effective Visual Impairment: Limited Hearing Ability: Hard of Hearing 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 Beliefs That Will Affect Care: None marital status: marital status details: Three children Current Living Situation: Alone Current Living Situation Comment: patient restless and unable to communicate current occupational status: retired Feels Safe at Home: Yes Childhood Exposure to Second-Hand Smoke: Yes Diet Comment: regular caffeine: Yes (pepsi) during the past year weight has: remained stable Dental Care, Regularly: No Physical Activity Frequency: Does not Exercise Physical Activity Frequency Comment: due to physical condition Seatbelt Use: always Sunscreen Use: Yes Assistive Devices: Cane and Glasses Physical Exam Physical Exam: General: GCS 3 T. nontoxic. Skin: Warm, dry, Head: Atraumatic Ears, nose, mouth and throat: airway obscured by endotracheal tube Cardiovascular: Poor peripheral perfusion and decreased capillary refill Respiratory: Ventilator settings reviewed Gastrointestinal: Non distended Musculoskeletal: Missing multiple toes, this was reported secondary to prior amputations Results & Data Results & Data Vital Signs (Past 12 Hours) Vital Signs Temp Pulse Resp BP Pulse Ox O2 Del Method FiO2 02/15/25 18:14 CPAP 02/15/25 18:03 112 H 26 H 147/47 H 100 02/15/25 18:00 114 H 26 H 100 02/15/25 17:57 116 H 26 H 100 02/15/25 17:53 115 H 26 H 100 02/15/25 16:12 32 L 02/15/25 16:05 60 22 70 L 100 02/15/25 15:53 94 H 02/15/25 15:44 36.4 C L 95 H 44 H 69/59 L CPAP Critical Care Results & Data Vital Signs (Past 12 Hours) Vital Signs Temp Pulse Resp BP Pulse Ox O2 Del Method FiO2 02/15/25 19:19 Mechanical Vent 12/30/25 19:12 65 26 H 02/15/25 19:00 78 26 H 83 L 02/15/25 18:51 96 H 17 90 02/15/25 18:42 100 H 26 H 85 L 02/15/25 18:30 106 H 26 H 87 L 02/15/25 18:21 111 H 26 H 87 L 02/15/25 18:14 CPAP 02/15/25 18:12 113 H 26 H 89 L 02/15/25 18:06 112 H 26 H 02/15/25 18:03 112 H 26 H 147/47 H 100 02/15/25 18:00 114 H 26 H 100 02/15/25 17:57 116 H 26 H 100 02/15/25 17:53 115 H 26 H 100 02/15/25 16:12 32 L 02/15/25 16:05 60 22 70 L 100 02/15/25 15:53 94 H 02/15/25 15:44 CPAP 02/15/25 15:44 36.4 C L 95 H 44 H 69/59 L CPAP Lab & Micro Results (Past 24 Hours) RBC 5.36 M/uL (4.20-5.40) 02/15/25 WBC 12.23 K/ul (4.8-10.8) H 02/15/25 Hgb 13.0 g/dL (12.0-16.0) 02/15/25 Hct 42.8 % (37.0-47.0) 02/15/25 MCV 79.9 fL (80.0-100.0) L 02/15/25 MCH 24.3 pg (25.0-34.0) L 02/15/25 MCHC 30.4 g/dL (32.0-36.0) L 02/15/25 RDW Standard Deviation 46.3 fL (36.4-46.3) 02/15/25 RDW Coefficient of Variation 16.0 % (11.5-14.5) H 02/15/25 Plt Count 419 K/uL (130-400) H 02/15/25 MPV 11.3 fL (9.4-12.4) 02/15/25 Neutrophils (%) (Auto) 79.8 % 02/15/25 Lymphocytes (%) (Auto) 13.0 % 02/15/25 Monocytes # (Auto) 0.83 K/uL (0.11-0.59) H 02/15/25 Eosinophils # (Auto) 0.00 K/uL (0.00-0.50) 02/15/25 Immature Granulocyte % (Auto) 0.2 % 02/15/25 Neutrophils # (Auto) 9.76 K/uL (1.40-6.50) H 02/15/25 Lymphocytes # (Auto) 1.59 K/uL (1.20-3.40) 02/15/25 Monocytes # (Auto) 0.83 K/uL (0.11-0.59) H 02/15/25 Eosinophils # (Auto) 0.00 K/uL (0.00-0.50) 02/15/25 Basophils # (Auto) 0.02 K/uL (0.00-0.20) 02/15/25 Immature Granulocyte # (Auto) 0.03 K/uL (0.01-0.20) 5 Na 134 mmol/L (136-145) L 02/15/25 K 3.6 mmol/L (3.5-5.1) 02/15/25 Cl 100 mmol/L (98-107) 02/15/25 CO2 14 mmol/L (21-32) L 02/15/25 Anion Gap 20 (3-11) H 02/15/25 BUN 31 mg/dl (6-23) H 02/15/25 Creatinine 1.92 mg/dl (0.6-1.2) H 02/15/25 BUN/Creatinine Ratio 16.1 (10-20) 02/15/25 Glu 458 mg/dl (70-99(Fasting)) H* 02/15/25 Ca 8.2 mg/dl (8.6-10.3) L 02/15/25 Phosphorus Level 6.5 mg/dl (2.5-4.9) H 02/15/25 Total Bilirubin 0.6 mg/dl (0.2-1.0) 02/15/25 Direct Bilirubin 0.2 mg/dl (0-0.2) 02/15/25 AST 33 U/L (13-39) 02/15/25 ALT 21 U/L (7-52) 02/15/25 Alkaline Phosphatase 108 U/L (34-104) H 02/15/25 TP 7.0 gm/dl (6.0-8.3) 02/15/25 Albumin 3.4 gm/dl (3.4-5.0) 02/15/25 Mg 2.1 mg/dl (1.7-2.4) 02/15/25 16:00 Calcium Level 8.2 mg/dl (8.6-10.3) L 02/15/25 16:00 Venous Blood pH < 7.00 (7.36-7.41) L 02/15/25 16:00 Venous Blood Partial Pressure CO2 65 mmHg (38-50) H 02/15/25 16 :00 Venous Blood Partial Pressure O2 65 mmHg 02/15/25 16:00 Venous Blood HCO3 TNP 02/15/25 16:00 Venous Blood Base Excess TNP 02/15/25 16:00 Venous Blood Oxygen Saturation 81.3 % 02/15/25 16:00 Diagnostic Findings (Past 24 Hours) Chest X-Ray 02/15/25 15:55 EXAM: Radiograph of the Chest 1 View INDICATION: Sepsis TECHNIQUE: Frontal view of the chest. Image obtained at 4:08 PM COMPARISON: 10/28/2024 FINDINGS: Lungs and pleural spaces: The patient is markedly rotated. There is airspace consolidation in the right lower lung. There is prominent density of the left hilum presumably artifactual. No pleural effusion or pneumothorax. Heart: Shape and configuration within normal limits allowing for technique. Mediastinum: Normal contour. Bones/joints: No fracture, erosion or dislocation. Soft tissues: No abnormality noted. No radiopaque foreign body noted. Tubes, lines and devices: The endotracheal tube (ETT) is in satisfactory position with tip 1.4 cm above the hank. Upper abdomen: No abnormality noted. IMPRESSION: 1. Right basilar pneumonia. 2. Lines and tubes as above. ACT 112: N/A Electronically signed by Mary Morris 02-15-2025 4:[address] 02/15/25 16:06 EXAM: CT Head and Cervical Spine Without Intravenous Contrast INDICATION: Hypoxia and altered level of consciousness. TECHNIQUE: Axial computed tomography images of the head/brain and cervical spine without intravenous contrast. Sagittal and coronal reformatted images were created and reviewed. This CT exam was performed using one or more of the following dose reduction techniques: automated exposure control, adjustment of the mA and/or kV according to patient size, and/or use of iterative reconstruction technique. COMPARISON: 10/28/2024 FINDINGS: Limitations: None. Brain and extra-axial spaces: There is age appropriate cortical atrophy and chronic ischemic periventricular white matter hypodensity. No acute infarct, hemorrhage or mass noted. 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 Sinuses: No layering fluid in the visualized portions of the paranasal sinuses. Mastoid air cells: No mastoid effusion. Orbits: No acute abnormality noted. Vertebrae: Complex left cervical bowing and accentuated lordosis noted. No cervical fracture or subluxation. Discs/spinal canal/neural foramina: There is moderate degenerative disc narrowing, spondylosis and mild uncal spurring C5-C6. There is minimal ventral thecal sac flattening at this level with mild disc bulge. There is mild right foraminal stenosis at this level. Other bones/joints: There is an acute fracture of the right posterior first rib. Soft tissues: No acute abnormality noted. Vasculature: No acute abnormality noted. Lung apices: No acute abnormality noted. Pleural space: There is mild asymmetric foci of ground glass opacity in the right upper lobe. No apical pneumothorax. Tubes, lines and devices: Endotracheal tube in place. IMPRESSION: 1. Cerebral atrophy. No acute changes. 2. Acute nondisplaced fracture of the right posterior first rib. 3. Ground glass opacities in the right upper lobe are nonspecific. Consider aspiration pneumonitis and contusion. 4. No cervical fracture. ACT 112: N/A Electronically signed by Mary Morris 02-15-2025 6:[address] 02/15/25 16:06 EXAM: CT Head and Cervical Spine Without Intravenous Contrast INDICATION: Hypoxia and altered level of consciousness. TECHNIQUE: Axial computed tomography images of the head/brain and cervical spine without intravenous contrast. Sagittal and coronal reformatted images were created and reviewed. This CT exam was performed using one or more of the following dose reduction techniques: automated exposure control, adjustment of the mA and/or kV according to patient size, and/or use of iterative reconstruction technique. COMPARISON: 10/28/2024 FINDINGS: Limitations: None. Brain and extra-axial spaces: There is age appropriate cortical atrophy and chronic ischemic periventricular white matter hypodensity. No acute infarct, hemorrhage or mass noted. 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 Sinuses: No layering fluid in the visualized portions of the paranasal sinuses. Mastoid air cells: No mastoid effusion. Orbits: No acute abnormality noted. Vertebrae: Complex left cervical bowing and accentuated lordosis noted. No cervical fracture or subluxation. Discs/spinal canal/neural foramina: There is moderate degenerative disc narrowing, spondylosis and mild uncal spurring C5-C6. There is minimal ventral thecal sac flattening at this level with mild disc bulge. There is mild right foraminal stenosis at this level. Other bones/joints: There is an acute fracture of the right posterior first rib. Soft tissues: No acute abnormality noted. Vasculature: No acute abnormality noted. Lung apices: No acute abnormality noted. Pleural space: There is mild asymmetric foci of ground glass opacity in the right upper lobe. No apical pneumothorax. Tubes, lines and devices: Endotracheal tube in place. IMPRESSION: 1. Cerebral atrophy. No acute changes. 2. Acute nondisplaced fracture of the right posterior first rib. 3. Ground glass opacities in the right upper lobe are nonspecific. Consider aspiration pneumonitis and contusion. 4. No cervical fracture. ACT 112: N/A Electronically signed by Mary Morris 02-15-2025 6:43 PM Abdomen/Pelvis CT 02/15/25 17:28 EXAM: CT Chest Abdomen and Pelvis Without Intravenous Contrast INDICATION: TECHNIQUE: Axial computed tomography images of the chest, abdomen and pelvis without intravenous contrast. Sagittal and coronal reformatted images were created and reviewed. This CT exam was performed using one or more of the following dose reduction techniques: automated exposure control, adjustment of the mA and/or kV according to patient size, and/or use of iterative reconstruction technique. COMPARISON: No relevant prior studies available. FINDINGS: Limitations: Assessment of aortic and solid organ injury is limited in the absence of IV contrast. CHEST: Lungs and pleural spaces: There is diffuse peribronchial pneumonia with moderate consolidation in both lower lobes left greater than right. Trace right pleural effusion. Heart: No abnormality noted. Mediastinum: No abnormality noted. Thyroid: No abnormality noted. ABDOMEN: Liver: Lack of intravenous contrast limits detection of some masses. No abnormality noted. Gallbladder and bile ducts: No calcified stones or surrounding fluid. No ductal dilation. Pancreas: Mild edema of the distal pancreas difficult to exclude. Small calcification likely vascular region of the distal body. No ductal dilatation. No surrounding fluid or associated gas. Spleen: No acute abnormality noted. Adrenals: No acute abnormality noted. Kidneys and ureters: There is bilateral renal scarring. Nonobstructing stones right kidney. Stomach and bowel: No distension or mucosal thickening. No inflammation noted. PELVIS: Appendix: Well seen and appears normal. Bladder: Appears normal for the degree of filling. No stones or inflammation. No large mass. Masses may not be detected in the absence of opacification. Reproductive: No acute abnormality noted. CHEST, ABDOMEN and PELVIS: Intraperitoneal space: No free air. No significant fluid collection. Retroperitoneal space: No abnormality noted. No fluid collection. Bones/joints: There is an acute nondisplaced fracture of the right posterior first rib. There is an age-indeterminate fracture of the left anterior 3rd and 5th ribs. There is scoliotic curvature. Diffuse facet arthrosis noted. There is thoracolumbar severe degenerative disc disease. There is diffuse posterior lumbosacral fusion. Metallic artifact limits assessment of the lumbar canal. No acute spinal fracture noted. Pelvic bones intact. Included portions of the shoulders intact. Sternum intact. Soft tissues: No acute abnormality noted. Vasculature: Atherosclerosis. No aneurysm. Lymph nodes: No enlarged lymph nodes. Tubes, lines and devices: Endotracheal tube in good position. Left subclavian central venous catheter terminates mid SVC. There is a left femoral catheter. The tip is not into the iliac vein. IMPRESSION: 1. Limited study in the setting of trauma without intravenous contrast. 2. Multifocal pneumonia most confluent in the lower lobes. Trace right pleural effusion. 3. Rib fractures as above. 4. No definite traumatic change in the abdomen or pelvis. ACT 112: N/A Electronically signed by Mary Morris 02-15-2025 6:[address] 02/15/25 17:28 EXAM: CT Chest Abdomen and Pelvis Without Intravenous Contrast INDICATION: TECHNIQUE: Axial computed tomography images of the chest, abdomen and pelvis without intravenous contrast. Sagittal and coronal reformatted images were created and reviewed. This CT exam was performed using one or more of the following dose reduction techniques: automated exposure control, adjustment of the mA and/or kV according to patient size, and/or use of iterative reconstruction technique. COMPARISON: No relevant prior studies available. FINDINGS: Limitations: Assessment of aortic and solid organ injury is limited in the absence of IV contrast. CHEST: Lungs and pleural spaces: There is diffuse peribronchial pneumonia with moderate consolidation in both lower lobes left greater than right. Trace right pleural effusion. Heart: No abnormality noted. Mediastinum: No abnormality noted. Thyroid: No abnormality noted. ABDOMEN: Liver: Lack of intravenous contrast limits detection of some masses. No abnormality noted. Gallbladder and bile ducts: No calcified stones or surrounding fluid. No ductal dilation. Pancreas: Mild edema of the distal pancreas difficult to exclude. Small calcification likely vascular region of the distal body. No ductal dilatation. No surrounding fluid or associated gas. Spleen: No acute abnormality noted. Adrenals: No acute abnormality noted. Kidneys and ureters: There is bilateral renal scarring. Nonobstructing stones right kidney. Stomach and bowel: No distension or mucosal thickening. No inflammation noted. PELVIS: Appendix: Well seen and appears normal. Bladder: Appears normal for the degree of filling. No stones or inflammation. No large mass. Masses may not be detected in the absence of opacification. Reproductive: No acute abnormality noted. CHEST, ABDOMEN and PELVIS: Intraperitoneal space: No free air. No significant fluid collection. Retroperitoneal space: No abnormality noted. No fluid collection. Bones/joints: There is an acute nondisplaced fracture of the right posterior first rib. There is an age-indeterminate fracture of the left anterior 3rd and 5th ribs. There is scoliotic curvature. Diffuse facet arthrosis noted. There is thoracolumbar severe degenerative disc disease. There is diffuse posterior lumbosacral fusion. Metallic artifact limits assessment of the lumbar canal. No acute spinal fracture noted. Pelvic bones intact. Included portions of the shoulders intact. Sternum intact. Soft tissues: No acute abnormality noted. Vasculature: Atherosclerosis. No aneurysm. Lymph nodes: No enlarged lymph nodes. Tubes, lines and devices: Endotracheal tube in good position. Left subclavian central venous catheter terminates mid SVC. There is a left femoral catheter. The tip is not into the iliac vein. IMPRESSION: 1. Limited study in the setting of trauma without intravenous contrast. 2. Multifocal pneumonia most confluent in the lower lobes. Trace right pleural effusion. 3. Rib fractures as above. 4. No definite traumatic change in the abdomen or pelvis. ACT 112: N/A Electronically signed by Mary Morris 02-15-2025 6:43 PM I & O Totals 24 Hours 02/14/25 02/15/2502/16/25 06:59 06:59 06:59 Intake Total 261.02 / 261.02 Balance 261.02 / 261.02 Cumulative 02/15/25 15:38 thru 02/15/25 19:19 Intake Total 261.02 Balance 261.02 RT Ventilator Mngmt (Last Documented) Ventilator Ordered Settings Ventilator Support Mode Assist Control 02/15/25 17:53 Respiratory Rate 26 02/15/25 19:12 Ventilator Tidal Volume 380 02/15/25 17:53 Setting Minute Ventilation 9.8 02/15/25 17:53 Positive End Expiratory 10 02/15/25 17:53 Pressure Fraction of Inspired Oxygen 100 02/15/25 18:03 Machine Comment settings per Dr. Kumar 02/15/25 16:05 Ventilator - PT Measurements Respiratory Rate 26 Exhaled Tidal Volume 380 Minute Ventilation 9.8 Peak Inspiratory Airway 27 Pressure Plateau Pressure 21 Respiratory Cycle Inspiratory: 1:1.8 Expiratory Ratio Inspiratory Phase Time 0.8 End-Tidal CO2 9 Static Lung Compliance 34.55 Dynamic Lung Compliance 22.35 Normal Static Lung Compliance 46.00 Coding Level of Care Code 73492 CRITICAL CARE 1ST 30-74M Additional Critical Care Time Additional 30min Critical Care Time: Yes - 32786 Diagnoses Acute renal failure, unspecified acute renal failure type N17.9 Acute renal failure type: unspecified Acute respiratory failure with hypoxia J96.01 Respiratory failure complication: hypoxia Septic shock, due to unspecified organism A41.9; R65.21 Sepsis type: sepsis due to unspecified organism Cardiac arrest I46.9 Influenza A J10.1 Additional Codes Critical Care Time - Additional 30min Critical Care Time: Yes - 15749 ([id number]) (1) Acute renal failure Acute renal failure type: unspecified Qualified Code(s): N17.9 - Acute kidney failure, unspecified (2) Acute respiratory failure Respiratory failure complication: hypoxia Qualified Code(s): J96.01 - Acute respiratory failure with hypoxia (3) Septic shock Sepsis type: sepsis due to unspecified organism Qualified Code(s): A41.9 - Sepsis, unspecified organism; R65.21 - Severe sepsis with septic shock
--- NOTE | 2025-02-15 18:17 | Procedure Note ---
Procedure Note Date of Service February 15, 2025 Procedure date: Noted above Procedure: fiberoptic bronchoscopy Pre-procedure indication: Acute hypoxic and persistent respiratory failure Post-procedure Diagnosis: same as above Prior to Procedure: Informed Consent: The risks, benefits, indications, potential complications, and alternatives were explained to the patient's family: Daughter and granddaughter and verbal informed consent obtained. Attending Staff: Sarabjit Borrero DO Resident/APC: Not applicable Skin Prep: Not applicable Anesthesia: None The identity of the patient was confirmed and a bedside time out was performed. Description of Procedure: Fiberoptic bronchoscopy was performed via endotracheal tube. Serial bronchioalveolar lavage right middle lobe was performed. Findings included: Diffuse hyperemic irritated easily friable airways bilaterally, no significant mucoid impaction, no evidence of diffuse alveolar hemorrhage on serial lavage. Findings most consistent with viral pulmonary infection Complications: None Specimens: Bronchial washings sent for culture and Gram stain, fungal elements, AFB stain and culture, cell count differential, cell count differential, cytology. Estimated blood loss: Zero [facility] Procedure Codes (Charges) Pulmonary/Thoracic Procedure 1: Pulmonary and Thoracic: 43309 Dx bronchoscopy/BAL Coding CPT Codes Pulmonary/Thoracic - Pulmonary and Thoracic: 08109 Dx bronchoscopy/BAL ([id number]) Additional Codes Date of Service ([facility]SURGERY)
--- NOTE | 2025-02-15 18:44 | CT Scan Report ---
EXAM: CT Head and Cervical Spine Without Intravenous Contrast INDICATION: Hypoxia and altered level of consciousness. TECHNIQUE: Axial computed tomography images of the head/brain and cervical spine without intravenous contrast. Sagittal and coronal reformatted images were created and reviewed. This CT exam was performed using one or more of the following dose reduction techniques: automated exposure control, adjustment of the mA and/or kV according to patient size, and/or use of iterative reconstruction technique. COMPARISON: 10/28/2024 FINDINGS: Limitations: None. Brain and extra-axial spaces: There is age appropriate cortical atrophy and chronic ischemic periventricular white matter hypodensity. No acute infarct, hemorrhage or mass noted. 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 Sinuses: No layering fluid in the visualized portions of the paranasal sinuses. Mastoid air cells: No mastoid effusion. Orbits: No acute abnormality noted. Vertebrae: Complex left cervical bowing and accentuated lordosis noted. No cervical fracture or subluxation. Discs/spinal canal/neural foramina: There is moderate degenerative disc narrowing, spondylosis and mild uncal spurring C5-C6. There is minimal ventral thecal sac flattening at this level with mild disc bulge. There is mild right foraminal stenosis at this level. Other bones/joints: There is an acute fracture of the right posterior first rib. Soft tissues: No acute abnormality noted. Vasculature: No acute abnormality noted. Lung apices: No acute abnormality noted. Pleural space: There is mild asymmetric foci of ground glass opacity in the right upper lobe. No apical pneumothorax. Tubes, lines and devices: Endotracheal tube in place. IMPRESSION: 1. Cerebral atrophy. No acute changes. 2. Acute nondisplaced fracture of the right posterior first rib. 3. Ground glass opacities in the right upper lobe are nonspecific. Consider aspiration pneumonitis and contusion. 4. No cervical fracture. ACT 112: N/A Electronically signed by Mary Morris 02-15-2025 6:43 PM
--- NOTE | 2025-02-15 18:44 | CT Scan Report ---
EXAM: CT Chest Abdomen and Pelvis Without Intravenous Contrast INDICATION: TECHNIQUE: Axial computed tomography images of the chest, abdomen and pelvis without intravenous contrast. Sagittal and coronal reformatted images were created and reviewed. This CT exam was performed using one or more of the following dose reduction techniques: automated exposure control, adjustment of the mA and/or kV according to patient size, and/or use of iterative reconstruction technique. COMPARISON: No relevant prior studies available. FINDINGS: Limitations: Assessment of aortic and solid organ injury is limited in the absence of IV contrast. CHEST: Lungs and pleural spaces: There is diffuse peribronchial pneumonia with moderate consolidation in both lower lobes left greater than right. Trace right pleural effusion. Heart: No abnormality noted. Mediastinum: No abnormality noted. Thyroid: No abnormality noted. ABDOMEN: Liver: Lack of intravenous contrast limits detection of some masses. No abnormality noted. Gallbladder and bile ducts: No calcified stones or surrounding fluid. No ductal dilation. Pancreas: Mild edema of the distal pancreas difficult to exclude. Small calcification likely vascular region of the distal body. No ductal dilatation. No surrounding fluid or associated gas. Spleen: No acute abnormality noted. Adrenals: No acute abnormality noted. Kidneys and ureters: There is bilateral renal scarring. Nonobstructing stones right kidney. Stomach and bowel: No distension or mucosal thickening. No inflammation noted. PELVIS: Appendix: Well seen and appears normal. Bladder: Appears normal for the degree of filling. No stones or inflammation. No large mass. Masses may not be detected in the absence of opacification. Reproductive: No acute abnormality noted. CHEST, ABDOMEN and PELVIS: Intraperitoneal space: No free air. No significant fluid collection. Retroperitoneal space: No abnormality noted. No fluid collection. Bones/joints: There is an acute nondisplaced fracture of the right posterior first rib. There is an age-indeterminate fracture of the left anterior 3rd and 5th ribs. There is scoliotic curvature. Diffuse facet arthrosis noted. There is thoracolumbar severe degenerative disc disease. There is diffuse posterior lumbosacral fusion. Metallic artifact limits assessment of the lumbar canal. No acute spinal fracture noted. Pelvic bones intact. Included portions of the shoulders intact. Sternum intact. Soft tissues: No acute abnormality noted. Vasculature: Atherosclerosis. No aneurysm. Lymph nodes: No enlarged lymph nodes. Tubes, lines and devices: Endotracheal tube in good position. Left subclavian central venous catheter terminates mid SVC. There is a left femoral catheter. The tip is not into the iliac vein. IMPRESSION: 1. Limited study in the setting of trauma without intravenous contrast. 2. Multifocal pneumonia most confluent in the lower lobes. Trace right pleural effusion. 3. Rib fractures as above. 4. No definite traumatic change in the abdomen or pelvis. ACT 112: N/A Electronically signed by Mary Morris 02-15-2025 6:43 PM
[2025-02-15] MEDS ORDERED: VANCOMYCIN CONSULT ACTIVE PRN (18:45)
[2025-02-15] MEDS: NOREPINEPHRINE/D5W 4 MG/250 ML IV ONE (18:45)
[2025-02-15] MEDS ORDERED: PLASMA-LYTE A 1,000 ML IV SCH (18:45)
[2025-02-15 19:18] VITALS: PULSE 65; O2SAT 83
[2025-02-15] MEDS: RAPID SEQUENCE INDUCTION BAG ONE (19:21)
[2025-02-15] MEDS: SODIUM CHLORIDE 0.9% 1,000 ML IV SCH (19:22)
[2025-02-15] MEDS: STAT IV Infusion **Titration per Protocol STA (19:25)
[2025-02-15] MEDS: DC HOME INSULIN PUMP STA (19:25)
--- NOTE | 2025-02-15 19:39 | Death Pronouncement Note ---
Date of Service February 15, 2025 Pronouncement Note Admission Date Admission Date: February 15, 2025 Date and Time of Date of : 02/15/25 Time of : 19:24 Contributing Factors (1) Influenza A: (2) Acute respiratory failure: (3) Acute renal failure: (4) Septic shock: (5) Cardiac arrest: Hospital Course Hospital Course: Patient was an extremis upon arrival in the emergency department was promptly intubated. She suffered a cardiac arrest: Pulseless electrical activity and required CPR. There was spontaneous return of circulation while requiring supraphysiologic levels of vasoactive medications. She stabilized to the point that she was able to be transferred to the ICU. Upon arrival of family at bedside and explaining the situation the patient continued to deteriorate. Leola she would not want to undergo aggressive heroic measures and the patient carlos nued to decompensate ultimately becoming asystolic and passing at 7:24 PM with family present at bedside. Additional Data Confirmation of : no pulse, no respirations, no heart sounds and other (No electrical activity on bedside monitor, no blood pressure via arterial monitoring) Family: at bedside Attending/PCP notified?: Yes Attending physician: Tadeo Franco DO Coding Level of Care Code None Diagnoses Influenza A J10.1 Acute respiratory failure with hypoxia J96.01 Respiratory failure complication: hypoxia Acute renal failure, unspecified acute renal failure type N17.9 Acute renal failure type: unspecified Septic shock, due to unspecified organism A41.9; R65.21 Sepsis type: sepsis due to unspecified organism Cardiac arrest I46.9
[2025-02-15] MEDS ORDERED: HEPARIN SOD 5,000 UNIT/0.5 ML VIAL SQ SCH (21:00)
[2025-02-15] MEDS ORDERED: SODIUM CHLORIDE 0.9% PF INJ 10 ML VIAL IV ONE (22:18)
[2025-02-15] MEDS ORDERED: SODIUM BICARB 8.4% INJ 50 MEQ/50 ML SYR IV ONE (22:18)
[2025-02-15] MEDS ORDERED: KETAMINE HCL INJ 50 MG/ML 10 ML VIAL IV ONE (22:18)
[2025-02-15] MEDS ORDERED: ROCURONIUM BROMIDE 10 MG/ML 5 ML VIAL IV ONE (22:18)
[2025-02-16] MEDS ORDERED: MEROPENEM 500 MG in SYRINGE 0 ML IV SCH
[2025-02-16 13:06] LABS: iSTAT Art Bld Gas Base Excess -13.0 mmol/L (-9-1.8); iSTAT Art Bld Gas pCO2 Correct 77 mmHg (35-46); iSTAT Art Bld Gas pH Corrected 6.991 (7.35-7.45); iSTAT Arterial Blood Gas pO2 C 117
--- NOTE | 2025-02-16 13:55 | Electrocardiogram Report ---
Test Reason : Blood Pressure : */* mmHG Vent. Rate : 96 BPM Atrial Rate : 96 BPM P-R Int : 200 ms QRS Dur : 82 ms QT Int : 368 ms P-R-T Axes : 39 26 25 degrees QTcB Int : 464 ms Normal sinus rhythm Nonspecific ST abnormality Abnormal ECG When compared with ECG of 14-Feb-2025 11:21, No significant change was found Confirmed by Paramjit Patton ([id number]) on 02/16/2025 1:55:20 PM Referred By: REFERRED SELF Confirmed By: Paramjit Patton
--- NOTE | 2025-02-16 16:33 | Discharge Summary ---
Discharge Summary Date of Service February 15, 2025 Principal Dx & Hospital Course #1 = Principal Diagnosis (1) Septic shock: (2) Severe sepsis: (3) Acute respiratory failure: (4) Acute renal failure: (5) DM2 (diabetes mellitus, type 2): (6) Anxiety: Plan pt presented to ER in extremis and quickly required CPR; intubated, ROSC obtained, started on pressors and broad spectrum abx. during intubation markedly purulent sputum noted, making sepsis due to CAP the most likely dx. unfortunately quickly deteriorated again and passed shortly after admission to ICU. assessment and plan from admission as below: #severe sepsis/septic shock/acute respiratory failureappears most likely pneumonia as the source. Covering with meropenem, vancomycin, doxycycline. Supportive care with the ventilator and pressors, IV fluids. Admit to ICU. Appreciate art historian assistance. #Severe acidosisappears both metabolic and respiratorymanage septic shock and respiratory failure. Follow #acute renal failuredue to above #DVT prophylaxisheparin subcu #type 2 diabetesinsulin drip for now. Appears to probably have some degree of microvascular ischemic disease given prior history of foot ulcers and osteomyelitis. A1c 10/30/2024 was 6.8 #elevated troponindemand ischemiatrend. Echocardiogram from about 3 months ago showed normal LV size and wall thickness with an EF of 65 to 70%, only mild tricuspid regurgitation has any notable valve abnormality #microcytosisappears to have been iron deficientreplace once sepsis has resolved #lumbar spinal stenosisgabapentin obviously currently on hold while intubated #Crohn'sfollow clinically #anxietyobviously currently well intubated BuSpar and duloxetine are on hold #hypothyroidismSynthroid on hold, can switch to IV if intubated/n.p.o. status becomes prolonged Notes For Next Care Provider Medication Changes From Visit pt passed Admission HPI Per Admitting Provider patient found unresponsive. Brought to the ER. Became hemodynamically unstable and required ACLS. ROSC obtained. See ER physician notes for granular details. ICU seeing patient and getting central IV access. No HPI or review of systems obtainable. Of note copious purulent sputum when intubated. Updated Medication List Medication Instructions Recorded Confirmed Type aspirin 81 mg tablet,delayed 81 mg PO QAM 06/10/18 12/28/24 History release vedolizumab 300 mg intravenous 300 mg IV Q8WK #1 ea 06/28/20 12/28/24 Rx solution (Entyvio) multivitamin 1 tab PO QAM 12/26/22 12/28/24 History cyanocobalamin (vitamin B-12) 1,000 mcg PO DAILY 08/20/23 12/28/24 History 1,000 mcg tablet (Vitamin B-12) diphenhydramine HCl 25 mg capsule 25 mg PO DIRECTED PRN NEEDED 08/20/23 12/28/24 History (Benadryl) levothyroxine 88 mcg tablet 88 mcg PO QAM #60 tabs 04/28/24 12/28/24 Rx ropinirole 1 mg tablet 1 mg PO BID #180 tabs 05/10/24 12/28/24 Rx topiramate 25 mg tablet (Topamax) 25 mg PO BID #180 tabs 05/10/24 12/28/24 Rx atorvastatin 20 mg tablet 20 mg PO QAM #90 tabs 05/17/24 12/28/24 Rx lisinopril 30 mg tablet 30 mg PO QAM #90 tabs 05/17/24 12/28/24 Rx metformin 500 mg tablet,extended 500 mg PO .COMPLEX #270 tabs 05/17/24 12/28/24 Rx release 24 hr blood sugar diagnostic (OneTouch #300 ea 07/01/24 12/28/24 Rx Verio test strips) acetaminophen 500 mg tablet 500 mg PO DIRECTED PRN Pain 07/18/24 12/28/24 History buspirone 30 mg tablet 30 mg PO BID 07/18/24 12/28/24 History duloxetine 60 mg capsule,delayed 60 mg PO QAM 07/18/24 12/28/24 History release hydroxyzine HCl 25 mg tablet 25 mg PO 5XD PRN anxiety 07/18/24 12/28/24 History ondansetron HCl 4 mg tablet 8 mg PO Q8H PRN NAUSEA/VOMITING 07/18/24 12/28/24 History blood-glucose meter (OneTouch #1 ea 09/17/24 12/28/24 Rx Verio Reflect Meter) lancets 33 gauge #300 ea 09/17/24 12/28/24 Rx levalbuterol tartrate 45 1 inh inhalation Q6H PRN Shortness 10/05/24 12/28/24 Rx mcg/actuation aerosol inhaler Of Breath Or Wheezing #15 grams duloxetine 30 mg capsule,delayed 30 mg PO QAM 10/28/24 12/28/24 History release mupirocin 2 % topical ointment 1 applic EXT BID #22 grams 11/02/24 12/28/24 Rx insulin glargine 100 unit/mL (3 44 - 60 unit (0.44 - 0.6 mL) 12/28/24 12/28/24 Rx mL) subcutaneous pen (Lantus subcut QPM 3 months #45 mL Solostar U-100 Insulin) pen needle, diabetic 32 gauge x #100 ea 12/28/24 12/28/24 Rx 5/32" loperamide 2 mg capsule 2 mg PO Q6H PRN loose stool 90 12/31/24 Rx days #180 caps gabapentin 600 mg tablet 600 mg PO BID #180 tabs 01/31/25 Rx omeprazole 40 mg capsule,delayed 40 mg PO BID #180 caps 01/31/25 Rx release tramadol 50 mg tablet 50 mg PO BID 30 days #60 tabs 02/01/25 Rx meclizine 12.5 mg tablet 12.5 - 25 mg (1 - 2 x 12.5 mg) PO 02/14/25 Rx BID PRN dizziness #180 tabs Hospital Stay Data Consultations 02/15/25 16:46 ED Decision to Admit Stat 02/15/25 18:45 Consult Plant Utility Person Routine Diagnostic Imagining Performed 02/15/25 16:06 CT cervical spine wo con Stat CT head/brain wo con Stat 02/15/25 17:28 CT abd pelvis wo con Stat CT chest diagnostic wo con Stat Total Time Total Time Spent Total Time Spent (In Minutes): after H&P, care was carried out by ICU team
--- NOTE | 2025-02-18 12:59 | Electrocardiogram Report ---
Test Reason : Blood Pressure : */* mmHG Vent. Rate : 134 BPM Atrial Rate : 134 BPM P-R Int : 166 ms QRS Dur : 110 ms QT Int : 360 ms P-R-T Axes : 71 73 2 degrees QTcB Int : 537 ms Sinus tachycardia Abnormal ECG When compared with ECG of 15-Feb-2025 15:48, Non-specific change in ST segment in Inferior leads T wave inversion now evident in Inferior leads Confirmed by Paramjit Patton ([id number]) on 02/18/2025 12:58:58 PM Referred By: REFERRED SELF Confirmed By: Paramjit Patton
== END 2025-02-15 22:19 | disposition expired | DRG 871 ==
LOC: ED 15:44 → 1E 16:55